=== PATIENT | female | born 1945 | race Caucasian/White ===

== ENCOUNTER → 2016-08-27 | Outpatient (CLI) | payer OTHER, MEDICARE ==
[~2016-08-27] MED LIST: AMOX875T PO; ASPI-391 PO; CALCTAB65 PO; FURO40TA3 PO; GABA-112 PO; HYDR-3126 PO; HYDR-5688 PO; INSDGI SC; INSUINJ14 SC; KRIL1CAP7 PO; LISI-792 PO; METH500T PO; MULT-506 PO; OMEG10007 PO; PARO40TA3 PO; ROSU20TA22 PO; RXC5 PO; SIMV10TA2 PO; WLLXL150 PO
--- NOTE | 2016-08-27 11:01 | DIAGNOSTIC IMAGING REPORT ---
RIGHT RIBS UNILATERAL WITH PA CHEST CLINICAL HISTORY: R07.81 Rib pain on right [id number] Right pain. Trauma. COMPARISON STUDY: None FINDINGS: Nondisplaced fractures right fourth and sixth ribs.] Midaxillary line. No evidence pneumothorax. Lungs are clear. IMPRESSION: Nondisplaced cortical fractures right fourth and sixth ribs. No evidence pneumothorax. Electronically signed by: Adriano Fregoso M.D. 08/27/2016 10:59 AM Dictated Date/Time: 08/27/2016 10:56 AM
[2016-08-27 11:10] LABS: BASO % 0.5 %; BASO ABS # 0.04 K/uL (0-0.2); COMPLETE YES; EOS % 1.7 %; IG% 0.3 %; LYMPH % 26.7 %; LYMPH ABS # 2.09 K/uL (1.2-3.4); MEAN CORPUSCULAR HEMOGLOBIN 28.6 pg (25-34); MEAN CORPUSCULAR HGB CONC 33.7 g/dl (32-36); MEAN PLATELET VOLUME 10.4 fL (7.4-10.4); MONO % 9.3 %; NEUT % 61.5 %; PLATELET COUNT 318 K/uL (130-400); RED BLOOD COUNT 4.12 M/uL (4.2-5.4); WHITE BLOOD COUNT 7.84 K/uL (4.8-10.8)
[2016-08-27 11:19] LABS: BLOOD UREA NITROGEN 20 mg/dl (7-18); BUN/CREATININE RATIO 22.8 (10-20); CALCIUM 9.1 mg/dl (8.5-10.1); CARBON DIOXIDE 27 mmol/L (21-32); CHLORIDE 103 mmol/L (98-107); CREATININE 0.89 mg/dl (0.60-1.20); GLUCOSE 192 mg/dl (70-99); POTASSIUM 4.3 mmol/L (3.5-5.1); SODIUM 138 mmol/L (136-145)
[2016-08-27 11:23] LABS: ESTIMATED AVERAGE GLUCOSE 229 mg/dl; HA1C FLAG Normal (Normal)
[2016-08-27 11:29] LABS: FERRITIN 19.1 ng/ml (8.0-388.0); TOTAL IRON BINDING CAPACITY 395 mcg/dl (250-450)
[2016-08-27 12:58] LABS: RATIO 7.8 mcg/mg (0-30.0)
== END | disposition home or self-care (01) ==
LOC: C.RAD1850 10:10
PROVIDERS: ATTEND Family Medicine
DX: R07.81 Pleurodynia (principal); R53.83 Other fatigue; M85.80 Other specified disorders of bone density and structure, unspecified site; Z87.898 Personal history of other specified conditions; I10 Essential (primary) hypertension; E78.5 Hyperlipidemia, unspecified; R80.9 Proteinuria, unspecified; R20.0 Anesthesia of skin; E55.9 Vitamin D deficiency, unspecified; E10.9 Type 1 diabetes mellitus without complications; E10.43 Type 1 diabetes mellitus with diabetic autonomic (poly)neuropathy; E10.42 Type 1 diabetes mellitus with diabetic polyneuropathy; Z11.59 Encounter for screening for other viral diseases; S22.41XA Multiple fractures of ribs, right side, initial encounter for closed fracture

== ENCOUNTER → 2017-01-07 | Outpatient (CLI) | payer OTHER, MEDICARE ==
--- NOTE | 2017-01-07 15:44 | MAMMOGRAPHY REPORT ---
BILATERAL DIGITAL SCREENING MAMMOGRAM WITH CAD: 01/07/2017 CLINICAL HISTORY: Routine screening. Patient has no complaints. TECHNIQUE: Bilateral CC and MLO views were obtained. Current study was also evaluated with a Comput er Aided Detection (CAD) system. COMPARISON: Comparison is made to exams dated: 05/09/2015 mammogram, 05/08/2014 mammogram, 3 mammogram, 03/30/2012 mammogram, 02/12/2011 mammogram, and 02/07/2011 mammogram - [facility]. BREAST COMPOSITION: There are scattered areas of fibroglandular density in both breasts. FINDINGS: An asymmetry in the upper outer middle one third of the right breast appears very similar t o the 02/07/2011 and 03/14/2008 mammograms, most likely normal overlapping tissue. There are mild va scular calcifications in the breasts. Bilateral benign-appearing coarse and rodlike calcifications. No suspicious mass, architectural distortion or cluster of suspicious microcalcifications is seen. IMPRESSION: ACR BI-RADS CATEGORY 1: NEGATIVE There is no mammographic evidence of malignancy. A 1 year screening mammogram is recommended. The pa tient will receive written notification of the results. Approximately 10% of breast cancers are not detected with mammography. A negative mammographic report should not delay biopsy if a clinically suggestive mass is present. Nadia Tate M.D. ay/:01/07/2017 15:19:27 Cabin Service Agent: Baylee AMAYA)(Cruz), [facility] letter sent: Normal 1/2 BI-RADS Code: ACR BI-RADS Category 1: Negative
== END | disposition home or self-care (01) ==
LOC: C.MAMM 14:21
PROVIDERS: ATTEND Nurse Practitioner Family
DX: Z12.31 Encounter for screening mammogram for malignant neoplasm of breast (principal)

== ENCOUNTER 2017-03-14 12:04 | Emergency (ER) | payer OTHER, MEDICARE ==
[~2017-03-14] VITALS: Ht 162.6 cm; Wt 80.7 kg
[~2017-03-14 12:04] MED LIST changes: -AMOX875T PO; -KRIL1CAP7 PO; -ROSU20TA22 PO
[2017-03-14 12:06] VITALS: TEMP 36.6; Ht 162.6 cm; Wt 80.7 kg
[2017-03-14] MEDS ORDERED: AMPICILLIN/SULBACTAM SOD INJ 3,000 MG in SODIUM CHLORIDE 0.9% 100ML 100 ML IV ONE (12:30)
--- NOTE | 2017-03-14 13:11 | DIAGNOSTIC IMAGING REPORT ---
LEFT HAND 3 VIEWS HISTORY: cat bite COMPARISON: None. FINDINGS: No acute fracture or dislocation. Old distal radius and ulnar styloid fractures. The bones are osteopenic. Mild degenerative changes seen within the DIP and PIP joints. Soft tissue swelling within the dorsum of the wrist and base of the thumb. No underlying bony destruction. No radiopaque foreign bodies. IMPRESSION: Soft tissue swelling within the dorsum of the wrist and base of the thumb. No underlying bony abnormality. Electronically signed by: Parminder Millan M.D. 03/14/2017 1:10 PM Dictated Date/Time: 03/14/2017 1:09 PM
[2017-03-14 13:32] VITALS: BP 128/87; PULSE 68; O2SAT 97
[2017-03-14] MEDS ORDERED: AMOX875T PO (13:34)
[2017-03-14] MEDS ORDERED: KRIL1CAP7 PO (13:41)
[2017-03-14] MEDS ORDERED: ROSU20TA22 PO (13:48)
--- NOTE | 2017-03-14 15:18 | EMERGENCY ROOM VISIT NOTE ---
History Report prepared by Marcy: Joaquina Goins Under the Supervision of: Joy KaurO. First contact with patient: 12:14 Chief Complaint: INFECTION Stated Complaint: INFECTED HAND - CAT BITE History of Present Illness The patient is a 71 year old female who presents to the Emergency Room with complaints of a sudden cat bite to her left arm that occurred last evening. She currently rates her discomfort as a 4/10 in severity. The patient states that she has been bitten by her cat in the past, noting that she has previously developed infections. She states that with one previous bite, she waited too long and had to be evaluated in the hospital for infection. The patient states that her cat's shots are up to date. She does note that the cat has a dirty mouth. Pt denies headache, change in vision, abnormal cough, fevers, chest pain , shortness of breath, nausea, vomiting, diarrhea, and pain with urination. Source of History: patient Onset: last evening Position: hand (left) Symptom Intensity: 4/10 Quality: other (cat bite) Timing: other (sudden) Review of Systems See HPI for pertinent positives & negatives. A total of 10 systems reviewed and were otherwise negative. Past Medical & Surgical Medical Problems: (1) Benign hypertension (2) Diabetes mellitus (3) Hypercholesterolemia (4) Lumbar epidural mass (5) Lumbar stenosis with neurogenic claudication Family History FH: diabetes mellitus Social History Smoking Status: Former Smoker Alcohol Use: heavy Drug Use: none Marital Status: Housing Status: lives with family Occupation Status: retired Current/Historical Medications Scheduled Amoxicillin & Pot Clavulanate (Augmentin 875-125 mg), 875 MG PO BID Sgwkxnz-Bsnczxtyblrch-Orqidxhn (Excedrin Extra Strength), 2 TAB PO HS Calcium Carbonate-Vitamin D (Calcium 500 + D), 1 TAB PO BID Insulin Glargine (Lantus), 18 UNITS SC QPM Krill Oil (Krill Oil [place]-3), 1 CAP PO DAILY Lisinopril (Zestril), 20 MG PO QAM Multivitamin (Multivitamin), 1 TAB PO QAM Paroxetine Hcl (Paxil), 40 MG PO QAM Rosuvastatin Calcium (Rosuvastatin Calcium), 20 MG PO QPM Scheduled PRN Furosemide (Lasix), 40 MG PO QAM PRN for SWELLING Hydroxyzine Hcl (Atarax), 25 MG PO TID PRN for Dizziness or Vertigo Insulin Aspart (Novolog Penfill), 0 SC TIDM PRN for HYPERGLYCEMIA Oxycodone HCl (Oxycodone HCl), 5-10 MG PO Q4H PRN for Moderate - severe pain Allergies Coded Allergies: No Known Allergies (Verified , 03/14/17) Physical Exam Vital Signs Date Time Temp Pulse Resp B/P (MAP) Pulse Ox O2 Delivery O2 Flow Rate FiO2 03/14/17 13:32 68 18 128/87 97 Room Air 03/14/17 12:06 36.6 79 16 116/67 96 Room Air Physical Exam GENERAL: alert, sitting up in bed, well appearing, well nourished, no distress, non-toxic EYE EXAM: normal conjunctiva. OROPHARYNX:: mucous membranes are moist LUNGS: Clear to auscultation. Normal chest wall mechanics HEART: no murmurs, S1 normal and S2 normal ABDOMEN: abdomen soft, non-tender, normo-active bowel sounds, no masses, no rebound or guarding. UPPER EXTREMITIES: 2 puncture wounds on dorsal aspect, first at the base of the 1st metacarpal, 2nd at the proximal third of the 2nd metacarpal. No swelling in digits, no erythema in digits. 9cm in length by 6 cm in width area of erythema which is warm. Radial pulse is 2/4, full range of motion of left shoulder, elbow, wrist, grasp and abduction of digits. NEURO EXAM: Normal sensorium. Medical Decision & Procedures ER Provider Diagnostic Interpretation: Radiology results as stated below per my review and the radiologist's interpretation: LEFT HAND 3 VIEWS HISTORY: cat bite COMPARISON: None. FINDINGS: No acute fracture or dislocation. Old distal radius and ulnar styloid fractures. The bones are osteopenic. Mild degenerative changes seen within the DIP and PIP joints. Soft tissue swelling within the dorsum of the wrist and base of the thumb. No underlying bony destruction. No radiopaque foreign bodies. IMPRESSION: Soft tissue swelling within the dorsum of the wrist and base of the thumb. No underlying bony abnormality. Electronically signed by: Parminder Millan M.D. 03/14/2017 1:10 PM Dictated Date/Time: 03/14/2017 1:09 PM Medications Administered Medications (Trade) Dose Ordered Sig/Anny Route Start Time Stop Time Status Last Admin Dose Admin Ampicillin Sodium/ Sulbactam Sodium 3000 mg/Sodium Chloride 108 ml @ 200 mls/hr ONE ONCE IV 03/14/17 12:30 03/14/17 13:02 DC 03/14/17 12:47 200 MLS/HR ED Course ED COURSE: Vital signs were reviewed and showed normal vitals The patients medical record was reviewed The above diagnostic studies were performed and reviewed. ED treatments and interventions as stated above. 1215: The patient was evaluated in room A12B. A complete history and physical examination was performed. 1230: Ordered Ampicillin Sodium/Sulbactam Sodium 3000 mg/Sodium Chloride 108 ml @ 200 mls/hr IV. 1321: Upon reevaluation, the patient is doing well. I updated her at this time and marked the areas of erythema. I discussed my findings with the patient and she understands and agrees with the treatment plan. Based on the patients age, coexisting illnesses, exam and lab findings the decision to treat as an outpatient was made. The patient remained stable while under my care. The patient appeared well at the time of discharge. Medical Decision Differential diagnosis includes etiologies such as cellulitis, abscess, MRSA infection, DVT, necrotizing fasciitis, dermatitis, drug eruption, as well as others were entertained. Patient is a 71-year-old female who presents to ER following a Bite last night. It is her own cat. Shots are up-to-date. Patient notes that she has been having swelling and redness. There is clear erythema to suggest cellulitis. Patient was given IV Unasyn and covered with Augmentin. It does not appear to the digits or the joint. X-ray shows no foreign bodies/tooth present. Patient was updated at bedside and discharged follow-up with PCP on Thursday. Erythema was outlined. She is well versed in Bites as this is the third time that this has occurred. Patient was discharged follow-up with PCP in 24-48 hours. Discussed with Pt concerning signs and symptoms to watch out for. Pt was instructed to follow up with their PCP and discussed with the patient their option to return to the ED at anytime for persistent or worsening symptoms. The appropriate anticipatory guidance and out-patient management, including indications for return to the emergency department, were explained at length to the patient and understood. Medication Reconcilliation Current Medication List: was personally reviewed by me Blood Pressure Screening Patient's blood pressure: Normal blood pressure Blood pressure disposition: Did not require urgent referral Impression Primary Impression: Cat bite Additional Impression: Cellulitis Scribe Attestation The scribe's documentation has been prepared under my direction and personally reviewed by me in its entirety. I confirm that the note above accurately reflects all work, treatment, procedures, and medical decision making performed by me. Departure Information Dispostion Home / Self-Care Prescriptions Amoxicillin & Pot Clavulanate (Augmentin 875-125 mg) 1 Tab Tab 875 MG PO BID for 10 Days, TAB Prov: Antoine Landry, DO 03/14/17 Referrals Greg Barrera M.D. (PCP) Forms HOME CARE DOCUMENTATION FORM, IMPORTANT VISIT INFORMATION, WORK / SCHOOL INSTRUCTIONS Patient Instructions Cellulitis - [facility], ED Bite Cat, [facility] ERN Additional Instructions Please follow up with your primary care doctor with in the next 24 hours. Any worsening of your symptoms, please return to the ED immediately. This includes any fevers greater than 100.4, worsening pain, spreading of the redness outside the marker, streaking redness up her arm, shaking chills, unable to close hand due to pain, chest pain, shortness breath, persistent nausea, vomiting, unable to eat or drink, or any other concerning signs or symptoms from your standpoint. Please take antibiotics as prescribed. Problem Qualifiers Primary Impression: Cat bite Encounter type: initial encounter Qualified Codes: W55.01XA - Bitten by cat , initial encounter Additional Impression: Cellulitis Site of cellulitis: unspecified site Qualified Codes: L03.90 - Cellulitis, unspecified
== END 2017-03-14 13:48 | disposition home or self-care (01) ==
LOC: C.EDB 12:05 → C.EDA 13:48
DX: S61.432A Puncture wound without foreign body of left hand, initial encounter (principal); L03.114 Cellulitis of left upper limb; W55.01XA Bitten by cat, initial encounter; I10 Essential (primary) hypertension; E11.9 Type 2 diabetes mellitus without complications; E78.00 Pure hypercholesterolemia, unspecified; Z87.891 Personal history of nicotine dependence; Z79.4 Long term (current) use of insulin; Z79.899 Other long term (current) drug therapy; Z83.3 Family history of diabetes mellitus

== ENCOUNTER 2017-03-16 16:00 | Inpatient (IN) | payer OTHER, MEDICARE ==
[~2017-03-16] VITALS: Ht 162.6 cm; Wt 80.7 kg
[~2017-03-16 16:00] MED LIST changes: +AMOX875T PO; -GABA-112 PO; -HYDR-5688 PO; +KRIL1CAP7 PO; -METH500T PO; -OMEG10007 PO; +ROSU20TA22 PO; -SIMV10TA2 PO; -WLLXL150 PO
[2017-03-16 17:22] LABS: BASO % 0.3 %; BASO ABS # 0.03 K/uL (0-0.2); COMPLETE YES; HEMATOCRIT 35.3 % (37-47); IG% 0.2 %; LYMPH % 24.7 %; LYMPH ABS # 2.77 K/uL (1.2-3.4); MEAN CELL VOLUME 87.8 fL (80-100); MEAN CORPUSCULAR HEMOGLOBIN 28.9 pg (25-34); MEAN CORPUSCULAR HGB CONC 32.9 g/dl (32-36); MEAN PLATELET VOLUME 10.7 fL (7.4-10.4); NEUT % 67.8 %; PLATELET COUNT 310 K/uL (130-400); RED BLOOD COUNT 4.02 M/uL (4.2-5.4); WHITE BLOOD COUNT 11.22 K/uL (4.8-10.8)
[2017-03-16] MEDS ORDERED: AZITHROMYCIN 500 MG / D5W 250 ML IV STA ×2 (17:32)
[2017-03-16] MEDS ORDERED: AZITHROMYCIN 500 MG / D5W 250 ML IV ONE ×2 (17:32)
[2017-03-16 17:37] LABS: PROTHROMBIN TIME (PATIENT) 10.2 SECONDS (9.0-12.0)
[2017-03-16 17:43] LABS: BUN/CREATININE RATIO 29.3 (10-20); CALCIUM 9.6 mg/dl (8.5-10.1); CREATININE 1.1 mg/dl (0.60-1.20); POTASSIUM 4.5 mmol/L (3.5-5.1)
[2017-03-16] MEDS ORDERED: PIPERACILLIN/TAZOBACTAM 4.5 GM/100ML D5W IV STA (17:44)
[2017-03-16] MEDS ORDERED: GLUCOSE 10 TABS/TUBE PO PRN (18:45)
[2017-03-16] MEDS ORDERED: ACETAMINOPHEN 325 MG TAB PO PRN (18:45)
[2017-03-16] MEDS ORDERED: DEXTROSE 50% 50 ML SYR IV PRN (18:45)
[2017-03-16] MEDS ORDERED: GLUCOSE 40% GEL 15 GM TUBE PO PRN (18:45)
[2017-03-16] MEDS ORDERED: ONDANSETRON INJ 2 MG/ML 2 ML VIAL IV PRN (18:45)
[2017-03-16] MEDS ORDERED: ZOLPIDEM TARTRATE 5 MG TAB PO PRN (18:45)
[2017-03-16] MEDS ORDERED: GLUCAGON FOR INJ 1 MG VIAL SQ PRN (18:45)
[2017-03-16] MEDS ORDERED: VANCOMYCIN INJ 1,000 MG in SODIUM CHLORIDE 0.9% 250ML 250 ML IV STA (18:50)
[2017-03-16] MEDS ORDERED: ONDANSETRON INJ 2 MG/ML 2 ML VIAL ONE (19:05)
[2017-03-16] MEDS ORDERED: VANCOMYCIN INJ 2,000 MG in SODIUM CHLORIDE 0.9% 500ML 500 ML IV ONE (19:30)
[2017-03-16] MEDS ORDERED: VANCOMYCIN CONSULT ACTIVE PRN (19:45)
[2017-03-16 20:30] VITALS: BP 131/56; PULSE 81; TEMP 36.8; O2SAT 98
--- NOTE | 2017-03-16 20:32 | Pharmacy Progress Note ---
Pharmacy Abx Dose Short Note Date of Service Mar 16, 2017. Assessment & Plan Pt is a 71yo F known to the pharmacy kinetic team from previous admissions. 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 qSOFA score of 0 currently. Negative for Sys BP<100mmHg, negative AMS, negative for tachypnea. Pt population p' kinetics: t1/2=15hrs, Ke=0.0451, Vd=0.7. Pt doesn't have a h/o MDRO. Vanco: * Vanco 2000mg (~25mg/kg) x1 to quickly achieve a peak of about 35mcg/mL * Then Vanco 1250mg (15mg/kg) q12 set to start at 0600 on 03/17/17. This Vanco maintenance dose is based on her baseline renal fxn. Baseline: Scr=~0.8, eCrCl=~ 65cc/min. If her renal fxn doesn't improve it may be prudent to increase the dosing interval. * Goal trough: 15-20mcg/mL until C/s's result * Trough ordered for 03/18/17 @0530 prior to the third maintenance dose. Zosyn: * Received Zosyn bolus @1810 * Set to receive EI Zosyn 3.375g q8, appropriate for clinical status and eCrCL> 20cc/MIN Pharmacy will continue to follow and will adjust dose/frequency as necessary. Thank you.
[2017-03-16 21:00] VITALS: BMI 30.5
[2017-03-16] MEDS ORDERED: PIPERACILL/TAZOBAC CONSULT ACTIVE PRN (21:00)
[2017-03-16] MEDS ORDERED: NON-FORMULARY MEDICATION (Aspirin-Acetaminophen-Caffeine (Excedrin Extra Strength) 2 TAB) PO SCH (21:00)
--- NOTE | 2017-03-16 22:02 | EMERGENCY ROOM VISIT NOTE ---
History Report prepared by Marcy: Julito Mccall Under the Supervision of: Dr. Chris Guzman M.D. First contact with patient: 16:48 Chief Complaint: WOUND INFECTION Stated Complaint: CAT BITE INFECTED Nursing Triage Summary: cat bite getting worse was seen on antibiotics getting worse. sent over from the PCP History of Present Illness The patient is a 71 year old female who presents to the Emergency Room with complaints of a worsening cat bite that started a couple of days ago. She rates her pain as a 5/10 in severity and reports that the bite is located on her left arm. She states that she was seen here on March 14 due to her cat bite. The patient states that she was diagnosed with cellulitis and was given Augmentin. She reports that the doctor had drawn a line around her swollen, erythematous area and was told to see if the area spread. She admits that she has been taking her medication, but reports that her bite has been worsening. The patient states that the area has spread beyond the line and has increased in pain. She reports that she squeezed the area and noticed pus and clear liquid was pushed out. The patient reports that she talked to her PCP who told her to report to the ED due to her symptoms. The patient admits to a history of Diabetic Mellitus and reports that her sugar level has been in the 400s at times. She states that she has poor glycemic control in general. She admits that her shots are up to date. The patient denies any fever or vomiting. Source of History: patient Onset: a couple of days ago Position: arm (left) Symptom Intensity: 5/10 Quality: other (erythematous, warm) Timing: worsening Modifying Factors (Relieving): other (Augmentin) Associated Symptoms: No fevers, No vomiting Review of Systems See HPI for pertinent positives & negatives. A total of 10 systems reviewed and were otherwise negative. Past Medical & Surgical Medical Problems: (1) Benign hypertension (2) Diabetes mellitus (3) Hypercholesterolemia (4) Lumbar epidural mass (5) Lumbar stenosis with neurogenic claudication Family History FH: diabetes mellitus Social History Smoking Status: Never Smoker Alcohol Use: heavy Drug Use: none Marital Status: Housing Status: lives with family Occupation Status: retired Current/Historical Medications Scheduled Amoxicillin & Pot Clavulanate (Augmentin 875-125 mg), 875 MG PO BID Pltazgz-Pnceflokttjbr-Jmmescdj (Excedrin Extra Strength), 2 TAB PO HS Calcium Carbonate-Vitamin D (Calcium 500 + D), 1 TAB PO BID Insulin Glargine (Lantus), 18 UNITS SC QPM Krill Oil (Krill Oil [place]-3), 1 CAP PO DAILY Lisinopril (Zestril), 20 MG PO QAM Multivitamin (Multivitamin), 1 TAB PO QAM Paroxetine Hcl (Paxil), 40 MG PO QAM Rosuvastatin Calcium (Rosuvastatin Calcium), 20 MG PO QPM Scheduled PRN Furosemide (Lasix), 40 MG PO QAM PRN for SWELLING Hydroxyzine Hcl (Atarax), 25 MG PO TID PRN for Dizziness or Vertigo Insulin Aspart (Novolog Penfill), 0 SC TIDM PRN for HYPERGLYCEMIA Allergies Coded Allergies: Oxycodone (Verified Allergy, Mild, ITCHING, 03/16/17) Physical Exam Vital Signs Date Time Temp Pulse Resp B/P (MAP) Pulse Ox O2 Delivery O2 Flow Rate FiO2 03/16/17 18:03 64 20 108/55 92 Room Air 03/16/17 16:17 36.9 78 20 108/53 95 Room Air Physical Exam Constitutional: Vital signs reviewed. Eyes: Pupils are equal round reactive to light. Conjunctiva are noninjected. ENT: Pharynx is clear without erythema or exudate. Mucous membranes are moist. Neck supple without meningeal signs. Respiratory: Clear to auscultation bilaterally. Breath sounds are equal bilaterally. Cardiovascular: Regular rate and rhythm. No rubs or gallops. GI: Soft, nondistended and nontender. Bowel sounds are present. Musculoskeletal: No peripheral edema. No lower extremity tenderness. Swelling and redness to the dorsum of the left hand extending up to 2/3s of her forearm. Tenderness over dorsum of hand at puncture sites. Full ROM of wrist without pain. No swelling or pain with ROM of fingers. Normal distal pulses. Integumentary: No cyanosis. Neurological: The patient is awake and alert. No focal deficits. Psychiatric: Normal affect. Medical Decision & Procedures Laboratory Results 03/16/17 17:12 Red Blood Count 4.02, Mean Corpuscular Volume 87.8, Mean Corpuscular Hemoglobin 28.9, Mean Corpuscular Hemoglobin Concent 32.9, Mean Platelet Volume 10.7, Neutrophils (%) (Auto) 67.8, Lymphocytes (%) (Auto) 24.7, Monocytes (%) (Auto) 6.0, Eosinophils (%) (Auto) 1.0, Basophils (%) (Auto) 0.3, Neutrophils # (Auto) 7.62, Lymphocytes # (Auto) 2.77, Monocytes # (Auto) 0.67, Eosinophils # (Auto) 0.11, Basophils # (Auto) 0.03 03/16/17 17:12 Test 03/16/17 17:12 White Blood Count 11.22 K/uL (4.8-10.8) Red Blood Count 4.02 M/uL (4.2-5.4) Hemoglobin 11.6 g/dL (12.0-16.0) Hematocrit 35.3 % (37-47) Mean Corpuscular Volume 87.8 fL (80-100) Mean Corpuscular Hemoglobin 28.9 pg (25-34) Mean Corpuscular Hemoglobin Concent 32.9 g/dl (32-36) Platelet Count 310 K/uL (130-400) Mean Platelet Volume 10.7 fL (7.4-10.4) Neutrophils (%) (Auto) 67.8 % Lymphocytes (%) (Auto) 24.7 % Monocytes (%) (Auto) 6.0 % Eosinophils (%) (Auto) 1.0 % Basophils (%) (Auto) 0.3 % Neutrophils # (Auto) 7.62 K/uL (1.4-6.5) Lymphocytes # (Auto) 2.77 K/uL (1.2-3.4) Monocytes # (Auto) 0.67 K/uL (0.11-0.59) Eosinophils # (Auto) 0.11 K/uL (0-0.5) Basophils # (Auto) 0.03 K/uL (0-0.2) RDW Standard Deviation 44.5 fL (36.4-46.3) RDW Coefficient of Variation 13.7 % (11.5-14.5) Immature Granulocyte % (Auto) 0.2 % Immature Granulocyte # (Auto) 0.02 K/uL (0.00-0.02) Prothrombin Time 10.2 SECONDS (9.0-12.0) Prothromb Time International Ratio 1.0 (0.9-1.1) Activated Partial Thromboplast Time 25.2 SECONDS (21.0-31.0) Partial Thromboplastin Ratio 1.0 Anion Gap 6.0 mmol/L (3-11) Est Creatinine Clear Calc Drug Dose 48.9 ml/min Estimated GFR () 58.9 Estimated GFR (Non- 50.8 BUN/Creatinine Ratio 29.3 (10-20) Calcium Level 9.6 mg/dl (8.5-10.1) Laboratory results as reviewed by me. Medications Administered Medications (Trade) Dose Ordered Sig/Anny Route Start Time Stop Time Status Last Admin Dose Admin Azithromycin 500 mg/Dextrose 255 ml @ 127.5 mls/ hr 1732 ONCE IV 03/16/17 17:32 03/16/17 19:31 DC 03/16/17 18:00 127.5 MLS/HR Piperacillin Sod/ Tazobactam Sod (Zosyn Iv) 4.5 gm NOW STAT IV 03/16/17 17:44 03/16/17 17:45 DC 03/16/17 18:10 4.5 GM ED Course 1651: The patient was evaluated in room A08. A complete history and physical exam was performed. 1732: Ordered Azithromycin 500 mg/Dextrose 255 ml @ 127.5 mls/hr IV. 1744: Ordered Zosyn Iv 4.5 gm IV. 1754: I discussed the patient's case with Dr. Pinzon, [facility] Hospitalist. He understands the patient's condition and agrees to accept the patient. The patient will be further evaluated. Medical Decision This is a 71-year-old female presents with an infected cat bite. Differential diagnosis includes cellulitis, abscess, Scratch disease, lymphangitis, outpatient treatment failure. I did perform a limited focused review of portions of the patient's old chart on the electronic medical record. The patient has had a recent visit on March 14 for a cat bite to her left arm. She was diagnosed with cellulitis and was put on Augmentin. She had an x- ray done that showed no foreign body. I did evaluate the patient as noted above. Patient is presenting with infection of her Eye. She has been on antibiotics for several days with worsening of her symptoms. She denies any fever or vomiting. She does admit to poor glycemic control. She did have some drainage from her wounds but on examination here she has no signs of abscess. There is no signs of tenosynovitis or septic arthritis. IV access was established. Blood cultures were obtained. I did talk to the ED pharmacist who recommended treatment with IV azithromycin and Zosyn. The patient's were given these medications. I did order and review the patient's blood work as noted in the electronic medical record. I did discuss the case with the hospitalist and correctional casework specialist. Medication Reconcilliation Current Medication List: was personally reviewed by me Blood Pressure Screening Patient's blood pressure: Low blood pressure Consults Time Called: 1753 Consulting Physician: Dr. Pinzon [facility] Hospitalist Returned Call: [phone] I discussed the patient's case with Dr. Pinzon [facility] Hospitalist. He understands the patient's condition and agrees to accept the patient. The patient will be further evaluated. Impression Primary Impression: Infected cat bite Additional Impressions: Failure of outpatient treatment Cellulitis Scribe Attestation The scribe's documentation has been prepared under my direct and personally reviewed by me in its entirety. I confirm that the note above accurately reflects all work, treatment, procedures, and medical decision making performed by me. Departure Information Dispostion Being Evaluated By Hospitalist Referrals No Doctor, Assigned (PCP) Patient Instructions My [facility] Problem Qualifiers Primary Impression: Infected cat bite Encounter type: initial encounter Qualified Codes: W55.01XA - Bitten by cat , initial encounter Additional Impressions: Cellulitis Site of cellulitis: extremity Site of cellulitis of extremity: upper extremity Laterality: left Qualified Codes: L03.114 - Cellulitis of left upper limb
[2017-03-16] MEDS ORDERED: INSULIN HUMAN REGULAR PER UNIT 8 UNITS in SYRINGE 7.92 ML IV ONE (22:30)
[2017-03-16] MEDS: CALCIUM 600MG + VIT D 400 IU TAB PO SCH (22:33)
[2017-03-16] MEDS: ROSUVASTATIN CALCIUM 20 MG TAB PO SCH (22:34)
[2017-03-16] MEDS: INSULIN ASPART 100 UNITS/ML 3 ML PEN SC SCH (22:38)
[2017-03-16] MEDS: INSULIN GLARGINE SOLOSTAR 100 UNITS/ML 3 ML PEN SC SCH (22:39)
[2017-03-16 23:10] VITALS: BP 116/65; PULSE 73; TEMP 36.9; O2SAT 97
[2017-03-16] MEDS ORDERED: NURSING VERBAL MED ORDER ONE (23:30)
[2017-03-17] MEDS: INSULIN ASPART 100 UNITS/ML 3 ML PEN SC SCH ×6 (00:05→21:44)
[2017-03-17] MEDS: PIPERACILL/TAZOBAC IV 3.375 GM in DEXTROSE 5% 100ML 100 ML IV SCH ×3 (00:06→17:37)
[2017-03-17] MEDS ORDERED: INSULIN HUMAN REGULAR PER UNIT 5 UNITS in SYRINGE 4.95 ML IV SCH (01:00)
[2017-03-17] MEDS ORDERED: VANCOMYCIN INJ 1,250 MG in SODIUM CHLORIDE 0.9% 250ML 250 ML IV SCH ×2 (06:00→22:00)
[2017-03-17 06:53] LABS: BASO % 0.4 %; BASO ABS # 0.03 K/uL (0-0.2); COMPLETE YES; EOS % 2.9 %; HEMATOCRIT 35.5 % (37-47); IG% 0.2 %; LYMPH % 23.8 %; LYMPH ABS # 1.91 K/uL (1.2-3.4); MEAN CORPUSCULAR HEMOGLOBIN 28.6 pg (25-34); MEAN CORPUSCULAR HGB CONC 32.1 g/dl (32-36); MEAN PLATELET VOLUME 10.6 fL (7.4-10.4); MONO % 6.4 %; NEUT % 66.3 %; PLATELET COUNT 299 K/uL (130-400); RED BLOOD COUNT 3.99 M/uL (4.2-5.4); WHITE BLOOD COUNT 8.02 K/uL (4.8-10.8)
[2017-03-17 07:05] VITALS: BP 100/54; PULSE 73; TEMP 37.1; O2SAT 99
[2017-03-17 07:28] LABS: BUN/CREATININE RATIO 24.1 (10-20); CALCIUM 9.2 mg/dl (8.5-10.1); CREATININE 1.2 mg/dl (0.60-1.20); POTASSIUM 4.8 mmol/L (3.5-5.1)
[2017-03-17 07:38] LABS: BETA-HYDROXYBUTYRATE 7.07 mg/dL (0.2-2.81)
[2017-03-17] MEDS ORDERED: INFLUENZA ADMINISTRATION CHARGE ONE (08:00)
[2017-03-17] MEDS ORDERED: INFLUENZA VACCINE HIGH DOSE 65+ 0.5 ML SYR IM. ONE (08:00)
[2017-03-17] MEDS: CALCIUM 600MG + VIT D 400 IU TAB PO SCH ×2 (08:51→21:37)
[2017-03-17] MEDS: LISINOPRIL 20 MG TAB PO SCH (08:51)
[2017-03-17] MEDS: MULTIVITAMIN TAB PO SCH (08:51)
[2017-03-17] MEDS ORDERED: KRILL OIL PO SCH (09:00)
--- NOTE | 2017-03-17 10:17 | History and Physical ---
History & Physical Date & Time of Service: Mar 17, 2017 at 10:09 Chief Complaint: Cat Bite,Cellulitis Of Left Hand Primary Care Physician: Kam Friend III, CRNP History of Present Illness Source: patient The patient is a 71-year-old female who presents emergency department with worsening swelling, redness, warmth and pain of her left hand and forearm after her cat bit her 3 days ago. She has some generalized fatigue, but has no myalgias or arthralgias. The cat is up-to-date on its shots. She is up-to- date on her tetanus shot. Past Medical/Surgical History Medical Problems: (1) Benign hypertension Status: Chronic (2) Diabetes mellitus Status: Chronic (3) Hypercholesterolemia Status: Chronic Family History FH: diabetes mellitus Social History Smoking Status: Never Smoker Smokeless Tobacco Use: No Alcohol Use: none Drug Use: none Marital Status: Housing status: lives with family Occupational Status: retired Immunizations History of Influenza Vaccine: Unknown History of Tetanus Vaccine?: APPROX 5 YEARS AGO History of Pneumococcal: Unknown History of Hepatitis B Vaccine: No Multi-Drug Resistant Organisms History of MDRO: No Allergies Coded Allergies: Oxycodone (Verified Allergy, Mild, ITCHING, 03/16/17) Home Medications Scheduled Amoxicillin & Pot Clavulanate (Augmentin 875-125 mg), 875 MG PO BID Fwtxxlm-Uoxivieekrpto-Udigltxu (Excedrin Extra Strength), 2 TAB PO HS Calcium Carbonate-Vitamin D (Calcium 500 + D), 1 TAB PO BID Insulin Glargine (Lantus), 18 UNITS SC QPM Krill Oil (Krill Oil [place]-3), 1 CAP PO DAILY Lisinopril (Zestril), 20 MG PO QAM Multivitamin (Multivitamin), 1 TAB PO QAM Paroxetine Hcl (Paxil), 40 MG PO QAM Rosuvastatin Calcium (Rosuvastatin Calcium), 20 MG PO QPM Scheduled PRN Furosemide (Lasix), 40 MG PO QAM PRN for SWELLING Hydroxyzine Hcl (Atarax), 25 MG PO TID PRN for Dizziness or Vertigo Insulin Aspart (Novolog Penfill), 0 SC TIDM PRN for HYPERGLYCEMIA Review of Systems The patient denies chest pain, palpitations, shortness of breath, cough, lower extremity swelling, vision change, hearing change, sore throat, fevers, chills, sweats, weight change, nausea, vomiting, diarrhea or constipation, abdominal pain, pelvic pain, blood in urine or stool, dysuria, urinary frequency or urgency, lightheadedness, dizziness, headache, memory loss, abnormal bruising or bleeding, imbalance, focal or generalized weakness, numbness or tingling in legs, generalized arthralgias or myalgias, back or neck pain, night sweats, or allergy symptoms. The review of systems is otherwise negative other than for that already noted above, and at least 10 systems have been reviewed. Physical Exam Vital Signs Date Time Temp Pulse Resp B/P (MAP) Pulse Ox O2 Delivery O2 Flow Rate FiO2 03/17/17 07:30 Room Air 03/17/17 07:05 37.1 73 18 100/54 (69) 99 Room Air 03/17/17 00:15 Room Air 03/16/17 23:10 36.9 73 16 116/65 (82) 97 Room Air 03/16/17 21:00 Room Air 03/16/17 20:30 36.8 81 18 131/56 (81) 98 Room Air 03/16/17 20:06 66 20 140/77 99 03/16/17 19:12 65 20 139/77 98 Room Air 03/16/17 18:03 64 20 108/55 92 Room Air 03/16/17 16:17 36.9 78 20 108/53 95 Room Air The patient is awake, well-developed and adequately nourished, alert and oriented 3, normocephalic and atraumatic, lying in bed and in no acute distress. HEENT--PERRL, EOMI, mucous membranes and oropharynx dry. Neck--supple, no JVD or bruits, thyroid normal, trachea midline, no adenopathy. Heart--normal S1 and S2, no extra beats, no murmurs, rubs or gallops. Lungs--clear bilaterally with good air movement, no respiratory distress, no accessory muscle use. Abdomen--normal bowel sounds and soft, nontender and nondistended, no hernias or masses, no organomegaly. Extremities/Dermatologic--left upper extremity: Hand with 2-3+ edema, redness and warmth extending shelter up the forearm with progressive erythema beyond previous markings. Neurologic--cranial nerves II through XII grossly intact, motor and sensory examination normal. Rheumatologic--normal range of motion, nontender, muscles and joints except for left upper extremity. Psychiatric--normal affect. Diagnostics Laboratory Results Results Past 24 Hours Test 03/16/17 17:12 03/16/17 19:00 03/16/17 21:55 03/16/17 23:50 Range/Units White Blood Count 11.22 4.8-10.8 K/uL Red Blood Count 4.02 4.2-5.4 M/uL Hemoglobin 11.6 12.0-16.0 g/dL Hematocrit 35.3 37-47 % Mean Corpuscular Volume 87.8 80-100 fL Mean Corpuscular Hemoglobin 28.9 25-34 pg Mean Corpuscular Hemoglobin Concent 32.9 32-36 g/dl Platelet Count 310 130-400 K/uL Mean Platelet Volume 10.7 7.4-10.4 fL Neutrophils (%) (Auto) 67.8 % Lymphocytes (%) (Auto) 24.7 % Monocytes (%) (Auto) 6.0 % Eosinophils (%) (Auto) 1.0 % Basophils (%) (Auto) 0.3 % Neutrophils # (Auto) 7.62 1.4-6.5 K/uL Lymphocytes # (Auto) 2.77 1.2-3.4 K/uL Monocytes # (Auto) 0.67 0.11-0.59 K/uL Eosinophils # (Auto) 0.11 0-0.5 K/uL Basophils # (Auto) 0.03 0-0.2 K/uL RDW Standard Deviation 44.5 36.4-46.3 fL RDW Coefficient of Variation 13.7 11.5-14.5 % Immature Granulocyte % (Auto) 0.2 % Immature Granulocyte # (Auto) 0.02 0.00-0.02 K/uL Prothrombin Time 10.2 9.0-12.0 SECONDS Prothromb Time International Ratio 1.0 0.9-1.1 Activated Partial Thromboplast Time 25.2 21.0-31.0 SECONDS Partial Thromboplastin Ratio 1.0 Sodium Level 137 136-145 mmol/L Potassium Level 4.5 3.5-5.1 mmol/L Chloride Level 105 98-107 mmol/L Carbon Dioxide Level 26 21-32 mmol/L Anion Gap 6.0 3-11 mmol/L Blood Urea Nitrogen 32 7-18 mg/dl Creatinine 1.10 0.60-1.20 mg/dl Est Creatinine Clear Calc Drug Dose 48.9 ml/min Estimated GFR () 58.9 Estimated GFR (Non- 50.8 BUN/Creatinine Ratio 29.3 10-20 Random Glucose 156 70-99 mg/dl Calcium Level 9.6 8.5-10.1 mg/dl Bedside Glucose 170 411 296 70-90 mg/dl Test 03/17/17 03:44 03/17/17 04:14 03/17/17 06:32 03/17/17 07:52 Range/Units Bedside Glucose 49 87 328 70-90 mg/dl White Blood Count 8.02 4.8-10.8 K/uL Red Blood Count 3.99 4.2-5.4 M/uL Hemoglobin 11.4 12.0-16.0 g/dL Hematocrit 35.5 37-47 % Mean Corpuscular Volume 89.0 80-100 fL Mean Corpuscular Hemoglobin 28.6 25-34 pg Mean Corpuscular Hemoglobin Concent 32.1 32-36 g/dl Platelet Count 299 130-400 K/uL Mean Platelet Volume 10.6 7.4-10.4 fL Neutrophils (%) (Auto) 66.3 % Lymphocytes (%) (Auto) 23.8 % Monocytes (%) (Auto) 6.4 % Eosinophils (%) (Auto) 2.9 % Basophils (%) (Auto) 0.4 % Neutrophils # (Auto) 5.32 1.4-6.5 K/uL Lymphocytes # (Auto) 1.91 1.2-3.4 K/uL Monocytes # (Auto) 0.51 0.11-0.59 K/uL Eosinophils # (Auto) 0.23 0-0.5 K/uL Basophils # (Auto) 0.03 0-0.2 K/uL RDW Standard Deviation 44.9 36.4-46.3 fL RDW Coefficient of Variation 13.7 11.5-14.5 % Immature Granulocyte % (Auto) 0.2 % Immature Granulocyte # (Auto) 0.02 0.00-0.02 K/uL Sodium Level 136 136-145 mmol/L Potassium Level 4.8 3.5-5.1 mmol/L Chloride Level 102 98-107 mmol/L Carbon Dioxide Level 26 21-32 mmol/L Anion Gap 8.0 3-11 mmol/L Blood Urea Nitrogen 29 7-18 mg/dl Creatinine 1.20 0.60-1.20 mg/dl Est Creatinine Clear Calc Drug Dose 44.8 ml/min Estimated GFR () 53.0 Estimated GFR (Non- 45.8 BUN/Creatinine Ratio 24.1 10-20 Random Glucose 316 70-99 mg/dl Calcium Level 9.2 8.5-10.1 mg/dl Magnesium Level 2.0 1.8-2.4 mg/dl Beta-Hydroxybutyric Acid 7.07 0.2-2.81 mg/dL Microbiology Results 03/16/17 Blood Culture, Received Pending 03/16/17 Blood Culture, Received Pending Diagnostic Radiology Patient Name: LUCERO SANDERS Unit Number: [id number] Dictated: 03/14/171308 Transcribed: 03/14/171308 PANeocleus Printed Date/Time: [~ rep prt dt]/[~ rep prt tm] [~ rep ct labl] - [~ rep ct ivnm] [facility] Radiology Department [place] [id number] Dictated: 03/14/171308 Transcribed: 03/14/171308 PAJ Printed Date/Time: [~ rep prt dt]/[~ rep prt tm] [~ rep ct labl] - [~ rep ct ivnm] LEFT HAND 3 VIEWS HISTORY: cat bite COMPARISON: None. FINDINGS: No acute fracture or dislocation. Old distal radius and ulnar styloid fractures. The bones are osteopenic. Mild degenerative changes seen within the DIP and PIP joints. Soft tissue swelling within the dorsum of the wrist and base of the thumb. No underlying bony destruction. No radiopaque foreign bodies. IMPRESSION: Soft tissue swelling within the dorsum of the wrist and base of the thumb. No underlying bony abnormality. Electronically signed by: Parminder Millan M.D. 03/14/2017 1:10 PM Dictated Date/Time: 03/14/2017 1:09 PM The status of this report is Signed. Draft = Not yet reviewed or approved by Radiologist. Signed = Reviewed and approved by Radiologist. <AttendingPhy></AttendingPhy> <FamilyPhy>Greg Barrera M.D.</FamilyPhy> < PrimaryPhy>Greg Barrera M.D.</PrimaryPhy> <UnitNumber>[id number]</UnitNumber> < VisitNumber>[id number]</VisitNumber> <PatientName>LUCERO SANDERS</PatientName > <DateOfBirth>1945</DateOfBirth> <Location>[facility]</Location> <ServiceDate> 03/14/17</ServiceDate> <MNE>ESINDI</MNE> <OrderingPhy>Antoine Landry DO</ OrderingPhy> <OrderingPhyMNE>f rep ord dr bolton</OrderingPhyMNE> <DictatingPhyMNE> f rep dict dr bolton</DictatingPhyMNE> <CCListMNE>f rep ct gwene</CCListMNE> < AdmittingPhyMNE>f pt admit dr bolton</AdmittingPhyMNE> <AttendingPhyMNE>f pt attend dr bolton</AttendingPhyMNE> <ConsultingPhyMNE>f pt consult dr bolton</ConsultingPhyMNE> <FamilyPhyMNE>f pt fam dr bolton</FamilyPhyMNE> <OtherPhyMNE>f pt other dr bolton</OtherPhyMNE> < PrimaryPhyMNE>f pt prim care dr bolton</PrimaryPhyMNE> <ReferringPhyMNE>f pt referring dr bolton</ReferringPhyMNE> Impression Assessment and Plan Left upper extremity sialitis and lymphangitis secondary to cat bite-- Patient has received azithromycin IV and Zosyn IV and emergency department. Admitted on vancomycin IV and Zosyn IV. Probiotics. Diabetes mellitus-- Continue Lantus insulin 18 units subcutaneous every afternoon. Impression Accu-Cheks before meals and at bedtime with NovoLog coverage per scale. Depression--continue Paxil 40 mg by mouth every morning. Hypertension--continue lisinopril 20 mg by mouth every morning. Hypercholesterolemia--continue his simvastatin 20 mg by mouth every afternoon. Migraine--continue extra strength Excedrin for placement when necessary Level of Care Med/Surg Advanced Directives Existing Advance Directive: No Existing Living Will: Yes (Perfecto) Existing Power of Shooting Gallery Operator: Yes (Perfecto) Resuscitation Status FULL RESUSCITATION VTE Prophylaxis VTE Risk Assessment Done? Y/N: Yes Risk Level: Moderate Given or contraindicated: SCD's Social Service Consult None Apply
--- NOTE | 2017-03-17 10:42 | Medical Consult ---
Consultation Date of Consultation: Mar 17, 2017. Attending Physician: Jesus Pinzon M.D. Reason for Consultation: Cat bite with cellulitis History of Present Illness 71-year-old female with diabetes mellitus was bitten by her cat approximately 3 days ago, with subsequent rapid onset, within 12 hours, a progressively worsening erythema, pain, and swelling. Was seen in the emergency room and started on Augmentin but symptoms worsened, pain 5/10 in intensity, no associated fever but some fatigue, and patient eventually returned and was admitted for further management. She has been started on vancomycin and Zosyn in the shows some clinical improvement over the last 12 hours. Currently afebrile, pain has decreased. Sugar has been somewhat erratic. X-ray showed no evidence of deep infection. Past Medical/Surgical History Medical Problems: (1) Cellulitis Status: Acute (2) Cellulitis Status: Acute (3) Failure of outpatient treatment Status: Acute (4) Infected cat bite Status: Acute (5) Lower extremity weakness Status: Acute (6) Postoperative back pain Status: Acute (7) Postoperative seroma Status: Acute Medical Problems: (1) Benign hypertension (2) Diabetes mellitus (3) Hypercholesterolemia (4) Lumbar epidural mass (5) Lumbar stenosis with neurogenic claudication Family History FH: diabetes mellitus Social History Smoking Status: Never Smoker Smokeless Tobacco Use: No Alcohol Use: none Drug Use: none Marital Status: Housing Status: lives with family Occupation Status: retired Allergies Coded Allergies: Oxycodone (Verified Allergy, Mild, ITCHING, 03/16/17) Current Inpatient Medications Current Inpatient Medications Medications (Trade) Dose Ordered Sig/Anny Route Start Time Stop Time Status Last Admin Dose Admin Acetaminophen (Tylenol Tab) 650 mg Q4H PRN PO 03/16/17 18:45 04/15/17 18:44 Zolpidem Tartrate (Ambien Tab) 5 mg HSZ PRN PO 03/16/17 18:45 04/15/17 18:44 Insulin Glargine (Lantus Solostar Pen) 18 units QPM SC 03/16/17 21:00 04/15/17 20:59 03/16/17 22:39 18 UNITS Lisinopril (Zestril Tab) 20 mg QAM PO 03/17/17 09:00 04/16/17 08:59 03/17/17 08:51 20 MG Multivitamins (Multivitamin Tab) 1 tab QAM PO 03/17/17 09:00 04/16/17 08:59 03/17/17 08:51 1 TAB Rosuvastatin Calcium (Crestor Tab) 20 mg QPM PO 03/16/17 21:00 04/15/17 20:59 03/16/17 22:34 20 MG Calcium/Vitamin D (Caltrate Plus Tab) 1 tab BID PO 03/16/17 21:00 04/15/17 20:59 03/17/17 08:51 1 TAB Ondansetron HCl (Zofran Inj) 4 mg Q6H PRN IV 03/16/17 18:45 04/15/17 18:44 Insulin Aspart (novoLOG ASPART) SLIDING SCALE If C... ACHS SC 03/16/17 21:00 04/15/17 20:59 03/17/17 08:56 10 UNITS Glucose (Glucose 40% Gel) UD PRN PO 03/16/17 18:45 04/15/17 18:44 Glucose (Glucose Chew Tab) 1 tabs UD PRN PO 03/16/17 18:45 04/15/17 18:44 Dextrose (Dextrose 50% 50ML Syringe) 50 ml UD PRN IV 03/16/17 18:45 04/15/17 18:44 Glucagon (Glucagon Inj) 1 mg UD PRN SQ 03/16/17 18:45 04/15/17 18:44 Piperacillin Sod/ Tazobactam Sod 3.375 gm/Dextrose 115 ml @ 28.75 mls/ hr Q8H IV 03/17/17 00:00 03/27/17 00:00 03/17/17 08:49 28.75 MLS/HR Vancomycin HCl (Consult) 1 ea UD PRN N/A 03/16/17 19:45 04/15/17 19:44 Piperacillin Sod/ Tazobactam Sod (Consult) 1 ea UD PRN N/A 03/16/17 21:00 04/15/17 20:59 Vancomycin HCl 1250 mg/Sodium Chloride 275 ml @ 125 mls/hr Q12@0600,1800 IV 03/17/17 06:00 03/27/17 05:59 03/17/17 05:38 125 MLS/HR Insulin Aspart (novoLOG ASPART) SLIDING SCALE If C... 0400 OR 03/17/17 04:00 04/16/17 03:59 Insulin Aspart (novoLOG ASPART) SLIDING SCALE If C... 0000 OR 03/17/17 00:00 04/16/17 00:00 03/17/17 00:05 5 UNITS Review of Systems All systems were reviewed and are negative except as per HPI Physical Exam Date Time Temp Pulse Resp B/P (MAP) Pulse Ox O2 Delivery O2 Flow Rate FiO2 03/17/17 07:30 Room Air 03/17/17 07:05 37.1 73 18 100/54 (69) 99 Room Air 03/17/17 00:15 Room Air 03/16/17 23:10 36.9 73 16 116/65 (82) 97 Room Air 03/16/17 21:00 Room Air 03/16/17 20:30 36.8 81 18 131/56 (81) 98 Room Air 03/16/17 20:06 66 20 140/77 99 03/16/17 19:12 65 20 139/77 98 Room Air 03/16/17 18:03 64 20 108/55 92 Room Air 03/16/17 16:17 36.9 78 20 108/53 95 Room Air General Appearance: WD/WN, no apparent distress Head: normocephalic, atraumatic Eyes: normal inspection, EOMI, sclerae normal ENT: normal ENT inspection, pharynx normal Neck: supple, no adenopathy, thyroid normal, trachea midline Respiratory/Chest: chest non-tender, lungs clear, normal breath sounds, no respiratory distress Cardiovascular: regular rate, rhythm, no gallop, no murmur Abdomen/GI: normal bowel sounds, non tender, soft, no organomegaly Back: normal inspection, no CVA tenderness Extremities/Musculoskelatal: no calf tenderness, normal capillary refill Neurologic/Psych: alert, normal mood/affect, oriented x 3 Skin: normal color, warm/dry, + pertinent finding ( cellulitis involving the dorsum of left hand and forearm) Lymphatic: no adenopathy Laboratory Results Date/Time Source Procedure Growth Status 03/16/17 17:12 Blood Blood Culture Pending Received 03/16/17 17:00 Blood Blood Culture Pending Received Last 24 Hours Test 03/16/17 17:12 03/16/17 19:00 03/16/17 21:55 03/16/17 23:50 White Blood Count 11.22 K/uL Red Blood Count 4.02 M/uL Hemoglobin 11.6 g/dL Hematocrit 35.3 % Mean Corpuscular Volume 87.8 fL Mean Corpuscular Hemoglobin 28.9 pg Mean Corpuscular Hemoglobin Concent 32.9 g/dl Platelet Count 310 K/uL Mean Platelet Volume 10.7 fL Neutrophils (%) (Auto) 67.8 % Lymphocytes (%) (Auto) 24.7 % Monocytes (%) (Auto) 6.0 % Eosinophils (%) (Auto) 1.0 % Basophils (%) (Auto) 0.3 % Neutrophils # (Auto) 7.62 K/uL Lymphocytes # (Auto) 2.77 K/uL Monocytes # (Auto) 0.67 K/uL Eosinophils # (Auto) 0.11 K/uL Basophils # (Auto) 0.03 K/uL RDW Standard Deviation 44.5 fL RDW Coefficient of Variation 13.7 % Immature Granulocyte % (Auto) 0.2 % Immature Granulocyte # (Auto) 0.02 K/uL Prothrombin Time 10.2 SECONDS Prothromb Time International Ratio 1.0 Activated Partial Thromboplast Time 25.2 SECONDS Partial Thromboplastin Ratio 1.0 Sodium Level 137 mmol/L Potassium Level 4.5 mmol/L Chloride Level 105 mmol/L Carbon Dioxide Level 26 mmol/L Anion Gap 6.0 mmol/L Blood Urea Nitrogen 32 mg/dl Creatinine 1.10 mg/dl Est Creatinine Clear Calc Drug Dose 48.9 ml/min Estimated GFR () 58.9 Estimated GFR (Non- 50.8 BUN/Creatinine Ratio 29.3 Random Glucose 156 mg/dl Calcium Level 9.6 mg/dl Bedside Glucose 170 mg/dl 411 mg/dl 296 mg/dl Test 03/17/17 03:44 03/17/17 04:14 03/17/17 06:32 03/17/17 07:52 Bedside Glucose 49 mg/dl 87 mg/dl 328 mg/dl White Blood Count 8.02 K/uL Red Blood Count 3.99 M/uL Hemoglobin 11.4 g/dL Hematocrit 35.5 % Mean Corpuscular Volume 89.0 fL Mean Corpuscular Hemoglobin 28.6 pg Mean Corpuscular Hemoglobin Concent 32.1 g/dl Platelet Count 299 K/uL Mean Platelet Volume 10.6 fL Neutrophils (%) (Auto) 66.3 % Lymphocytes (%) (Auto) 23.8 % Monocytes (%) (Auto) 6.4 % Eosinophils (%) (Auto) 2.9 % Basophils (%) (Auto) 0.4 % Neutrophils # (Auto) 5.32 K/uL Lymphocytes # (Auto) 1.91 K/uL Monocytes # (Auto) 0.51 K/uL Eosinophils # (Auto) 0.23 K/uL Basophils # (Auto) 0.03 K/uL RDW Standard Deviation 44.9 fL RDW Coefficient of Variation 13.7 % Immature Granulocyte % (Auto) 0.2 % Immature Granulocyte # (Auto) 0.02 K/uL Sodium Level 136 mmol/L Potassium Level 4.8 mmol/L Chloride Level 102 mmol/L Carbon Dioxide Level 26 mmol/L Anion Gap 8.0 mmol/L Blood Urea Nitrogen 29 mg/dl Creatinine 1.20 mg/dl Est Creatinine Clear Calc Drug Dose 44.8 ml/min Estimated GFR () 53.0 Estimated GFR (Non- 45.8 BUN/Creatinine Ratio 24.1 Random Glucose 316 mg/dl Calcium Level 9.2 mg/dl Magnesium Level 2.0 mg/dl Beta-Hydroxybutyric Acid 7.07 mg/dL Assessment & Plan 71-year-old female with cellulitis of her left hand and forearm associated with cat bite, suspect pasteurella infection given repeated the onset, but staph and strep also possible. Will consider discontinuation of vancomycin after today if blood cultures remain negative, and hopefully can transition in the near future back to oral Augmentin. Will follow.
--- NOTE | 2017-03-17 10:58 | Clinical Documentation Query ---
STEVE Pearson : CLINICAL DOCUMENTATION QUERY Patient is a 71 year old female admitted for evaluation and treatment of swelling, redness, warmth, and pain in her left hand associated with a cat bite. H&P documents "left upper extremity sialitis", which by indexing instructions, codes to sialoadenitis. This assigns to a DRG unrelated by body system to suspected cellulitis. Please clarify as clinically appropriate. Thank you. In your clinical opinion is this patient being managed for: ( ) Cellulitis of left hand secondary to cat bite ( ) Not Agree ( ) Other explanation of clinical findings (Please Explain) ( ) Unable to determine (Please Define) ( ) Need to Discuss The medical record reflects the following clinical findings, treatment, and risk factors. Clinical Indicators: As above Treatment:Patient has received azithromycin IV and Zosyn IV and emergency department. Admitted on vancomycin IV and Zosyn IV. Probiotics. Risk Factors: Cat bite Please clarify and document your clinical opinion in the progress notes and discharge summary. Terms such as "probable", "suspected", "likely", "questionable", "possible", or "still to be ruled out" are acceptable. IF IN AGREEMENT, YOU MUST DOCUMENT ABOVE DIAGNOSTIC STATEMENT IN DAILY PROGRESS NOTES AND DISCHARGE SUMMARY. This document is not part of the patient's record. Thank You, Ramses Lizama RN [phone]
[2017-03-17 14:18] VITALS: Ht 162.6 cm; Wt 80.7 kg
[2017-03-17 15:00] VITALS: BP 118/71; PULSE 72; TEMP 37.1; O2SAT 97
[2017-03-17 16:50] VITALS: O2SAT 97
[2017-03-17] MEDS: ROSUVASTATIN CALCIUM 20 MG TAB PO SCH (21:38)
[2017-03-17] MEDS: INSULIN GLARGINE SOLOSTAR 100 UNITS/ML 3 ML PEN SC SCH (21:45)
--- NOTE | 2017-03-17 23:06 | Progress Note ---
Progress Note Date of Service Mar 17, 2017. Progress Note Patient admitted today. Cellulitis has improved significantly. will continue with current antibiotics. ID on board.
[2017-03-17 23:22] VITALS: BP 114/55; PULSE 70; TEMP 36.9; O2SAT 95
[2017-03-18] MEDS: PIPERACILL/TAZOBAC IV 3.375 GM in DEXTROSE 5% 100ML 100 ML IV SCH ×2 (00:19→07:59)
[2017-03-18] MEDS: INSULIN ASPART 100 UNITS/ML 3 ML PEN SC SCH ×4 (04:00→13:00)
[2017-03-18] MEDS ORDERED: VANCOMYCIN TROUGH ONE ×2 (05:30→13:30)
[2017-03-18 05:53] LABS: BASO % 0.5 %; BASO ABS # 0.04 K/uL (0-0.2); COMPLETE YES; HEMATOCRIT 34.2 % (37-47); IG% 0.1 %; LYMPH % 37.8 %; LYMPH ABS # 3.15 K/uL (1.2-3.4); MEAN CELL VOLUME 88.1 fL (80-100); MEAN CORPUSCULAR HEMOGLOBIN 29.1 pg (25-34); MEAN PLATELET VOLUME 10.6 fL (7.4-10.4); MONO % 8.6 %; PLATELET COUNT 288 K/uL (130-400); RED BLOOD COUNT 3.88 M/uL (4.2-5.4); WHITE BLOOD COUNT 8.33 K/uL (4.8-10.8)
[2017-03-18 06:36] LABS: BUN/CREATININE RATIO 19.7 (10-20); CALCIUM 9.3 mg/dl (8.5-10.1); CREATININE 1.1 mg/dl (0.60-1.20); MAGNESIUM 2.1 mg/dl (1.8-2.4); POTASSIUM 3.9 mmol/L (3.5-5.1)
[2017-03-18 07:07] VITALS: BP 130/80; PULSE 70; TEMP 36.7; O2SAT 98
[2017-03-18] MEDS: CALCIUM 600MG + VIT D 400 IU TAB PO SCH (08:41)
[2017-03-18] MEDS: MULTIVITAMIN TAB PO SCH (08:41)
[2017-03-18] MEDS: LISINOPRIL 20 MG TAB PO SCH (08:41)
--- NOTE | 2017-03-18 14:32 | Discharge Instructions ---
Discharge Instructions Date of Service Mar 18, 2017. Admission Reason for Admission: Cat Bite,Cellulitis Of Left Hand Discharge Discharge Diagnosis / Problem: cellulitis of left hand Discharge Goals Goal(s): Decrease discomfort, Improve function Activity Recommendations Activity Limitations: resume your previous activity . Instructions / Follow-Up Instructions / Follow-Up Follow up with Primary care office in 2-3 days. Current Hospital Diet Patient's current hospital diet: Diabetes Type 1 Diet Discharge Diet Recommended Diet: Regular Diet Pending Studies Studies pending at discharge: no Medical Emergencies . Who to Call and When: Medical Emergencies: If at any time you feel your situation is an emergency, please call 911 immediately. . Non-Emergent Contact Non-Emergency issues call your: Primary Care Provider Call Non-Emergent contact if: you have a fever . . "Provider Documentation" section prepared by Dmitriy Veliz. . VTE Core Measure Inpt VTE Proph given/why not?: SCD's
--- NOTE | 2017-03-18 14:36 | Discharge Summary ---
Discharge Summary Date of Service Mar 18, 2017. Discharge Summary Admission Date: Mar 16, 2017 at 18:49 Discharge Date: Mar 18, 2017 Immunizations: Have You Had Influenza Vaccine: Unknown History of Tetanus Vaccine?: APPROX 5 YEARS AGO History of Pneumococcal: Unknown History of Hepatitis B Vaccine: No Hospital Course This includes examination of the patient, discharge planning, medication reconciliation, and communication with other providers. Discharge Instructions Please refer to the electronic Patient Visit Report (Discharge Instructions) for additional information.
[2017-03-18 15:10] VITALS: BP 130/80; PULSE 70; TEMP 36.7; O2SAT 98
[2017-03-18 15:20] VITALS: BP 103/67; PULSE 71; TEMP 36.9; O2SAT 96
== END 2017-03-18 15:36 | disposition home or self-care (01) | DRG 603 ==
LOC: C.EDB 16:01 → C.MSW 18:49 → ENRESERV 19:53
PROVIDERS: ADMIT Hospitalist; ATTEND Hospitalist
DX: L03.114 Cellulitis of left upper limb (principal); S61.452A Open bite of left hand, initial encounter; W55.01XA Bitten by cat, initial encounter; I10 Essential (primary) hypertension; E78.00 Pure hypercholesterolemia, unspecified; E11.9 Type 2 diabetes mellitus without complications; G43.909 Migraine, unspecified, not intractable, without status migrainosus; F32.9 Major depressive disorder, single episode, unspecified; Z23 Encounter for immunization; Z79.4 Long term (current) use of insulin; Z79.82 Long term (current) use of aspirin; Z79.899 Other long term (current) drug therapy

== ENCOUNTER 2017-04-19 21:12 | Observation (INO) | payer OTHER, MEDICARE ==
[~2017-04-19] VITALS: Ht 162.6 cm; Wt 80.0 kg
[~2017-04-19 21:12] MED LIST changes: -AMOX875T PO; -RXC5 PO
[2017-04-19] MEDS ORDERED: ONDANSETRON INJ 2 MG/ML 2 ML VIAL IV STA (21:24)
[2017-04-19] MEDS ORDERED: SODIUM CHLORIDE 0.9% 500ML 500 ML IV STA (21:24)
[2017-04-19] MEDS ORDERED: DIPHTHERIA/TETANUS/PERTUSSIS 0.5 ML SYR/VIAL IM. ONE (21:30)
[2017-04-19] MEDS ORDERED: DEXTROSE 50% 50 ML SYR IV ONE ×2 (21:30→23:00)
--- NOTE | 2017-04-19 21:41 | EMERGENCY ROOM VISIT NOTE ---
History Report prepared by Marcy: Mona Valles Under the Supervision of: Dr. Kvng Zimmerman M.D. First contact with patient: 21:20 Stated Complaint: HYPOGLYCEMIC, FALL, ETOH History of Present Illness The patient is a 71 year old female who presents to the Emergency Room with complaints of hypoglycemia and a fall that started a short time ago. This HPI is limited secondary to severe intoxication. Per the nursing staff, the patient was vomiting when the EMS got to her. The patient was drinking vodka earlier today. Per EMS, the patient fell face down. The patient's blood sugar was 51 and was given 25 grams of IV dextrose by the EMS. The patient denies being in any pain. Source of History: EMS, nursing staff History Limited By: intoxication Onset: short time ago Position: other (global) Associated Symptoms: + vomiting Review of Systems Limited ROS secondary to heavily intoxicated patient. Past Medical & Surgical Medical Problems: (1) Benign hypertension (2) Diabetes mellitus (3) Hypercholesterolemia (4) Hypoglycemia (5) LOC (loss of consciousness) (6) Lumbar epidural mass (7) Lumbar stenosis with neurogenic claudication Family History FH: diabetes mellitus Social History Smoking Status: Never Smoker Alcohol Use: heavy Drug Use: none Marital Status: Housing Status: lives with family Occupation Status: retired Current/Historical Medications Scheduled Calcium Carbonate-Vitamin D (Calcium 500 + D), 1 TAB PO BID Insulin Glargine (Lantus Solostar), 18 UNITS SQ QPM Krill Oil (Krill Oil [place]-3), 1 CAP PO DAILY Lisinopril (Zestril), 20 MG PO QAM Multivitamin (Multivitamin), 1 TAB PO QAM Paroxetine Hcl (Paxil), 40 MG PO QAM Rosuvastatin Calcium (Rosuvastatin Calcium), 20 MG PO QPM Scheduled PRN Ldtnuiv-Phvjgubejxoyr-Pgzvdafb (Excedrin Extra Strength), 2 TAB PO DAILY PRN for Headache or Pain Furosemide (Lasix), 40 MG PO QAM PRN for SWELLING Hydroxyzine Hcl (Atarax), 25 MG PO TID PRN for Dizziness or Vertigo Insulin Aspart (Novolog Flexpen), UNITS SQ TIDM PRN for PER SLIDING SCALE Allergies Coded Allergies: Oxycodone (Verified Allergy, Mild, ITCHING, 03/16/17) Physical Exam Vital Signs Date Time Temp Pulse Resp B/P (MAP) Pulse Ox O2 Delivery O2 Flow Rate FiO2 04/19/17 23:15 113/63 94 04/19/17 23:13 101 16 04/19/17 22:43 97 16 04/19/17 22:34 97 16 121/73 94 Room Air 04/19/17 22:31 152/71 04/19/17 22:13 81 16 04/19/17 22:13 85 18 133/66 94 Room Air 04/19/17 21:37 94 Room Air 04/19/17 21:31 79 04/19/17 21:23 36.9 78 18 142/65 96 Room Air Physical Exam GENERAL: Patient is in no acute distress. HEENT: 5 cm hematoma to right frontal/temporal scalp. Abrasion is present. No laceration requiring repair. No obvious facial trauma seen. Mucus membranes are moist. NECK: Stiff collar in place. LUNGS: Clear to auscultation bilaterally, no wheeze, no rhonchi, breath sounds equal. HEART: Without murmurs gallops or rubs, regular rate and rhythm. ABDOMEN: Soft, nontender, bowel sounds positive, no hernias, no peritonitis. EXTREMITIES: No cyanosis or edema, full range of motion of all the joints without pain or difficulty, no signs for acute trauma. NEUROLOGIC: Somnolent, opens eyes to loud voice, slurs speech slightly, no focal motor deficits. SKIN: No rash, no jaundice, no diaphoresis. Medical Decision & Procedures ER Provider Diagnostic Interpretation: Radiology results as stated below per my review and radiologist interpretation: HEAD WITHOUT CONTRAST (CT) CT DOSE: 2254.88 mGy.cm HISTORY: Trauma EVALUATE ALTERED MENTAL STATUS/WEAKNESS TECHNIQUE: Multiaxial CT images of the head were performed without the use of intravenous contrast. A dose lowering technique was utilized adhering to the principles of ALARA. Comparison: 01/21/2016 Findings: The paranasal sinuses and mastoid air cells are clear. The calvarium and skull base are intact. The ventricles and sulci are within normal limits. There is no mass, hematoma, midline shift, or acute infarct. Age-related atrophy and chronic small vessel change. No acute intracranial hemorrhage. Right prefrontal extracranial soft tissue edema. Impression: Age-related change. No acute intracranial abnormality. The above report was generated using voice recognition software. It may contain grammatical, syntax or spelling errors. Electronically signed by: Adriano Fregoso M.D. 04/19/2017 10:09 PM Dictated Date/Time: 04/19/2017 10:08 PM CHEST ONE VIEW PORTABLE CLINICAL HISTORY: EVALUATE ALTERED MENTAL STATUS/WEAKNESS dyspnea COMPARISON STUDY: 05/29/2016 FINDINGS: The bones soft tissues and hemidiaphragms are normal. The cardiomediastinal silhouette is normal. The lungs are clear. The pulmonary vasculature is normal. IMPRESSION: Negative chest. The above report was generated using voice recognition software. It may contain grammatical, syntax or spelling errors. Electronically signed by: Adriano Fregoso M.D. 04/19/2017 10:50 PM Dictated Date/Time: 04/19/2017 10:50 PM CERVICAL SPINE W/O CT DOSE: HISTORY: Trauma fall, ethos TECHNIQUE: Multiaxial CT images of the cervical spine were performed and reformatted in the sagittal and coronal plane without the use of contrast. A dose lowering technique was utilized adhering to the principles of ALARA. COMPARISON: None. FINDINGS: Vertebral body stature is unremarkable throughout. There is a grade 1 anterolisthesis of C4 and C5. There are degenerative vertebral disc changes significant from C5 through C7. There is no acute compression deformity. Posterior elements are intact at all levels. Mastoid air cells are considered clear. T1 C2 complex is intact. IMPRESSION: Degenerative change. No acute bony abnormality. The above report was generated using voice recognition software. It may contain grammatical, syntax or spelling errors. Electronically signed by: Adriano Fregoso M.D. 04/19/2017 10:11 PM Dictated Date/Time: 04/19/2017 10:10 PM Laboratory Results 04/19/17 21:38 Red Blood Count 4.16, Mean Corpuscular Volume 87.7, Mean Corpuscular Hemoglobin 29.3, Mean Corpuscular Hemoglobin Concent 33.4, Mean Platelet Volume 10.2, Neutrophils (%) (Auto) 53.2, Lymphocytes (%) (Auto) 40.2, Monocytes (%) (Auto) 5.0, Eosinophils (%) (Auto) 1.2, Basophils (%) (Auto) 0.3, Neutrophils # (Auto) 3.93, Lymphocytes # (Auto) 2.97, Monocytes # (Auto) 0.37, Eosinophils # (Auto) 0.09, Basophils # (Auto) 0.02 04/19/17 21:38 Test 04/19/17 21:35 04/19/17 21:38 Urine Color YELLOW Urine Appearance CLEAR (CLEAR) Urine pH 5.5 (4.5-7.5) Urine Specific [place] 1.010 (1.000-1.030) Urine Protein NEG (NEG) Urine Glucose (UA) 2+ (NEG) Urine Ketones NEG (NEG) Urine Occult Blood 1+ (NEG) Urine Nitrite NEG (NEG) Urine Bilirubin NEG (NEG) Urine Urobilinogen NEG (NEG) Urine Leukocyte Esterase NEG (NEG) Urine RBC 0-4 /hpf (0-4) Urine WBC 1-5 /hpf (0-5) Urine Epithelial Cells >30 /lpf (0-5) Urine Bacteria NEG (NEG) Urine Hyaline Casts 10-30 /lpf (0-5) Urine Mucus PRESENT (NONE PRSENT) Urine Opiates Screen NEG (NEG) Urine Methadone, Qualitative NEG (NEG) Urine Barbiturates NEG (NEG) Urine Phencyclidine (PCP) Level NEG (NEG) Ur Amphetamine/Methamphetamine NEG (NEG) MDMA (Ecstasy) Screen NEG (NEG) Urine Benzodiazepines Screen NEG (NEG) Urine Cocaine Metabolite NEG (NEG) Urine Marijuana (THC) NEG (NEG) White Blood Count 7.39 K/uL (4.8-10.8) Red Blood Count 4.16 M/uL (4.2-5.4) Hemoglobin 12.2 g/dL (12.0-16.0) Hematocrit 36.5 % (37-47) Mean Corpuscular Volume 87.7 fL (80-100) Mean Corpuscular Hemoglobin 29.3 pg (25-34) Mean Corpuscular Hemoglobin Concent 33.4 g/dl (32-36) Platelet Count 271 K/uL (130-400) Mean Platelet Volume 10.2 fL (7.4-10.4) Neutrophils (%) (Auto) 53.2 % Lymphocytes (%) (Auto) 40.2 % Monocytes (%) (Auto) 5.0 % Eosinophils (%) (Auto) 1.2 % Basophils (%) (Auto) 0.3 % Neutrophils # (Auto) 3.93 K/uL (1.4-6.5) Lymphocytes # (Auto) 2.97 K/uL (1.2-3.4) Monocytes # (Auto) 0.37 K/uL (0.11-0.59) Eosinophils # (Auto) 0.09 K/uL (0-0.5) Basophils # (Auto) 0.02 K/uL (0-0.2) RDW Standard Deviation 42.5 fL (36.4-46.3) RDW Coefficient of Variation 13.2 % (11.5-14.5) Immature Granulocyte % (Auto) 0.1 % Immature Granulocyte # (Auto) 0.01 K/uL (0.00-0.02) Prothrombin Time 10.2 SECONDS (9.0-12.0) Prothromb Time International Ratio 1.0 (0.9-1.1) Activated Partial Thromboplast Time 23.0 SECONDS (21.0-31.0) Partial Thromboplastin Ratio 0.9 Anion Gap 8.0 mmol/L (3-11) Est Creatinine Clear Calc Drug Dose 49.2 ml/min Estimated GFR () 56.4 Estimated GFR (Non- 48.7 BUN/Creatinine Ratio 25.8 (10-20) Calcium Level 8.9 mg/dl (8.5-10.1) Magnesium Level 2.1 mg/dl (1.8-2.4) Total Bilirubin 0.2 mg/dl (0.2-1) Aspartate Amino Transf (AST/SGOT) 24 U/L (15-37) Alanine Aminotransferase (ALT/SGPT) 29 U/L (12-78) Alkaline Phosphatase 119 U/L (45-117) Ammonia < 10.0 umol/L (11-32) Total Creatine Kinase 72 U/L (26-192) Troponin I < 0.015 ng/ml (0-0.045) Total Protein 7.2 gm/dl (6.4-8.2) Albumin 3.4 gm/dl (3.4-5.0) Globulin 3.8 gm/dl (2.5-4.0) Albumin/Globulin Ratio 0.9 (0.9-2) Thyroid Stimulating Hormone (TSH) 2.660 uIu/ml (0.300-4.500) Ethyl Alcohol mg/dL 243.9 mg/dl (0-3) Laboratory results reviewed by me. Medications Administered Medications (Trade) Dose Ordered Sig/Anny Route Start Time Stop Time Status Last Admin Dose Admin Ondansetron HCl (Zofran Inj) 4 mg NOW STAT IV 04/19/17 21:24 04/19/17 21:27 DC 04/19/17 21:41 4 MG Dextrose (Dextrose 50% 50ML Syringe) 25 ml NOW ONCE IV 04/19/17 21:30 04/19/17 21:31 DC 04/19/17 21:41 25 ML Sodium Chloride 500 ml @ 999 mls/hr Q31M STAT IV 04/19/17 21:24 04/19/17 21:54 DC 04/19/17 21:43 999 MLS/HR Diphtheria/ Pertussis/Tetanus Vacc (Adacel Inj) 0.5 ml ONCE ONCE IM. 04/19/17 21:30 04/19/17 21:31 DC 04/19/17 21:42 0.5 ML Dextrose (Dextrose 50% 50ML Syringe) 25 ml NOW ONCE IV 04/19/17 23:00 04/19/17 23:01 DC 04/19/17 22:59 25 ML Dextrose 1,000 ml @ 125 mls/hr Q8H STAT IV 04/19/17 22:54 04/20/17 00:38 DC 04/19/17 23:28 125 MLS/HR ECG Indication: other (hypoglycemia) Rate (beats per minute): 81 Rhythm: normal sinus Findings: LBBB, no acute ischemic change, other (no dysrhythmia) ED Course 2119: The patient was evaluated in room C4. A complete history and physical exam was performed. 2122: There was a repeat blood sugar test and her blood sugar is now in the 90s. 2123: Sodium Chloride 500 ml @ 999 mls/hr IV, Zofran Inj 4 mg IV. 0: Adacel Inj 0.5 ml IM, Dextrose 25 ml IV. 8: I reassessed the patient. Her blood sugar keeps dropping. I will start her on a drip of dextrose. 2254: Dextrose 1000 ml @ 125 mls/hr IV. 2300: Dextrose 25 ml IV. 2315: Discussed the patient's case PETER Perez. The patient will be evaluated for further management. Medical Decision Differential diagnosis: Intracranial bleeding, skull fracture, c-spine injury, intoxication, drug abuse , infection, dehydration, electrolyte imbalance, anemia. There is no leukocytosis or concerning anemia. No renal failure. Blood sugar kept dropping here. The patient was eventually placed on a dextrose drip. No hepatitis. Total CK is have not elevated making rhabdomyolysis less likely. EKG shows a sinus rhythm with a left bundle-branch block, no ischemia. Cardiac enzyme testing times one is not consistent with acute cardiac injury. There is no coagulopathy. Urinalysis does not show infection. Urine tox is negative. Alcohol level is elevated at over 200. Ammonia level is not elevated. The patient appears to be in a euthyroid state. Chest x-ray does not show pneumonia or CHF. Brain CT shows no acute bleed or mass effect. C- spine CT shows no acute fracture. The patient received IV saline, she was given IV D50--2 separate times. As her blood sugar continued to drop, she was placed on a D5 IV drip. She received IV Zofran for nausea. She was given an Adacel booster IM because of the scalp abrasion/hematoma. The patient has been aggressively managed. As she continues to drop her blood sugar, I do think a hospital stay is warranted. She is in no condition to be discharged home. She is acutely intoxicated with alcohol, this led to the fall. The hypoglycemia is worsening her situation. Luckily, the head injury appears to be external. No other injuries noted by exam or workup. I spoke to the patient and case management. The on-call hospitalist was consulted. Head Trauma GCS Score: 12 Medication Reconcilliation Current Medication List: was personally reviewed by me Blood Pressure Screening Patient's blood pressure: Normal blood pressure Consults Time Called: [id number] Consulting Physician: PETER Perez Returned Call: 8 Discussed the patient's case PETER Perez. The patient will be evaluated for further management. Impression Primary Impression: Head trauma Additional Impressions: Vomiting Alcohol abuse Hypoglycemia Fall Critical Care I have personally spent greater than 34 minutes of critical care time in the direct management of this patient. This includes bedside care, interpretation of diagnostic studies, and testing, discussion with consultants, patient, and family members, and other required patient management activities. This 34 minutes is in excess of all separately billable procedures. Scribe Attestation The scribe's documentation has been prepared under my direction and personally reviewed by me in its entirety. I confirm that the note above accurately reflects all work, treatment, procedures, and medical decision making performed by me. Departure Information Dispostion Being Evaluated By Hospitalist Referrals Kam Friend III, CRNP (PCP) Problem Qualifiers
[2017-04-19 21:49] LABS: BASO % 0.3 %; BASO ABS # 0.02 K/uL (0-0.2); COMPLETE YES; EOS % 1.2 %; HEMATOCRIT 36.5 % (37-47); IG% 0.1 %; LYMPH % 40.2 %; LYMPH ABS # 2.97 K/uL (1.2-3.4); MEAN CELL VOLUME 87.7 fL (80-100); MEAN CORPUSCULAR HEMOGLOBIN 29.3 pg (25-34); MEAN CORPUSCULAR HGB CONC 33.4 g/dl (32-36); MEAN PLATELET VOLUME 10.2 fL (7.4-10.4); NEUT % 53.2 %; PLATELET COUNT 271 K/uL (130-400); RED BLOOD COUNT 4.16 M/uL (4.2-5.4); WHITE BLOOD COUNT 7.39 K/uL (4.8-10.8)
[2017-04-19 21:57] LABS: PARTIAL THROMBOPLASTIN RATIO 0.9; PROTHROMBIN TIME (PATIENT) 10.2 SECONDS (9.0-12.0)
--- NOTE | 2017-04-19 22:11 | DIAGNOSTIC IMAGING REPORT ---
HEAD WITHOUT CONTRAST (CT) CT DOSE: 2254.88 mGy.cm HISTORY: Trauma EVALUATE ALTERED MENTAL STATUS/WEAKNESS TECHNIQUE: Multiaxial CT images of the head were performed without the use of intravenous contrast. A dose lowering technique was utilized adhering to the principles of ALARA. Comparison: 01/21/2016 Findings: The paranasal sinuses and mastoid air cells are clear. The calvarium and skull base are intact. The ventricles and sulci are within normal limits. There is no mass, hematoma, midline shift, or acute infarct. Age-related atrophy and chronic small vessel change. No acute intracranial hemorrhage. Right prefrontal extracranial soft tissue edema. Impression: Age-related change. No acute intracranial abnormality. The above report was generated using voice recognition software. It may contain grammatical, syntax or spelling errors. Electronically signed by: Adriano Fregoso M.D. 04/19/2017 10:09 PM Dictated Date/Time: 04/19/2017 10:08 PM
--- NOTE | 2017-04-19 22:13 | DIAGNOSTIC IMAGING REPORT ---
CERVICAL SPINE W/O CT DOSE: HISTORY: Trauma fall, ethos TECHNIQUE: Multiaxial CT images of the cervical spine were performed and reformatted in the sagittal and coronal plane without the use of contrast. A dose lowering technique was utilized adhering to the principles of ALARA. COMPARISON: None. FINDINGS: Vertebral body stature is unremarkable throughout. There is a grade 1 anterolisthesis of C4 and C5. There are degenerative vertebral disc changes significant from C5 through C7. There is no acute compression deformity. Posterior elements are intact at all levels. Mastoid air cells are considered clear. T1 C2 complex is intact. IMPRESSION: Degenerative change. No acute bony abnormality. The above report was generated using voice recognition software. It may contain grammatical, syntax or spelling errors. Electronically signed by: Adriano Fregoso M.D. 04/19/2017 10:11 PM Dictated Date/Time: 04/19/2017 10:10 PM
[2017-04-19 22:17] LABS: ALT/SGPT 29 U/L (12-78); BLOOD UREA NITROGEN 29 mg/dl (7-18); BUN/CREATININE RATIO 25.8 (10-20); CALCIUM 8.9 mg/dl (8.5-10.1); CARBON DIOXIDE 27 mmol/L (21-32); CHLORIDE 101 mmol/L (98-107); CREATININE 1.14 mg/dl (0.60-1.20); GLUCOSE 107 mg/dl (70-99); MAGNESIUM 2.1 mg/dl (1.8-2.4); POTASSIUM 3.5 mmol/L (3.5-5.1); SODIUM 136 mmol/L (136-145)
[2017-04-19] MEDS ORDERED: INSDGIPEN SQ (22:24)
[2017-04-19] MEDS ORDERED: NVLGI/PEN SQ (22:24)
[2017-04-19 22:28] LABS: ALB/GLOB RATIO 0.9 (0.9-2); ALKALINE PHOSPHATASE 119 U/L (45-117); AST/SGOT 24 U/L (15-37)
[2017-04-19 22:31] LABS: BENZODIAZEPINE, URINE NEG (NEG); COCAINE,URINE NEG (NEG); PHENCYCLIDINE, URINE NEG (NEG)
--- NOTE | 2017-04-19 22:52 | DIAGNOSTIC IMAGING REPORT ---
CHEST ONE VIEW PORTABLE CLINICAL HISTORY: EVALUATE ALTERED MENTAL STATUS/WEAKNESS dyspnea COMPARISON STUDY: 05/29/2016 FINDINGS: The bones soft tissues and hemidiaphragms are normal. The cardiomediastinal silhouette is normal. The lungs are clear. The pulmonary vasculature is normal. IMPRESSION: Negative chest. The above report was generated using voice recognition software. It may contain grammatical, syntax or spelling errors. Electronically signed by: Adriano Fregoso M.D. 04/19/2017 10:50 PM Dictated Date/Time: 04/19/2017 10:50 PM
[2017-04-19] MEDS ORDERED: DEXTROSE 5% 1000ML 1,000 ML IV STA (22:54)
[2017-04-19 23:28] LABS: MANUAL MICROSCOPIC REQUIRED? YES; URINE APPEARANCE CLEAR (CLEAR); URINE BILIRUBIN NEG (NEG); URINE COLOR YELLOW; URINE NITRITE NEG (NEG); URINE PH 5.5 (4.5-7.5); UROBILINOGEN NEG (NEG)
[2017-04-19 23:31] LABS: REVIEW REQ? NO
[2017-04-19 23:33] LABS: URINE MUCUS PRESENT (NONE PRSENT)
[2017-04-19 23:34] LABS: URINE BACTERIA NEG (NEG); URINE RBC 0-4 /hpf (0-4)
[2017-04-19 23:37] LABS: ZZURINE CULT IF INDIC CATH NO
[2017-04-19] MEDS ORDERED: ALUMINUM/MAGNESIUM/SIMETH (MAALOX MAX) 30 ML UDC PO PRN (23:45)
[2017-04-19] MEDS ORDERED: POLYETHYLENE (MIRALAX) 17 GM PACK PO PRN (23:45)
[2017-04-19] MEDS ORDERED: ONDANSETRON INJ 2 MG/ML 2 ML VIAL IV PRN (23:45)
[2017-04-19] MEDS ORDERED: hydrOXYzine HCL 25 MG TAB PO PRN (23:45)
[2017-04-19] MEDS ORDERED: ACETAMINOPHEN 325 MG TAB PO PRN (23:45)
[2017-04-19] MEDS ORDERED: MAGNESIUM HYDROXIDE SUSP 30 ML UDC PO PRN (23:45)
[2017-04-19] MEDS ORDERED: THIAMINE HCL 100 MG/ML 2 ML VIAL IM STA (23:52)
[2017-04-20] VITALS (7 sets, daily range): BP systolic 100–140; BP diastolic 55–81; PULSE 69–85; TEMP 36.3–37.1; O2SAT 93–96; Ht 162.6 cm; Wt 80.0 kg
[2017-04-20] MEDS ORDERED: FoLIC ACID INJ 1 MG in SYRINGE 9.8 ML IV STA
[2017-04-20] MEDS ORDERED: IV FLUIDS COMPLETED PRN (00:15)
--- NOTE | 2017-04-20 00:24 | History and Physical ---
History & Physical Date & Time of Service: Apr 19, 2017 at 23:53 Chief Complaint: Hypoglycemic, Fall, Etoh Primary Care Physician: Kam Friend III, CRNP History of Present Illness Source: patient 71 y/o F Hx HTN, HPL, DM, LBBB, alcohol abuse. Pt was apparently intoxicated earlier this evening when she became nauseous and vomited on herself. She got up to go to the kitchen from the living room and fell on the floor suffering trauma to the R side of her head. Her who had heard her fall attended to her and states she was unconscious for several minutes before EMS arrived. She is awake and alert at the time of admission but does not recall if she had lost consciousness after falling and hitting her head, or if she lost consciousness prior to falling and hitting her head. While being attended to in the ER she had an episode of hypoglycemia which was treated with D50 and then recurred. A CT head was negative for ICH. An initial ETOH level was 249. No additional lab abnormalities were noted. Past Medical/Surgical History 1) HTN 2) HPL 3) DM II 4) LBBB 5) Lumbar stenosis - decompression and fusion of L3-4,4-5 2106 6) ETOH abuse 7) Frequent falls Family History FH: diabetes mellitus Social History Long-term histroy of excessive alcohol use - pt admits to this. Smoking Status: Never Smoker Drug Use: none Marital Status: Housing status: lives with family Occupational Status: retired Immunizations History of Influenza Vaccine: Unknown History of Tetanus Vaccine?: APPROX 5 YEARS AGO History of Pneumococcal: Unknown History of Hepatitis B Vaccine: No Multi-Drug Resistant Organisms History of MDRO: No Allergies Coded Allergies: Oxycodone (Verified Allergy, Mild, ITCHING, 03/16/17) Home Medications Scheduled Calcium Carbonate-Vitamin D (Calcium 500 + D), 1 TAB PO BID Insulin Glargine (Lantus Solostar), 18 UNITS SQ QPM Krill Oil (Krill Oil [place]-3), 1 CAP PO DAILY Lisinopril (Zestril), 20 MG PO QAM Multivitamin (Multivitamin), 1 TAB PO QAM Paroxetine Hcl (Paxil), 40 MG PO QAM Rosuvastatin Calcium (Rosuvastatin Calcium), 20 MG PO QPM Scheduled PRN Isbabcc-Rkgbojpsejlmv-Xxkzepdm (Excedrin Extra Strength), 2 TAB PO DAILY PRN for Headache or Pain Furosemide (Lasix), 40 MG PO QAM PRN for SWELLING Hydroxyzine Hcl (Atarax), 25 MG PO TID PRN for Dizziness or Vertigo Insulin Aspart (Novolog Flexpen), UNITS SQ TIDM PRN for PER SLIDING SCALE Review of Systems Constitutional: No fever, No chills, No sweats Eyes: No worsening of vision ENT: No hearing loss, No nasal symptoms Respiratory: No cough, No wheezing Cardiovascular: No chest pain, No PND Abdomen: No pain, No vomiting Musculoskeletal: No joint pain Genitourinary - Female: No dysuria Neurologic: + memory loss (Does not recall LOC), + problem reported (Trauma to R head - LOC ) Psychiatric: + substance abuse, No depression symptoms Endocrine: No fatigue Hematologic / Lymphatic: No abnormal bleeding/bruising Integumentary: No rash Physical Exam Vital Signs Date Time Temp Pulse Resp B/P (MAP) Pulse Ox O2 Delivery O2 Flow Rate FiO2 04/19/17 23:15 113/63 94 04/19/17 23:13 101 16 04/19/17 22:43 97 16 04/19/17 22:34 97 16 121/73 94 Room Air 04/19/17 22:31 152/71 04/19/17 22:13 81 16 04/19/17 22:13 85 18 133/66 94 Room Air 04/19/17 21:37 94 Room Air 04/19/17 21:31 79 04/19/17 21:23 36.9 78 18 142/65 96 Room Air General Appearance: WD/WN, no apparent distress, + pertinent finding (SLightly beligerent elderly female - no acute distress) Head: + pertinent finding (Erythemaatous cicumscribed area on R forehead - small lac) Eyes: normal inspection ENT: normal ENT inspection, pharynx normal Neck: supple, no JVD Respiratory/Chest: chest non-tender, lungs clear, normal breath sounds Cardiovascular: regular rate, rhythm, no edema, no gallop, no JVD, no murmur, normal peripheral pulses Abdomen/GI: normal bowel sounds, non tender, soft Back: normal inspection, no CVA tenderness Extremities/Musculoskelatal: normal inspection, no calf tenderness, normal capillary refill, no pedal edema, normal range of motion 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, no motor/sensory deficits Skin: normal color Diagnostics Laboratory Results Results Past 24 Hours Test 04/19/17 21:25 04/19/17 21:35 04/19/17 21:38 04/19/17 22:06 Range/Units Bedside Glucose 98 127 70-90 mg/dl Urine Color YELLOW Urine Appearance CLEAR CLEAR Urine pH 5.5 4.5-7.5 Urine Specific [place] 1.010 1.000-1.030 Urine Protein NEG NEG Urine Glucose (UA) 2+ NEG Urine Ketones NEG NEG Urine Occult Blood 1+ NEG Urine Nitrite NEG NEG Urine Bilirubin NEG NEG Urine Urobilinogen NEG NEG Urine Leukocyte Esterase NEG NEG Urine RBC 0-4 0-4 /hpf Urine WBC 1-5 0-5 /hpf Urine Epithelial Cells >30 0-5 /lpf Urine Bacteria NEG NEG Urine Hyaline Casts 10-30 0-5 /lpf Urine Mucus PRESENT NONE PRSENT Urine Opiates Screen NEG NEG Urine Methadone, Qualitative NEG NEG Urine Barbiturates NEG NEG Urine Phencyclidine (PCP) Level NEG NEG Ur Amphetamine/Methamphetamine NEG NEG MDMA (Ecstasy) Screen NEG NEG Urine Benzodiazepines Screen NEG NEG Urine Cocaine Metabolite NEG NEG Urine Marijuana (THC) NEG NEG White Blood Count 7.39 4.8-10.8 K/uL Red Blood Count 4.16 4.2-5.4 M/uL Hemoglobin 12.2 12.0-16.0 g/dL Hematocrit 36.5 37-47 % Mean Corpuscular Volume 87.7 80-100 fL Mean Corpuscular Hemoglobin 29.3 25-34 pg Mean Corpuscular Hemoglobin Concent 33.4 32-36 g/dl Platelet Count 271 130-400 K/uL Mean Platelet Volume 10.2 7.4-10.4 fL Neutrophils (%) (Auto) 53.2 % Lymphocytes (%) (Auto) 40.2 % Monocytes (%) (Auto) 5.0 % Eosinophils (%) (Auto) 1.2 % Basophils (%) (Auto) 0.3 % Neutrophils # (Auto) 3.93 1.4-6.5 K/uL Lymphocytes # (Auto) 2.97 1.2-3.4 K/uL Monocytes # (Auto) 0.37 0.11-0.59 K/uL Eosinophils # (Auto) 0.09 0-0.5 K/uL Basophils # (Auto) 0.02 0-0.2 K/uL RDW Standard Deviation 42.5 36.4-46.3 fL RDW Coefficient of Variation 13.2 11.5-14.5 % Immature Granulocyte % (Auto) 0.1 % Immature Granulocyte # (Auto) 0.01 0.00-0.02 K/uL Prothrombin Time 10.2 9.0-12.0 SECONDS Prothromb Time International Ratio 1.0 0.9-1.1 Activated Partial Thromboplast Time 23.0 21.0-31.0 SECONDS Partial Thromboplastin Ratio 0.9 Sodium Level 136 136-145 mmol/L Potassium Level 3.5 3.5-5.1 mmol/L Chloride Level 101 98-107 mmol/L Carbon Dioxide Level 27 21-32 mmol/L Anion Gap 8.0 3-11 mmol/L Blood Urea Nitrogen 29 7-18 mg/dl Creatinine 1.14 0.60-1.20 mg/dl Est Creatinine Clear Calc Drug Dose 49.2 ml/min Estimated GFR () 56.4 Estimated GFR (Non- 48.7 BUN/Creatinine Ratio 25.8 10-20 Random Glucose 107 70-99 mg/dl Calcium Level 8.9 8.5-10.1 mg/dl Magnesium Level 2.1 1.8-2.4 mg/dl Total Bilirubin 0.2 0.2-1 mg/dl Aspartate Amino Transf (AST/SGOT) 24 15-37 U/L Alanine Aminotransferase (ALT/SGPT) 29 12-78 U/L Alkaline Phosphatase 119 45-117 U/L Ammonia < 10.0 11-32 umol/L Total Creatine Kinase 72 26-192 U/L Troponin I < 0.015 0-0.045 ng/ml Total Protein 7.2 6.4-8.2 gm/dl Albumin 3.4 3.4-5.0 gm/dl Globulin 3.8 2.5-4.0 gm/dl Albumin/Globulin Ratio 0.9 0.9-2 Thyroid Stimulating Hormone (TSH) 2.660 0.300-4.500 uIu/ml Ethyl Alcohol mg/dL 243.9 0-3 mg/dl Test 04/19/17 22:52 04/19/17 23:35 Range/Units Bedside Glucose 69 133 70-90 mg/dl Diagnostic Radiology No acute abnormalities on head or cervical spine CT EKG Sinus , LBBB - no change from previous Impression Assessment and Plan 71 y/o F Hx HTN, HPL, DM, LBBB, alcohol abuse. Pt was apparently intoxicated earlier this evening when she became nauseous and vomited on herself. She got up to go to the kitchen from the living room and fell on the floor suffering trauma to the R side of her head. Her who had heard her fall attended to her and states she was unconscious for several minutes before EMS arrived. She is awake and alert at the time of admission but does not recall if she had lost consciousness after falling and hitting her head, or if she lost consciousness prior to falling and hitting her head. While being attended to in the ER she had an episode of hypoglycemia which was treated with D50 and then recurred. A CT head was negative for ICH. An initial ETOH level was 249. No additional lab abnormalities were noted. 1) LOC - unclear if due to or preceding trauma. Pt will be monitored on telemetry - there is no evidence that a significant arrythmia occurred and she was intoxicated when this occurred. She is prone to falls per previous records which is likely related to ETOH use. she does not seem interested in lifestyle changes. We will consult PT/OT to gauge safety prior to DC. 2) DM - currently with hypoglycemia - reason unclear - POC will be checked Q1H initially - she has been placed on D5NS and we have held her insulin until her POC exceeds 220. 3) ETOH abuse - placed on Thiamine and Folic, PRN Ativan - D5 in fluids - as above, she does not seem interested in cessation. 4) HTN - Cont Lisinopril - she takes Lasix PRN only for LE edema 5) HPL - cont Crestor 6) She is not on blood thinners but would consider f/u CT with any AMS or persistent RIDDLE Full code - SCDs Total time for this admit including reviw of labs, meds, imaging - discussion with pt and ER attending - 37 min Level of Care Telemetry Resuscitation Status FULL RESUSCITATION VTE Prophylaxis VTE Risk Assessment Done? Y/N: Yes Risk Level: Moderate Given or contraindicated: SCD's
[2017-04-20] MEDS ORDERED: D5NSS + 20MEQ KCL 1,000 ML IV SCH (00:45)
[2017-04-20] MEDS ORDERED: NURSING VERBAL MED ORDER ONE (05:45)
[2017-04-20] MEDS ORDERED: KETOROLAC TROMETHAMINE 15 MG/ML VIAL ONE (05:53)
[2017-04-20] MEDS ORDERED: KETOROLAC TROMETHAMINE 15 MG/ML VIAL IV. ONE (06:00)
[2017-04-20] MEDS: INSULIN ASPART 100 UNITS/ML 3 ML PEN SC SCH ×2 (07:00→12:02)
--- NOTE | 2017-04-20 08:50 | Family Medicine Progress Note ---
Progress Note Date of Service Apr 20, 2017. Subjective Pt evaluation today including: conversation w/ patient, physical exam, chart review, lab review
[2017-04-20 08:53] LABS: BUN/CREATININE RATIO 24.5 (10-20); CALCIUM 8.8 mg/dl (8.5-10.1); CREATININE 1.03 mg/dl (0.60-1.20); POTASSIUM 4.8 mmol/L (3.5-5.1)
[2017-04-20] MEDS ORDERED: LISINOPRIL 20 MG TAB PO SCH (09:00)
[2017-04-20] MEDS ORDERED: MULTI-VITAMIN INFUSION INJ 10 ML, THIAMINE HCL INJ 100 MG, FoLIC ACID INJ 1 MG in SODIU... IV SCH (09:00)
[2017-04-20] MEDS ORDERED: PAROXETINE 20 MG TAB PO SCH (09:00)
--- NOTE | 2017-04-20 11:30 | Discharge Instructions ---
Discharge Instructions Date of Service Apr 20, 2017. Admission Reason for Admission: Hypoglycemia, Loc Discharge Discharge Diagnosis / Problem: fall with loss of consciousness Discharge Goals Goal(s): Decrease discomfort, Improve function Activity Recommendations Activity Limitations: resume your previous activity . Instructions / Follow-Up Instructions / Follow-Up You were admitted after you fell and hit your head after a bout of nausea and vomiting while being intoxicated and was unconscious for a brief period of time yesterday In the ER, head CT and the cervical spine CT were obtained which were negative for any bleeding or fractures. You were also found to have a low blood sugar and you were treated with dextrose solution. You were admitted overnight for observation. Loss of consciousness: You were evaluated with head CT and CT of your cervical spine which were both negative Diabetes mellitus type 2: - your blood sugar was also found to be low and your insulin was held and he was treated with dextrose in IV fluids and your blood sugar was monitored hourly. -You may resume your home dosing of insulin upon discharge - Please follow-up with the PCP for adjusting her insulin dosage to avoid future hypoglycemic episodes which can result in loss of consciousness Alcohol use: - You were treated with folic acid and thiamine. You were monitored for withdrawal We would strongly recommend decreasing alcohol intake/cessation of alcohol use. Hypertension: - Continue lisinopril Hyperlipidemia: - Continue Crestor Please follow-up with the PCP within the next few days If you develop any changes in your mental status, worsening headache, worsening nausea or vomiting, please return to the ER. Current Hospital Diet Patient's current hospital diet: AHA Diet (Heart Healthy), Diabetes Type 2 Diet Discharge Diet Recommended Diet: Diabetes Type 2 Diet Pending Studies Studies pending at discharge: no Medical Emergencies . Who to Call and When: Medical Emergencies: If at any time you feel your situation is an emergency, please call 911 immediately. . Non-Emergent Contact Non-Emergency issues call your: Primary Care Provider . . "Provider Documentation" section prepared by Santa Estrada. . VTE Core Measure Inpt VTE Proph given/why not?: SCD's Resident Tracking Resident Involvement: Resident Care Provided Care Provided: Adult Hospital Medicine
--- NOTE | 2017-04-20 15:38 | Discharge Summary ---
Discharge Summary Date of Service Apr 20, 2017. (Santa Estrada MD) Discharge Summary Admission Date: Apr 19, 2017 at 23:49 Discharge Date: Apr 20, 2017 Principal Diagnosis: fall with loss of consciousness Problems/Secondary Diagnoses: Hypoglycemia, alcohol abuse Immunizations: Have You Had Influenza Vaccine: Unknown History of Tetanus Vaccine?: APPROX 5 YEARS AGO History of Pneumococcal: Unknown History of Hepatitis B Vaccine: No (Santa Estrada MD) Medication Reconciliation Continued Medications: Zbhjfsi-Ihjnzviesmblh-Tyidbogp (Excedrin Extra Strength) 1 Tab Tab 2 TAB PO DAILY PRN for Headache or Pain Calcium Carbonate-Vitamin D (Calcium 500 + D) 1 Tab Tab 1 TAB PO BID Furosemide (Lasix) 40 Mg Tab 40 MG PO QAM PRN for SWELLING, TAB Hydroxyzine Hcl (Atarax) 50 Mg Tab 25 MG PO TID PRN for Dizziness or Vertigo, TAB Insulin Aspart (Novolog Flexpen) 100 Units/Ml Inj UNITS SQ TIDM PRN for PER SLIDING SCALE Insulin Glargine (Lantus Solostar) 100 Unit/Ml Inj 18 UNITS SQ QPM Krill Oil (Krill Oil [place]-3) 1 Cap Cap 1 CAP PO DAILY Lisinopril (Zestril) 20 Mg Tab 20 MG PO QAM, TAB Multivitamin (Multivitamin) Tab 1 TAB PO QAM, TAB Paroxetine Hcl (Paxil) 40 Mg Tab 40 MG PO QAM, TAB Rosuvastatin Calcium (Rosuvastatin Calcium) 20 Mg Tab 20 MG PO QPM Discharge Exam Denies any headache, blurry vision, weakness, numbness or tingling. Denies any chest pain, palpitations, lightheadedness or dizziness Review of Systems: Constitutional: No fever, No chills Eyes: No worsening of vision ENT: No hearing loss Respiratory: No cough, No sputum Cardiovascular: No chest pain, No orthopnea Abdomen: No pain, No nausea, No vomiting Musculoskeletal: No joint pain Genitourinary - Female: No dysuria Neurologic: No memory loss, No paralysis Psychiatric: No depression symptoms Endocrine: No fatigue Physical Exam: General Appearance: WD/WN, no apparent distress Eyes: normal inspection ENT: + pertinent finding (right forehead abrasion) Neck: supple Respiratory/Chest: lungs clear, normal breath sounds, no respiratory distress Cardiovascular: regular rate, rhythm Abdomen / GI: normal bowel sounds, non tender, soft Extremities: no pedal edema Neurologic/Psychiatric: alert, normal mood/affect, oriented x 3 Skin: normal color (Santa Estrada MD) Hospital Course 71-year-old female with a past medical history of hypertension, hyperlipidemia, diabetes, left bundle branch block, alcohol abuse presented to the ED after a fall. The patient was apparently intoxicated earlier in the evening, was nauseous and vomited on herself and fell on the floor suffering a trauma on the right side of her head. Per her , she was unconscious for several minutes. In the ER, head CT was negative for intracranial bleeding, C-spine CT was negative for fractures. Rest of her labs were unremarkable except for low blood sugar level of 69 and an elevated alcohol level of 249. She was treated with D50. She was admitted to telemetry and monitored overnight with hourly glucose checks. Her insulin was held and she was infused D5NS. She was on thiamine, folic acid for alcohol abuse and monitored for withdrawal. She was not interested in reducing alcohol and also stated that she had trouble maintaining her blood sugars. Her hemoglobin A1c from August 2016 was 9.6. She was recommended to quit drinking alcohol and follow-up with PCP to better manage her blood sugars. She was advised that hypoglycemia would increase her risk of falls in the future. Total Time Spent: Less than 30 minutes This includes examination of the patient, discharge planning, medication reconciliation, and communication with other providers. (Santa Estrada MD) Resident Physician Supervision Note: I was present with Dr. Estrada during the history and exam. I discussed the case with the resident and agree with the findings and plan as documented in the note. I also emphasized the need to quit alcohol, but the patient is unwilling at this time to consider such a change. Also discussed with the the same, as he is aware of the risks of alcohol as related to falls and her diabetes. Documented By: Nico Dent Total Time Spent: Less than 30 minutes (Nico Dent,D.O.) Discharge Instructions Please refer to the electronic Patient Visit Report (Discharge Instructions) for additional information. (Santa Estrada MD) Follow-Up Follow-up with PCP in 2-3 days (Santa Estrada MD)
[2017-04-20] MEDS ORDERED: INSULIN ASPART 100 UNITS/ML 3 ML PEN SC SCH (16:15)
[2017-04-20] MEDS ORDERED: ROSUVASTATIN CALCIUM 20 MG TAB PO SCH (21:00)
== END 2017-04-20 16:43 | disposition home or self-care (01) ==
LOC: EDBD 21:12 → C.EDC 21:16 → C.2T 23:49 → ENRESERV 23:58
PROVIDERS: ADMIT Internal Medicine; ATTEND Family Medicine
DX: S06.9X1A Unspecified intracranial injury with loss of consciousness of 30 minutes or less, initial encounter (principal); S00.03XA Contusion of scalp, initial encounter; W19.XXXA Unspecified fall, initial encounter; E11.649 Type 2 diabetes mellitus with hypoglycemia without coma; R11.10 Vomiting, unspecified; F10.129 Alcohol abuse with intoxication, unspecified

== ENCOUNTER → 2017-06-01 | Outpatient (CLI) | payer OTHER, MEDICARE ==
[~2017-06-01] MED LIST changes: -INSDGI SC; +INSDGIPEN SQ; -INSUINJ14 SC; +NVLGI/PEN SQ
[2017-06-01 16:09] LABS: BASO % 0.4 %; BASO ABS # 0.03 K/uL (0-0.2); COMPLETE YES; HEMATOCRIT 38.6 % (37-47); IG% 0.3 %; LYMPH % 31.8 %; LYMPH ABS # 2.32 K/uL (1.2-3.4); MEAN CELL VOLUME 88.1 fL (80-100); MEAN CORPUSCULAR HEMOGLOBIN 29.2 pg (25-34); MEAN CORPUSCULAR HGB CONC 33.2 g/dl (32-36); MEAN PLATELET VOLUME 10.9 fL (7.4-10.4); MONO % 6.3 %; NEUT % 60.2 %; PLATELET COUNT 290 K/uL (130-400); RED BLOOD COUNT 4.38 M/uL (4.2-5.4)
[2017-06-01 16:31] LABS: ALT/SGPT 32 U/L (12-78); BLOOD UREA NITROGEN 30 mg/dl (7-18); BUN/CREATININE RATIO 28.7 (10-20); CALCIUM 9.6 mg/dl (8.5-10.1); CARBON DIOXIDE 27 mmol/L (21-32); CHLORIDE 98 mmol/L (98-107); CREATININE 1.06 mg/dl (0.60-1.20); GLUCOSE 307 mg/dl (70-99); MAGNESIUM 2.2 mg/dl (1.8-2.4); POTASSIUM 4.3 mmol/L (3.5-5.1); SODIUM 132 mmol/L (136-145)
[2017-06-01 16:33] LABS: ALB/GLOB RATIO 0.9 (0.9-2); AST/SGOT 19 U/L (15-37); CHOLESTEROL 175 mg/dl (0-200)
[2017-06-01 16:41] LABS: ALKALINE PHOSPHATASE 130 U/L (45-117); BETA-HYDROXYBUTYRATE 1.77 mg/dL (0.2-2.81); CHOLESTEROL/HDL RATIO 1.9; HDL CHOLESTEROL 94 mg/dl; LDL CHOLESTEROL CALCULATED 65 mg/dl; TRIGLYCERIDES 82 mg/dl (0-150); VERY LOW DENSITY LIPOPROT CALC 16 mg/dl
[2017-06-02 07:25] LABS: ESTIMATED AVERAGE GLUCOSE 235 mg/dl; HA1C FLAG Normal (Normal)
== END | disposition home or self-care (01) ==
LOC: C.LAB1850 15:16
PROVIDERS: ATTEND Nurse Practitioner Family
DX: I10 Essential (primary) hypertension (principal); E78.5 Hyperlipidemia, unspecified; F41.8 Other specified anxiety disorders; E55.9 Vitamin D deficiency, unspecified; K21.9 Gastro-esophageal reflux disease without esophagitis; E10.40 Type 1 diabetes mellitus with diabetic neuropathy, unspecified; E10.65 Type 1 diabetes mellitus with hyperglycemia; F10.20 Alcohol dependence, uncomplicated

== ENCOUNTER → 2017-10-02 | Outpatient (CLI) | payer OTHER, MEDICARE ==
[~2017-10-02] MED LIST changes: -ROSU20TA22 PO; +ROSU20TA33 PO
[2017-10-02 14:48] LABS: BASO % 0.5 %; BASO ABS # 0.04 K/uL (0-0.2); EOS % 1.2 %; EOS ABS # 0.09 K/uL (0-0.5); HEMATOCRIT 38.3 % (37-47); IG# 0.01 K/uL (0.00-0.02); LYMPH % 31.7 %; LYMPH ABS # 2.46 K/uL (1.2-3.4); MEAN CORPUSCULAR HEMOGLOBIN 29.5 pg (25-34); MEAN CORPUSCULAR HGB CONC 33.9 g/dl (32-36); MEAN PLATELET VOLUME 10.5 fL (7.4-10.4); MONO % 6.6 %; MONO ABS # 0.51 K/uL (0.11-0.59); NEUT % 59.9 %; NEUT ABS # 4.65 K/uL (1.4-6.5); PLATELET COUNT 301 K/uL (130-400); RED CELL DISTRIBUTION WIDTH CV 14.1 % (11.5-14.5); RED CELL DISTRIBUTION WIDTH SD 45.2 fL (36.4-46.3); WHITE BLOOD COUNT 7.76 K/uL (4.8-10.8)
[2017-10-02 15:26] LABS: ALBUMIN 3.7 gm/dl (3.4-5.0); ALT/SGPT 29 U/L (12-78); BLOOD UREA NITROGEN 26 mg/dl (7-18); CALCIUM 9.4 mg/dl (8.5-10.1); CARBON DIOXIDE 24 mmol/L (21-32); CHOLESTEROL 164 mg/dl (0-200); CREATININE 1.09 mg/dl (0.60-1.20); GLUCOSE 224 mg/dl (70-99); POTASSIUM 4.7 mmol/L (3.5-5.1); SODIUM 135 mmol/L (136-145)
[2017-10-02 15:29] LABS: ALKALINE PHOSPHATASE 120 U/L (45-117); AST/SGOT 24 U/L (15-37); LDL CHOLESTEROL CALCULATED 66 mg/dl; TOTAL PROTEIN 7.4 gm/dl (6.4-8.2)
[2017-10-03 07:46] LABS: HEMOGLOBIN A1C 9.3 % (4.5-5.6)
== END | disposition home or self-care (01) ==
LOC: C.LAB1850 13:53
PROVIDERS: ATTEND Nurse Practitioner Family
DX: I10 Essential (primary) hypertension (principal); E78.5 Hyperlipidemia, unspecified; F10.20 Alcohol dependence, uncomplicated; K21.9 Gastro-esophageal reflux disease without esophagitis; E10.319 Type 1 diabetes mellitus with unspecified diabetic retinopathy without macular edema

== ENCOUNTER → 2018-01-08 | Outpatient (CLI) | payer OTHER, MEDICARE ==
[~2018-01-08] MED LIST changes: +ROSU20TA24 PO; -ROSU20TA33 PO
--- NOTE | 2018-01-11 07:45 | MAMMOGRAPHY REPORT ---
BILATERAL DIGITAL SCREENING MAMMOGRAM TOMOSYNTHESIS WITH CAD: 01/08/2018 CLINICAL HISTORY: Routine screening. Patient has no complaints. TECHNIQUE: The study was acquired using full field digital technology and interpreted from soft copy. Breast tomosynthesis in addition to standard 2D mammography was performed. Current study was also ev aluated with a Computer Aided Detection (CAD) system. COMPARISON: Comparison is made to exams dated: 01/07/2017 mammogram, 05/09/2015 mammogram, 05/08/2014 mammogram, 03/31/2013 mammogram, 03/30/2012 mammogram, and 02/12/2011 ultrasound - [facility]. BREAST COMPOSITION: There are scattered areas of fibroglandular density in both breasts. FINDINGS: There is possible architectural distortion seen within the right lateral breast middle depth on the t omosynthesis images, only well seen on the cc view but may project superiorly on the MLO view, for wh ich spot compression tomosynthesis views and possible breast ultrasound are recommended for further e valuation. The remainder of both breasts are stable compared to prior exams, without suspicious masses, calcific ations, or areas of architectural distortion noted. Bilateral benign-appearing calcifications are no t significantly changed. A linear scar marker denotes a scar on the left anterior breast. IMPRESSION: ACR BI-RADS CATEGORY 0: INCOMPLETE EVALUATION: NEED ADDITIONAL IMAGING EVALUATION Possible right breast architectural distortion, for which additional imaging evaluation is recommende d. The patient will be called to schedule an appointment. Some breast cancers are not detected with mammography. A negative mammographic report should not renata y biopsy if a clinically suggestive mass is present. Sarika Stevens M.D. /:01/08/2018 16:19:38 Culture Manager: Elida Arellano [facility] letter sent: Addl Imaging 0 BI-RADS Code: ACR BI-RADS Category 0: Incomplete Evaluation: Need Additional Imaging Evaluation
== END | disposition home or self-care (01) ==
LOC: C.MAMM 14:14
PROVIDERS: ATTEND Nurse Practitioner Family
DX: Z12.31 Encounter for screening mammogram for malignant neoplasm of breast (principal)

== ENCOUNTER → 2018-01-15 | Outpatient (CLI) | payer OTHER, MEDICARE ==
[2018-01-15 15:31] LABS: ALBUMIN 3.5 gm/dl (3.4-5.0); TOTAL PROTEIN 7.3 gm/dl (6.4-8.2)
== END | disposition home or self-care (01) ==
LOC: C.LAB1850 13:35
PROVIDERS: ATTEND Podiatrist
DX: B35.1 Tinea unguium (principal)

== ENCOUNTER → 2018-01-20 | Outpatient (CLI) | payer OTHER, MEDICARE ==
--- NOTE | 2018-01-21 14:57 | MAMMOGRAPHY REPORT ---
UNILATERAL RIGHT DIGITAL DIAGNOSTIC MAMMOGRAM TOMOSYNTHESIS AND TARGETED RIGHT ULTRASOUND: 01/20/2018 CLINICAL HISTORY: 72-year-old woman called back from screening mammography for possible architectural distortion in the upper outer right breast. Patient denies any prior right breast surgery. TECHNIQUE: Spot compression tomosynthesis and 2D right CC and MLO views were obtained. COMPARISON: Comparison is made to exams dated: 01/08/2018 mammogram, 01/07/2017 mammogram, 05/09/2015 mammogram, 05/08/2014 mammogram, 03/31/2013 mammogram, and 03/30/2012 mammogram - [facility]. BREAST COMPOSITION: There are scattered areas of fibroglandular density in right breast. FINDINGS: The spot compression tomosynthesis views of the right breast demonstrate one versus 2 persi stent areas of architectural distortion in the lateral, middle to posterior right breast, best seen o n CC tomosynthesis slice 36/78, and CC tomosynthesis slice 46/78. No definitive associated mass. Th jim distortions are thought to project superiorly on the MLO view but are best visualized in the CC p rojection. Further evaluation with ultrasound was performed. Targeted ultrasound was performed in the lateral right breast. In the 9:00 axis, 7 cm from the nippl e, there is an ill-defined hypoechoic area of shadowing measuring approximately 12.6 x 8.7 x 15.6 mm. The patient also reported pain while ultrasounding this area. This could correspond with the mammo graphic distortion and is indeterminate. Definitive characterization with ultrasound-guided core bio psy is recommended. There is a possible subtle second area of distortion in the 10:00 right breast a pproximately 5 cm from the nipple, measuring 7.4 x 9.9 x 8.1 mm. Ultrasound-guided core biopsy is al so recommended for this possible second area of distortion. Correlation with post procedure tomosynt hesis mammograms is recommended. IMPRESSION: ACR BI-RADS CATEGORY 4: SUSPICIOUS, ULTRASOUND ACR BI-RADS CATEGORY 4: SUSPICIOUS 1. Right breast ultrasound-guided core biopsy 2 is recommended in the 9:00 and 10:00 axes of the br east, for ill-defined hypoechoic areas of shadowing seen on ultrasound, that likely correspond with 1 versus 2 persistent mammographic distortions best seen in the lateral right breast in the CC project ion. These results and recommendations were discussed with the patient at the time of the exam. She tenta tively scheduled the right breast biopsies prior to leaving our department. Some breast cancers are not detected with mammography. A negative mammographic report should not renata y biopsy if a clinically suggestive mass is present. Nadia Tate M.D. ay/:01/20/2018 14:43:17 Motor Analyst: Mel Davis, RT(R)(M), [facility]; Baylee Whitaker RT(R)(M), [facility] letter sent: Abnormal 4/5 OVERALL STUDY BIRADS: 4 Suspicious abnormality
== END | disposition home or self-care (01) ==
LOC: C.MAMM 12:51
PROVIDERS: ATTEND Nurse Practitioner Family
DX: R92.8 Other abnormal and inconclusive findings on diagnostic imaging of breast (principal); N64.89 Other specified disorders of breast

== ENCOUNTER → 2018-01-29 | Outpatient (CLI) | payer OTHER, MEDICARE ==
--- NOTE | 2018-01-29 13:18 | Discharge Instructions ---
Discharge Instructions Procedure Procedure Date: Jan 29, 2018. Reason for visit: Distortion Right Breast. Discharge Discharge Date: Jan 29, 2018. Discharge Diagnosis: status post breast biopsy Instructions Activity Recommendations: Additional Limitations (see below) Return to School/Work: no limitations Recommended Home Diet: No Limitations Provider Instructions: ACTIVITY RECOMMENDATIONS: * No lifting, pushing, pulling or exercising the affected side for three days. RETURN TO SCHOOL/WORK: * You may return to work/school after the procedure, but do not perform any strenuous activities for 24 to 48 hours. MEDICATIONS: * Tylenol (two 325 mg) every four to six hours if needed for mild pain (if not allergic to Tylenol). DIET: * Resume previous diet. SPECIAL CARE INSTRUCTIONS: * Keep biopsy site dry for 24 hours. May shower after 24 hours, but do not soak (bathe) incision. * May remove Tegaderm (plastic patch) 24 hours after procedure * Leave the steri-strips on for one week. Allow the steri-strips to fall off by themselves. If not off after one week, you may remove them. You may place a Bandaid crosswise over the strips, if desired. * Apply ice 10 minutes on and 10 minutes off as needed. * Wear a bra at bedtime to sleep more comfortably for 2-3 days. * Your referring physician should have the results after approximately 5 to 7 business days. * Call for unusual bleeding, fever, drainage, etc or if you have any questions call during normal business hours or after hours call Dr Stevens, . FOLLOW UP VISIT: Follow-up with Referring Physician as scheduled. Allergies Coded Allergies: Oxycodone (Verified Allergy, Mild, ITCHING, 03/16/17) Mary Rose Recommendations: Call your doctor if: * Temperature above 101 degrees * Pain not relieved by pain medicine ordered * There is increased drainage or redness from any incision * You have any unanswered questions or concerns. Your Doctors Instructions noted above were prepared by provider Sarika Stevens. Patient Signature Section: Patient Instructions Signature Page Mikala Mei Patient (or Guardian) Signature/Date: I have read and understand the instructions given to me by my caregivers. Caregiver/RN/Doctor Signature/Date: The above-named patient and/or guardian has received patient instructions on this date. + Original Patient Signature Page (only) stays with chart. Please make copy for patient.
--- NOTE | 2018-01-29 15:28 | MAMMOGRAPHY REPORT ---
ULTRASOUND GUIDED BIOPSY RIGHT BREAST: 01/29/2018 CLINICAL HISTORY: Ill-defined hypoechoic tissue in the right 9 and 10:00 breast. PATIENT CONSENT: The procedure, risks and benefits were discussed with the patient and informed writt en consent was obtained. A timeout was performed immediately prior to the procedure. PROCEDURE DESCRIPTION: With ultrasound guidance, aseptic technique, and lidocaine as the local anesth etic (1% lidocaine to anesthetize the skin and 1% lidocaine with epinephrine to anesthetize the deepe r tissues), the ill-defined hypoechoic region in the right 9:00 breast, approximately 7 cm from the n ipple, was sampled 5 times with a 14-gauge Achieve biopsy needle. Immediately thereafter, with ultra sound guidance, a metallic localizer clip (ribbon-shaped) was placed at the biopsy site. Direct pre ssure was applied to the site immediately post procedure until hemostasis was achieved. Postprocedur e unilateral mammograms were performed to confirm clip placement; See separate dictation for details . Steri-Strips were placed over the site and covered with an Opsite patch. The patient tolerated the procedure without complication. She was given wound care instructions. The specimens were sent to p athology for analysis. COMPARISON: Comparison is made to exams dated: 01/20/2018 ultrasound, 01/20/2018 mammogram, and mammogram - [facility]. IMPRESSION: ULTRASOUND GUIDED BIOPSY Ultrasound-guided core needle biopsy of the ill-defined hypoechoic region in the right 9:00 breast, w ith clip placement. The patient will receive pathology results from her referring provider. Sarika Stevens M.D. /:01/29/2018 13:20:01 Fluorescent Lamp Replacer: RT Abdon(Dion)(M), [facility]
--- NOTE | 2018-01-29 15:28 | MAMMOGRAPHY REPORT ---
UNILATERAL RIGHT DIGITAL DIAGNOSTIC MAMMOGRAM TOMOSYNTHESIS: 01/29/2018 CLINICAL HISTORY: Status post right breast biopsies. TECHNIQUE: The study was acquired using full field digital technology and interpreted from soft copy. Breast tomosynthesis in addition to standard 2D mammography was performed. Postprocedural right CC and ML tomosynthesis images were obtained. COMPARISON: Comparison is made to exams dated: 01/20/2018 mammogram, 01/08/2018 mammogram, 01/07/2017 ma mmogram, and 05/09/2015 mammogram - [facility]. BREAST COMPOSITION: There are scattered areas of fibroglandular density in right breast. FINDINGS: A new ribbon-shaped biopsy marker clip is seen within the right upper outer quadrant manufacturing electrician iorly at the site of the biopsied hypoechoic region in the right 9:00 breast. A wing-shaped biopsy m arker clip is seen in the right upper outer quadrant middle depth in the expected location of the bio psied hypoechoic region in the right 10:00 breast. No significant postbiopsy hematoma is seen. IMPRESSION: POST PROCEDURE IMAGING FOR MARKER PLACEMENT New biopsy marker clips status post right breast biopsies. Pathology results are pending. Some breast cancers are not detected with mammography. A negative mammographic report should not renata y biopsy if a clinically suggestive mass is present. Sarika Stevens M.D. /:01/29/2018 13:31:24 Gps Navigation Installer: RT Abdon(R)(M), [facility] BI-RADS Code: Post Procedure Imaging For Marker Placement
--- NOTE | 2018-01-29 15:28 | MAMMOGRAPHY REPORT ---
ULTRASOUND GUIDED BIOPSY RIGHT BREAST: 01/29/2018 CLINICAL HISTORY: Ill-defined hypoechoic tissue in the right 9 and 10:00 breast. PATIENT CONSENT: The procedure, risks and benefits were discussed with the patient and informed writt en consent was obtained. A timeout was performed immediately prior to the procedure. PROCEDURE DESCRIPTION: With ultrasound guidance, aseptic technique, and lidocaine as the local anesth etic (1% lidocaine to anesthetize the skin and 1% lidocaine with epinephrine to anesthetize the deepe r tissues), the ill-defined hypoechoic tissue in the right 10:00 breast, approximately 5 cm from the nipple, was sampled 4 times with a 14-gauge Achieve biopsy needle. Immediately thereafter, with ultr asound guidance, a metallic localizer clip (wing-shaped) was placed at the biopsy site. Direct pres sure was applied to the site immediately post procedure until hemostasis was achieved. Postprocedure unilateral mammograms were performed to confirm clip placement; see separate dictation for details. Steri-Strips were placed over the site and covered with an Opsite patch. The patient tolerated the p rocedure without complication. She was given wound care instructions. The specimens were sent to [facility] for analysis. COMPARISON: 01/08/2018 and 01/20/2018 exam. IMPRESSION: ULTRASOUND GUIDED BIOPSY Ultrasound-guided core needle biopsy of the ill-defined hypoechoic region in the right 10:00 breast, with clip placement. The patient will receive pathology results from her referring provider. Sarika Stevens M.D. ah/:01/29/2018 13:22:07 Broom Worker: JOSE LUIS Coppola)(Cruz), [facility]
== END | disposition home or self-care (01) ==
LOC: C.MAMM 12:28
PROVIDERS: ATTEND Nurse Practitioner Family
DX: R92.8 Other abnormal and inconclusive findings on diagnostic imaging of breast (principal)

== ENCOUNTER → 2018-02-12 | Outpatient (CLI) | payer OTHER, MEDICARE | END | disposition home or self-care (01) | LOC: C.RDSM 11:49 | PROVIDERS: ATTEND Physical Medicine & Rehabilitation Sports Medicine | DX: M79.675 Pain in left toe(s) (principal) ==

== ENCOUNTER 2022-04-05 18:28 | Observation (INO) ==
[2022-04-05] MEDS ORDERED: METOPROLOL TARTRATE 1 MG/ML VIAL IV STA (19:04)
[2022-04-05] MEDS ORDERED: ONDANSETRON INJ 2 MG/ML 2 ML VIAL IV STA (19:04)
[2022-04-05] MEDS: MAGNESIUM SULFATE / D5W 1 GM/100 ML BAG IV SCH ×2 (19:13→20:21)
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
[2022-04-05 19:42] LABS: Basophils # (auto) 0.06 K/uL (0-0.2); Basophils % (auto) 0.5 %; Eosinophils # (auto) 0.06 K/uL (0-0.50); Eosinophils % (auto) 0.5 %; Hematocrit (blood only) 41.4 % (34.1-44.9); Hemoglobin 14.1 g/dl (12.0-16.0); Immature Granulocytes # (auto) 0.04 K/uL (0.00-0.02); Immature Granulocytes % (auto) 0.3 %; Lymphocytes % (auto) 19.4 %; Mean Corpuscular Hemoglobin 29.9 pg (25.0-34.0); Mean Corpuscular Hgb Conc 34.1 g/dL (32.0-36.0); Mean Corpuscular Volume 87.7 fL (80.0-100.0); Mean Platelet Volume 10.7 fL (9.4-12.3); Monocytes # (auto) 0.68 K/uL (0.24-0.82); Monocytes % (auto) 5.7 %; Neutrophils # (auto) 8.74 K/uL (1.4-6.5); Neutrophils % (auto) 73.6 %; Platelet Count 352 K/uL (130-400); RDW Coefficient of Variation 12.4 % (11.5-14.5); RDW Standard Deviation 40.4 fL (36.4-46.3); Red Blood Count 4.72 M/uL (3.93-5.22); White Blood Count 11.88 K/ul (4.8-10.8)
[2022-04-05 19:49] LABS: iSTAT Creatinine 1.1 mg/dl (0.6-1.3); iSTAT Ionized Calcium 1.26 mmol/l (1.12-1.32); iSTAT Potassium 3.9 mmol/L (3.3-5.0)
[2022-04-05 19:53] LABS: Prothrombin Time 10.6 Seconds (9.0-12.0)
--- NOTE | 2022-04-05 20:01 | XRay Report ---
XR chest 1V portable HISTORY: fall, weak COMPARISON: Chest and abdominal series 02/11/2022. FINDINGS: No pneumothorax. No pleural effusions. The cardiac silhouette remains mildly enlarged. Ther e is mild chronic interstitial thickening. No new focal lung consolidations to suggest a pneumonia. N o evidence for pulmonary edema. Old, healed left-sided rib fractures. IMPRESSION: No significant change compared to the prior study. No acute process. ACT 112: Negative or not required by law. Electronically signed by: Parminder Millan M.D. 04/05/2022 7:59 PM
[2022-04-05] MEDS ORDERED: OPTIRAY 350 100ml IV ONE (20:06)
[2022-04-05 20:08] LABS: Albumin Globulin Ratio 1.2 (0.9-2); Albumin Level 3.9 gm/dl (3.4-5.0); BUN Creatinine Ratio 22.3 (10-20); Bilirubin,Total 0.5 mg/dl (0.2-1.0); Est GFR (African American) 55.6 ml/min; Globulin 3.3 gm/dl (2.5-4.0); Magnesium 2.5 mg/dl (1.7-2.4); Total Protein 7.2 gm/dl (6.0-8.3)
[2022-04-05 20:10] LABS: Troponin I High Sensitivity 19.1 pg/ml (0-14)
--- NOTE | 2022-04-05 20:43 | History & Physical Report ---
Date of Service April 05, 2022 Assessment & Plan (1) Paroxysmal A-fib: Plan: 76 y/o female w/ PMHx of DM1, HTN, HLD, depression who presents w/ generalized weakness and fall, w/ presumed new-onset afib w/ RVR. - converted to sinus after dose of IV Lopressor - unknown trigger; may be in setting of upper respiratory illness or poorly controlled diabetes. old LBBB may be indicated of cardiovascular disease. TSH wnl. considered cardiomyopathy (etoh use). - start metoprolol tartrate 25mg PO BID - TTE - consult cardiology - follow electrolytes - will likely be candidate for oral anticoagulation w/ DOAC. CHADSVASc 5 points. Denies bleeding or ulcer hx. (2) Weakness: Plan: - s/p mild fall. CT head, c spine, and abd/pelv reassuring - consult PT/OT - does have diabetic neuropathy and workup of sensory ataxia by neurology in past - no specific infectious source; no urinary symptoms. cxr unremarkable. lactate 2.2->1.2 - nonspecific URI symptoms. covid neg. considered copd exacerbation though lung exam less consistent w/ this. transient desat to 87x1. check procal. - blood cultures pending (3) Uncontrolled type 1 diabetes mellitus with complication, with long-term current use of insulin: Plan: - last A1c 10.2 11/2021 - current presentation not consistent w/ DKA - reported poor glucose control; etiology unknown; did consider infectious etiology as per above - check A1c - consult tobacco prevention health educator; will revisit home regimen. patient has f/u w/ endocrine next month - lantus 7u BID and SSI while inpatient (4) Hypertension: Plan: - continue home regimen. add metoprolol tartrate for afib rate control (5) Hyperlipidemia: Plan: - continue home statin (6) Depression: Plan: - continue home venlafaxine Plan FEN/GI: DM1, low Na. No maintenance fluids. ppx: scds. sq heparin code: full dispo: med tele History of Present Illness Chief Complaint: new onset atrial fibrillation with RVR Primary Care Provider: Lois Nolan MD 76 y/o female w/ PMHx of DM1, HTN, HLD, depression who presents w/ generalized weakness and fall. She has had malaise since waking up this morning. She had transient intractable nausea and vomiting times multiple episodes as well as a few episodes of diarrhea. She later went to the [employer] and required assistance of electric scooter because she felt unwell. She didn't had a fall/minor crash while using this scooter. Currently, she feels chilly. She has had upper respiratory symptoms including exacerbation of her chronic nighttime cough (former smoker) with some green sputum. She has had nasal congestion. Her has had similar URI symptoms. She denies chest pain or shortness of breath and does not have any urinary symptoms. She states her general health has not been good lately mainly because of uncontrolled blood sugars ranging from 40-400. She has a continuous glucose monitor, but states that it had malfunctioned a week ago, parts since replaced. Patient has had her covid vaccines and booster. She denies palpitations or hx of afib, though does have old LBBB. ED course: Lopressor 5mg IV. 2 grams IV Mg. Initial ecg w/ afib rvr 133 and LBBB (not new). Repeat ecg sinus 66 and LBBB. Allergies Allergy/AdvReac Type Severity Reaction Status Date / Time oxycodone Allergy Mild ITCHING Verified 04/05/22 22:03 Home Medications Medication Instructions Recorded Confirmed Type calcium carbonate 500 mg-vitamin 1 tab PO BID 05/24/18 04/05/22 History D3 5 mcg (200 unit) tablet (Calcium 500 + D) krill 1,000 mg-omega-3 170 mg-dha 1 cap PO QAM 05/24/18 04/05/22 History 50 mg-epa 80 [id number] capsule (krill oil) multivitamin 1 tab PO QAM 02/09/19 04/05/22 History lancets 33 gauge (OneTouch Delica #100 ea 02/22/19 03/27/22 History Plus Lancet) pen needle, diabetic 32 gauge x #10 ea 02/22/19 03/27/22 History 5/32" (BD Missy 2nd Gen Pen Needle) Dexcom G6 Photoresist Contact Printer (blood-glucose #1 ea 04/04/19 03/27/22 Rx meter,continuous) Dexcom G6 Sensor (blood-glucose #9 ea 04/04/19 03/27/22 Rx sensor) Dexcom G6 Transmitter #1 ea 10/14/19 10/06/22 Rx (blood-glucose transmitter) furosemide 40 mg tablet 40 mg PO DAILY PRN Edema #10 tabs 07/05/20 04/05/22 Rx blood sugar diagnostic (OneTouch #10 ea 09/12/20 03/27/22 History Ultra Blue Test Strip) insulin aspart U-100 100 unit/mL 0 sliding scale dose subcut WM 02/14/21 04/05/22 History (3 mL) subcutaneous pen (Novolog Flexpen U-100 Insulin aspart) venlafaxine 150 mg 150 mg PO QAM #90 caps 10/16/21 04/05/22 Rx capsule,extended release 24 hr insulin glargine 100 unit/mL (3 18 unit subcut PM 12/27/21 04/05/22 History mL) subcutaneous pen (Basaglar KwikPen U-100 Insulin) atorvastatin 20 mg tablet 20 mg PO PM #90 tabs 03/27/22 04/05/22 Rx hydrocortisone 2.5 % topical cream 1 applic topical DAILY #30 grams 03/27/22 04/05/22 Rx omeprazole 20 mg tablet,delayed 20 mg PO DAILY #90 tabs 04/03/22 04/05/22 Rx release acetaminophen 325 mg tablet 650 mg PO Q4H PRN pain #0 tabs 04/06/22 Rx apixaban 5 mg tablet (Eliquis) 5 mg PO BID #60 tabs 04/06/22 Rx losartan 25 mg tablet 25 mg PO HS #30 tabs 04/06/22 Rx metoprolol succinate 25 mg 25 mg PO DAILY #30 tabs 04/06/22 Rx tablet,extended release 24 hr Past Med/Surg History Medical History (Updated 04/06/22 @ 09:38 by Saulo Mosher MD) Alcoholism pt reports is improving on this, few drinks of vodka weekly, no longer every day Anxiety Depression Diabetes mellitus, type 2 Gastroesophageal reflux disease Gastroparesis History of colon polyps Hyperlipidemia Hypertension Left bundle branch block doesn't follow cardio Migraine Osteopenia Proliferative diabetic retinopathy associated with type 1 diabetes mellitus Spinal stenosis Urinary incontinence Venous insufficiency Vitamin D deficiency Surgical History History of bilateral carpal tunnel release History of bilateral cataract extraction History of cataract surgery History of colonoscopy History of lumbar fusion History of open reduction and internal fixation (ORIF) procedure left wrist fx--hardware removed History of open reduction and internal fixation (ORIF) procedure right wrist fx--hardware in place History of right breast biopsy x2--benign mass History of tooth extraction Family History Grandmother (Maternal) Family history of diabetes mellitus Diabetes Uncle Family history of diabetes mellitus paternal Grandmother (Paternal) Breast cancer Mother , age 77 of an [place] Myocardial infarction Scleroderma Father , age 70 of an [place] Myocardial infarction Denies family history of Ovarian cancer Prostate cancer Colorectal cancer Social History Smoking Status: Former smoker Tobacco Type: Cigarettes Age Started Using Tobacco: 21; Age Quit Using Tobacco: 28; packs per day: 1; Years Smoked: 7; Number of Years Since Quit: 46; Second Hand Exposure: No; Hx Alcohol Use: Yes Alcohol type: hard liquor Alcohol Intake Frequency: 4 or More x per/Week Alcohol Intake Frequency Comment: 1-2 drinks of vodka per night Hx Substance Use: No Preferred Language: Indonesian Communication Ability: Effective Visual Impairment: No Limitations Hearing Ability: Normal Clinical Resource Manager Required: No Beliefs That Will Affect Care: None marital status: Current Living Situation: Spouse current occupational status: retired 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 NAD. Cooperative. Mild shivering. HEENT: Atraumatic, normocephalic. EOMI. Slightly nasally congested sounding. Pulm: CTAB. -wheezes, -rales, -rhonchi. No respiratory distress. Cardiac: RRR, -mrg. Radial pulses intact and symmetrical. Abdominal: Nontender, nondistended, soft. Integ: Warm, dry, intact Results & Data Results & Data ([facility]) Vital Signs (Past 12 Hours) Vital Signs Temp Pulse Pulse Resp BP Pulse Ox O2 Del Method 04/05/22 19:35 92 Nasal Cannula 04/05/22 19:35 87 L Room Air 04/05/22 19:24 96 04/05/22 19:24 96 H 20 96 Room Air 04/05/22 19:24 96 Room Air 04/05/22 19:09 141 H 117/91 04/05/22 18:37 36.3 C L 128 H 16 132/84 92 Room Air O2 Flow Rate 04/05/22 19:35 2 04/05/22 19:35 04/05/22 19:24 04/05/22 19:24 04/05/22 19:24 04/05/22 19:09 04/05/22 18:37 Laboratory Results Cardiac Enzymes 04/05/22 Range/Units 19:25 AST 20 (13-39) U/L Troponin I High Sens 19.1 H (0-14) pg/ml Coagulation 04/05/22 Range/Units 19:25 PT 10.6 (9.0-12.0) Seconds CBC 04/05/22 Range/Units 19:25 WBC 11.88 H (4.8-10.8) K/ul RBC 4.72 (3.93-5.22) M/uL Hgb 14.1 (12.0-16.0) g/dl Hct 41.4 (34.1-44.9) % Plt Count 352 (130-400) K/uL Neut # (Auto) 8.74 H (1.4-6.5) K/uL Lymph # (Auto) 2.30 (1.2-3.4) K/uL [place] # (Auto) 0.68 (0.24-0.82) K/uL Eos # (Auto) 0.06 (0-0.50) K/uL Baso # (Auto) 0.06 (0-0.2) K/uL Comprehensive Metabolic Panel 04/05/22 Range/Units 19:25 Sodium 138 (136-145) mmol/L Potassium 4.0 (3.5-5.1) mmol/L Chloride 104 (98-107) mmol/L Carbon Dioxide 24 (21-32) mmol/L BUN 25 H (6-23) mg/dl Creatinine 1.12 (0.6-1.2) mg/dl Glucose 167 H (70-99(Fasting)) mg/dl Calcium 10.0 (8.5-10.1) mg/dl AST 20 (13-39) U/L ALT 17 (7-52) U/L Alkaline Phosphatase 97 (34-104) U/L Total Protein 7.2 (6.0-8.3) gm/dl Albumin 3.9 (3.4-5.0) gm/dl Intake and Output 04/05/22 04/05/22 04/06/22 14:59 22:59 06:59 Intake Total 200 / 200 Balance 200 / 200 Intake: IV 200 / 200 Magnesium Sulfate / D5w 1 gm In 200 / 200 100 ml @ 200 mls/hr IV Q30M [facility] Rx#:[id number] Other: Weight 82.1 kg Weight Measurement Method Chair Scale Patient Weight 04/06/22 06:59 Weight 82.1 kg Diagnostic Findings Chest X-Ray 04/05/22 18:59 XR chest 1V portable HISTORY: fall, weak COMPARISON: Chest and abdominal series 02/11/2022. FINDINGS: No pneumothorax. No pleural effusions. The cardiac silhouette remains mildly enlarged. There is mild chronic interstitial thickening. No new focal lung consolidations to suggest a pneumonia. No evidence for pulmonary edema. Old, healed left-sided rib fractures. IMPRESSION: No significant change compared to the prior study. No acute process. ACT 112: Negative or not required by law. Electronically signed by: Parminder Millan M.D. 04/05/2022 7:59 PM Preliminary Findings Only See Final Report For Complete Findings CT ABDOMEN & PELVIS With Contrast: The appendix is not visible. Bowel loops are nondilated. No pneumoperitoneum, free fluid, or acute inflammatory changes are seen involving the bowel. There is a 4 cm hiatal hernia. Mild fatty infiltration of the liver. No focal liver lesion is seen. The gallbladder, pancreas, spleen, adrenal glands, and kidneys are within normal limits. The aorta is mildly calcified but nondilated. The uterus, adnexa, and urinary bladder appear within normal limits. Moderate to severe multilevel degenerative changes are seen throughout the spine. There is a previous instrumentation and fusion from L3-L5. No acute fracture or subluxation is seen. Radiologist: Kaveh Agustin MD Study ready at 20:35 and initial results transmitted at 20:56 Preliminary Findings Only See Final Report For Complete Findings CT C SPINE: Mild to moderate narrowing and osteophytosis at the atlantodental joint. The odontoid process is intact. Moderate to severe degenerative disc disease and moderate facet arthrosis greatest in the lower cervical spine at C5-6 and C6-7. No acute fracture or traumatic subluxation is identified. Axial soft tissue images show no evidence of significant spinal stenosis. There is moderate to severe right neural foraminal narrowing at C5-6. Incidental note is made about 11 mm cyst or nodule the right thyroid lobe. Mild calcification of the carotid bifurcation bilaterally. Radiologist: Kaveh Agustin MD Study ready at 20:22 and initial results transmitted at 20:51 Preliminary Findings Only See Final Report For Complete Findings CT HEAD: Comparison to March 01, 2021. Mild central atrophy and periventricular white matter low density consistent with chronic small vessel disease and/or senescent changes, unchanged. There is no evidence of acute large vessel infarct or intracranial hemorrhage. The paranasal sinuses and mastoid air cells are normal. No skull fracture or scalp hematoma is seen. Radiologist:JM Hansonhone:[phone] Study ready at 20:19 and initial results transmitted at 20:49 Code Status & VTE Plan Code Status full VTE Prophylaxis Plan VTE Prophylaxis will be ordered: Yes Supervising Physician Co-Signing Physician Notes Attending addendum: I have physically seen this patient, have supervised the medical residents activities, and agree with the H&P unless as otherwise noted. Assessment and Plan: Paroxysmal atrial fibrillation with RVR/left bundle branch block/hypertension- The patient will be admitted to telemetry for serial cardiac enzymes, serial EKG's, cardiac rhythm monitoring and a 2-D echocardiogram with Dopplers. Converted to normal sinus rhythm after Lopressor 5 mg IV and magnesium sulfate 1 g IV Metoprolol tartrate 25 mg p.o. twice daily [id number] score 5. Start DOAC in a.m. Consult cardiology Diabetes mellitus- Uncontrolled Most recent A1c 10.2 on 12/11 Lantus insulin and sliding scale as noted Hyperlipidemia- Continue atorvastatin 20 mg daily Check a fasting lipid panel Remaining orders and notations as noted Resident Activity Tracking Resident Involvement: Resident Care Provided Care Provided: [facility]
[2022-04-05] MEDS ORDERED: METOPROLOL TARTRATE 25 MG TAB PO STA (22:55)
[2022-04-05] MEDS ORDERED: DEXTROSE 50% 50 ML SYRINGE IV PRN (23:06)
[2022-04-05] MEDS ORDERED: GLUCOSE 40% GEL 15 GM TUBE PO PRN (23:06)
[2022-04-05] MEDS ORDERED: GLUCOSE 10 TAB/TUBE PO PRN (23:06)
[2022-04-05] MEDS ORDERED: GLUCAGON FOR INJ 1 MG VIAL SQ PRN (23:06)
[2022-04-05] MEDS ORDERED: CARBOHYDRATES FOR HYPOGLYCEMIA PO PRN (23:06)
[2022-04-05] MEDS ORDERED: LANTUS PER UNIT CHARGE SQ STA (23:11)
[2022-04-06] MEDS ORDERED: ACETAMINOPHEN 325 MG TAB PO PRN (00:50)
[2022-04-06] MEDS ORDERED: INSULIN ASPART PER UNIT SC STA (02:15)
[2022-04-06 06:00] LABS: Basophils # (auto) 0.04 K/uL (0-0.2); Basophils % (auto) 0.2 %; Hematocrit (blood only) 37.2 % (34.1-44.9); Hemoglobin 12.7 g/dl (12.0-16.0); Immature Granulocytes # (auto) 0.07 K/uL (0.00-0.02); Immature Granulocytes % (auto) 0.4 %; Lymphocytes # (auto) 1.92 K/uL (1.2-3.4); Lymphocytes % (auto) 11.1 %; Mean Corpuscular Hemoglobin 29.4 pg (25.0-34.0); Mean Corpuscular Hgb Conc 34.1 g/dL (32.0-36.0); Mean Corpuscular Volume 86.1 fL (80.0-100.0); Mean Platelet Volume 10.9 fL (9.4-12.3); Monocytes # (auto) 0.76 K/uL (0.24-0.82); Monocytes % (auto) 4.4 %; Neutrophils # (auto) 14.56 K/uL (1.4-6.5); Neutrophils % (auto) 83.9 %; Platelet Count 333 K/uL (130-400); RDW Coefficient of Variation 12.6 % (11.5-14.5); RDW Standard Deviation 39.6 fL (36.4-46.3); Red Blood Count 4.32 M/uL (3.93-5.22); White Blood Count 17.35 K/ul (4.8-10.8)
[2022-04-06 06:19] LABS: Appearance Urine Clear (Clear); Bacteria Urine Automated Negative (Negative); Bilirubin Urine Negative (Negative); Blood Urine Negative (Negative); Color Urine Yellow; Epithelial Cell Urine Auto >30 /lpf (0-5); Glucose Urine UA 2+ (Negative); Ketones Urine 1+ (Negative); Leukocyte Esterase Urine Trace (Negative); Nitrite Urine Negative (Negative); Protein Urine Negative (Negative); RBC Urine Automated 0-4 /hpf (0-4); Specific Gravity Urine > 1.045 (1.000-1.030); Urobilinogen Urine Negative (Negative)
[2022-04-06 06:27] LABS: Troponin I High Sensitivity 19.3 pg/ml (0-14)
[2022-04-06 06:28] LABS: Albumin Globulin Ratio 1.2 (0.9-2); Albumin Level 3.7 gm/dl (3.4-5.0); BUN Creatinine Ratio 24.8 (10-20); Bilirubin,Total 0.6 mg/dl (0.2-1.0); Calcium 9.6 mg/dl (8.5-10.1); Creatinine Clr Calc Pharmacy 47.6 ml/min; Est GFR (African American) 60.2 ml/min; Est GFR (Non-African American) 51.9 ml/min; Magnesium 2.2 mg/dl (1.7-2.4); Potassium 4.4 mmol/L (3.5-5.1); Total Protein 6.7 gm/dl (6.0-8.3)
--- NOTE | 2022-04-06 07:09 | CT Scan Report ---
CT head/brain wo con CLINICAL HISTORY: 76 years-old Female with weak, fall. Acute weakness. Acute head trauma status post fall TECHNIQUE: Multiple axial CT images of the head were obtained without contrast. A dose lowering tech nique was utilized adhering to the principles of ALARA. COMPARISON: CT cervical spine of same day, head CT 03/01/2021 FINDINGS: No acute intracranial hemorrhage, midline shift, intracranial mass, hydrocephalus, territorial ischem ia or abnormal extra-axial collection. Mild involutional changes. White matter hypodensities suggest chronic microvascular ischemic disease. Cerebral vascular calcifications. The calvarium is intact. Prior bilateral lens repair. The paranasal sinuses, mastoid air cells, and middle ear cavities are clear. IMPRESSION: No acute intracranial abnormality. ACT 112: Negative or not required by law. The above report was generated using voice recognition software. It may contain grammatical, syntax o r spelling errors. Electronically signed by: Chad Harden M.D. 04/06/2022 7:08 AM
--- NOTE | 2022-04-06 07:26 | CT Scan Report ---
CERVICAL SPINE CT CT DOSE: 1799.96 mGy.cm HISTORY: Neck pain. fall TECHNIQUE: Multiaxial CT images of the cervical spine were performed and reformatted in the sagittal and coronal plane without the use of contrast. A dose lowering technique was utilized adhering to th e principles of ALARA. COMPARISON: Cervical spine CT 03/01/2021. FINDINGS: No fractures. No subluxation. Prevertebral soft tissues and the C1-C2 interval are intact. No pneumothorax. Severe disc space narrowing at C5-C6. The C6-C7 vertebral bodies are fused. An 11 mm right thyroid nodule again noted. IMPRESSION: No fractures within the cervical spine. ACT 112: Negative or not required by law. Electronically signed by: Parminder Millan M.D. 04/06/2022 7:25 AM
[2022-04-06] MEDS: INSULIN ASPART PER UNIT SC SCH ×3 (07:41→12:07)
--- NOTE | 2022-04-06 08:42 | CT Scan Report ---
ABDOMEN AND PELVIS CT WITH IV CONTRAST CT DOSE: HISTORY: nausea, weak, vomiting, fall TECHNIQUE: Multiaxial CT images of the abdomen and pelvis were performed following the use of intrave nous contrast. A dose lowering technique was utilized adhering to the principles of ALARA. COMPARISON STUDY: Abdomen and pelvis CT 03/01/2021. FINDINGS: Faint scattered patchy groundglass densities within the lung bases. This raises the possibi lity of a low-grade pneumonitis. No pneumoperitoneum. No pneumatosis. L3-L5 posterior decompression f usion with pedicle screws and rods. No fractures identified within the visualized osseous structures. Mild circumferential thickening of the distal esophagus with a small hiatus hernia. This is similar to the prior study. Dense mitral annulus calcifications are noted. Small fat-containing left inguinal hernia. The bladder, uterus, and bilateral adnexa are unremarkable. No pelvic free fluid. Moderate w ell-formed stool seen throughout the colon and rectum. No bowel wall thickening or obstruction. Laura l appendix. The liver, gallbladder, pancreas, spleen, and adrenal glands are unremarkable. The kidney s enhance normally. No hydronephrosis. The main portal vein is patent. Normal caliber abdominal aorta . No retroperitoneal lymphadenopathy. IMPRESSION: 1. No bowel wall thickening or obstruction. 2. Moderate well-formed stool seen within the colon and rectum. 3. Mild circumferential thickening of the distal esophagus with a small hiatus hernia. This is simila r to the prior study. 4. Normal appendix. 5. No hydronephrosis. 6. No acute fractures. ACT 112: Negative or not required by law. Electronically signed by: Parminder Millan M.D. 04/06/2022 8:39 AM
--- NOTE | 2022-04-06 08:52 | Electrocardiogram Report ---
Test Reason : Blood Pressure : / mmHG Vent. Rate : 133 BPM Atrial Rate : 150 BPM P-R Int : 000 ms QRS Dur : 126 ms QT Int : 336 ms P-R-T Axes : 000 -43 113 degrees QTc Int : 500 ms Poor data quality, interpretation may be adversely affected Atrial fibrillation with rapid ventricular response with premature ventricular or aberrantly conducte d complexes Left axis deviation Left bundle branch block Abnormal ECG When compared with ECG of 11-FEB-2022 18:09, Atrial fibrillation has replaced Sinus rhythm Vent. rate has increased BY 53 BPM Confirmed by Saulo Mosher ([id number]) on 04/06/2022 8:52:36 AM Referred By: REFERRED SELF Confirmed By:Saulo Mosher
--- NOTE | 2022-04-06 08:53 | Electrocardiogram Report ---
Test Reason : Blood Pressure : / mmHG Vent. Rate : 066 BPM Atrial Rate : 066 BPM P-R Int : 188 ms QRS Dur : 148 ms QT Int : 448 ms P-R-T Axes : 076 -50 084 degrees QTc Int : 469 ms Normal sinus rhythm Left axis deviation Left bundle branch block Abnormal ECG When compared with ECG of 05-APR-2022 18:40, Sinus rhythm has replaced Atrial fibrillation Vent. rate has decreased BY 67 BPM QRS duration has increased Confirmed by Saulo Mosher ([id number]) on 04/06/2022 8:52:57 AM Referred By: REFERRED SELF Confirmed By:Saulo Mosher
[2022-04-06] MEDS ORDERED: lisinopril 20 MG TAB PO SCH (09:00)
[2022-04-06] MEDS ORDERED: METOPROLOL TARTRATE 25 MG TAB PO SCH (09:00)
[2022-04-06] MEDS ORDERED: PANTOprazole 40 MG TAB PO SCH (09:00)
[2022-04-06] MEDS ORDERED: HEPARIN SOD 5,000 UNIT/0.5 ML VIAL SQ SCH (09:00)
[2022-04-06] MEDS ORDERED: LANTUS PER UNIT CHARGE SQ SCH (09:00)
--- NOTE | 2022-04-06 09:01 | Electrocardiogram Report ---
Test Reason : Blood Pressure : / mmHG Vent. Rate : 079 BPM Atrial Rate : 079 BPM P-R Int : 188 ms QRS Dur : 130 ms QT Int : 410 ms P-R-T Axes : 047 -51 104 degrees QTc Int : 470 ms Normal sinus rhythm Left axis deviation Left bundle branch block Abnormal ECG When compared with ECG of 05-APR-2022 21:03, No significant change was found Confirmed by Saulo Mosher ([id number]) on 04/06/2022 9:01:20 AM Referred By: REFERRED SELF Confirmed By:Saulo Mosher
--- NOTE | 2022-04-06 09:38 | Cardiology Consultation ---
Date of Consultation April 06, 2022 Assessment & Plan (1) New onset atrial fibrillation: (2) Left bundle branch block: (3) Diabetes mellitus treated with insulin: Plan 76-year-old woman with vascular risk factors but no known coronary disease, chronic left bundle branch block, admitted with new onset atrial fibrillation. Given her nonspecific prodromal symptoms and the lack of angina, dyspnea, or diaphoresis, as well as her unremarkable high-sensitivity troponin, suspect that her prominent gastrointestinal symptoms were a cause rather than a results of her atrial fibrillation with rapid ventricular rate. She may have had a viral syndrome which created a hyperadrenergic state. Fortunately, despite her vascular risk factors, the fact that she could tolerate a tachycardia without an enzyme increase or anginal type symptoms is highly suggestive that she does not have occlusive coronary artery disease at this time. Agree with low-dose metoprolol to help prevent recurrent atrial fibrillation as well as to control rate if she does have breakthrough dysrhythmia (currently metoprolol tartrate 25 mg twice daily, could be changed to metoprolol succinate 25 mg or 50 mg upon discharge, depending upon her BP). Would recommend discontinuing lisinopril, since she chronically notes a low blood pressure and would be unlikely to tolerate 2 vasoactive medications simultaneously. If BP allows, lisinopril could be added back at low-dose as an outpatient. Would recommend apixaban for chronic anticoagulation given her elevated MCB5ND5- VASc score of 5, she has no apparent contraindications but does use ibuprofen on a fairly routine basis. Recommended that she switch to acetaminophen 1000 mg twice daily and try to limit her ibuprofen to occasional use only. Given her weight, normal renal function, and age less than 80, full dose apixaban is appropriate. From a cardiac standpoint she is doing well, if she is ambulating and has normal hemodynamics she could potentially be discharged soon, however given her history of borderline BP and the need to adjust vasoactive medications she may need to remain overnight. History of Present Illness Reason for Consultation: New onset A. fib with RVR Requesting Physician: Iban Lozoya MD Attending Physician: Iban Lozoya MD History of Present Illness 76-year-old woman with diabetes mellitus (on insulin), hypertension, chronic left bundle branch block, no other cardiac history, who presents with new onset atrial fibrillation with rapid ventricular response. She had felt fatigued for a day or so with some nasal congestion and an occasi onally productive cough, but still went shopping yesterday and was overcome by severe nausea, diarrhea, and several episodes of vomiting. She denies any chest pain, dyspnea, or diaphoresis. She was transported by ambulance to the ER where ECG showed atrial fibrillation with ventricular to 133 bpm, chronic left bundle branch block. She was given IV metoprolol and subsequently her rhythm returned to sinus and has remained in sinus overnight. She feels much better today, she had a good appetite this morning and notes no further nausea, vomiting, or diarrhea. She denies any chest pain, subjective palpitations, or dyspnea. Allergies Allergy/AdvReac Type Severity Reaction Status Date / Time oxycodone Allergy Mild ITCHING Verified 04/05/22 22:03 Home Medications Medication Instructions Recorded Confirmed Type calcium carbonate 500 mg-vitamin 1 tab PO BID 05/24/18 04/05/22 History D3 5 mcg (200 unit) tablet (Calcium 500 + D) krill 1,000 mg-omega-3 170 mg-dha 1 cap PO QAM 05/24/18 04/05/22 History 50 mg-epa 80 bx-gcakvc-rmcve capsule (krill oil) tjylynn-nbdpkehhemrct-jwubspgq 250 2 tab PO DAILY PRN Migraine 02/09/19 04/05/22 History mg-250 mg-65 mg tablet (Excedrin Headache Extra Strength) multivitamin 1 tab PO QAM 02/09/19 04/05/22 History lancets 33 gauge (OneTouch Delica #100 ea 02/22/19 03/27/22 History Plus Lancet) pen needle, diabetic 32 gauge x #10 ea 02/22/19 03/27/22 History 5/32" (BD Missy 2nd Gen Pen Needle) Dexcom G6 Photocomposing Machine Operator (blood-glucose #1 ea 04/04/19 03/27/22 Rx meter,continuous) Dexcom G6 Sensor (blood-glucose #9 ea 04/04/19 03/27/22 Rx sensor) Dexcom G6 Transmitter #1 ea 04/04/19 03/27/22 Rx (blood-glucose transmitter) furosemide 40 mg tablet 40 mg PO DAILY PRN Edema #10 tabs 07/05/20 04/05/22 Rx blood sugar diagnostic (OneTouch #10 ea 09/12/20 03/27/22 History Ultra Blue Test Strip) insulin aspart U-100 100 unit/mL 0 sliding scale dose subcut WM 02/14/21 04/05/22 History (3 mL) subcutaneous pen (Novolog Flexpen U-100 Insulin aspart) lisinopril 20 mg tablet 20 mg PO QAM #90 tabs 08/07/21 04/05/22 Rx venlafaxine 150 mg 150 mg PO QAM #90 caps 10/16/21 04/05/22 Rx capsule,extended release 24 hr insulin glargine 100 unit/mL (3 18 unit subcut PM 12/27/21 04/05/22 History mL) subcutaneous pen (Basaglar KwikPen U-100 Insulin) atorvastatin 20 mg tablet 20 mg PO PM #90 tabs 03/27/22 04/05/22 Rx hydrocortisone 2.5 % topical cream 1 applic topical DAILY #30 grams 03/27/22 04/05/22 Rx omeprazole 20 mg tablet,delayed 20 mg PO DAILY #90 tabs 04/03/22 04/05/22 Rx release Patient History Medical History (Updated 04/06/22 @ 09:38 by Saulo Mosher MD) Alcoholism pt reports is improving on this, few drinks of vodka weekly, no longer every day Anxiety Depression Diabetes mellitus, type 2 Gastroesophageal reflux disease Gastroparesis History of colon polyps Hyperlipidemia Hypertension Left bundle branch block doesn't follow cardio Migraine Osteopenia Proliferative diabetic retinopathy associated with type 1 diabetes mellitus Spinal stenosis Urinary incontinence Venous insufficiency Vitamin D deficiency Surgical History History of bilateral carpal tunnel release History of bilateral cataract extraction History of cataract surgery History of colonoscopy History of lumbar fusion History of open reduction and internal fixation (ORIF) procedure left wrist fx--hardware removed History of open reduction and internal fixation (ORIF) procedure right wrist fx--hardware in place History of right breast biopsy x2--benign mass History of tooth extraction Family History Grandmother (Maternal) Family history of diabetes mellitus Diabetes Uncle Family history of diabetes mellitus paternal Grandmother (Paternal) Breast cancer Mother , age 77 of an [place] Myocardial infarction Scleroderma Father , age 70 of an [place] Myocardial infarction Denies family history of Ovarian cancer Prostate cancer Colorectal cancer Social History Smoking Status: Former smoker Tobacco Type: Cigarettes Age Started Using Tobacco: 21; Age Quit Using Tobacco: 28; packs per day: 1; Years Smoked: 7; Number of Years Since Quit: 46; Second Hand Exposure: No; Do You Dip or Chew Tobacco: No; Hx Alcohol Use: Yes Alcohol type: hard liquor Alcohol Intake Frequency: 4 or More x per/Week Alcohol Intake Frequency Comment: 1-2 drinks of vodka per night Hx Substance Use: No Preferred Language: Khmer Communication Ability: Effective Visual Impairment: No Limitations Hearing Ability: Normal Assembler Fluorescent Lights Required: No Beliefs That Will Affect Care: None marital status: Current Living Situation: Spouse current occupational status: retired 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 Current BP mildly hypotensive (96/58 mmHg), she notes that her BP runs chronically low. Pulse 68 bpm and regular. Skin: no ecchymoses or generalized lesions. HEENT: unremarkable. Neck: Jugular venous pulse just above the clavicle, no carotid bruits. Lungs: clear. Cardiac: regular rhythm, no murmur or gallop. Abdomen: benign. Extremities: no edema, pulses intact. Neurologic: normal affect, nonfocal. Results & Data ([facility]) Vital Signs (Past 12 Hours) Vital Signs Temp Pulse Pulse Pulse Resp BP BP 04/06/22 08:07 98.4 F 74 21 100/61 04/06/22 07:11 74 04/06/22 03:59 78 04/06/22 02:31 98.2 F 69 18 104/62 04/06/22 01:46 98.4 F 78 18 151/84 H 04/06/22 01:43 98.4 F 78 18 151/84 H 04/05/22 23:00 80 17 142/88 H Pulse Ox O2 Del Method 04/06/22 08:07 93 Room Air 04/06/22 07:11 04/06/22 03:59 04/06/22 02:31 94 Room Air 10/16/22 01:46 96 Room Air 04/06/22 01:43 96 Room Air 04/05/22 23:00 97 Room Air Laboratory Results High-sensitivity troponin was 19.1 and 19.3. WBC elevated at 17.35, normal hemoglobin and hematocrit. Normal electrolytes, BUN 26, creatinine 1.05. Diagnostic Findings ECG on admission showed atrial fibrillation with ventricular rate 133 bpm, chronic left bundle branch block. Repeat ECGs showed sinus rhythm. Chest x-ray showed no acute process. Echocardiogram today showed EF 60 to 65% with mild LVH, moderate mitral annular calcification with mild mitral regurgitation, moderate pulmonary hypertension, dilated inferior vena cava. No prior study for comparison. Lexiscan nuclear perfusion study 2019 showed no ischemia. EF was 64%. PG Care Time/CCT Total # of Minutes Spent Total Time Spent with Patient: Total time spent is greater than 50% in coordination of care (as documented) at patient's floor/unit and/or counseling patient: Coding Level of Care Code 75630 Inpt Consult Level 4 Diagnoses New onset atrial fibrillation I48.91 Left bundle branch block I44.7 Diabetes mellitus treated with insulin E11.9; Z79.4
--- NOTE | 2022-04-06 11:32 | XCELERA ---
[id number]
--- NOTE | 2022-04-06 15:42 | Discharge Summary ---
Date of Service April 06, 2022 Admission HPI Per Admitting Provider 76 y/o female w/ PMHx of DM1, HTN, HLD, depression who presents w/ generalized weakness and fall. She has had malaise since waking up this morning. She had transient intractable nausea and vomiting times multiple episodes as well as a few episodes of diarrhea. She later went to the [employer] and required assistance of electric scooter because she felt unwell. She didn't had a fall/minor crash while using this scooter. Currently, she feels chilly. She has had upper respiratory symptoms including exacerbation of her chronic nighttime cough (former smoker) with some green sputum. She has had nasal congestion. Her has had similar URI symptoms. She denies chest pain or shortness of breath and does not have any urinary symptoms. She states her general health has not been good lately mainly because of uncontrolled blood sugars ranging from 40-400. She has a continuous glucose monitor, but states that it had malfunctioned a week ago, parts since replaced. Patient has had her covid vaccines and booster. She denies palpitations or hx of afib, though does have old LBBB. ED course: Lopressor 5mg IV. 2 grams IV Mg. Initial ecg w/ afib rvr 133 and LBBB (not new). Repeat ecg sinus 66 and LBBB. Principal Diagnosis New atrial fibrillation Possible GI vs. URI infection causing weakness Discharge Exam Gen: No acute distress CV: RRR, no m/r/g Discharge Data Allergies Allergy/AdvReac Type Severity Reaction Status Date / Time oxycodone Allergy Mild ITCHING Verified 04/05/22 22:03 Consultations 04/05/22 21:53 ED Decision to Admit Stat 04/06/22 07:00 Consult Cardiology Routine Ordered Studies 04/05/22 18:59 CT abd pelvis IV con only Stat CT cervical spine wo con Stat CT head/brain wo con Stat Hospital Course (1) New onset atrial fibrillation: Paroxysmal. Was in afib for < 24 hours. Seen by cardiology. - Echo with EF 60-65%, mild LVH, elevated RVSP. - Discharged on Toprol and Eliquis. - 30-day MCOT ordered on discharge to better quantify afib burden -> Follow up with cardiology in 1-2 weeks. (2) Diabetes mellitus treated with insulin: Last A1c was 10.2%. Current one pending. - No changes to regimen on discharge. Follow up with PCP. (3) Weakness: Due to GI vs. respiratory illness. Resolved by discharge. Patient had walked the room, felt she was at baseline, and safe to go home. - Not seen by PT/OT as ordered, but no need (4) Hypertension: BP was running low with lisinopril and metoprolol. - Stop lisinopril per cardiology (was giving her a cough anyhow) - Start Toprol XL 25 mg PO daily - Start losartan 25 mg PO HS Total Time Total Time Spent Total Time Spent (In Minutes): 45 Discharge Plan Discharge Items Patient Disposition: Home - Self-Care Reason For Visit: NEW ONSET AFIB Discharge Diagnosis: New onset atrial fibrillation Possible GI bug (food poisoning) Activity: Resume your previous activity Non-emergency contact: Primary Care Provider Call non-emergency contact if: your symptoms worsen Follow-up/Referrals: Saulo Mosher MD [Physician] - (Please see Dr. Mosher or another provider in the clinic in 1-2 weeks to be sure you are doing well.) Lois Nolan MD [Primary Care Provider] - Diet: Carb Count or DM1 and Heart Healthy Addtl Attending Provider Instructions: Ms. Mei, You were admitted to the hospital with atrial fibrillation. We think this was possibly due to a GI illness as you had nausea, vomiting, and diarrhea (and your felt unwell also). Fortunately, your GI issues have improved, and you ate two meals without any nausea or diarrhea today. You also mentioned to the admitting team that you and your had some cough/congestion, so it is possible this was playing a role too. Additionally, your heart went back into a normal rhythm as well (called sinus rhythm) which is great also! To keep you from having a stroke, we are sending you home on a blood thinner (anticoagulation) called Eliquis. We are also adjust your medications to help calm your heart down. First, we are starting metoprolol which helps keep your heart slower if it goes into atrial fibrillation again. Second, we are stopping the lisinopril because it can cause a cough. Instead, we will start a very low dose of losartan which can also protect your kidneys. We are sending a heart monitor to you in the mail to see how much atrial fibrillation you have throughout a month, so please wear that and send it in. The results will be send to your PCP. Please see Dr. Mosher or another cardiology provider in the office in 2-3 weeks to be sure you are doing well. Pending Studies at Discharge: No Stand-Alone Forms: [facility], Smoking Cessation Medications and DC Order Prescriptions: New acetaminophen 325 mg Tablet 650 mg PO Q4H PRN (Reason: pain) Qty: 0 0RF Eliquis 5 mg tablet 5 mg PO BID Qty: 60 0RF losartan 25 mg tablet 25 mg PO HS Qty: 30 0RF metoprolol succinate 25 mg tablet extended release 24 hr 25 mg PO DAILY Qty: 30 0RF Continued venlafaxine 150 mg capsule,extended release 24hr 150 mg PO QAM Qty: 90 1RF atorvastatin 20 mg tablet 20 mg PO PM Qty: 90 1RF omeprazole 20 mg tablet,delayed release (DR/EC) 20 mg PO DAILY Qty: 90 2RF Basaglar KwikPen U-100 Insulin 100 unit/mL (3 mL) insulin pen 18 unit SQ PM hydrocortisone 2.5 % cream 1 applic topical DAILY Qty: 30 1RF Rx Instructions: Apply as needed to the face. furosemide 40 mg tablet 40 mg PO DAILY PRN (Reason: Edema) Qty: 10 0RF (DME) lancets [OneTouch Delica Plus Lancet] 33 gauge misc See Dose Instructions .ROUTE .MEDSUPPLY Qty: 100 Rx Instructions: Test 5 times daily (DME) pen needle, diabetic [BD Missy 2nd Gen Pen Needle] 32 gauge x 5/32" needle See Dose Instructions .ROUTE .MEDSUPPLY Qty: 10 Rx Instructions: Use 1 needle 4 times daily (DME) OneTouch Ultra Blue Test Strip Strip See Rx Instructions .ROUTE .MEDSUPPLY Qty: 10 Rx Instructions: Test blood sugars 2 times a day as needed for calibration (DME) Dexcom G6 Hematology Specialist misc See Dose Instructions .ROUTE .MEDSUPPLY Qty: 1 0RF Dose Instruction: Use as directed for continuous glucose monitoring Rx Instructions: Use as directed for continuous glucose monitoring (DME) Dexcom G6 Sensor device See Dose Instructions .ROUTE .MEDSUPPLY Qty: 9 3RF Dose Instruction: Use as directed for continuous glocuse monitoring - Change sensor every 10 days Rx Instructions: Use as directed for continuous glocuse monitoring - Change sensor every 10 days (DME) Dexcom G6 Transmitter device See Dose Instructions .ROUTE .MEDSUPPLY Qty: 1 3RF Dose Instruction: Use as directed for continuous glucose monitoring - change every 90 days Rx Instructions: Use as directed for continuous glucose monitoring - change every 90 days calcium carbonate-vitamin D3 [Calcium 500 + D] 500 mg(1,250mg) -200 unit Tablet 1 tab PO BID bizxj-es-1-mtp-bqx-ldofntz-ast [krill oil] 1,686-521-92-80 mg Capsule 1 cap PO QAM multivitamin tablet 1 tab PO QAM insulin aspart U-100 [Novolog Flexpen U-100 Insulin] 100 unit/mL (3 mL) i nsulin pen 0 sliding scale dose subcut WM Rx Instructions: SLIDING SCALE WITH MEALS TDD 40 Discontinued lisinopril 20 mg tablet 20 mg PO QAM Qty: 90 1RF Excedrin Extra Strength 250-250-65 mg tablet 2 tab PO DAILY PRN (Reason: Migraine Headache) Discharge Orders: Discharge Order (Routine); Ordered 04/06/22 Ordered By: Iban Lozoya Admission Data Admit Date/Time: 04/05/22 23:03 Attending Provider: Iban Lozoya Admit Provider: Trey Zafar Primary Care Provider: Lois Nolan Other Providers: Jesus Pinzon ; Saulo Mosher Other Interventions: Discharge Summary Assessment (RN) Last Done: 04/06/22 15:19 Coding Level of Care Code 73280 OBS Care - Discharge Diagnoses New onset atrial fibrillation I48.91 Diabetes mellitus treated with insulin E11.9; Z79.4 Weakness R53.1 Hypertension I10
--- NOTE | 2022-04-06 20:15 | Billing Data ---
Date of Service April 06, 2022 Coding Level of Care Code INT OBSERVATION CARE 71M LVL 3
[2022-04-07 07:44] LABS: Estimated Average Glucose 223 mg/dl; Hemoglobin A1C 9.4 % (4.5-5.6)
== END 2022-04-06 16:07 | disposition home or self-care (01) ==
LOC: 2N 18:28 → ED 18:28 → SUATTDRO 23:03 → 2N 23:37

== ENCOUNTER 2022-09-27 13:56 | Inpatient (IN) ==
[2022-09-27] MEDS ORDERED: ALBUTEROL 0.5% NEB SOLN 2.5 MG/0.5 ML VIAL ONE (14:07)
[2022-09-27] MEDS ORDERED: ALBUTEROL 0.083% NEBU SOLN 3 ML VIAL ONE (14:08)
[2022-09-27 14:27] LABS: Base Excess VBG -0.9 mEq/L; HCO3 VBG 26 mmol/L; Oxygen Saturation VBG < 60.0 %; PCO2 VBG 50 mmHg (38-50); PO2 VBG 21 mmHg; pH VBG 7.32 (7.36-7.41)
[2022-09-27 14:32] LABS: Basophils # (auto) 0.05 K/uL (0-0.2); Basophils % (auto) 0.5 %; Eosinophils # (auto) 0.14 K/uL (0-0.50); Eosinophils % (auto) 1.4 %; Hematocrit (blood only) 34.7 % (37.0-47.0); Hemoglobin 11.6 g/dl (12.0-16.0); Immature Granulocytes # (auto) 0.02 K/uL (0.01-0.20); Immature Granulocytes % (auto) 0.2 %; Lymphocytes # (auto) 2.87 K/uL (1.2-3.4); Lymphocytes % (auto) 29.2 %; Mean Corpuscular Hgb Conc 33.4 g/dL (32.0-36.0); Mean Corpuscular Volume 86.8 fL (80.0-100.0); Mean Platelet Volume 10.9 fL (9.4-12.4); Monocytes # (auto) 0.88 K/uL (0.11-0.59); Neutrophils # (auto) 5.86 K/uL (1.40-6.50); Neutrophils % (auto) 59.7 %; Platelet Count 321 K/uL (130-400); RDW Coefficient of Variation 14.6 % (11.5-14.5); RDW Standard Deviation 46.3 fL (36.4-46.3); White Blood Count 9.82 K/ul (4.8-10.8)
--- NOTE | 2022-09-27 14:32 | Emergency Department Note ---
History of Present Illness General Chief Complaint: Shortness of Breath/Dyspnea Stated Complaint: SHORTNESS OF BREATH Time Seen by Provider: 09/27/22 14:06 History of Present Illness Provider Complaint: shortness of breath Onset (ago): day(s) (3) Severity: moderate Consistency/Duration: + progressively worsening Relieved By: + nothing Exacerbated By: + exertion and + coughing Context: no recent illness or no recent travel Associated symptoms: + cough, + wheezing, + sputum production and + chest congestion; no chest pain or no nausea/vomiting Home Medications Medication Instructions Recorded Confirmed Type calcium carbonate 500 mg-vitamin 1 tab PO BID 05/24/18 09/27/22 History D3 5 mcg (200 unit) tablet (Calcium 500 + D) krill 1,000 mg-omega-3 170 mg-dha 1 cap PO QAM 05/24/18 09/27/22 History 50 mg-epa 80 of-ycifhx-mlknk capsule (krill oil) multivitamin 1 tab PO QAM 02/09/19 09/27/22 History lancets 33 gauge (OneTouch Delica #100 ea 02/22/19 09/17/22 History Plus Lancet) Dexcom G6 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 (blood-glucose #1 ea 04/04/19 09/17/22 Rx meter,continuous) Dexcom G6 Sensor (blood-glucose #9 ea 04/04/19 09/17/22 Rx sensor) Dexcom G6 Transmitter #1 ea 04/04/19 09/17/22 Rx (blood-glucose transmitter) blood sugar diagnostic (OneTouch #10 ea 09/12/20 09/17/22 History Ultra Blue Test Strip) atorvastatin 20 mg tablet 20 mg PO PM #90 tabs 03/27/22 09/27/22 Rx hydrocortisone 2.5 % topical cream 1 applic topical DAILY #30 grams 03/27/22 09/27/22 Rx acetaminophen 325 mg tablet 650 mg PO Q4H PRN pain #0 tabs 04/06/22 09/27/22 Rx metoprolol succinate 50 mg 50 mg PO DAILY #90 tabs 05/01/22 09/27/22 Rx tablet,extended release 24 hr pen needle, diabetic 32 gauge x #150 ea 05/23/22 09/17/22 Rx 5/32" (BD Missy 2nd Gen Pen Needle) venlafaxine 150 mg 150 mg PO QAM #90 caps 07/09/22 09/27/22 Rx capsule,extended release 24 hr insulin aspart U-100 100 unit/mL 1 sliding scale dose subcut WM #15 07/11/22 09/27/22 Rx (3 mL) subcutaneous pen (Novolog mL FlexPen U-100 Insulin aspart) insulin glargine 100 unit/mL (3 See Rx Instructions subcut PM #15 07/11/22 09/27/22 Rx mL) subcutaneous pen (Basaglar mL KwikPen U-100 Insulin) rivaroxaban 20 mg tablet (Xarelto) 20 mg PO DAILY #30 tabs 08/27/22 09/27/22 Rx omeprazole 20 mg tablet,delayed 20 mg PO BID 09/27/22 09/27/22 History release Allergies Allergy/AdvReac Type Severity Reaction Status Date / Time oxycodone Allergy Mild ITCHING Verified 09/17/22 14:47 Past Med/Surg History Medical History Alcoholism pt reports is improving on this, few drinks of vodka weekly, no longer every day Anxiety Depression Diabetes mellitus, type 2 Gastroesophageal reflux disease Gastroparesis History of colon polyps Hyperlipidemia Hypertension Left bundle branch block Migraine Osteopenia Proliferative diabetic retinopathy associated with type 1 diabetes mellitus Spinal stenosis Urinary incontinence Venous insufficiency Vitamin D deficiency Surgical History History of bilateral carpal tunnel release History of bilateral cataract extraction History of cataract surgery History of colonoscopy History of lumbar fusion History of open reduction and internal fixation (ORIF) procedure left wrist fx--hardware removed History of open reduction and internal fixation (ORIF) procedure right wrist fx--hardware in place History of right breast biopsy x2--benign mass History of tooth extraction Family History Grandmother (Maternal) Family history of diabetes mellitus Diabetes Uncle Family history of diabetes mellitus paternal Grandmother (Paternal) Breast cancer Mother , age 77 of an [place] Myocardial infarction Scleroderma Father , age 70 of an [place] Myocardial infarction Denies family history of Ovarian cancer Prostate cancer Colorectal cancer Social History Smoking Status: Never smoker Tobacco Type: Cigarettes Age Started Using Tobacco: 21; Age Quit Using Tobacco: 28; packs per day: 1; Second Hand Exposure: No; Hx Alcohol Use: Yes Alcohol type: hard liquor Alcohol Intake Frequency: 4 or More x per/Week Alcohol Intake Frequency Comment: 1-2 drinks of vodka per night Hx Substance Use: No Preferred Language: Azeri Communication Ability: Effective Visual Impairment: No Limitations Hearing Ability: Normal 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 Asbestos Shingle Required: No Beliefs That Will Affect Care: None marital status: Current Living Situation: Spouse current occupational status: retired 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 Feels Safe at Home: Yes Safety Concerns: Feels Safe At This Time Childhood Exposure to Second-Hand Smoke: Yes Diet Comment: regular Dental Care, Regularly: Yes Physical Activity Frequency: Does not Exercise Seatbelt Use: always Sunscreen Use: No Assistive Devices: Cane Physical Exam Vital Signs: Vital Signs - 24 hr 09/27/22 13:57 09/27/22 13:57 09/27/22 14:28 Temperature 36.8 C Temperature Source Temporal Artery Sc an Pulse Rate 114 H 103 H Pulse Rate from Sp O2 Sensor Respiratory Rate 16 Blood Pressure 143/91 H Blood Pressure Lian n 108 Pulse Oximetry 97 Oxygen Delivery Me thod Room Air Sepsis Recent Feve r Within 48 Hours No Sepsis New/Unexpla ined Change in Men terry Status N/A Sepsis Action Take n by Nursing No Action Required 09/27/22 14:41 09/27/22 15:00 Temperature Temperature Source Pulse Rate 104 H Pulse Rate from Sp O2 Sensor 107 H Respiratory Rate 19 Blood Pressure 139/94 Blood Pressure Lian n 109 Pulse Oximetry 92 93 Oxygen Delivery Me thod Room Air Room Air Sepsis Recent Feve r Within 48 Hours Sepsis New/Unexpla ined Change in Men terry Status Sepsis Action Take n by Nursing Physical Exam: Physical Exam GENERAL: oriented to person, place, and time. appears well-developed and well- nourished. HENT: Exam performed. - Head: Normocephalic and atraumatic. EYES: Conjunctivae and EOM are normal. Right eye exhibits no discharge. Left eye exhibits no discharge. No scleral icterus. NECK: Normal range of motion. Neck supple. No JVD present. CV: Normal rate, irregular rhythm, normal heart sounds and intact distal pulses.Palpable radial pulses bue. PULM/CHEST: Diffuse expiratory wheezes bilaterally. ABD: The abdomen is soft. There is no tenderness. NEURO: Motor and sensation grossly intact. SKIN: Skin is warm and dry. He is not diaphoretic. PSYCH: normal mood and affect. Behavior is normal. Judgment and thought content normal. Course Course 1406: The patient was evaluated in room C122. A complete history and physical exam was performed Cardiac monitoring: An order was placed for continuous cardiac monitoring. The monitor shows a rate of 110 with atrial fibrilation rhythm interpreted by me 1515: Vital signs stable. Labs within normal limits with exception of elevated proBNP and troponin. Chest x-ray shows cardiomegaly with cephalization. Patient has no reported history of CHF. [facility] be [facility] with Lasix [facility]. Administered Medications Albuterol (Albut/Ipratrop 3mg/0.5mg Neb 3 Ml Vial) 3 ml NEB QIDR [facility]; Protocol Stop: 10/27/22 18:59 Last Admin: 09/27/22 19:43 Dose: 3 ml Documented By: KORIN Atorvastatin Calcium (Atorvastatin 20 Mg Tab) 20 mg PO PM RANDY Stop: 10/27/22 20:59 Last Admin: 09/27/22 20:27 Dose: 20 mg Documented By: RICHARD Insulin Aspart (Insulin Aspart Per Unit Charge) 0 units SC ACHS [facility] Stop: 10/27/22 16:29 Last Admin: 09/27/22 20:38 Dose: 4 units Documented By: RICHARD Co-signed By: ROSY Admin: 09/27/22 17:16 Dose: 5 units Documented By: [id number] Co-signed By: REBECCA Insulin Glargine (Lantus Per Unit Charge) 20 units SQ HS [facility] Stop: 10/27/22 20:59 Last Admin: 09/27/22 20:38 Dose: 20 units Documented By: RICHARD Co-signed By: ROSY Pantoprazole Sodium (Pantoprazole 40 Mg Tab) 40 mg PO BID [facility] Stop: 10/27/22 20:59 Last Admin: 09/27/22 20:27 Dose: 40 mg Documented By: RICHARD Discontinued Medications Albuterol (Albuterol 0.5% Neb Soln 2.5 Mg/0.5 Ml Vial) Confirm Administered Dose 2.5 mg .ROUTE .STK-MED ONE Stop: 09/27/22 14:08 Last Admin: 09/27/22 14:25 Dose: Not Given Documented By: SARAH Albuterol (Albuterol 0.083% Nebu Soln 3 Ml Vial) Confirm Administered Dose 2.5 mg .ROUTE .STK-MED ONE Stop: 09/27/22 14:09 Last Admin: 09/27/22 14:25 Dose: 2.5 mg Documented By: SARAH Furosemide (Furosemide 40 Mg/4 Ml Vial) 40 mg IV ONE ONE Stop: 09/27/22 15:08 Last Admin: 09/27/22 15:19 Dose: 40 mg Documented By: SARAH Magnesium Sulfate/Dextrose (Magnesium Sulfate / D5w) 1 gm in 100 mls @ 50 mls/hr IV ONE ONE Stop: 09/27/22 18:00 Last Infusion: 09/27/22 19:07 Dose: 0 mls/hr Documented By: Admin: 09/27/22 17:07 Dose: 50 mls/hr Documented By: [id number] Medical Decision Making Laboratory Data Attestation: I reviewed the patient's lab results. 09/27/22 14:18 09/27/22 14:18 Lab Results 09/27/22 09/27/22 09/27/22 Range/Units 14:18 14:18 14:18 WBC 9.82 (4.8-10.8) K/ul RBC 4.00 L (4.20-5.40) M/uL Hgb 11.6 L (12.0-16.0) g/dl Hct 34.7 L (37.0-47.0) % MCV 86.8 (80.0-100.0) fL MCH 29.0 (25.0-34.0) pg MCHC 33.4 (32.0-36.0) g/dL RDW Std Deviation 46.3 (36.4-46.3) fL RDW Coeff of Linda 14.6 H (11.5-14.5) % Plt Count 321 (130-400) K/uL MPV 10.9 (9.4-12.4) fL Immature Gran % (Auto) 0.2 % Neut % (Auto) 59.7 % Lymph % (Auto) 29.2 % [place] % (Auto) 9.0 % Eos % (Auto) 1.4 % Baso % (Auto) 0.5 % Neut # (Auto) 5.86 (1.40-6.50) K/uL Lymph # (Auto) 2.87 (1.2-3.4) K/uL [place] # (Auto) 0.88 H (0.11-0.59) K/uL Eos # (Auto) 0.14 (0-0.50) K/uL Baso # (Auto) 0.05 (0-0.2) K/uL Immature Gran # (Auto) 0.02 (0.01-0.20) K/uL PT 14.6 H (9.0-12.0) Seconds INR 1.4 H (0.9-1.1) APTT 31.1 H (21.0-31.0) Seconds PTT Ratio 1.1 VBG pH (7.36-7.41) VBG pCO2 (38-50) mmHg VBG pO2 mmHg VBG HCO3 mmol/L VBG O2 Saturation % VBG Base Excess mEq/L Sodium 136 (136-145) mmol/L Potassium 4.2 (3.5-5.1) mmol/L Chloride 104 (98-107) mmol/L Carbon Dioxide 25 (21-32) mmol/L Anion Gap 7 (3-11) BUN 26 H (6-23) mg/dl Creatinine 0.97 (0.6-1.2) mg/dl Est Cr Clr Drug Dosing 52.9 ml/min Est GFR ( Amer) 65.8 ml/min Est GFR (Non-Af Amer) 56.7 ml/min BUN/Creatinine Ratio 26.8 H (10-20) Glucose 123 H (70-99(Fasting)) mg/dl Calcium 9.1 (8.6-10.3) mg/dl Magnesium 1.7 (1.7-2.4) mg/dl Troponin I High Sens 14.2 H (0-14) pg/ml B-Natriuretic Peptide (0-100) pg/ml Lipase 4 L (11-82) U/L Procalcitonin (0-0.5) ng/ml SARS-CoV-2 (PCR) (Negative) Influenza Type A (PCR) (Neg) Influenza Type B (PCR) (Neg) RSV (RT-PCR) (Neg) 09/27/22 09/27/22 09/27/22 Range/Units 14:18 14:18 14:20 WBC (4.8-10.8) K/ul RBC (4.20-5.40) M/uL Hgb (12.0-16.0) g/dl Hct (37.0-47.0) % MCV (80.0-100.0) fL MCH (25.0-34.0) pg MCHC (32.0-36.0) g/dL RDW Std Deviation (36.4-46.3) fL RDW Coeff of Linda (11.5-14.5) % Plt Count (130-400) K/uL MPV (9.4-12.4) fL Immature Gran % (Auto) % Neut % (Auto) % Lymph % (Auto) % [place] % (Auto) % Eos % (Auto) % Baso % (Auto) % Neut # (Auto) (1.40-6.50) K/uL Lymph # (Auto) (1.2-3.4) K/uL [place] # (Auto) (0.11-0.59) K/uL Eos # (Auto) (0-0.50) K/uL Baso # (Auto) (0-0.2) K/uL Immature Gran # (Auto) (0.01-0.20) K/uL PT (9.0-12.0) Seconds INR (0.9-1.1) APTT (21.0-31.0) Seconds PTT Ratio VBG pH 7.32 L (7.36-7.41) VBG pCO2 50 (38-50) mmHg VBG pO2 21 mmHg VBG HCO3 26 mmol/L VBG O2 Saturation < 60.0 % VBG Base Excess -0.9 mEq/L Sodium (136-145) mmol/L Potassium (3.5-5.1) mmol/L Chloride (98-107) mmol/L Carbon Dioxide (21-32) mmol/L Anion Gap (3-11) BUN (6-23) mg/dl Creatinine (0.6-1.2) mg/dl Est Cr Clr Drug Dosing ml/min Est GFR ( Amer) ml/min Est GFR (Non-Af Amer) ml/min BUN/Creatinine Ratio (10-20) Glucose (70-99(Fasting)) mg/dl Calcium (8.6-10.3) mg/dl Magnesium (1.7-2.4) mg/dl Troponin I High Sens (0-14) pg/ml B-Natriuretic Peptide 412 H (0-100) pg/ml Lipase (11-82) U/L Procalcitonin 0.13 (0-0.5) ng/ml SARS-CoV-2 (PCR) (Negative) Influenza Type A (PCR) (Neg) Influenza Type B (PCR) (Neg) RSV (RT-PCR) (Neg) 09/27/22 Range/Units 14:30 WBC (4.8-10.8) K/ul RBC (4.20-5.40) M/uL Hgb (12.0-16.0) g/dl Hct (37.0-47.0) % MCV (80.0-100.0) fL MCH (25.0-34.0) pg MCHC (32.0-36.0) g/dL RDW Std Deviation (36.4-46.3) fL RDW Coeff of Linda (11.5-14.5) % Plt Count (130-400) K/uL MPV (9.4-12.4) fL Immature Gran % (Auto) % Neut % (Auto) % Lymph % (Auto) % [place] % (Auto) % Eos % (Auto) % Baso % (Auto) % Neut # (Auto) (1.40-6.50) K/uL Lymph # (Auto) (1.2-3.4) K/uL [place] # (Auto) (0.11-0.59) K/uL Eos # (Auto) (0-0.50) K/uL Baso # (Auto) (0-0.2) K/uL Immature Gran # (Auto) (0.01-0.20) K/uL PT (9.0-12.0) Seconds INR (0.9-1.1) APTT (21.0-31.0) Seconds PTT Ratio VBG pH (7.36-7.41) VBG pCO2 (38-50) mmHg VBG pO2 mmHg VBG HCO3 mmol/L VBG O2 Saturation % VBG Base Excess mEq/L Sodium (136-145) mmol/L Potassium (3.5-5.1) mmol/L Chloride (98-107) mmol/L Carbon Dioxide (21-32) mmol/L Anion Gap (3-11) BUN (6-23) mg/dl Creatinine (0.6-1.2) mg/dl Est Cr Clr Drug Dosing ml/min Est GFR ( Amer) ml/min Est GFR (Non-Af Amer) ml/min BUN/Creatinine Ratio (10-20) Glucose (70-99(Fasting)) mg/dl Calcium (8.6-10.3) mg/dl Magnesium (1.7-2.4) mg/dl Troponin I High Sens (0-14) pg/ml B-Natriuretic Peptide (0-100) pg/ml Lipase (11-82) U/L Procalcitonin (0-0.5) ng/ml SARS-CoV-2 (PCR) NEGATIVE (Negative) Influenza Type A (PCR) Negative (Neg) Influenza Type B (PCR) Negative (Neg) RSV (RT-PCR) Negative (Neg) Imaging Data Attestation: I personally reviewed and interpreted this imaging study as follows: My Impression: Chest x-ray: Cardiomegaly with cephalization Radiologist's Impression: Chest X-Ray 09/27/22 14:11 XR chest 1V portable CLINICAL HISTORY: Shortness of breath. COMPARISON STUDY: Chest CT March 01, 2021 chest radiograph May 14, 2022. FINDINGS: There is no pneumothorax. Old left fifth rib fracture is incidentally noted. Suspected small left pleural effusion. Right lower lung airspace opacity shown on prior exams has improved. Interstitial thickening has developed. There is mild cardiomegaly. IMPRESSION: 1. Interstitial thickening suggestive of mild pulmonary edema. Mild cardiomegaly. 2. Suspected small left pleural effusion. ACT 112: Negative or not required by law. Electronically signed by: J Carlos Mitchell M.D. 09/27/2022 2:34 PM ECG Data Attestation: I personally reviewed and interpreted this ECG as follows: Interpretation: A-fib with a rate of 117. QRS 146 QTc 513. Left bundle branch block present. sgarbosa negative. No significant change from the EKG done from April 05, 2022 [facility] Narrative 1406: The patient was evaluated in room C122. A complete history and physical exam was performed Cardiac monitoring: An order was placed for continuous cardiac monitoring. The monitor shows a rate of 110 with atrial fibrilation rhythm interpreted by me 1515: Vital signs stable. Labs within normal limits with exception of elevated proBNP and troponin. Chest x-ray shows cardiomegaly with cephalization. Patient has no reported history of CHF. Patient be treated with Lasix [facility]. Impression & Plan Congestive heart failure Discharge Plan Visit Data Chief Complaint: Shortness of Breath/Dyspnea Stated Complaint: SHORTNESS OF BREATH ED Provider: Chito Bee Discharge Problem: Congestive heart failure Patient Disposition: Admitted As Inpatient Discharge Instructions Interventions: ED Discharge Assessment Last Done: 09/27/22 16:15
--- NOTE | 2022-09-27 14:36 | XRay Report ---
XR chest 1V portable CLINICAL HISTORY: Shortness of breath. COMPARISON STUDY: Chest CT March 01, 2021 chest radiograph May 14, 2022. FINDINGS: There is no pneumothorax. Old left fifth rib fracture is incidentally noted. Suspected smal l left pleural effusion. Right lower lung airspace opacity shown on prior exams has improved. Interst itial thickening has developed. There is mild cardiomegaly. IMPRESSION: 1. Interstitial thickening suggestive of mild pulmonary edema. Mild cardiomegaly. 2. Suspected small left pleural effusion. ACT 112: Negative or not required by law. Electronically signed by: J Carlos Mitchell M.D. 09/27/2022 2:34 PM
[2022-09-27 14:51] LABS: BUN Creatinine Ratio 26.8 (10-20); Calcium 9.1 mg/dl (8.6-10.3); Creatinine Clr Calc Pharmacy 52.9 ml/min; Est GFR (African American) 65.8 ml/min; Est GFR (Non-African American) 56.7 ml/min; Magnesium 1.7 mg/dl (1.7-2.4); Potassium 4.2 mmol/L (3.5-5.1)
[2022-09-27 14:56] LABS: Troponin I High Sensitivity 14.2 pg/ml (0-14)
[2022-09-27 15:02] LABS: INR 1.4 (0.9-1.1); Partial Thromboplastin Ratio 1.1; Partial Thromboplastin Time 31.1 Seconds (21.0-31.0); Prothrombin Time 14.6 Seconds (9.0-12.0)
[2022-09-27] MEDS ORDERED: FUROSEMIDE 40 MG/4 ML VIAL IV ONE (15:07)
[2022-09-27 15:11] LABS: Influenza A virus by PCR Negative (Neg); Influenza B virus by PCR Negative (Neg); RSV by PCR Negative (Neg); SARS CoV2 RNA(COVID-19) Ceph NEGATIVE (Negative)
--- NOTE | 2022-09-27 15:21 | History & Physical Report ---
Date of Service September 27, 2022 Assessment & Plan (1) Atrial fibrillation with RVR: Plan: -Admit to the PCU on tele -The patient is currently afebrile, hemodynamically stable, and stable on RA -Patient has a history of Paroxysmal a-fib, found to be in afib RVR in the ED today with HR in the 110's -The patient felt her palpitations earlier but is currently asymptomatic -Initial high sen trop is minimally elevated at 14.2, will repeat a second high sen trop on admission and continue to monitor on tele, do not suspect ACS at this time -Will hold additional beta blockers as her elevated HR is stable and likely reactive to her current respiratory status -BNP elevated at 412, increased from 329 last year, will get a TTE for further evaluation -Mag today is 1.7, will give 1gm IV mag sulfate on admission -Switched from Eliquis to Xarelto with first dose this am -BL SCD's and home xarelto for DVT PPX -AM CBC, BMP, and mag (2) SOB (shortness of breath): Plan: -At this time the etiology of the patient's SOB is unclear, the differential includes new onset CHF, bacterial pneumonia, viral URI, and her afib RVR -No leukocytosis but possible consolidation in the LLL on CXR, will get procal for further evaluation -BNP elevated at 412, will get TTE -Will get full respiratory biofire -Incentive spirometry, flutter therapy, prn DuoNebs, prn robitussin, prn O2 to keep SpO2 at or above 95% -S/P 40 mg IV lasix in the ED, will hold additional diuretics at this time as she is not substantially volume overloaded and lasix naive (3) Elevated troponin: Plan: -See afib RVR (4) Uncontrolled type 1 diabetes mellitus with complication, with long-term current use of insulin: Plan: -Last A1c on 04/06/22 was 9.4, will order am A1C -Monitor BSG ACHS, goal is 110-140 -Will continue home lantus dose of 20 units HS -CF of 50 with CR of 15 -DM I diet -Pharmacy glycemic control consult placed (5) Hypertension: Plan: -Stable -Continue metoprolol (6) Depression: Plan: -Continue Venlafaxine (7) Hyperlipidemia: Plan: -Continue statin (8) (HFpEF) heart failure with preserved ejection fraction: (9) Alcoholism: Plan The patient was discussed with Dr. Ford at the time of the admission History of Present Illness Chief Complaint: SOB Primary Care Provider: Lois Nolan MD Mikala is a 77 year old female with a PMH significant for afib on Xarelto, HTN, Hyperlipidemia, DM I who presented to the [facility] ED on 09/27/22 with a chief complaint of SOB. In the ED she was found to be stable but in afib-RVR with HR in the 110's. BNP was noted to be 412 (up from 329 as of 04/06/22), initial high sen trop of 14.2, Covid/Influenza/RSV negative. Chest xray was read as "1. Interstitial thickening suggestive of mild pulmonary edema. Mild cardiomegaly. 2. Suspected small left pleural effusion". Prior to admission the patient was given 40 mg IV lasix. At the time of the exam the patient was sitting in bed in no acute distress, stable on RA. She states that she started to develop progressive SOB at rest and with exertion approximately 4 days ago. She denies fever or chills but states that she had been wheezing. She has had a non-productive cough and denies chest pain. She denies nausea, vomiting, dysuria, hematuria, melena, and recent tra munira. She feels as though her legs may be a little more swollen than baseline. She has been feeling fatigued over the past week, and has mainly been sleeping because of this. She feels as though the DuoNeb she received in the ED improved her respiratory symptoms. She switched from Eliquis to Xarelto due to the hopper of the Eliquis. Her first does of Xarelto was this am. She denies any missed doses and took her Eliquis yesterday. She wishes to be a Full Code and for her to make medical decisions for her if she cannot make them herself. Please refer to Dr. Ford's attestation for any changes to the treatment plan Allergies Allergy/AdvReac Type Severity Reaction Status Date / Time oxycodone Allergy Mild ITCHING Verified 09/17/22 14:47 Home Medications Medication Instructions Recorded Confirmed Type calcium carbonate 500 mg-vitamin 1 tab PO BID 05/24/18 09/27/22 History D3 5 mcg (200 unit) tablet (Calcium 500 + D) krill 1,000 mg-omega-3 170 mg-dha 1 cap PO QAM 05/24/18 09/27/22 History 50 mg-epa 80 bi-vhwkca-cywon capsule (krill oil) multivitamin 1 tab PO QAM 02/09/19 09/27/22 History lancets 33 gauge (OneTouch Delica #100 ea 02/22/19 09/17/22 History Plus Lancet) Dexcom G6 Sat Act Instructor (blood-glucose #1 ea 04/04/19 09/17/22 Rx meter,continuous) Dexcom G6 Sensor (blood-glucose #9 ea 04/04/19 09/17/22 Rx sensor) Dexcom G6 Transmitter #1 ea 04/04/19 09/17/22 Rx (blood-glucose transmitter) blood sugar diagnostic (OneTouch #10 ea 09/12/20 09/17/22 History Ultra Blue Test Strip) atorvastatin 20 mg tablet 20 mg PO PM #90 tabs 03/27/22 09/27/22 Rx hydrocortisone 2.5 % topical cream 1 applic topical DAILY #30 grams 03/27/22 09/27/22 Rx acetaminophen 325 mg tablet 650 mg PO Q4H PRN pain #0 tabs 04/06/22 09/27/22 Rx metoprolol succinate 50 mg 50 mg PO DAILY #90 tabs 05/01/22 09/27/22 Rx tablet,extended release 24 hr pen needle, diabetic 32 gauge x #150 ea 05/23/22 09/17/22 Rx 5/32" (BD Missy 2nd Gen Pen Needle) venlafaxine 150 mg 150 mg PO QAM #90 caps 07/09/22 09/27/22 Rx capsule,extended release 24 hr insulin aspart U-100 100 unit/mL 1 sliding scale dose subcut WM #15 07/11/22 09/27/22 Rx (3 mL) subcutaneous pen (Novolog mL FlexPen U-100 Insulin aspart) insulin glargine 100 unit/mL (3 See Rx Instructions subcut PM #15 07/11/22 09/27/22 Rx mL) subcutaneous pen (Basaglar mL KwikPen U-100 Insulin) rivaroxaban 20 mg tablet (Xarelto) 20 mg PO DAILY #30 tabs 08/27/22 09/27/22 Rx omeprazole 20 mg tablet,delayed 20 mg PO BID 09/27/22 09/27/22 History release Past Med/Surg History Medical History (Updated 09/29/22 @ 09:27 by Levy Ford MD) Alcoholism pt reports is improving on this, few drinks of vodka weekly, no longer every day Anxiety Depression Diabetes mellitus, type 2 Gastroesophageal reflux disease Gastroparesis History of colon polyps Hyperlipidemia Hypertension Hypoglycemia Left bundle branch block Lumbar epidural mass Migraine Osteopenia Proliferative diabetic retinopathy associated with type 1 diabetes mellitus Right lower lobe pneumonia (03/2022) Spinal stenosis Urinary incontinence Venous insufficiency Vitamin D deficiency Wound of foot Surgical History History of bilateral carpal tunnel release History of bilateral cataract extraction History of cataract surgery History of colonoscopy History of lumbar fusion History of open reduction and internal fixation (ORIF) procedure left wrist fx--hardware removed History of open reduction and internal fixation (ORIF) procedure right wrist fx--hardware in place History of right breast biopsy x2--benign mass History of tooth extraction Family History Grandmother (Maternal) Family history of diabetes mellitus Diabetes Uncle Family history of diabetes mellitus paternal Grandmother (Paternal) Breast cancer Mother , age 77 of an [place] Myocardial infarction Scleroderma Father , age 70 of an [place] Myocardial infarction Denies family history of Ovarian cancer Prostate cancer Colorectal cancer Social History Smoking Status: Never smoker Tobacco Type: Cigarettes Age Started Using Tobacco: 21; Age Quit Using Tobacco: 28; packs per day: 1; Second Hand Exposure: No; Hx Alcohol Use: Yes Alcohol type: hard liquor Alcohol Intake Frequency: 4 or More x per/Week Alcohol Intake Frequency Comment: 1-2 drinks of vodka per night Hx Substance Use: No Preferred Language: Tongan Communication Ability: Effective Visual Impairment: No Limitations Hearing Ability: Normal Pull Through Hooker Required: No Beliefs That Will Affect Care: None marital status: Current Living Situation: Spouse current occupational status: retired 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 Feels Safe at Home: Yes Safety Concerns: Feels Safe At This Time Childhood Exposure to Second-Hand Smoke: Yes Diet Comment: regular Dental Care, Regularly: Yes Physical Activity Frequency: Does not Exercise Seatbelt Use: always Sunscreen Use: No Assistive Devices: Cane Physical Exam Physical Exam: Physical Exam: General: In no acute distress, stated age, well-nourished, good hygiene HEENT: Normocephalic, atraumatic, no scleral icterus, pupils around round, symmetrical, and reactive to light, moist mucus membranes, trachea midline, no thyromegaly Chest/Pulm: No respiratory distress, symmetrical chest expansion, decreased breath sounds in the LLE, otherwise currently CTA Cardiac: irregular rate and rhythm, no murmurs noted Abdomen: Negative for ascites and bruising, normoactive bowel sounds, soft, non-tender to palpation throughout Musculoskeletal: Symmetrical and without signs of acute trauma, upper and lower extremities with full ROM, no atrophy, spasticity, or flaccidity Extremities: Radial, dorsalis pedis, and posterior tibial pulses are intact and symmetrical, no edema noted in the BL LE's Skin: Warm, dry, no rashes , lesions, or scars noted Neuro: Alert and oriented to person, place, month, year, and president, no focal defects, no tremors noted Psych: No acute distress, calm and cooperative during the exam Results & Data Results & Data Vital Signs (Past 12 Hours) Vital Signs Temp Pulse Resp BP Pulse Ox O2 Del Method 09/27/22 14:41 92 Room Air 09/27/22 14:28 103 H 09/27/22 13:57 Room Air 09/27/22 13:57 36.8 C 114 H 16 143/91 H 97 Laboratory Results Abnormal lab results 09/27/22 09/27/22 09/27/22 Range/Units 14:18 14:18 14:18 RBC 4.00 L (4.20-5.40) M/uL Hgb 11.6 L (12.0-16.0) g/dl Hct 34.7 L (37.0-47.0) % RDW Coeff of Linda 14.6 H (11.5-14.5) % [place] # (Auto) 0.88 H (0.11-0.59) K/uL PT 14.6 H (9.0-12.0) Seconds INR 1.4 H (0.9-1.1) APTT 31.1 H (21.0-31.0) Seconds VBG pH (7.36-7.41) BUN 26 H (6-23) mg/dl BUN/Creatinine Ratio 26.8 H (10-20) Glucose 123 H (70-99(Fasting)) mg/dl Troponin I High Sens 14.2 H (0-14) pg/ml B-Natriuretic Peptide (0-100) pg/ml Lipase 4 L (11-82) U/L 09/27/22 09/27/22 Range/Units 14:18 14:18 RBC (4.20-5.40) M/uL Hgb (12.0-16.0) g/dl Hct (37.0-47.0) % RDW Coeff of Linda (11.5-14.5) % [place] # (Auto) (0.11-0.59) K/uL PT (9.0-12.0) Seconds INR (0.9-1.1) APTT (21.0-31.0) Seconds VBG pH 7.32 L (7.36-7.41) BUN (6-23) mg/dl BUN/Creatinine Ratio (10-20) Glucose (70-99(Fasting)) mg/dl Troponin I High Sens (0-14) pg/ml B-Natriuretic Peptide 412 H (0-100) pg/ml Lipase (11-82) U/L Diagnostic Findings Chest X-Ray 09/27/22 14:11 XR chest 1V portable CLINICAL HISTORY: Shortness of breath. COMPARISON STUDY: Chest CT March 01, 2021 chest radiograph May 14, 2022. FINDINGS: There is no pneumothorax. Old left fifth rib fracture is incidentally noted. Suspected small left pleural effusion. Right lower lung airspace opacity shown on prior exams has improved. Interstitial thickening has developed. There is mild cardiomegaly. IMPRESSION: 1. Interstitial thickening suggestive of mild pulmonary edema. Mild cardiomegaly. 2. Suspected small left pleural effusion. ACT 112: Negative or not required by law. Electronically signed by: J Carlos Mitchell M.D. 09/27/2022 2:34 PM ECG Additional Comments: Atrial fibrillation with rapid ventricular response Left bundle branch block Abnormal ECG When compared with ECG of 05-APR-2022 23:13, Atrial fibrillation has replaced Sinus rhythm Code Status & VTE Plan Code Status Full code VTE Prophylaxis Plan VTE Prophylaxis will be ordered: Yes Supervising Physician Co-Signing Physician Notes I personally saw and examined the patient. I verified all farnsworth points and agree with Moisés Sheffield PA-C with the following exceptions and/or additions: 77 year old female admission for 4 days shortness of breath on exertion and lower extremity edema. O/E HS irregular rhythm, increased rate, Chest bibasal crackles, Abdo SNT, LE trace equal b/l A/P Atrial fibrillation with RVR - increase metoprolol succinate from 50mg daily to BID although I suspect she will just do better in NSR and likely to convert with antiarrhythmic and she reports consistent anticoagulation use for the last 4 weeks therefore will consult cardiology for consideration of this Acute HFpEF - suspect rate related to a. fib, Lasix 40mg IV given in ER, I&Os, daily weights Alcohol use disorder - no prior withdrawal, AWSS, suspect contributing towards risk of a. fib RVR PG Care Time/CCT Total # of Minutes Spent Total Time Spent with Patient: Total time spent is greater than 50% in coordination of care (as documented) at patient's floor/unit and/or counseling patient: Coding [place] [address] INT INP/OBS CARE 3/75MIN Patient Type Established Medical Decision Making Moderate Complexity Diagnoses Atrial fibrillation with RVR I48.91 SOB (shortness of breath) R06.02 Elevated troponin R77.8 Uncontrolled type 1 diabetes mellitus with complication, with long-term current use of insulin E10.8; E10.65 Hypertension I10 Depression F32.9 Hyperlipidemia E78.5 (HFpEF) heart failure with preserved ejection fraction I50.30 Alcoholism F10.20
[2022-09-27] MEDS ORDERED: PHARMACY GLYCEMIC MGMT CONSULT PRN (15:49)
[2022-09-27] MEDS ORDERED: GLUCAGON FOR INJ 1 MG VIAL SQ PRN (15:49)
[2022-09-27] MEDS ORDERED: CARBOHYDRATES FOR HYPOGLYCEMIA PO PRN (15:49)
[2022-09-27] MEDS ORDERED: GLUCOSE 40% GEL 15 GM TUBE PO PRN (15:49)
[2022-09-27] MEDS ORDERED: DEXTROSE 50% 50 ML SYRINGE IV PRN (15:49)
[2022-09-27] MEDS ORDERED: GLUCOSE 10 TAB/TUBE PO PRN (15:49)
[2022-09-27] MEDS ORDERED: MAGNESIUM SULFATE / D5W 1 GM/100 ML BAG IV ONE (16:01)
[2022-09-27 17:07] LABS: Adenovirus PCR Not Detected (NotDetected); Bordetella parapertussis PCR Not Detected (NotDetected); Bordetella pertussis PCR Not Detected (NotDetected); Chlamydia pneumoniae PCR Not Detected (NotDetected); Coronavirus 229E PCR Not Detected (NotDetected); Coronavirus CoV-2 (COVID19)PCR Not Detected (NotDetected); Coronavirus HKU1 PCR Not Detected (NotDetected); Coronavirus NL63 PCR Not Detected (NotDetected); Coronavirus OC43PCR Not Detected (NotDetected); Human Metapneumovirus PCR Not Detected (NotDetected); Influenza A PCR Not Detected (NotDetected); Influenza B PCR Not Detected (NotDetected); Mycoplasma pneumoniae PCR Not Detected (NotDetected); Parainfluenza Virus 1 PCR Not Detected (NotDetected); Parainfluenza Virus 2 PCR Not Detected (NotDetected); Parainfluenza Virus 3 PCR Not Detected (NotDetected); Parainfluenza Virus 4 PCR Not Detected (NotDetected); Respiratory Syncytial VirusPCR Not Detected (NotDetected); Rhinovirus/Enterovirus PCR Not Detected (NotDetected)
[2022-09-27] MEDS: INSULIN ASPART PER UNIT CHARGE SC SCH ×2 (17:16→20:38)
[2022-09-27] MEDS: ALBUT/IPRATROP 3MG/0.5MG NEB 3 ML VIAL NEB SCH (19:43)
[2022-09-27] MEDS: PANTOprazole 40 MG TAB PO SCH (20:27)
[2022-09-27] MEDS: ATORVASTATIN 20 MG TAB PO SCH (20:27)
[2022-09-27] MEDS ORDERED: LANTUS PER UNIT CHARGE SQ SCH (21:00)
[2022-09-27] MEDS: METOPROLOL SUCC 50MG EXT REL TAB PO SCH (21:43)
--- NOTE | 2022-09-27 22:13 | Electrocardiogram Report ---
Test Reason : Blood Pressure : / mmHG Vent. Rate : 117 BPM Atrial Rate : 110 BPM P-R Int : 000 ms QRS Dur : 146 ms QT Int : 368 ms P-R-T Axes : 000 -25 116 degrees QTc Int : 513 ms Atrial fibrillation with rapid ventricular response Left bundle branch block Abnormal ECG When compared with ECG of 05-APR-2022 23:13, Atrial fibrillation has replaced Sinus rhythm Confirmed by Stephen Brantley ([id number]) on 09/27/2022 10:12:31 PM Referred By: Confirmed By:Stephen Brantley
[2022-09-28] MEDS: INSULIN ASPART PER UNIT CHARGE SC SCH ×6 (00:22→21:16)
[2022-09-28 06:01] LABS: Basophils # (auto) 0.05 K/uL (0-0.2); Basophils % (auto) 0.6 %; Eosinophils # (auto) 0.18 K/uL (0-0.50); Eosinophils % (auto) 2.1 %; Hematocrit (blood only) 31.3 % (37.0-47.0); Hemoglobin 10.8 g/dl (12.0-16.0); Immature Granulocytes # (auto) 0.02 K/uL (0.01-0.20); Immature Granulocytes % (auto) 0.2 %; Lymphocytes # (auto) 2.96 K/uL (1.2-3.4); Lymphocytes % (auto) 34.8 %; Mean Corpuscular Hgb Conc 34.5 g/dL (32.0-36.0); Mean Corpuscular Volume 83.9 fL (80.0-100.0); Mean Platelet Volume 10.7 fL (9.4-12.4); Monocytes # (auto) 0.74 K/uL (0.11-0.59); Monocytes % (auto) 8.7 %; Neutrophils # (auto) 4.55 K/uL (1.40-6.50); Neutrophils % (auto) 53.6 %; Platelet Count 309 K/uL (130-400); RDW Coefficient of Variation 14.6 % (11.5-14.5); RDW Standard Deviation 44.5 fL (36.4-46.3); Red Blood Count 3.73 M/uL (4.20-5.40)
[2022-09-28 06:19] LABS: BUN Creatinine Ratio 28.4 (10-20); Calcium 8.8 mg/dl (8.6-10.3); Creatinine Clr Calc Pharmacy 68.7 ml/min; Est GFR (African American) 91.2 ml/min; Est GFR (Non-African American) 78.7 ml/min; Magnesium 1.7 mg/dl (1.7-2.4); Potassium 3.9 mmol/L (3.5-5.1)
[2022-09-28] MEDS: ALBUT/IPRATROP 3MG/0.5MG NEB 3 ML VIAL NEB SCH ×4 (07:05→19:28)
[2022-09-28] MEDS: RIVAROXABAN 20 MG TAB PO SCH (08:32)
[2022-09-28] MEDS: PANTOprazole 40 MG TAB PO SCH ×2 (08:32→21:31)
[2022-09-28] MEDS: VENLAFAXINE HCL XR 150 MG CAPXR PO SCH (08:32)
[2022-09-28] MEDS: METOPROLOL SUCC 50MG EXT REL TAB PO SCH ×2 (08:33→21:31)
[2022-09-28 08:57] LABS: Estimated Average Glucose 232 mg/dl; Hemoglobin A1C 9.7 % (4.5-5.6)
[2022-09-28] MEDS ORDERED: HYDROCORTISONE 2.5% CR 30 GM TUBE EXT PRN (09:00)
[2022-09-28] MEDS ORDERED: METOPROLOL SUCC 50MG EXT REL TAB PO SCH (09:00)
--- NOTE | 2022-09-28 11:52 | Cardiology Consultation ---
Date of Consultation September 28, 2022 Assessment & Plan (1) Atrial fibrillation with RVR: 77-year-old woman with history of paroxysmal atrial fibrillation presents with 4 days of symptoms found to have atrial fibrillation with rapid ventricular response. Although her initial episode of atrial fibrillation was in the context of acute medical illness (pneumonia), she has had subsequent episodes documented on [facility]OT monitor and now again presents with atrial fibrillation with rapid ventricular response and no clear precipitant. Given multiple episodes of recurrent atrial fibrillation as well as marked tachycardia despite being on beta-veda (up to 170 bpm overnight), would favor rhythm control over rate control at this point. Recommend initiation of amiodarone 200 mg 3 times daily with meals. Discontinue metoprolol after she receives her first dose of amiodarone, could use as needed IV metoprolol or small doses of oral metoprolol if she remains tachycardic after the amiodarone is initiated. Continue anticoagulation with rivaroxaban. (2) (HFpEF) heart failure with preserved ejection fraction: Mild volume overload on admission, responded to single dose of IV furosemide. Doubt she will need chronic management, suspect her volume overload was due to the rapid ventricular response of her atrial fibrillation. Management of rate/rhythm likely will prevent recurrent congestive symptoms. (3) Elevated troponin: Trivial elevation in the context of atrial fibrillation with rapid ventricular rate is consistent with demand ischemia. Second troponin was dropping, she had no chest symptoms, no indication of ongoing myocardial ischemia. (4) Left bundle branch block: Chronic finding. History of Present Illness Reason for Consultation: A-fib RVR Requesting Physician: Dmitriy Veliz Attending Physician: Dmitriy Veliz History of Present Illness 76-year-old woman with chronic left bundle branch block and paroxysmal atrial fibrillation who was admitted 09/27/2022 after several days of fatigue and dyspnea with occasional subjective palpitations, found to have atrial fibrillation with rapid ventricular spots. Her first documented atrial fibrillation was during hospitalization for right lower lobe pneumonia March 2022, a subsequent [facility]OT monitor showed recurrent atrial fibrillation several weeks later. She had been managed with the beta- veda and anticoagulation (switching from apixaban to rivaroxaban due to cost) without known atrial fibrillation recurrence until present admission. She denies chest pain at any time and notes only occasional subjective palpitations, she has no overt heart failure but did have marked dyspnea on exertion and fatigue. No presyncope or syncope. monitoring engineer showed atrial fibrillation with rates of up to 170 bpm, ventr icular rate predominantly 120-130 bpm. Allergies Allergy/AdvReac Type Severity Reaction Status Date / Time oxycodone Allergy Mild ITCHING Verified 09/17/22 14:47 Home Medications Medication Instructions Recorded Confirmed Type calcium carbonate 500 mg-vitamin 1 tab PO BID 05/24/18 09/27/22 History D3 5 mcg (200 unit) tablet (Calcium 500 + D) krill 1,000 mg-omega-3 170 mg-dha 1 cap PO QAM 05/24/18 09/27/22 History 50 mg-epa 80 [id number]-wpuknu-lukil capsule (krill oil) multivitamin 1 tab PO QAM 02/09/19 09/27/22 History lancets 33 gauge (OneTouch Delica #100 ea 02/22/19 09/17/22 History Plus Lancet) Dexcom G6 [place] Converter Operator (blood-glucose #1 ea 04/04/19 09/17/22 Rx meter,continuous) Dexcom G6 Sensor (blood-glucose #9 ea 04/04/19 09/17/22 Rx sensor) Dexcom G6 Transmitter #1 ea 04/04/19 09/17/22 Rx (blood-glucose transmitter) blood sugar diagnostic (OneTouch #10 ea 09/12/20 09/17/22 History Ultra Blue Test Strip) atorvastatin 20 mg tablet 20 mg PO PM #90 tabs 03/27/22 09/27/22 Rx hydrocortisone 2.5 % topical cream 1 applic topical DAILY #30 grams 03/27/22 09/27/22 Rx acetaminophen 325 mg tablet 650 mg PO Q4H PRN pain #0 tabs 04/06/22 09/27/22 Rx metoprolol succinate 50 mg 50 mg PO DAILY #90 tabs 05/01/22 09/27/22 Rx tablet,extended release 24 hr pen needle, diabetic 32 gauge x #150 ea 05/23/22 09/17/22 Rx 5/32" (BD Missy 2nd Gen Pen Needle) venlafaxine 150 mg 150 mg PO QAM #90 caps 07/09/22 09/27/22 Rx capsule,extended release 24 hr insulin aspart U-100 100 unit/mL 1 sliding scale dose subcut WM #15 07/11/22 09/27/22 Rx (3 mL) subcutaneous pen (Novolog mL FlexPen U-100 Insulin aspart) insulin glargine 100 unit/mL (3 See Rx Instructions subcut PM #15 07/11/22 09/27/22 Rx mL) subcutaneous pen (Basaglar mL KwikPen U-100 Insulin) rivaroxaban 20 mg tablet (Xarelto) 20 mg PO DAILY #30 tabs 08/27/22 09/27/22 Rx omeprazole 20 mg tablet,delayed 20 mg PO BID 09/27/22 09/27/22 History release Patient History Medical History (Updated 09/28/22 @ 12:10 by Saulo Mosher MD) Alcoholism pt reports is improving on this, few drinks of vodka weekly, no longer every day Anxiety Depression Diabetes mellitus, type 2 Gastroesophageal reflux disease Gastroparesis History of colon polyps Hyperlipidemia Hypertension Hypoglycemia Left bundle branch block Lumbar epidural mass Migraine Osteopenia Proliferative diabetic retinopathy associated with type 1 diabetes mellitus Right lower lobe pneumonia (03/2022) Spinal stenosis Urinary incontinence Venous insufficiency Vitamin D deficiency Wound of foot Surgical History History of bilateral carpal tunnel release History of bilateral cataract extraction History of cataract surgery History of colonoscopy History of lumbar fusion History of open reduction and internal fixation (ORIF) procedure left wrist fx--hardware removed History of open reduction and internal fixation (ORIF) procedure right wrist fx--hardware in place History of right breast biopsy x2--benign mass History of tooth extraction Family History Grandmother (Maternal) Family history of diabetes mellitus Diabetes Uncle Family history of diabetes mellitus paternal Grandmother (Paternal) Breast cancer Mother , age 77 of an [place] Myocardial infarction Scleroderma Father , age 70 of an [place] Myocardial infarction Denies family history of Ovarian cancer Prostate cancer Colorectal cancer Social History Smoking Status: Never smoker Tobacco Type: Cigarettes Age Started Using Tobacco: 21; Age Quit Using Tobacco: 28; packs per day: 1; Second Hand Exposure: No; Hx Alcohol Use: Yes Alcohol type: hard liquor Alcohol Intake Frequency: 4 or More x per/Week Alcohol Intake Frequency Comment: 1-2 drinks of vodka per night Hx Substance Use: No Preferred Language: Greek Communication Ability: Effective Visual Impairment: No Limitations Hearing Ability: Normal Talent Partner Required: No Beliefs That Will Affect Care: None marital status: Current Living Situation: Spouse current occupational status: 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 She appeared comfortable and was able to lie flat. Normotensive BP Pulse 130 bpm and irregular. Skin: no ecchymoses or generalized lesions. HEENT: unremarkable. Neck: no JVD or carotid bruits. Lungs: clear. Cardiac: Irregular/tachycardic, no murmur or gallop. Abdomen: benign. Extremities: no edema, pulses intact. Neurologic: normal affect, nonfocal. Results & Data Laboratory Results Normal electrolytes, BUN 21, creatinine 0.74. Magnesium 1.7. BNP 412. Hemoglobin 10.8 with normal white count and platelet count. Diagnostic Findings ECG on admission showed atrial fibrillation with ventricular response 117 bpm, left bundle branch block which is chronic. Chest x-ray showed interstitial thickening suggestive of mild pulmonary edema an d a small left pleural effusion. Echocardiogram from March 2022 showed EF of 60 to 65% with mild LVH, moderate mitral annular calcification with mild mitral regurgitation, moderate pulmonary hypertension. Left atrium was only mildly dilated. PG Care Time/CCT Total # of Minutes Spent Total Time Spent with Patient: Total time spent is greater than 50% in coordination of care (as documented) at patient's floor/unit and/or counseling patient: Coding Level of Care Code 86201 ER DEPT VISIT MOD LVL 4 Diagnoses Atrial fibrillation with RVR I48.91 (HFpEF) heart failure with preserved ejection fraction I50.30 Elevated troponin R77.8 Left bundle branch block I44.7
[2022-09-28] MEDS ORDERED: CEROVITE ADV FORMULA TAB PO STA (11:56)
[2022-09-28] MEDS ORDERED: Ativan IV Alcohol Withdrawal--Active Protocol IV PRN (11:56)
[2022-09-28] MEDS ORDERED: chlordiazePOXIDE ALCOHOL WITHDRAWL 25MG PO STA (11:56)
[2022-09-28] MEDS ORDERED: LORazepam 2 MG/1 ML VIAL IV PRN ×3 (11:56)
[2022-09-28] MEDS ORDERED: THIAMINE HCL 100 MG, FOLIC ACID 1 MG in SODIUM CHLORIDE 0.9% 1000ML 1,000 ML IV SCH (12:00)
[2022-09-28] MEDS: chlordiazePOXIDE HCl 25 MG CAP PO SCH ×3 (12:31→23:23)
--- NOTE | 2022-09-28 14:34 | Pharmacy Report ---
Pharmacy Glycemic Short Note 2 - Date of Service September 28, 2022 - Glycemic Short BSG Results (Last 24 hours): 09/27/22 09/27/22 09/27/22 14:18 16:49 20:26 Glucose 123 H POC Glucose 156 H 332 H* 09/27/22 09/27/22 09/27/22 20:27 20:29 23:20 Glucose POC Glucose 364 H* 352 H* 208 H 09/28/22 09/28/22 09/28/22 04:14 05:47 07:40 Glucose 136 H POC Glucose 113 H 288 H 09/28/22 09/28/22 09/28/22 11:47 11:48 14:20 Glucose POC Glucose 365 H* 412 H* 277 H OUTPATIENT ANTIDIABETIC REGIMEN: * Lantus 18-22 units SC qPM * Bolus ~10-15 units/day * Patient follows with [facility], per notes patient does not count carbs HbA1c: 9.7% (09/28/22) ASSESSMENT: * DS is a 77 year old female with uncontrolled T1DM admitted on 09/27/22 due to Afib w/ RVR * Patient has history of labile BSGs, as well as noncompliance with home regimen and checking BSGs (per outpatient endocrine notes) * BSGs labile since time of admission, ranging 113-412 mg/dL * Will slightly tighten Novolog parameters and goal range * Will allow for increased dose of Lantus this evening * Pertinent PMH includes heart failure w/ preserved EF, HTN, hyperlipidemia, and alcoholism PLAN FOR INPATIENT GLYCEMIC CONTROL: * Basal insulin * Lantus 20-22 units SQ qPM * Bolus insulin * NovoLog per scale ACHS or Q6hrs while NPO * Goal Range: Low 120 mg/dL - High 160 mg/dL * Correction Factor: 45 mg/dL/unit * Nutritional / Prandial insulin per carb ratio of 1 unit per 12 grams CHO consumed
[2022-09-28] MEDS ORDERED: AMIODARONE 200 MG TAB PO ONE (18:22)
[2022-09-28] MEDS ORDERED: LANTUS PER UNIT CHARGE SQ SCH (21:00)
[2022-09-28] MEDS: ATORVASTATIN 20 MG TAB PO SCH (21:31)
--- NOTE | 2022-09-28 22:47 | Hospitalist Progress Note ---
Date of Service September 28, 2022 Assessment & Plan (1) Atrial fibrillation with RVR: Plan: -Admit to the PCU on tele -The patient is currently afebrile, hemodynamically stable, and stable on RA -Patient has a history of Paroxysmal a-fib, found to be in afib RVR in the ED today with HR in the 110's -The patient felt her palpitations earlier but is currently asymptomatic -Initial high sen trop is minimally elevated at 14.2, will repeat a second high sen trop on admission and continue to monitor on tele, do not suspect ACS at this time -concern patient may be having alcohol withdrawal, and this may be feeding into her a fib RVR. -will place on amiodarone and monitor. -placed on lorazepam and chlordiazepoxide for alcohol withdrawal. -Switched from Eliquis to Xarelto with first dose this am -BL SCD's and home xarelto for DVT PPX - (2) SOB (shortness of breath): Plan: -At this time the etiology of the patient's SOB is unclear, the differential includes new onset CHF, bacterial pneumonia, viral URI, and her afib RVR -No leukocytosis but possible consolidation in the LLL on CXR, will get procal for further evaluation -BNP elevated at 412, will get TTE -Will get full respiratory biofire -Incentive spirometry, flutter therapy, prn DuoNebs, prn robitussin, prn O2 to keep SpO2 at or above 95% -S/P 40 mg IV lasix in the ED, will hold additional diuretics at this time as she is not substantially volume overloaded and lasix naive (3) Elevated troponin: Plan: -See afib RVR (4) Uncontrolled type 1 diabetes mellitus with complication, with long-term current use of insulin: Plan: -Last A1c on 04/06/22 was 9.4, will order am A1C -Monitor BSG ACHS, goal is 110-140 -Will continue home lantus dose of 20 units HS -CF of 50 with CR of 15 -DM I diet -Pharmacy glycemic control consult placed (5) Hypertension: Plan: -Stable -Continue metoprolol (6) Depression: Plan: -Continue Venlafaxine (7) Hyperlipidemia: Plan: -Continue statin (8) Alcoholism: Plan: Patient drinks a fifth of vodka daily as per . Patient tells conflicting stories regarding her alcoholism Placed on librium taper. Patient is [facility] risk for going into DTs. Admission and Anticipated Discharge Date Admission Date: September 27, 2022 Subjective Patient reports that she has been hallucinating, seeing cats and dogs. Review of Systems Review of Systems: All systems reviewed & are unremarkable except as noted in HPI & below Physical Exam Physical Exam: General: In no acute distress, stated age, well-nourished, good hygiene HEENT: Normocephalic, atraumatic, no scleral icterus, pupils around round, symmetrical, and reactive to light, moist mucus membranes, trachea midline, no thyromegaly Chest/Pulm: No respiratory distress, symmetrical chest expansion, decreased breath sounds in the LLE, otherwise currently CTA Cardiac: irregular rate and rhythm, no murmurs noted Abdomen: Negative for ascites and bruising, normoactive bowel sounds, soft, non- tender to palpation throughout Musculoskeletal: Symmetrical and without signs of acute trauma, upper and lower extremities with full ROM, no atrophy, spasticity, or flaccidity Extremities: Radial, dorsalis pedis, and posterior tibial pulses are intact and symmetrical, no edema noted in the BL LE's Skin: Warm, dry, no rashes , lesions, or scars noted Neuro: Alert and oriented to person, place, month, year, and president, no focal defects, no tremors noted Psych: No acute distress, calm and cooperative during the exam Results & Data Results & Data Vital Signs (Past 12 Hours) Vital Signs Temp Pulse Pulse Resp BP Pulse Ox O2 Del Method 09/28/22 19:30 110 H 16 91 Room Air 09/28/22 19:23 36.5 C 94 H 19 96/77 L 92 Room Air 09/28/22 15:45 36.6 C 113 H 22 125/95 95 Room Air 09/28/22 15:15 113 H 09/28/22 12:07 36.6 C 113 H 22 118/76 95 Room Air PG Care Time/CCT Total # of Minutes Spent Total Time Spent with Patient: Total time spent is greater than 50% in coordination of care (as documented) at patient's floor/unit and/or counseling patient: Coding Level of Care Code 51090 SUB INP/OBS CARE 3/50MIN Diagnoses Atrial fibrillation with RVR I48.91 SOB (shortness of breath) R06.02 Elevated troponin R77.8 Uncontrolled type 1 diabetes mellitus with complication, with long-term current use of insulin E10.8; E10.65 Hypertension I10 Depression F32.9 Hyperlipidemia E78.5 Alcoholism F10.20
[2022-09-29] MEDS ORDERED: METOPROLOL TARTRATE 1 MG/ML VIAL IV STA (04:37)
[2022-09-29] MEDS: chlordiazePOXIDE HCl 25 MG CAP PO SCH (05:40)
[2022-09-29] MEDS: ALBUT/IPRATROP 3MG/0.5MG NEB 3 ML VIAL NEB SCH ×4 (08:17→19:15)
[2022-09-29] MEDS: AMIODARONE 200 MG TAB PO SCH ×3 (08:18→16:47)
[2022-09-29] MEDS: RIVAROXABAN 20 MG TAB PO SCH (08:18)
[2022-09-29] MEDS: VENLAFAXINE HCL XR 150 MG CAPXR PO SCH (08:18)
[2022-09-29] MEDS: PANTOprazole 40 MG TAB PO SCH ×2 (08:18→21:00)
[2022-09-29] MEDS: METOPROLOL SUCC 50MG EXT REL TAB PO SCH ×2 (08:18→21:01)
[2022-09-29] MEDS: INSULIN ASPART PER UNIT CHARGE SC SCH ×4 (08:40→20:18)
[2022-09-29 09:18] LABS: Basophils # (auto) 0.04 K/uL (0-0.2); Basophils % (auto) 0.5 %; Eosinophils # (auto) 0.13 K/uL (0-0.50); Eosinophils % (auto) 1.6 %; Hematocrit (blood only) 32.9 % (37.0-47.0); Hemoglobin 10.8 g/dl (12.0-16.0); Immature Granulocytes # (auto) 0.04 K/uL (0.01-0.20); Immature Granulocytes % (auto) 0.5 %; Lymphocytes # (auto) 2.25 K/uL (1.2-3.4); Mean Corpuscular Hemoglobin 28.8 pg (25.0-34.0); Mean Corpuscular Hgb Conc 32.8 g/dL (32.0-36.0); Mean Corpuscular Volume 87.7 fL (80.0-100.0); Monocytes # (auto) 0.68 K/uL (0.11-0.59); Monocytes % (auto) 8.2 %; Neutrophils # (auto) 5.18 K/uL (1.40-6.50); Neutrophils % (auto) 62.2 %; Platelet Count 314 K/uL (130-400); RDW Coefficient of Variation 14.7 % (11.5-14.5); RDW Standard Deviation 46.6 fL (36.4-46.3); Red Blood Count 3.75 M/uL (4.20-5.40); White Blood Count 8.32 K/ul (4.8-10.8)
[2022-09-29 10:05] LABS: BUN Creatinine Ratio 23.7 (10-20); Creatinine Clr Calc Pharmacy 54.7 ml/min; Est GFR (African American) 69.2 ml/min; Est GFR (Non-African American) 59.7 ml/min; Magnesium 1.8 mg/dl (1.7-2.4); Potassium 4.6 mmol/L (3.5-5.1)
--- NOTE | 2022-09-29 13:22 | Pharmacy Report ---
Pharmacy Glycemic Short Note 2 - Date of Service September 29, 2022 - Glycemic Short BSG Results (Last 24 hours): 09/28/22 09/28/22 09/28/22 14:20 16:25 19:52 Glucose POC Glucose 277 H 191 H 138 H 09/29/22 09/29/22 09/29/22 05:23 07:29 07:30 Glucose POC Glucose 293 H 323 H* 344 H* 09/29/22 09/29/22 09/29/22 08:34 11:19 11:20 Glucose 405 H* POC Glucose 349 H* 340 H* OUTPATIENT ANTIDIABETIC REGIMEN: * Lantus 18-22 units SC qPM * Bolus ~10-15 units/day * Patient follows with [facility], per notes patient does not count carbs HbA1c: 9.7% (09/28/22) ASSESSMENT: 09/29: * BSGs largely uncontrolled the last 24h: [phone]/dL. Fasting elevated this AM, 323mg/dL. Received 20 units of basal and 18 units of bolus insulin yesterday. * Tolerating diet, other stressors stable. * BSG goal reduced to 110-140 to help improve control. Novolog parameters tightened to 35/11 given sustained high prandial BSGs. Lantus 5 units X 1 this afternoon for total daily dose 25 units today. 09/28: * DS is a 77 year old female with uncontrolled T1DM admitted on 09/27/22 due to Afib w/ RVR * Patient has history of labile BSGs, as well as noncompliance with home regimen and checking BSGs (per outpatient endocrine notes) * BSGs labile since time of admission, ranging 113-412 mg/dL * Will slightly tighten Novolog parameters and goal range * Will allow for increased dose of Lantus this evening * Pertinent PMH includes heart failure w/ preserved EF, HTN, hyperlipidemia, and alcoholism PLAN FOR INPATIENT GLYCEMIC CONTROL: * Basal insulin * Lantus 5 units X 1 + 20 units SQ qPM * Bolus insulin * NovoLog per scale ACHS or Q6hrs while NPO * Goal Range: Low 110 mg/dL - High 140 mg/dL * Correction Factor: 35 mg/dL/unit * Nutritional / Prandial insulin per carb ratio of 1 unit per 11 grams CHO consumed
[2022-09-29] MEDS ORDERED: LANTUS PER UNIT CHARGE SQ ONE ×2 (13:30→21:00)
[2022-09-29] MEDS ORDERED: chlordiazePOXIDE HCl 25 MG CAP PO SCH (14:00)
[2022-09-29] MEDS ORDERED: chlordiazePOXIDE HCl 25 MG CAP PO ONE (18:41)
--- NOTE | 2022-09-29 19:13 | Cardiology Progress Note ---
Date of Service September 29, 2022 Assessment & Plan (1) Atrial fibrillation with RVR: (2) (HFpEF) heart failure with preserved ejection fraction: (3) Alcoholism: (4) Hypertension: (5) Left bundle branch block: (6) Paroxysmal A-fib: Plan ASSESSMENT/PLAN: 1. Paroxysmal atrial fibrillation with RVR: Has been known to have paroxysmal atrial fibrillation in the past per records. Has been placed on amiodarone by Dr. Mosher, her primary revenue cycle administrator, due to significant tachycardia despite beta-veda. Heart rate mildly elevated. Can continue amiodarone. Monitor TSH and transaminase levels, especially with alcohol history. Continue anticoagulation for stroke risk reduction. Hemoglobin lower than in the past. Monitor for bleeding. Significant daily alcohol consumption reported by nursing staff after discussion with . Alcohol may be contributing to A-fib bu rden. If she does not convert on amiodarone, could consider DC cardioversion during this hospital stay or as an outpatient after amiodarone load. 2. Left bundle branch block: Chronic. 3. Acute heart failure with preserved EF: Apparently significant improvement following IV Lasix per chart review. She does not appear to be significantly hypervolemic at this time. May be related to A-fib with RVR. Low-sodium diet. Strict I's and O's. Daily weights. Repeat echo, especially with reported alcohol consumption and A-fib with RVR. 4. Hypertension: Blood pressure mostly normotensive. No changes made in this regard. 5. Alcoholism: Refrain from alcohol consumption, especially given A-fib. Monitor transaminase levels as well now that she is on amiodarone. 6. Disposition: Cardiology will continue to follow. Patient care communicated with primary hospitalist, Dr. Veliz. Follow-up with Dr. Mosher on discharge. Patient care discussed with nursing staff. Admission and Anticipated Discharge Date Admission Date: September 27, 2022 Subjective Patient has had nonproductive cough. She denies shortness of breath while using supplemental oxygen. She denies palpitations, chest pain, significant edema, or bleeding. Nursing staff reports that her has reported that she consumes 1/5 of vodka daily with her last drink being approximately 2 days ago. She was alone in her hospital room. Physical Exam Physical Exam: Gen.: No acute distress. Alert. HEENT: Anicteric sclera. Neck: No JVD. Cardiac: No ventricular heave. Irregularly irregular. Normal S1-S2. No murmurs, rubs, or gallops. Pulmonary: Decreased breath sounds bilaterally, but otherwise clear to auscultation bilaterally without wheezes, rales, or rhonchi. Abdomen: Soft, nontender, nondistended, with normoactive bowel sounds. No bruits noted. Extremities: 2+ radial pulses bilaterally. 2+ posterior tibialis pulses bilaterally. No edema or cyanosis. Results & Data Vital Signs (Past 12 Hours) Vital Signs Temp Pulse Resp BP Pulse Ox Pulse Ox O2 Del Method 09/29/22 15:37 36.7 C 96 H 17 124/80 95 Room Air 09/29/22 14:51 103 H 18 98 Nasal Cannula 09/29/22 14:00 95 09/29/22 11:15 36.6 C 104 H 18 120/82 96 Nasal Cannula 09/29/22 11:00 104 H 15 94 Nasal Cannula 09/29/22 07:30 100 H 14 95 Nasal Cannula 09/29/22 07:31 36.9 C 100 H 24 140/104 H 95 Nasal Cannula O2 Del Method O2 Flow Rate O2 Flow Rate 09/29/22 15:37 09/29/22 14:51 2 09/29/22 14:00 Nasal Cannula 2 09/29/22 11:15 2 09/29/22 11:00 2 09/29/22 07:30 2 09/29/22 07:31 7 Intake & Output 09/27/22 09/28/22 09/29/22 09/30/22 06:59 06:59 06:59 06:59 Intake Total 500 / 500 2141.2 / 2141.2 665 / 665 Output Total 900 / 900 702 / 702 950 / 950 Balance -400 / -400 1439.2 / 1439.2 -285 / -285 Weight 190 lb 0.615 oz Laboratory Results Laboratory Results - last 24 hr 09/28/22 09/29/22 09/29/22 19:52 05:23 07:29 WBC RBC Hgb Hct MCV MCH MCHC RDW Std Deviation RDW Coeff of Linda Plt Count MPV Immature Gran % (Auto) Neut % (Auto) Lymph % (Auto) Hardeman % (Auto) Eos % (Auto) Baso % (Auto) Neut # (Auto) Lymph # (Auto) Hardeman # (Auto) Eos # (Auto) Baso # (Auto) Immature Gran # (Auto) Sodium Potassium Chloride Carbon Dioxide Anion Gap BUN Creatinine Est Cr Clr Drug Dosing Est GFR ( Amer) Est GFR (Non-Af Amer) BUN/Creatinine Ratio Glucose POC Glucose 138 H 293 H 323 H* Calcium Magnesium 09/29/22 09/29/22 09/29/22 07:30 08:34 08:34 WBC 8.32 RBC 3.75 L Hgb 10.8 L Hct 32.9 L MCV 87.7 MCH 28.8 MCHC 32.8 RDW Std Deviation 46.6 H RDW Coeff of Linda 14.7 H Plt Count 314 MPV 11.0 Immature Gran % (Auto) 0.5 Neut % (Auto) 62.2 Lymph % (Auto) 27.0 Hardeman % (Auto) 8.2 Eos % (Auto) 1.6 Baso % (Auto) 0.5 Neut # (Auto) 5.18 Lymph # (Auto) 2.25 Hardeman # (Auto) 0.68 H Eos # (Auto) 0.13 Baso # (Auto) 0.04 Immature Gran # (Auto) 0.04 Sodium 132 L Potassium 4.6 Chloride 99 Carbon Dioxide 25 Anion Gap 8 BUN 22 Creatinine 0.93 Est Cr Clr Drug Dosing 54.7 Est GFR ( Amer) 69.2 Est GFR (Non-Af Amer) 59.7 BUN/Creatinine Ratio 23.7 H Glucose 405 H* POC Glucose 344 H* Calcium 9.0 Magnesium 1.8 09/29/22 09/29/22 09/29/22 11:19 11:20 16:22 WBC RBC Hgb Hct MCV MCH MCHC RDW Std Deviation RDW Coeff of Linda Plt Count MPV Immature Gran % (Auto) Neut % (Auto) Lymph % (Auto) Hardeman % (Auto) Eos % (Auto) Baso % (Auto) Neut # (Auto) Lymph # (Auto) Hardeman # (Auto) Eos # (Auto) Baso # (Auto) Immature Gran # (Auto) Sodium Potassium Chloride Carbon Dioxide Anion Gap BUN Creatinine Est Cr Clr Drug Dosing Est GFR ( Amer) Est GFR (Non-Af Amer) BUN/Creatinine Ratio Glucose POC Glucose 349 H* 340 H* 59 L* Calcium Magnesium 09/29/22 09/29/22 16:23 16:49 WBC RBC Hgb Hct MCV MCH MCHC RDW Std Deviation RDW Coeff of Linda Plt Count MPV Immature Gran % (Auto) Neut % (Auto) Lymph % (Auto) Hardeman % (Auto) Eos % (Auto) Baso % (Auto) Neut # (Auto) Lymph # (Auto) Hardeman # (Auto) Eos # (Auto) Baso # (Auto) Immature Gran # (Auto) Sodium Potassium Chloride Carbon Dioxide Anion Gap BUN Creatinine Est Cr Clr Drug Dosing Est GFR ( Amer) Est GFR (Non-Af Amer) BUN/Creatinine Ratio Glucose POC Glucose 69 L* 64 L* Calcium Magnesium Diagnostic Findings Telemetry personally reviewed: Atrial fibrillation. ECG personally reviewed from 09/29/2022 at 6:47 AM: A-fib RVR 129 bpm. LBBB. Echo report reviewed from 04/06/2022: Normal LV systolic function. EF 60 to 65%. Normal wall motion. Mild MR. Pulmonary hypertension. Cardiology consultation report reviewed. Chest x-ray from 09/27/2022 reports interstitial thickening and cardiomegaly. Suspected small left pleural effusion. Labs reviewed and notable for normal renal function and mild anemia. Elevated A1c and severe hyperglycemia this morning. Medications Administered Current Inpatient Medications Albuterol (Albut/Ipratrop 3mg/0.5mg Neb 3 Ml Vial) 3 ml NEB QIDR RANDY; Protocol Stop: 10/27/22 18:59 Last Admin: 09/29/22 14:49 Dose: 3 ml Amiodarone HCl (Amiodarone 200 Mg Tab) 200 mg PO TIDM RANDY Stop: 10/29/22 07:59 Last Admin: 09/29/22 16:47 Dose: 200 mg Atorvastatin Calcium (Atorvastatin 20 Mg Tab) 20 mg PO PM RANDY Stop: 10/27/22 20:59 Last Admin: 09/28/22 21:31 Dose: 20 mg Chlordiazepoxide HCl (Chlordiazepoxide Hcl 25 Mg Cap) 25 mg PO Q6H RANDY Stop: 10/30/22 00:59 Dextrose (Dextrose 50% 50 Ml Syringe) 25 - 50 ml IV UD PRN; Protocol PRN Reason: Hypoglycemia Protocol Stop: 10/27/22 15:48 Glucagon (Glucagon For Inj 1 Mg Vial) 1 mg SQ UD PRN; Protocol PRN Reason: Hypoglycemia Protocol Stop: 10/27/22 15:48 Glucose (Glucose 10 Tab/Tube) 4 - 8 tab PO UD PRN; Protocol PRN Reason: Hypoglycemia Treatment Stop: 10/27/22 15:48 Glucose (Glucose 40% Gel 15 Gm Tube) 15 - 30 gm PO UD PRN; Protocol PRN Reason: Hypoglycemia Protocol Stop: 10/27/22 15:48 Hydrocortisone (Hydrocortisone 2.5% Cr 30 Gm Tube) 1 appln EXT DAILY PRN PRN Reason: UD Stop: 10/28/22 08:59 Insulin Aspart (Insulin Aspart Per Unit Charge) 0 units SC ACHS [facility] Stop: 10/27/22 16:29 Last Admin: 09/29/22 16:48 Dose: Not Given Insulin Glargine (Lantus Per Unit Charge) 20 units SQ HS [facility] Stop: 10/28/22 20:59 Lorazepam (Lorazepam 2 Mg/1 Ml Vial) 3 mg IV ONCE PRN; Protocol PRN Reason: EtOH Withdrawal AWSS Score 10+ Lorazepam (Lorazepam 2 Mg/1 Ml Vial) 2 mg IV UD PRN; Protocol PRN Reason: EtOH Withdrawal AWSS Score 8,9 Stop: 10/28/22 11:55 Lorazepam (Lorazepam 2 Mg/1 Ml Vial) 1 mg IV UD PRN; Protocol PRN Reason: EtOH Withdrawal AWSS Score 6,7 Stop: 10/28/22 11:55 Metoprolol Succinate (Metoprolol Succ 50mg Ext Rel Tab) 50 mg PO BID [facility] Stop: 10/27/22 20:59 Last Admin: 09/29/22 08:18 Dose: 50 mg Miscellaneous (Carbohydrates For Hypoglycemia ) 15 - 30 gm PO UD PRN PRN Reason: Hypoglycemia Protocol Stop: 10/27/22 15:48 Miscellaneous Information (Pharmacy Glycemic Mgmt Consult) 1 each N/A UD PRN PRN Reason: Consult Stop: 10/27/22 15:48 Pantoprazole Sodium (Pantoprazole 40 Mg Tab) 40 mg PO BID [facility] Stop: 10/27/22 20:59 Last Admin: 09/29/22 08:18 Dose: 40 mg Rivaroxaban (Rivaroxaban 20 Mg Tab) 20 mg PO DAILY [facility] Stop: 10/28/22 08:59 Last Admin: 09/29/22 08:18 Dose: 20 mg Venlafaxine HCl (Venlafaxine Hcl Xr 150 Mg Capxr) 150 mg PO QAM [facility] Stop: 10/28/22 08:59 Last Admin: 09/29/22 08:18 Dose: 150 mg PG Care Time/CCT Total # of Minutes Spent Total Time Spent with Patient: Total time spent is greater than 50% in coordination of care (as documented) at patient's floor/unit and/or counseling patient: Coding Level of Care Code 38107 SUB INP/OBS CARE 2/35MIN Diagnoses Atrial fibrillation with RVR I48.91 (HFpEF) heart failure with preserved ejection fraction I50.30 Alcoholism F10.20 Hypertension I10 Left bundle branch block I44.7 Paroxysmal A-fib I48.0
[2022-09-29] MEDS ORDERED: LANTUS PER UNIT CHARGE SQ SCH ×2 (21:00)
[2022-09-29] MEDS: ATORVASTATIN 20 MG TAB PO SCH (21:01)
--- NOTE | 2022-09-29 22:07 | Hospitalist Progress Note ---
Date of Service September 29, 2022 Assessment & Plan (1) Atrial fibrillation with RVR: Plan: -Admit to the PCU on tele -The patient is currently afebrile, hemodynamically stable, and stable on RA -Patient has a history of Paroxysmal a-fib, found to be in afib RVR in the ED today with HR in the 110's -The patient felt her palpitations earlier but is currently asymptomatic -Initial high sen trop is minimally elevated at 14.2, will repeat a second high sen trop on admission and continue to monitor on tele, do not suspect ACS at this time -concern patient may be having alcohol withdrawal, and this may be feeding into her a fib RVR. -will place on amiodarone and monitor. -placed on lorazepam and chlordiazepoxide for alcohol withdrawal. continue metoprolol succinate 50 mg PO BID -Switched from Eliquis to Xarelto -BL SCD's and home xarelto for DVT PPX - (2) Alcoholism: Plan: Patient drinks a fifth of vodka daily as per . High risk for delirium tremens Patient tells conflicting stories regarding her alcoholism Placed on librium taper initially, however will order librium 25 mg PO q 6h scheduled. will consider tapering on 09/30 if clinically stable. Patient is [facility] risk for going into DTs. (3) SOB (shortness of breath): Plan: -At this time the etiology of the patient's SOB is unclear, the differential includes new onset CHF, bacterial pneumonia, viral URI, and her afib RVR -No leukocytosis but possible consolidation in the LLL on CXR, will get procal for further evaluation -BNP elevated at 412, will get TTE -Will get full respiratory biofire -Incentive spirometry, flutter therapy, prn DuoNebs, prn robitussin, prn O2 to keep SpO2 at or above 95% -S/P 40 mg IV lasix in the ED, will hold additional diuretics at this time as she is not substantially volume overloaded and lasix naive (4) Elevated troponin: Plan: -See afib RVR (5) Uncontrolled type 1 diabetes mellitus with complication, with long-term current use of insulin: Plan: -Last A1c on 04/06/22 was 9.4, will order am A1C -Monitor BSG ACHS, goal is 110-140 -Will continue home lantus dose of 20 units HS -CF of 50 with CR of 15 -DM I diet -Pharmacy glycemic control consult placed (6) Hypertension: Plan: -Stable -Continue metoprolol (7) Depression: Plan: -Continue Venlafaxine (8) Hyperlipidemia: Plan: -Continue statin Admission and Anticipated Discharge Date Admission Date: September 27, 2022 Subjective Patient remains confused. Review of Systems Review of Systems: All systems reviewed & are unremarkable except as noted in HPI & below Physical Exam Physical Exam: General: In no acute distress, stated age, well-nourished, good hygiene HEENT: Normocephalic, atraumatic, no scleral icterus, pupils around round, symmetrical, and reactive to light, moist mucus membranes, trachea midline, no thyromegaly Chest/Pulm: No respiratory distress, symmetrical chest expansion, decreased breath sounds in the LLE, otherwise currently CTA Cardiac: irregular rate and rhythm, no murmurs noted Abdomen: Negative for ascites and bruising, normoactive bowel sounds, soft, non- tender to palpation throughout Musculoskeletal: Symmetrical and without signs of acute trauma, upper and lower extremities with full ROM, no atrophy, spasticity, or flaccidity Extremities: Radial, dorsalis pedis, and posterior tibial pulses are intact and symmetrical, no edema noted in the BL LE's Skin: Warm, dry, no rashes , lesions, or scars noted Neuro: Alert and oriented to person, place, month, year, and president, no focal defects Psych: No acute distress, calm and cooperative during the exam Results & Data Results & Data Vital Signs (Past 12 Hours) Vital Signs Temp Pulse Pulse Resp BP Pulse Ox Pulse Ox 09/29/22 19:35 36.7 C 113 H 20 133/86 97 09/29/22 19:16 84 18 96 09/29/22 15:37 36.7 C 96 H 17 124/80 95 09/29/22 14:51 103 H 18 98 09/29/22 14:00 95 09/29/22 11:15 36.6 C 104 H 18 120/82 96 09/29/22 11:00 104 H 15 94 O2 Del Method O2 Del Method O2 Flow Rate O2 Flow Rate 09/29/22 19:35 Nasal Cannula 09/29/22 19:16 Nasal Cannula 2 09/29/22 15:37 Room Air 09/29/22 14:51 Nasal Cannula 2 09/29/22 14:00 Nasal Cannula 2 09/29/22 11:15 Nasal Cannula 2 09/29/22 11:00 Nasal Cannula 2 PG Care Time/CCT Total # of Minutes Spent Total Time Spent with Patient: Total time spent is greater than 50% in coordination of care (as documented) at patient's floor/unit and/or counseling patient: Coding Level of Care Code 59772 SUB INP/OBS CARE 2/35MIN Diagnoses Atrial fibrillation with RVR I48.91 Alcoholism F10.20 SOB (shortness of breath) R06.02 Elevated troponin R77.8 Uncontrolled type 1 diabetes mellitus with complication, with long-term current use of insulin E10.8; E10.65 Hypertension I10 Depression F32.9 Hyperlipidemia E78.5
[2022-09-30] MEDS: chlordiazePOXIDE HCl 25 MG CAP PO SCH ×4 (00:52→19:59)
[2022-09-30] MEDS: INSULIN ASPART PER UNIT CHARGE SC SCH ×6 (00:54→20:03)
[2022-09-30] MEDS ORDERED: METOPROLOL TARTRATE 1 MG/ML VIAL IV STA (01:27)
--- NOTE | 2022-09-30 05:59 | Electrocardiogram Report ---
Test Reason : Blood Pressure : / mmHG Vent. Rate : 129 BPM Atrial Rate : 131 BPM P-R Int : 000 ms QRS Dur : 136 ms QT Int : 304 ms P-R-T Axes : 000 -64 103 degrees QTc Int : 445 ms Atrial fibrillation with rapid ventricular response Left axis deviation Left bundle branch block Abnormal ECG When compared with ECG of 27-SEP-2022 14:13, No significant change was found Confirmed by Stephen Brantley ([id number]) on 09/30/2022 5:58:41 AM Referred By: REFERRED SELF Confirmed By:Stephen Brantley
[2022-09-30] MEDS: ALBUT/IPRATROP 3MG/0.5MG NEB 3 ML VIAL NEB SCH ×4 (06:58→18:59)
[2022-09-30 07:38] LABS: Basophils # (auto) 0.06 K/uL (0-0.2); Basophils % (auto) 0.7 %; Eosinophils # (auto) 0.22 K/uL (0-0.50); Eosinophils % (auto) 2.6 %; Hematocrit (blood only) 32.1 % (37.0-47.0); Hemoglobin 10.5 g/dl (12.0-16.0); Immature Granulocytes # (auto) 0.01 K/uL (0.01-0.20); Immature Granulocytes % (auto) 0.1 %; Lymphocytes # (auto) 3.01 K/uL (1.2-3.4); Lymphocytes % (auto) 35.1 %; Mean Corpuscular Hemoglobin 28.5 pg (25.0-34.0); Mean Corpuscular Hgb Conc 32.7 g/dL (32.0-36.0); Mean Corpuscular Volume 87.2 fL (80.0-100.0); Mean Platelet Volume 10.6 fL (9.4-12.4); Monocytes # (auto) 0.79 K/uL (0.11-0.59); Monocytes % (auto) 9.2 %; Neutrophils # (auto) 4.48 K/uL (1.40-6.50); Neutrophils % (auto) 52.3 %; Platelet Count 294 K/uL (130-400); RDW Coefficient of Variation 14.4 % (11.5-14.5); RDW Standard Deviation 46.1 fL (36.4-46.3); Red Blood Count 3.68 M/uL (4.20-5.40); White Blood Count 8.57 K/ul (4.8-10.8)
[2022-09-30 07:42] LABS: BUN Creatinine Ratio 18.6 (10-20); Creatinine Clr Calc Pharmacy 59.4 ml/min; Est GFR (African American) 76.1 ml/min; Est GFR (Non-African American) 65.6 ml/min; Magnesium 1.7 mg/dl (1.7-2.4); Potassium 4.3 mmol/L (3.5-5.1)
[2022-09-30] MEDS: AMIODARONE 200 MG TAB PO SCH ×3 (08:31→16:43)
[2022-09-30] MEDS: PANTOprazole 40 MG TAB PO SCH ×2 (08:32→20:01)
[2022-09-30] MEDS: METOPROLOL SUCC 50MG EXT REL TAB PO SCH ×2 (08:32→20:02)
[2022-09-30] MEDS: VENLAFAXINE HCL XR 150 MG CAPXR PO SCH (08:33)
[2022-09-30] MEDS: RIVAROXABAN 20 MG TAB PO SCH (08:33)
[2022-09-30] MEDS ORDERED: LANTUS PER UNIT CHARGE SQ ONE (11:30)
--- NOTE | 2022-09-30 11:38 | Pharmacy Report ---
Pharmacy Glycemic Short Note 2 - Date of Service September 30, 2022 - Glycemic Short BSG Results (Last 24 hours): 09/29/22 09/29/22 09/29/22 16:22 16:23 16:49 Glucose POC Glucose 59 L* 69 L* 64 L* 09/29/22 09/30/22 09/30/22 20:12 00:08 04:03 Glucose POC Glucose 78 118 H 131 H 09/30/22 09/30/22 09/30/22 07:08 07:20 11:10 Glucose 159 H POC Glucose 159 H 164 H OUTPATIENT ANTIDIABETIC REGIMEN: * Lantus 18-22 units SC qPM * Bolus ~10-15 units/day * Patient follows [facility], per notes patient does not count carbs HbA1c: 9.7% (09/28/22) ASSESSMENT: 09/30: * BSGs erratic the last 24h: [phone]/dL. Received 10 units of basal and 18 units of bolus insulin. Patient did become hypoglycemic yesterday afternoon. Fasting this AM is acceptable however, 159mg/dL. * Tolerating diet, stressors stable. * Novolog loosened last evening given low BSGs - continue reduced dose SS. Lantus reduced last night to 5units (TDD 10 units). Will give 10 units this afternoon for coverage and add an HS scale tonight pending BSG. 09/29: * BSGs largely uncontrolled the last 24h: [phone]/dL. Fasting elevated this AM, 323mg/dL. Received 20 units of basal and 18 units of bolus insulin yesterday. * Tolerating diet, other stressors stable. * BSG goal reduced to 110-140 to help improve control. Novolog parameters tightened to 35/11 given sustained high prandial BSGs. Lantus 5 units X 1 this afternoon for total daily dose 25 units today. 09/28: * DS is a 77 year old female with uncontrolled T1DM admitted on 09/27/22 due to Afib w/ RVR * Patient has history of labile BSGs, as well as noncompliance with home regimen and checking BSGs (per outpatient endocrine notes) * BSGs labile since time of admission, ranging 113-412 mg/dL * Will slightly tighten Novolog parameters and goal range * Will allow for increased dose of Lantus this evening * Pertinent PMH includes heart failure w/ preserved EF, HTN, hyperlipidemia, and alcoholism PLAN FOR INPATIENT GLYCEMIC CONTROL: * Basal insulin * Lantus 10 units X 1 + HS scale * Bolus insulin * NovoLog per scale ACHS or Q6hrs while NPO * Goal Range: Low 110 mg/dL - High 140 mg/dL * Correction Factor: 40 mg/dL/unit * Nutritional / Prandial insulin per carb ratio of 1 unit per 11 grams CHO consumed
[2022-09-30] MEDS ORDERED: FUROSEMIDE INJ 20 MG/2 ML VIAL IV ONE (15:54)
--- NOTE | 2022-09-30 16:32 | XCELERA ---
[id number]
--- NOTE | 2022-09-30 16:33 | Cardiology Progress Note ---
Date of Service September 30, 2022 Assessment & Plan (1) Atrial fibrillation with RVR: (2) (HFpEF) heart failure with preserved ejection fraction: (3) Alcoholism: (4) Hypertension: (5) Left bundle branch block: (6) Paroxysmal A-fib: Plan ASSESSMENT/PLAN: 1. Paroxysmal atrial fibrillation with RVR: Has been known to have paroxysmal atrial fibrillation in the past per records. Persistent atrial fibrillation despite amiodarone as initiated by Dr. Mosher during this hospital stay. Remains tachycardic despite amiodarone and metoprolol. Given dyspnea, reduction in LV systolic function (probable low normal currently), and ongoing tachycardia, recommend DC cardioversion. Risk and benefits discussed with her in detail. N.p.o. after midnight. She is agreeable to proceed. She was questioned several times about any lapse in anticoagulation therapy. She states that she has not missed any doses of Eliquis and then initiation of Xarelto here for at least 4 weeks. Monitor TSH and transaminase levels, especially with alcohol history. Continue anticoagulation for stroke risk reduction. Monitor for bleeding. Significant daily alcohol consumption reported by nursing staff after discussion with . Alcohol may be contributing to A-fib burden. 2. Left bundle branch block: Chronic. 3. Acute heart failure with preserved EF: Apparently significant improvement following IV Lasix per chart review. Crackles on exam. Lasix 20 mg IV x1, especially with ongoing dyspnea. May be related to A-fib with RVR. Low-sodium diet. Strict I's and O's. Daily weights. 4. Hypertension: Blood pressure mostly normotensive. No changes made in this regard. 5. Alcoholism: Refrain from alcohol consumption, especially given A-fib. Monitor transaminase levels as well now that she is on amiodarone. 6. Mitral regurgitation: Monitor as an outpatient. 7. Disposition: Cardiology will continue to follow. Patient care communicated with primary hospitalist, Dr. Veliz. Follow-up with Dr. Mosher on discharge. Discussed plan with Dr. Mosher as she has followed her in the outpatient setting. Highly complex medical issues. Admission and Anticipated Discharge Date Admission Date: September 27, 2022 Subjective Patient was seen today with her at the bedside. She has dyspnea with exertion, even minimal exertion in the room. She denies orthopnea. She feels better today than yesterday however. She denies chest pain, palpitations, syncope, but does have lightheadedness at times. Physical Exam Physical Exam: Gen.: No acute distress. Alert. HEENT: Anicteric sclera. Neck: No JVD. Cardiac: No ventricular heave. Irregularly irregular. Tachycardic. Normal S1- S2. No murmurs, rubs, or gallops. Pulmonary: Mild crackles at the bases. Abdomen: Soft, nontender, nondistended, with normoactive bowel sounds. No bruits noted. Extremities: 2+ radial pulses bilaterally. 2+ posterior tibialis pulses bilaterally. No edema or cyanosis. Results & Data Vital Signs (Past 12 Hours) Vital Signs Temp Pulse Resp BP Pulse Ox O2 Del Method O2 Flow Rate 09/30/22 15:45 36.8 C 104 H 18 107/84 99 Nasal Cannula 2.0 09/30/22 11:12 36.9 C 102 H 19 127/84 98 Nasal Cannula 2.0 09/30/22 10:47 96 H 17 95 Nasal Cannula 2 09/30/22 10:35 Nasal Cannula 2 09/30/22 07:24 36.8 C 115 H 19 129/86 98 Nasal Cannula 2.0 09/30/22 06:59 100 H 22 97 Room Air 09/30/22 06:08 138 H 20 96 Nasal Cannula 2 Intake & Output 09/28/22 09/29/22 09/30/22 10/01/22 06:59 06:59 06:59 06:59 Intake Total 500 / 500 2141.2 / 2141.2 665 / 665 480 / 480 Output Total 900 / 900 702 / 702 1600 / 1600 500 / 500 Balance -400 / -400 1439.2 / 1439.2 -935 / -935 -20 / -20 Weight 190 lb 0.615 oz 191 lb 12.835 oz Laboratory Results Laboratory Results - last 24 hr 09/29/22 09/29/22 09/30/22 16:49 20:12 00:08 WBC RBC Hgb Hct MCV MCH MCHC RDW Std Deviation RDW Coeff of Linda Plt Count MPV Immature Gran % (Auto) Neut % (Auto) Lymph % (Auto) [place] % (Auto) Eos % (Auto) Baso % (Auto) Neut # (Auto) Lymph # (Auto) [place] # (Auto) Eos # (Auto) Baso # (Auto) Immature Gran # (Auto) Sodium Potassium Chloride Carbon Dioxide Anion Gap BUN Creatinine Est Cr Clr Drug Dosing Est GFR ( Amer) Est GFR (Non-Af Amer) BUN/Creatinine Ratio Glucose POC Glucose 64 L* 78 118 H Calcium Magnesium 09/30/22 09/30/22 09/30/22 04:03 07:08 07:08 WBC 8.57 RBC 3.68 L Hgb 10.5 L Hct 32.1 L MCV 87.2 MCH 28.5 MCHC 32.7 RDW Std Deviation 46.1 RDW Coeff of Linda 14.4 Plt Count 294 MPV 10.6 Immature Gran % (Auto) 0.1 Neut % (Auto) 52.3 Lymph % (Auto) 35.1 [place] % (Auto) 9.2 Eos % (Auto) 2.6 Baso % (Auto) 0.7 Neut # (Auto) 4.48 Lymph # (Auto) 3.01 [place] # (Auto) 0.79 H Eos # (Auto) 0.22 Baso # (Auto) 0.06 Immature Gran # (Auto) 0.01 Sodium 136 Potassium 4.3 Chloride 102 Carbon Dioxide 29 Anion Gap 5 BUN 16 Creatinine 0.86 Est Cr Clr Drug Dosing 59.4 Est GFR ( Amer) 76.1 Est GFR (Non-Af Amer) 65.6 BUN/Creatinine Ratio 18.6 Glucose 159 H POC Glucose 131 H Calcium 9.0 Magnesium 1.7 09/30/22 09/30/22 09/30/22 07:20 11:10 16:13 WBC RBC Hgb Hct MCV MCH MCHC RDW Std Deviation RDW Coeff of Linda Plt Count MPV Immature Gran % (Auto) Neut % (Auto) Lymph % (Auto) [place] % (Auto) Eos % (Auto) Baso % (Auto) Neut # (Auto) Lymph # (Auto) [place] # (Auto) Eos # (Auto) Baso # (Auto) Immature Gran # (Auto) Sodium Potassium Chloride Carbon Dioxide Anion Gap BUN Creatinine Est Cr Clr Drug Dosing Est GFR ( Amer) Est GFR (Non-Af Amer) BUN/Creatinine Ratio Glucose POC Glucose 159 H 164 H 193 H Calcium Magnesium Diagnostic Findings Telemetry personally reviewed: A-fib with RVR. No significant pause. Labs reviewed from 09/30/2022: Mild anemia, stable renal function. Chart reviewed. Echo 09/30/2022: Low normal LV systolic function. Mildly reduced RV systolic function. Moderate MR. Moderate TR. A-fib with RVR. Medications Administered Current Inpatient Medications Albuterol (Albut/Ipratrop 3mg/0.5mg Neb 3 Ml Vial) 3 ml NEB QIDR RANDY; Protocol Stop: 10/27/22 18:59 Last Admin: 09/30/22 15:17 Dose: Not Given Amiodarone HCl (Amiodarone 200 Mg Tab) 200 mg PO TIDM RANDY Stop: 10/29/22 07:59 Last Admin: 09/30/22 12:28 Dose: 200 mg Atorvastatin Calcium (Atorvastatin 20 Mg Tab) 20 mg PO PM [facility] Stop: 10/27/22 20:59 Last Admin: 09/29/22 21:01 Dose: 20 mg Chlordiazepoxide HCl (Chlordiazepoxide Hcl 25 Mg Cap) 25 mg PO Q6H RANDY Stop: 10/30/22 00:59 Last Admin: 09/30/22 12:46 Dose: Not Given Dextrose (Dextrose 50% 50 Ml Syringe) 25 - 50 ml IV UD PRN; Protocol PRN Reason: Hypoglycemia Protocol Stop: 10/27/22 15:48 Glucagon (Glucagon For Inj 1 Mg Vial) 1 mg SQ UD PRN; Protocol PRN Reason: Hypoglycemia Protocol Stop: 10/27/22 15:48 Glucose (Glucose 10 Tab/Tube) 4 - 8 tab PO UD PRN; Protocol PRN Reason: Hypoglycemia Treatment Stop: 10/27/22 15:48 Glucose (Glucose 40% Gel 15 Gm Tube) 15 - 30 gm PO UD PRN; Protocol PRN Reason: Hypoglycemia Protocol Stop: 10/27/22 15:48 Hydrocortisone (Hydrocortisone 2.5% Cr 30 Gm Tube) 1 appln EXT DAILY PRN PRN Reason: UD Stop: 10/28/22 08:59 Insulin Aspart (Insulin Aspart Per Unit Charge) 0 units SC ACHS [facility] Stop: 10/27/22 16:29 Last Admin: 09/30/22 12:44 Dose: 4 units Insulin Glargine (Lantus Per Unit Charge) 0 units SQ HS RANDY; Protocol Stop: 10/30/22 20:59 Lorazepam (Lorazepam 2 Mg/1 Ml Vial) 3 mg IV ONCE PRN; Protocol PRN Reason: EtOH Withdrawal AWSS Score 10+ Lorazepam (Lorazepam 2 Mg/1 Ml Vial) 2 mg IV UD PRN; Protocol PRN Reason: EtOH Withdrawal AWSS Score 8,9 Stop: 10/28/22 11:55 Lorazepam (Lorazepam 2 Mg/1 Ml Vial) 1 mg IV UD PRN; Protocol PRN Reason: EtOH Withdrawal AWSS Score 6,7 Stop: 10/28/22 11:55 Metoprolol Succinate (Metoprolol Succ 50mg Ext Rel Tab) 50 mg PO BID [facility] Stop: 10/27/22 20:59 Last Admin: 09/30/22 08:32 Dose: 50 mg Miscellaneous (Carbohydrates For Hypoglycemia ) 15 - 30 gm PO UD PRN PRN Reason: Hypoglycemia Protocol Stop: 10/27/22 15:48 Miscellaneous Information (Pharmacy Glycemic Mgmt Consult) 1 each N/A UD PRN PRN Reason: Consult Stop: 10/27/22 15:48 Pantoprazole Sodium (Pantoprazole 40 Mg Tab) 40 mg PO BID [facility] Stop: 10/27/22 20:59 Last Admin: 09/30/22 08:32 Dose: 40 mg Rivaroxaban (Rivaroxaban 20 Mg Tab) 20 mg PO DAILY [facility] Stop: 10/28/22 08:59 Last Admin: 09/30/22 08:33 Dose: 20 mg Venlafaxine HCl (Venlafaxine Hcl Xr 150 Mg Capxr) 150 mg PO QAM [facility] Stop: 10/28/22 08:59 Last Admin: 09/30/22 08:33 Dose: 150 mg PG Care Time/CCT Total # of Minutes Spent Total Time Spent with Patient: Total time spent is greater than 50% in coordination of care (as documented) at patient's floor/unit and/or counseling patient: Coding Level of Care Code 13927 SUB INP/OBS CARE 3/50MIN Diagnoses Atrial fibrillation with RVR I48.91 (HFpEF) heart failure with preserved ejection fraction I50.30 Alcoholism F10.20 Hypertension I10 Left bundle branch block I44.7 Paroxysmal A-fib I48.0
--- NOTE | 2022-09-30 17:38 | Anesthesiology Consultation ---
Date of Service September 30, 2022 Assessment & Plan (1) Encounter for pre-operative examination: Chart Review Chart Review: Acceptable Risk for Surgery History Surgery Operation Date: 10/01/22 12:00 Proposed Procedures p Cardioversion Grocery Worker w/Anesthesia - Stephen Brantley MD Height/Weight Height: 5 ft 4 in Weight: 87 kg Allergies Allergy/AdvReac Type Severity Reaction Status Date / Time oxycodone Allergy Mild ITCHING Verified 09/17/22 14:47 Medications Home Medications Medication Instructions Recorded Confirmed Last Taken calcium carbonate 500 mg-vitamin 1 tab PO BID 05/24/18 09/27/22 04/05/22 D3 5 mcg (200 unit) tablet am (Calcium 500 + D) krill 1,000 mg-omega-3 170 mg-dha 1 cap PO QAM 05/24/18 09/27/22 04/05/22 50 mg-epa 80 [id number] capsule (krill oil) multivitamin 1 tab PO QAM 02/09/19 09/27/22 04/05/22 lancets 33 gauge (OneTouch Delica #100 ea 02/22/19 09/17/22 Unknown Plus Lancet) Dexcom G6 Publisher Assistant (blood-glucose #1 ea 04/04/19 09/17/22 Unknown meter,continuous) Dexcom G6 Sensor (blood-glucose #9 ea 04/04/19 09/17/22 Unknown sensor) Dexcom G6 Transmitter #1 ea 04/04/19 09/17/22 Unknown (blood-glucose transmitter) blood sugar diagnostic (OneTouch #10 ea 09/12/20 09/17/22 Unknown Ultra Blue Test Strip) atorvastatin 20 mg tablet 20 mg PO PM #90 tabs 03/27/22 09/27/22 04/04/22 hydrocortisone 2.5 % topical cream 1 applic topical DAILY #30 grams 03/27/22 09/27/22 04/04/22 acetaminophen 325 mg tablet 650 mg PO Q4H PRN pain #0 tabs 04/06/22 09/27/22 Unknown metoprolol succinate 50 mg 50 mg PO DAILY #90 tabs 05/01/22 09/27/22 Unknown tablet,extended release 24 hr pen needle, diabetic 32 gauge x #150 ea 05/23/22 09/17/22 Unknown 32" (BD Missy 2nd Gen Pen Needle) venlafaxine 150 mg 150 mg PO QAM #90 caps 07/09/22 09/27/22 Unknown capsule,extended release 24 hr insulin aspart U-100 100 unit/mL 1 sliding scale dose subcut WM #15 07/11/22 09/27/22 Unknown (3 mL) subcutaneous pen (Novolog mL FlexPen U-100 Insulin aspart) insulin glargine 100 unit/mL (3 See Rx Instructions subcut PM #15 07/11/22 09/27/22 Unknown mL) subcutaneous pen (Basaglar mL KwikPen U-100 Insulin) rivaroxaban 20 mg tablet (Xarelto) 20 mg PO DAILY #30 tabs 08/27/22 09/27/22 Unknown omeprazole 20 mg tablet,delayed 20 mg PO BID 09/27/22 09/27/22 Unknown release Active Medications Generic Name Dose Route Start Last Admin Trade Name Freq PRN Reason Stop Dose Admin Albuterol 3 ml 09/27/22 19:00 09/30/22 15:17 Albut/Ipratrop 3mg/0.5mg Neb 3 Ml Vial NEB 10/27/22 18:59 Not Given QIDR RANDY Protocol Amiodarone HCl 200 mg 09/29/22 08:00 09/30/22 16:43 Amiodarone 200 Mg Tab PO 10/29/22 07:59 200 mg TIDM RANDY Administration Atorvastatin Calcium 20 mg 09/27/22 21:00 09/29/22 21:01 Atorvastatin 20 Mg Tab PO 10/27/22 20:59 20 mg PM RANDY Administration Chlordiazepoxide HCl 25 mg 09/30/22 01:00 09/30/22 12:46 Chlordiazepoxide Hcl 25 Mg Cap PO 10/30/22 00:59 Not Given Q6H RANDY Insulin Aspart 0 units 09/27/22 16:30 09/30/22 16:49 Insulin Aspart Per Unit Charge SC 10/27/22 16:29 9 units ACHS RANDY Administration Metoprolol Succinate 50 mg 09/27/22 21:00 09/30/22 08:32 Metoprolol Succ 50mg Ext Rel Tab PO 10/27/22 20:59 50 mg BID RANDY Administration Pantoprazole Sodium 40 mg 09/27/22 21:00 09/30/22 08:32 Pantoprazole 40 Mg Tab PO 10/27/22 20:59 40 mg BID RANDY Administration Rivaroxaban 20 mg 09/28/22 09:00 09/30/22 08:33 Rivaroxaban 20 Mg Tab PO 10/28/22 08:59 20 mg DAILY RANDY Administration Venlafaxine HCl 150 mg 09/28/22 09:00 09/30/22 08:33 Venlafaxine Hcl Xr 150 Mg Capxr PO 10/28/22 08:59 150 mg QAM RANDY Administration Past Medical History Medical History Alcoholism pt reports is improving on this, few drinks of vodka weekly, no longer every day Anxiety Depression Diabetes mellitus, type 2 Gastroesophageal reflux disease Gastroparesis History of colon polyps Hyperlipidemia Hypertension Hypoglycemia Left bundle branch block Lumbar epidural mass Migraine Osteopenia Proliferative diabetic retinopathy associated with type 1 diabetes mellitus Right lower lobe pneumonia (03/2022) Spinal stenosis Urinary incontinence Venous insufficiency Vitamin D deficiency Wound of foot Past Family History Family History Grandmother (Maternal) Family history of diabetes mellitus Diabetes Uncle Family history of diabetes mellitus paternal Grandmother (Paternal) Breast cancer Mother , age 77 of an [place] Myocardial infarction Scleroderma Father , age 70 of an [place] Myocardial infarction Denies family history of Ovarian cancer Prostate cancer Colorectal cancer Past Surgical History Surgical History History of bilateral carpal tunnel release History of bilateral cataract extraction History of cataract surgery History of colonoscopy History of lumbar fusion History of open reduction and internal fixation (ORIF) procedure left wrist fx--hardware removed History of open reduction and internal fixation (ORIF) procedure right wrist fx--hardware in place History of right breast biopsy x2--benign mass History of tooth extraction Social History Smoking Status: Never smoker tobacco type: cigarettes Hx Alcohol Use: Yes Alcohol type: hard liquor alcohol intake frequency: 0-2 drinks per day Hx Substance Use: No substance use type: does not use Physical Exam Vital Signs Last Vital Signs Temp 36.8 C 09/30/22 15:45 Pulse 104 H 09/30/22 15:45 Resp 18 09/30/22 15:45 BP 107/84 09/30/22 15:45 Pulse Ox 99 09/30/22 15:45 O2 Del Method Nasal Cannula 09/30/22 15:45 O2 Flow Rate 2.0 09/30/22 15:45 Testing Laboratory Results 09/30/22 07:08 09/30/22 07:08 PT 14.6 Seconds (9.0-12.0) H 09/27/22 14:18 INR 1.4 (0.9-1.1) H 09/27/22 14:18 APTT 31.1 Seconds (21.0-31.0) H 09/27/22 14:18 Hemoglobin A1c 9.7 % (4.5-5.6) H 09/28/22 05:47 09/30/22 09/30/22 09/30/22 16:13 11:10 07:20 POC Glucose 193 H 164 H 159 H Electrocardiogram Date: 09/29/22 Findings: + AFIB @ (129) and + LBBB Echocardiogram Date: 09/30/22 EF: 50-55% LV Function: normal Other Findings: + LVH Valvular Disease: + MR (moderate) moderate TR
[2022-09-30] MEDS: ATORVASTATIN 20 MG TAB PO SCH (20:02)
[2022-09-30] MEDS ORDERED: LANTUS PER UNIT CHARGE SQ SCH (21:00)
--- NOTE | 2022-09-30 21:38 | XRay Report ---
TWO VIEW CHEST CLINICAL HISTORY: Dyspnea. FINDINGS: PA and lateral chest radiographs are compared to study dated 09/27/2022. The heart is enlarge d noting atherosclerotic calcification of the thoracic aorta. There is pulmonary vascular congestion with mild interstitial edema. There are layering pleural effusions with bibasilar consolidation. Ther e is no pneumothorax. The skeletal structures are osteopenic. There are chronic/healed left-sided rib fractures. Degenerative change is noted in the shoulders and spine. IMPRESSION: 1. Cardiomegaly with evidence of congestive failure and pulmonary edema. 2. Layering pleural effusions with dependent consolidation. ACT 112: Negative or not required by law. Electronically signed by: Kvng Tsai M.D. 09/30/2022 9:36 PM
--- NOTE | 2022-10-01 00:02 | Hospitalist Progress Note ---
Date of Service September 30, 2022 Assessment & Plan (1) Atrial fibrillation with RVR: Plan: -Admit to the PCU on tele -The patient is currently afebrile, hemodynamically stable, and stable on RA -Patient has a history of Paroxysmal a-fib, found to be in afib RVR in the ED today with HR in the 110's -The patient felt her palpitations earlier but is currently asymptomatic -Initial high sen trop is minimally elevated at 14.2, will repeat a second high sen trop on admission and continue to monitor on tele, do not suspect ACS at this time -concern patient may be having alcohol withdrawal, and this may be feeding into her a fib RVR. -will place on amiodarone and monitor. -placed on lorazepam and chlordiazepoxide for alcohol withdrawal. continue metoprolol succinate 50 mg PO BID -Switched from Eliquis to Xarelto -BL SCD's and home xarelto for DVT PPX - (2) Alcoholism: Plan: Patient drinks a fifth of vodka daily as per . High risk for delirium tremens Patient tells conflicting stories regarding her alcoholism Placed on librium taper initially, however will order librium 25 mg PO q 6h scheduled. Will continue current dose for now, will reassess in AM of 10/01 Patient is hgh risk for going into DTs. (3) SOB (shortness of breath): Plan: -At this time the etiology of the patient's SOB is unclear, the differential includes new onset CHF, bacterial pneumonia, viral URI, and her afib RVR -No leukocytosis but possible consolidation in the LLL on CXR, will get procal for further evaluation -BNP elevated at 412, will get TTE -Will get full respiratory biofire -Incentive spirometry, flutter therapy, prn DuoNebs, prn robitussin, prn O2 to keep SpO2 at or above 95% -S/P 40 mg IV lasix in the ED, will hold additional diuretics at this time as she is not substantially volume overloaded and lasix naive (4) Elevated troponin: Plan: -See afib RVR (5) Uncontrolled type 1 diabetes mellitus with complication, with long-term current use of insulin: Plan: -Last A1c on 04/06/22 was 9.4, will order am A1C -Monitor BSG ACHS, goal is 110-140 -Will continue home lantus dose of 20 units HS -CF of 50 with CR of 15 -DM I diet -Pharmacy glycemic control consult placed (6) Hypertension: Plan: -Stable -Continue metoprolol (7) Depression: Plan: -Continue Venlafaxine (8) Hyperlipidemia: Plan: -Continue statin Admission and Anticipated Discharge Date Admission Date: September 27, 2022 Subjective 77 yo female reports feeling better. NUrse reports she is more awake this afternoon. Review of Systems Review of Systems: All systems reviewed & are unremarkable except as noted in HPI & below Physical Exam Physical Exam: General: In no acute distress, stated age, well-nourished, good hygiene HEENT: Normocephalic, atraumatic, no scleral icterus, pupils around round, symmetrical, and reactive to light, moist mucus membranes, trachea midline, no thyromegaly Chest/Pulm: No respiratory distress, symmetrical chest expansion, decreased breath sounds in the LLE, otherwise currently CTA Cardiac: irregular rate and rhythm, no murmurs noted Abdomen: Negative for ascites and bruising, normoactive bowel sounds, soft, non- tender to palpation throughout Musculoskeletal: Symmetrical and without signs of acute trauma, upper and lower extremities with full ROM, no atrophy, spasticity, or flaccidity Extremities: Radial, dorsalis pedis, and posterior tibial pulses are intact and symmetrical, no edema noted in the BL LE's Skin: Warm, dry, no rashes , lesions, or scars noted Neuro: Alert and oriented to person, place, month, year, and president, no focal defects Psych: No acute distress, calm and cooperative during the exam Results & Data Results & Data Vital Signs (Past 12 Hours) Vital Signs Temp Pulse Resp BP BP Pulse Ox O2 Del Method 09/30/22 22:48 36.9 C 96 H 20 122/96 97 Nasal Cannula 09/30/22 20:00 Nasal Cannula 09/30/22 19:40 36.9 C 106 H 18 135/82 97 Nasal Cannula 09/30/22 15:45 36.8 C 104 H 18 107/84 99 Nasal Cannula O2 Flow Rate 09/30/22 22:48 2 09/30/22 20:00 2 09/30/22 19:40 2 09/30/22 15:45 2.0 PG Care Time/CCT Total # of Minutes Spent Total Time Spent with Patient: Total time spent is greater than 50% in coordination of care (as documented) at patient's floor/unit and/or counseling patient: Coding Level of Care Code 24093 SUB INP/OBS CARE 350MIN Diagnoses Atrial fibrillation with RVR I48.91 Alcoholism F10.20 SOB (shortness of breath) R06.02 Elevated troponin R77.8 Uncontrolled type 1 diabetes mellitus with complication, with long-term current use of insulin E10.8; E10.65 Hypertension I10 Depression F32.9 Hyperlipidemia E78.5
[2022-10-01] MEDS: chlordiazePOXIDE HCl 25 MG CAP PO SCH ×2 (03:43→08:50)
[2022-10-01] MEDS: ALBUT/IPRATROP 3MG/0.5MG NEB 3 ML VIAL NEB SCH ×4 (07:17→19:27)
[2022-10-01] MEDS: AMIODARONE 200 MG TAB PO SCH ×3 (08:42→17:31)
[2022-10-01] MEDS: METOPROLOL SUCC 50MG EXT REL TAB PO SCH ×2 (08:43→20:05)
[2022-10-01] MEDS: INSULIN ASPART PER UNIT CHARGE SC SCH ×4 (08:48→20:39)
[2022-10-01] MEDS: VENLAFAXINE HCL XR 150 MG CAPXR PO SCH (08:48)
[2022-10-01] MEDS: RIVAROXABAN 20 MG TAB PO SCH (08:49)
[2022-10-01] MEDS: PANTOprazole 40 MG TAB PO SCH ×2 (08:49→20:05)
--- NOTE | 2022-10-01 10:23 | Cardiology Progress Note ---
Date of Service October 01, 2022 Assessment & Plan (1) Atrial fibrillation with RVR: (2) (HFpEF) heart failure with preserved ejection fraction: (3) Alcoholism: (4) Hypertension: (5) Left bundle branch block: (6) Paroxysmal A-fib: Plan ASSESSMENT/PLAN: 1. Paroxysmal atrial fibrillation with RVR: Has been known to have paroxysmal atrial fibrillation in the past per records. Persistent atrial fibrillation despite amiodarone as initiated by Dr. Mosher during this hospital stay. Heart rate slowly improving. Has been n.p.o. for cardioversion today. Awaiting anesthesiology availability to provide sedation. She is been adamant that she has not missed any doses of anticoagulation therapy in the last 4 weeks. Monitor TSH and transaminase levels, especially with alcohol history. Continue anticoagulation for stroke risk reduction. Monitor for bleeding. Significant daily alcohol consumption reported by nursing staff after discussion with . Alcohol may be contributing to A-fib burden. 2. Left bundle branch block: Chronic. 3. Acute heart failure with preserved EF: Apparently significant improvement following IV Lasix per chart review. Dyspnea reported as improved today compared to yesterday after nearly 1 L negative net fluid balance with additiona l dose of Lasix 20 mg IV on 09/30/2022. Will give another dose today. May be related to A-fib with RVR. Low-sodium diet. Strict I's and O's. Daily weights. Basic metabolic panel today and each morning. 4. Hypertension: Blood pressure mostly normotensive. No changes made in this regard. 5. Alcoholism: Refrain from alcohol consumption, especially given A-fib. Monitor transaminase levels as well now that she is on amiodarone. 6. Mitral regurgitation: Monitor as an outpatient. 7. Disposition: Cardiology will continue to follow. Patient care communicated with primary hospitalist, Dr. Veliz. Follow-up with Dr. Mosher on discharge. Addendum: Notified by Lab that anesthesia is not available today. Cardioversion scheduled for tomorrow. Nursing staff and primary hospitalist made aware to coordinate with patient and to allow her to eat today but n.p.o. after midnight. Admission and Anticipated Discharge Date Admission Date: September 27, 2022 Subjective Patient seen this morning. She was out of bed and denied any significant shortness of breath. Nursing staff states that she appeared only mildly dyspneic. She denies chest pain, palpitations. She admits that she is unsteady on her feet. She would like to go home soon. She is n.p.o. waiting for cardioversion. She still has occasional issues finding the right words at times but able to eventually. Physical Exam Physical Exam: Gen.: No acute distress. Alert. HEENT: Anicteric sclera. Neck: No JVD. Cardiac: No ventricular heave. Irregularly irregular. Normal S1-S2. No murmurs, rubs, or gallops. Pulmonary: Mild crackles at the bases. Abdomen: Soft, nontender, nondistended, with normoactive bowel sounds. No bruits noted. Extremities: 2+ radial pulses bilaterally. 2+ posterior tibialis pulses bilaterally. No edema or cyanosis. Results & Data Vital Signs (Past 12 Hours) Vital Signs Temp Pulse Resp BP BP Pulse Ox O2 Del Method 10/01/22 08:38 36.6 C 93 H 20 123/89 96 Nasal Cannula 10/01/22 07:17 93 H 18 95 Nasal Cannula 10/01/22 02:43 36.8 C 115 H 20 116/79 96 Nasal Cannula 09/30/22 22:48 36.9 C 96 H 20 122/96 97 Nasal Cannula O2 Flow Rate 10/01/22 08:38 2 10/01/22 07:17 2 10/01/22 02:43 2 09/30/22 22:48 2 Intake & Output 09/29/22 09/30/22 10/01/22 10/02/22 06:59 06:59 06:59 06:59 Intake Total 2141.2 / 2141.2 665 / 665 580 / 580 Output Total 702 / 702 1600 / 1600 1570 / 1570 Balance 1439.2 / 1439.2 -935 / -935 -990 / -990 Weight 191 lb 12.835 oz 198 lb 13.711 oz Laboratory Results Laboratory Results - last 24 hr 09/30/22 09/30/22 09/30/22 11:10 16:13 20:02 POC Glucose 164 H 193 H 85 10/01/22 07:20 POC Glucose 147 H Diagnostic Findings Telemetry personally reviewed: Atrial fibrillation. Heart rate is slowly improving. Labs reviewed: Glucose more reasonably controlled. Medications Administered Current Inpatient Medications Albuterol (Albut/Ipratrop 3mg/0.5mg Neb 3 Ml Vial) 3 ml NEB QIDR [facility]; Protocol Stop: 10/27/22 18:59 Last Admin: 10/01/22 07:17 Dose: 3 ml Amiodarone HCl (Amiodarone 200 Mg Tab) 200 mg PO TIDM [facility] Stop: 10/29/22 07:59 Last Admin: 10/01/22 08:42 Dose: 200 mg Atorvastatin Calcium (Atorvastatin 20 Mg Tab) 20 mg PO PM [facility] Stop: 10/27/22 20:59 Last Admin: 09/30/22 20:02 Dose: 20 mg Chlordiazepoxide HCl (Chlordiazepoxide Hcl 10 Mg Cap) 10 mg PO TID [facility] Stop: 10/31/22 13:59 Dextrose (Dextrose 50% 50 Ml Syringe) 25 - 50 ml IV UD PRN; Protocol PRN Reason: Hypoglycemia Protocol Stop: 10/27/22 15:48 Glucagon (Glucagon For Inj 1 Mg Vial) 1 mg SQ UD PRN; Protocol PRN Reason: Hypoglycemia Protocol Stop: 10/27/22 15:48 Glucose (Glucose 10 Tab/Tube) 4 - 8 tab PO UD PRN; Protocol PRN Reason: Hypoglycemia Treatment Stop: 10/27/22 15:48 Glucose (Glucose 40% Gel 15 Gm Tube) 15 - 30 gm PO UD PRN; Protocol PRN Reason: Hypoglycemia Protocol Stop: 10/27/22 15:48 Hydrocortisone (Hydrocortisone 2.5% Cr 30 Gm Tube) 1 appln EXT DAILY PRN PRN Reason: UD Stop: 10/28/22 08:59 Insulin Aspart (Insulin Aspart Per Unit Charge) 0 units SC TID@1130,1630,2100 [facility] Stop: 10/31/22 11:29 Insulin Aspart (Insulin Aspart Per Unit Charge) 0 units SC DAILY@0730 [facility] Stop: 10/27/22 16:29 Last Admin: 10/01/22 08:48 Dose: 1 units Insulin Glargine (Lantus Per Unit Charge) 0 units SQ HS [facility]; Protocol Stop: 10/30/22 20:59 Last Admin: 09/30/22 20:04 Dose: Not Given Lorazepam (Lorazepam 2 Mg/1 Ml Vial) 3 mg IV ONCE PRN; Protocol PRN Reason: EtOH Withdrawal AWSS Score 10+ Lorazepam (Lorazepam 2 Mg/1 Ml Vial) 2 mg IV UD PRN; Protocol PRN Reason: EtOH Withdrawal AWSS Score 8,9 Stop: 10/28/22 11:55 Lorazepam (Lorazepam 2 Mg/1 Ml Vial) 1 mg IV UD PRN; Protocol PRN Reason: EtOH Withdrawal AWSS Score 6,7 Stop: 10/28/22 11:55 Metoprolol Succinate (Metoprolol Succ 50mg Ext Rel Tab) 50 mg PO BID RANDY Stop: 10/27/22 20:59 Last Admin: 10/01/22 08:43 Dose: 50 mg Miscellaneous (Carbohydrates For Hypoglycemia ) 15 - 30 gm PO UD PRN PRN Reason: Hypoglycemia Protocol Stop: 10/27/22 15:48 Miscellaneous Information (Pharmacy Glycemic Mgmt Consult) 1 each N/A UD PRN PRN Reason: Consult Stop: 10/27/22 15:48 Pantoprazole Sodium (Pantoprazole 40 Mg Tab) 40 mg PO BID RANDY Stop: 10/27/22 20:59 Last Admin: 10/01/22 08:49 Dose: 40 mg Rivaroxaban (Rivaroxaban 20 Mg Tab) 20 mg PO DAILY RANDY Stop: 10/28/22 08:59 Last Admin: 10/01/22 08:49 Dose: 20 mg Venlafaxine HCl (Venlafaxine Hcl Xr 150 Mg Capxr) 150 mg PO QAM [facility] Stop: 10/28/22 08:59 Last Admin: 10/01/22 08:48 Dose: 150 mg PG Care Time/CCT Total # of Minutes Spent Total Time Spent with Patient: Total time spent is greater than 50% in coordination of care (as documented) at patient's floor/unit and/or counseling patient: Coding Level of Care Code 09939 SUB INP/OBS CARE 2/35MIN Diagnoses Atrial fibrillation with RVR I48.91 (HFpEF) heart failure with preserved ejection fraction I50.30 Alcoholism F10.20 Hypertension I10 Left bundle branch block I44.7 Paroxysmal A-fib I48.0
[2022-10-01] MEDS ORDERED: FUROSEMIDE INJ 20 MG/2 ML VIAL IV ONE ×2 (10:36→13:02)
--- NOTE | 2022-10-01 11:38 | Pharmacy Report ---
Pharmacy Glycemic Short Note 2 - Date of Service October 01, 2022 - Glycemic Short BSG Results (Last 24 hours): 09/30/22 09/30/22 10/01/22 16:13 20:02 07:20 POC Glucose 193 H 85 147 H 10/01/22 11:17 POC Glucose 136 H OUTPATIENT ANTIDIABETIC REGIMEN: * Lantus 18-22 units SC qPM * Bolus ~10-15 units/day * Patient follows with [place]ology, per notes patient does not count carbs HbA1c: 9.7% (09/28/22) ASSESSMENT: 10/01: * BSGs within goal range the last 24h- 873-82-050-136mg/dL. Patient received 10 units of basal and 20 units of bolus insulin yesterday. * Currently NPO for potential cardioversion. * Novolog carb ratio adjusted for tighter coverage at breakfast and loose parameters with all other meals given tends to decrease after large Novolog boluses (post-prandial). Will decrease Lantus to 5 units given NPO status and adjust timing back to HS. Re-evaluate basal in AM if resumes diet. 09/30: * BSGs erratic the last 24h: [id number]/dL. Received 10 units of basal and 18 units of bolus insulin. Patient did become hypoglycemic yesterday afternoon. Fasting this AM is acceptable however, 159mg/dL. * Tolerating diet, stressors stable. * Novolog loosened last evening given low BSGs - continue reduced dose SS. Lantus reduced last night to 5units (TDD 10 units). Will give 10 units this afternoon for coverage and add an HS scale tonight pending BSG. 09/29: * BSGs largely uncontrolled the last 24h: 525-950-915-323-349mg/dL. Fasting elevated this AM, 323mg/dL. Received 20 units of basal and 18 units of bolus insulin yesterday. * Tolerating diet, other stressors stable. * BSG goal reduced to 110-140 to help improve control. Novolog parameters tightened to 35/11 given sustained high prandial BSGs. Lantus 5 units X 1 this afternoon for total daily dose 25 units today. 09/28: * DS is a 77 year old female with uncontrolled T1DM admitted on 09/27/22 due to Afib w/ RVR * Patient has history of labile BSGs, as well as noncompliance with home regimen and checking BSGs (per outpatient endocrine notes) * BSGs labile since time of admission, ranging 113-412 mg/dL * Will slightly tighten Novolog parameters and goal range * Will allow for increased dose of Lantus this evening * Pertinent PMH includes heart failure w/ preserved EF, HTN, hyperlipidemia, and alcoholism PLAN FOR INPATIENT GLYCEMIC CONTROL: * Basal insulin * Lantus 5 units HS * Bolus insulin * NovoLog per scale ACHS or Q6hrs while NPO * Goal Range: Low 110 mg/dL - High 140 mg/dL * Correction Factor: 40 mg/dL/unit * Nutritional / Prandial insulin per carb ratio of 1 unit per 11 grams (breakfast), 15 grams (all other meals and HS) CHO consumed
[2022-10-01 14:08] LABS: BUN Creatinine Ratio 19.5 (10-20); Calcium 9.1 mg/dl (8.6-10.3); Creatinine Clr Calc Pharmacy 59.8 ml/min; Est GFR (Non-African American) 64.7 ml/min
[2022-10-01] MEDS ORDERED: chlordiazePOXIDE HCl 5 MG CAP PO SCH (18:00)
[2022-10-01] MEDS: ATORVASTATIN 20 MG TAB PO SCH (20:05)
[2022-10-01] MEDS ORDERED: ALBUT/IPRATROP 3MG/0.5MG NEB 3 ML VIAL NEB PRN (20:50)
[2022-10-01] MEDS ORDERED: LANTUS PER UNIT CHARGE SQ SCH ×2 (21:00)
--- NOTE | 2022-10-01 22:07 | Hospitalist Progress Note ---
Date of Service October 01, 2022 Assessment & Plan (1) Atrial fibrillation with RVR: Plan: -Admit to the PCU on tele -The patient is currently afebrile, hemodynamically stable, and stable on RA -Patient has a history of Paroxysmal a-fib, found to be in afib RVR in the ED today with HR in the 110's -The patient felt her palpitations earlier but is currently asymptomatic -Initial high sen trop is minimally elevated at 14.2, will repeat a second high sen trop on admission and continue to monitor on tele, do not suspect ACS at this time -concern patient may be having alcohol withdrawal, and this may be feeding into her a fib RVR. -will place on amiodarone and monitor. -placed on lorazepam and chlordiazepoxide for alcohol withdrawal. continue metoprolol succinate 50 mg PO BID -Switched from Eliquis to Xarelto -BL SCD's and home xarelto for DVT PPX - (2) Alcoholism: Plan: Patient drinks a fifth of vodka daily as per . High risk for delirium tremens Patient tells conflicting stories regarding her alcoholism Placed on librium taper initially, however will order librium 25 mg PO q 6h scheduled. decreased dose of librium to 10 mg PO TID on 10/01 Patient is high risk for going into DTs, however her withdrawal appears to be controlled.. (3) SOB (shortness of breath): Plan: Possible acute HFpEF, POA -Patient has received 20 mg of lasix daily, not with a staing order Dyspnea has improved. anticipate this will continue to imprve once patient is cardioverted on 10/02 with return of atrial kick. May require further diuretics on 10/02 (4) Elevated troponin: Plan: -See afib RVR (5) Uncontrolled type 1 diabetes mellitus with complication, with long-term current use of insulin: Plan: -Last A1c on 04/06/22 was 9.4, will order am A1C -Monitor BSG ACHS, goal is 110-140 -Will continue home lantus dose of 20 units HS -CF of 50 with CR of 15 -DM I diet -Pharmacy glycemic control consult placed (6) Hypertension: Plan: -Stable -Continue metoprolol (7) Depression: Plan: -Continue Venlafaxine (8) Hyperlipidemia: Plan: -Continue statin Admission and Anticipated Discharge Date Admission Date: September 27, 2022 Subjective 77 yo female reports no new symptoms. She denies any hallucinations. Review of Systems Review of Systems: All systems reviewed & are unremarkable except as noted in HPI & below Physical Exam Physical Exam: General: In no acute distress, stated age, well-nourished, good hygiene HEENT: Normocephalic, atraumatic Chest/Pulm: No respiratory distress, symmetrical chest expansion, decreased breath sounds in the LLE, otherwise currently CTA Cardiac: irregular rate and rhythm, no murmurs noted Abdomen: Negative for ascites and bruising, normoactive bowel sounds, soft, non- tender to palpation throughout Neuro: Alert and oriented to person, place, month, year, and president, no focal defects Psych: No acute distress, calm and cooperative during the exam Results & Data Results & Data Vital Signs (Past 12 Hours) Vital Signs Temp Pulse Pulse Resp BP BP Pulse Ox 10/01/22 19:55 10/01/22 19:45 36.9 C 93 H 16 119/91 100 10/01/22 19:27 16 96 10/01/22 15:33 36.8 C 86 19 116/66 98 10/01/22 15:29 96 H 18 96 10/01/22 12:49 97 H 10/01/22 12:49 10/01/22 11:19 36.9 C 85 19 128/87 97 10/01/22 10:50 86 18 98 O2 Del Method O2 Flow Rate 10/01/22 19:55 Nasal Cannula 2 10/01/22 19:45 Nasal Cannula 10/01/22 19:27 Nasal Cannula 2 10/01/22 15:33 Nasal Cannula 2.0 10/01/22 15:29 Nasal Cannula 2 10/01/22 12:49 10/01/22 12:49 Nasal Cannula 2 10/01/22 11:19 Nasal Cannula 2.0 10/01/22 10:50 Nasal Cannula 2 PG Care Time/CCT Total # of Minutes Spent Total Time Spent with Patient: Total time spent is greater than 50% in coordination of care (as documented) at patient's floor/unit and/or counseling patient: Coding Level of Care Code 95516 SUB INP/OBS CARE 3/50MIN Diagnoses Atrial fibrillation with RVR I48.91 Alcoholism F10.20 SOB (shortness of breath) R06.02 Elevated troponin R77.8 Uncontrolled type 1 diabetes mellitus with complication, with long-term current use of insulin E10.8; E10.65 Hypertension I10 Depression F32.9 Hyperlipidemia E78.5
[2022-10-02] MEDS ORDERED: PROPOFOL IV EMULSION 10 MG/ML 20 ML VIAL IV ONE (07:01)
[2022-10-02] MEDS ORDERED: LIDOCAINE 2% MPF LOCAL 5 ML VIAL ONE (07:01)
[2022-10-02] MEDS ORDERED: ePHEDrine sulfate 50 MG/ML AMP ONE (07:02)
[2022-10-02] MEDS ORDERED: PHENYLEPHRINE HCL 10 MG/ML VIAL ONE (07:02)
--- NOTE | 2022-10-02 07:31 | Cardioversion ---
Date of Service October 02, 2022 PG Electrical Cardioversion Rp Electrical Cardioversion Report Procedure: Direct-current cardioversion Indication: Atrial fibrillation Consent: Informed written consent obtained Sedation: Provided by anesthesiology Anticoagulation therapy: Patient confirms no interruption in therapeutic anticoagulation therapy for at least 4 weeks. Antiarrhythmic therapy: Oral amiodarone Timeout: Performed Details: Once patient was sufficiently sedated, 150 J were delivered in a synchronized fashion which successfully converted atrial fibrillation to sinus rhythm. She remained hemodynamically stable. There were no known complications at the time of this note. Plan: 1. Continue amiodarone. 2. Continue anticoagulation therapy without interruption for at least 4 weeks following cardioversion, however indefinite anticoagulation therapy appears to be indicated. 3. Follow-up closely with primary finisher polisher, Dr. Mosher, in the outpatient setting once discharged from the hospital. Coding Level of Care Code 74275 CARDIOVERSION, ELECTIVE Additional Codes Electrical Cardioversion Report ([id number])
[2022-10-02 07:44] LABS: BUN Creatinine Ratio 14.3 (10-20); Calcium 9.2 mg/dl (8.6-10.3); Creatinine Clr Calc Pharmacy 52.3 ml/min; Est GFR (African American) 64.9 ml/min; Potassium 4.2 mmol/L (3.5-5.1)
--- NOTE | 2022-10-02 07:56 | Anesthesiology Progress Note ---
Date of Service October 02, 2022 Anesthesia Post Procedure Vital Signs Vital Signs: Temp Pulse Pulse Pulse Resp BP BP 10/02/22 07:55 70 16 113/71 10/02/22 07:00 96 H 10/02/22 07:40 70 16 117/73 10/02/22 07:22 36.7 C 90 21 108/77 10/02/22 03:23 10/02/22 03:21 36.6 C 114 H 16 133/93 10/01/22 22:00 111 H 10/01/22 23:12 36.6 C 105 H 16 121/88 10/01/22 19:55 10/01/22 19:45 36.9 C 93 H 16 119/91 10/01/22 19:27 16 10/01/22 15:33 36.8 C 86 19 116/66 10/01/22 15:29 96 H 18 10/01/22 12:49 97 H 10/01/22 12:49 10/01/22 11:19 36.9 C 85 19 128/87 10/01/22 10:50 86 18 10/01/22 08:38 36.6 C 93 H 20 123/89 Pulse Ox O2 Del Method O2 Flow Rate 10/02/22 07:55 96 Nasal Cannula 3 10/02/22 07:00 10/02/22 07:40 94 Nasal Cannula 3 10/02/22 07:22 97 Room Air 10/02/22 03:23 94 Nasal Cannula 2 10/02/22 03:21 85 L Room Air 10/01/22 22:00 10/01/22 23:12 93 Room Air 10/01/22 19:55 Nasal Cannula 2 10/01/22 19:45 100 Nasal Cannula 10/01/22 19:27 96 Nasal Cannula 2 10/01/22 15:33 98 Nasal Cannula 2.0 10/01/22 15:29 96 Nasal Cannula 2 10/01/22 12:49 10/01/22 12:49 Nasal Cannula 2 10/01/22 11:19 97 Nasal Cannula 2.0 10/01/22 10:50 98 Nasal Cannula 2 10/01/22 08:38 96 Nasal Cannula 2 Transfer of Care Handoff Completed per policy Notes Mental Status: alert / awake / arousable and participated in evaluation Nausea / Vomiting: adequately controlled Pain: adequately controlled Airway Patency, RR, SpO2: stable & adequate BP & HR: stable & adequate Hydration State: stable & adequate Anesthetic Complications: no major complications apparent and Pt Satisfied with anesthetic care
--- NOTE | 2022-10-02 08:06 | Hospitalist Progress Note ---
Date of Service October 02, 2022 Assessment & Plan (1) Atrial fibrillation with RVR: Plan: Acute moderate risk uncontrolled history of Paroxysmal a-fib, found to be in afib RVR in the ED today with HR in the 110's Amiodarone initiated, Cardioverted 10/02/22, continue metoprolol succinate 50 twice daily, switched from Eliquis to Xarelto troponin is minimally elevated at 14.2, troponin is reduced, likely demand ischemia from physiological stressors Possible alcohol withdrawal, and this may be influencing her a fib RVR. -placed on lorazepam and chlordiazepoxide for alcohol withdrawal. (2) Alcoholism: Plan: Acute withdrawal with chronic alcohol abuse, patient drinks a fifth of vodka daily as per . librium scheduled., decreased dose of librium to 10 mg PO TID on 10/01 (3) SOB (shortness of breath): Plan: Acute HFpEF, POA -Patient has received 20 mg of lasix x1->Dyspnea has improved. anticipate this will continue to improve once patient is cardioverted on 10/02 (4) Uncontrolled type 1 diabetes mellitus with complication, with long-term current use of insulin: Plan: Chronic uncontrolled, moderate risk -Last A1c on 04/06/22 was 9.4, repeat 9.7 - -Will continue home lantus dose of 20 units HS -CF of 50 with CR of 15 -DM I diet -Pharmacy glycemic control consult placed (5) Congestive heart failure: Admission and Anticipated Discharge Date Admission Date: September 27, 2022 Subjective She underwent cardioversion 10/02/22 morning and tolerated the procedure well. She was successfully converted to sinus rhythm. She is sedated post procedure. Physical Exam Physical Exam: pt is sleepy but awake respiratory status is stable, no distress cardiac is regular falls asleep easily Results & Data Results & Data Vital Signs (Past 12 Hours) Vital Signs Temp Pulse Pulse Pulse Resp BP BP 10/02/22 07:55 70 16 113/71 10/02/22 07:00 96 H 10/02/22 07:40 70 16 117/73 10/02/22 07:22 98.1 F 90 21 108/77 10/02/22 03:23 10/02/22 03:21 97.9 F 114 H 16 133/93 10/01/22 22:00 111 H 04/12/23 23:12 97.9 F 105 H 16 121/88 Pulse Ox O2 Del Method O2 Flow Rate 10/02/22 07:55 96 Nasal Cannula 3 10/02/22 07:00 10/02/22 07:40 94 Nasal Cannula 3 10/02/22 07:22 97 Room Air 10/02/22 03:23 94 Nasal Cannula 2 10/02/22 03:21 85 L Room Air 10/01/22 22:00 10/01/22 23:12 93 Room Air Laboratory Results Reviewed chemistry Reviewed basic naturetric peptide PG Care Time/CCT Total # of Minutes Spent Total Time Spent with Patient: Total time spent is greater than 50% in coordination of care (as documented) at patient's floor/unit and/or counseling patient: Coding Level of Care Code 21509 SUB INP/OBS CARE 3/50MIN Diagnoses Atrial fibrillation with RVR I48.91 Alcoholism F10.20 SOB (shortness of breath) R06.02 Uncontrolled type 1 diabetes mellitus with complication, with long-term current use of insulin E10.8; E10.65 Congestive heart failure I50.9
[2022-10-02] MEDS: INSULIN ASPART PER UNIT CHARGE SC SCH ×4 (08:44→20:25)
--- NOTE | 2022-10-02 09:26 | Cardiology Progress Note ---
Date of Service October 02, 2022 Assessment & Plan (1) Atrial fibrillation with RVR: (2) (HFpEF) heart failure with preserved ejection fraction: (3) Alcoholism: (4) Hypertension: (5) Left bundle branch block: (6) Paroxysmal A-fib: Plan ASSESSMENT/PLAN: 1. Paroxysmal atrial fibrillation with RVR s/p DC Cardioversion: Successfully converted to sinus rhythm. Recommend continuing amiodarone but on discharge, 200 mg twice daily with follow-up with Dr. Mosher in 1 to 2 weeks. Anticipate reduction in amiodarone at follow-up appointment. Monitor TSH and transaminase levels, especially with alcohol history. Continue anticoagulation for stroke risk reduction. Monitor for bleeding. Significant daily alcohol consumption reported by nursing staff after discussion with . Alcohol may be contributing to A-fib burden. Continue beta-veda. 2. Left bundle branch block: Chronic. 3. Acute heart failure with preserved EF: Atrial fibrillation may have been playing a role. Still mildly hypervolemic. Has been diuresing well with Lasix 20 mg IV. Give another dose this morning. On discharge, recommend 40 mg of p.o. Lasix once daily. Heart failure program follow-up. Low-sodium diet. Strict I's and O's. Daily weights. 4. Hypertension: Blood pressure mostly normotensive. No changes made in this regard. 5. Alcoholism: Refrain from alcohol consumption, especially given A-fib. Monitor transaminase levels as well now that she is on amiodarone. 6. Mitral regurgitation: Monitor as an outpatient. 7. Disposition: Cardiology will continue to follow while here. Patient care communicated with primary hospitalist, Dr. Schmid. Follow-up with Dr. Mosher on discharge. Admission and Anticipated Discharge Date Admission Date: September 27, 2022 Subjective She underwent cardioversion this morning and tolerated the procedure well. She was successfully converted to sinus rhythm. She denies shortness of breath, even when out of bed today. She denies chest pain, palpitations, syncope, lightheadedness, edema, or bleeding. Her was updated via telephone regarding cardioversion. Physical Exam Physical Exam: Gen.: No acute distress. Alert. HEENT: Anicteric sclera. Neck: Mild JVD. Cardiac: No ventricular heave. Regular. Normal rate. Normal S1-S2. No murmurs, rubs, or gallops. Pulmonary: Clear to auscultation bilaterally. Abdomen: Soft, nontender, nondistended, with normoactive bowel sounds. No bruits noted. Extremities: 2+ radial pulses bilaterally. 2+ posterior tibialis pulses bilaterally. No significant pitting edema or cyanosis. Results & Data Vital Signs (Past 12 Hours) Vital Signs Temp Pulse Pulse Pulse Resp BP BP 10/02/22 08:10 72 16 130/72 10/02/22 07:55 70 16 113/71 10/02/22 07:00 96 H 10/02/22 07:40 70 16 117/73 10/02/22 07:22 36.7 C 90 21 108/77 10/02/22 03:23 10/02/22 03:21 36.6 C 114 H 16 133/93 10/01/22 22:00 111 H 10/01/22 23:12 36.6 C 105 H 16 121/88 Pulse Ox O2 Del Method O2 Flow Rate 10/02/22 08:10 96 Nasal Cannula 3 10/02/22 07:55 96 Nasal Cannula 3 10/02/22 07:00 10/02/22 07:40 94 Nasal Cannula 3 10/02/22 07:22 97 Room Air 10/02/22 03:23 94 Nasal Cannula 2 10/02/22 03:21 85 L Room Air 10/01/22 22:00 10/01/22 23:12 93 Room Air Intake & Output 09/30/22 10/01/22 10/02/22 10/03/22 06:59 06:59 06:59 06:59 Intake Total 665 / 665 580 / 580 760 / 760 Output Total 1600 / 1600 1570 / 1570 2600 / 2600 Balance -935 / -935 -990 / -990 -1840 / -1840 Weight 191 lb 12.835 oz 198 lb 13.711 oz 193 lb 5.526 oz 193 lb 5.526 oz Laboratory Results Laboratory Results - last 24 hr 10/01/22 10/01/22 10/01/22 10:32 11:17 16:15 Sodium 136 Potassium 4.0 Chloride 103 Carbon Dioxide 29 Anion Gap 4 BUN 17 Creatinine 0.87 Est Cr Clr Drug Dosing 59.8 Est GFR ( Amer) 75.0 Est GFR (Non-Af Amer) 64.7 BUN/Creatinine Ratio 19.5 Glucose 150 H POC Glucose 136 H 282 H Calcium 9.1 B-Natriuretic Peptide 10/01/22 10/02/22 10/02/22 20:28 06:55 06:55 Sodium 138 Potassium 4.2 Chloride 100 Carbon Dioxide 30 Anion Gap 8 BUN 14 Creatinine 0.98 Est Cr Clr Drug Dosing 52.3 Est GFR ( Amer) 64.9 Est GFR (Non-Af Amer) 56.0 BUN/Creatinine Ratio 14.3 Glucose 184 H POC Glucose 213 H Calcium 9.2 B-Natriuretic Peptide 353 H Diagnostic Findings Telemetry personally reviewed: In sinus rhythm since cardioversion. Labs reviewed and notable for improved BNP, stable renal function, normal potassium. Medications Administered Current Inpatient Medications Albuterol (Albut/Ipratrop 3mg/0.5mg Neb 3 Ml Vial) 3 ml NEB QIDR PRN; Protocol PRN Reason: Wheezing Stop: 10/27/22 18:59 Amiodarone HCl (Amiodarone 200 Mg Tab) 200 mg PO TIDM RANDY Stop: 10/29/22 07:59 Last Admin: 10/01/22 17:31 Dose: 200 mg Atorvastatin Calcium (Atorvastatin 20 Mg Tab) 20 mg PO PM RANDY Stop: 10/27/22 20:59 Last Admin: 10/01/22 20:05 Dose: 20 mg Chlordiazepoxide HCl (Chlordiazepoxide Hcl 10 Mg Cap) 10 mg PO TID RANDY Stop: 10/31/22 13:59 Last Admin: 10/02/22 08:49 Dose: Not Given Dextrose (Dextrose 50% 50 Ml Syringe) 25 - 50 ml IV UD PRN; Protocol PRN Reason: Hypoglycemia Protocol Stop: 10/27/22 15:48 Glucagon (Glucagon For Inj 1 Mg Vial) 1 mg SQ UD PRN; Protocol PRN Reason: Hypoglycemia Protocol Stop: 10/27/22 15:48 Glucose (Glucose 10 Tab/Tube) 4 - 8 tab PO UD PRN; Protocol PRN Reason: Hypoglycemia Treatment Stop: 10/27/22 15:48 Glucose (Glucose 40% Gel 15 Gm Tube) 15 - 30 gm PO UD PRN; Protocol PRN Reason: Hypoglycemia Protocol Stop: 10/27/22 15:48 Hydrocortisone (Hydrocortisone 2.5% Cr 30 Gm Tube) 1 appln EXT DAILY PRN PRN Reason: UD Stop: 10/28/22 08:59 Insulin Aspart (Insulin Aspart Per Unit Charge) 0 units SC TID@1130,1630,2100 [facility] Stop: 10/31/22 11:29 Last Admin: 10/01/22 20:39 Dose: 3 units Insulin Aspart (Insulin Aspart Per Unit Charge) 0 units SC DAILY@0730 [facility] Stop: 10/27/22 16:29 Last Admin: 10/02/22 08:44 Dose: Not Given Insulin Glargine (Lantus Per Unit Charge) 5 units SQ HS [facility] Stop: 10/30/22 20:59 Last Admin: 10/01/22 20:39 Dose: 5 units Lorazepam (Lorazepam 2 Mg/1 Ml Vial) 3 mg IV ONCE PRN; Protocol PRN Reason: EtOH Withdrawal AWSS Score 10+ Lorazepam (Lorazepam 2 Mg/1 Ml Vial) 2 mg IV UD PRN; Protocol PRN Reason: EtOH Withdrawal AWSS Score 8,9 Stop: 10/28/22 11:55 Lorazepam (Lorazepam 2 Mg/1 Ml Vial) 1 mg IV UD PRN; Protocol PRN Reason: EtOH Withdrawal AWSS Score 6,7 Stop: 10/28/22 11:55 Metoprolol Succinate (Metoprolol Succ 50mg Ext Rel Tab) 50 mg PO BID [facility] Stop: 10/27/22 20:59 Last Admin: 10/01/22 20:05 Dose: 50 mg Miscellaneous (Carbohydrates For Hypoglycemia ) 15 - 30 gm PO UD PRN PRN Reason: Hypoglycemia Protocol Stop: 10/27/22 15:48 Miscellaneous Information (Pharmacy Glycemic Mgmt Consult) 1 each N/A UD PRN PRN Reason: Consult Stop: 10/27/22 15:48 Pantoprazole Sodium (Pantoprazole 40 Mg Tab) 40 mg PO BID [facility] Stop: 10/27/22 20:59 Last Admin: 10/01/22 20:05 Dose: 40 mg Rivaroxaban (Rivaroxaban 20 Mg Tab) 20 mg PO DAILY [facility] Stop: 10/28/22 08:59 Last Admin: 10/01/22 08:49 Dose: 20 mg Venlafaxine HCl (Venlafaxine Hcl Xr 150 Mg Capxr) 150 mg PO QAM [facility] Stop: 10/28/22 08:59 Last Admin: 10/01/22 08:48 Dose: 150 mg PG Care Time/CCT Total # of Minutes Spent Total Time Spent with Patient: Total time spent is greater than 50% in coordination of care (as documented) at patient's floor/unit and/or counseling patient: Coding Level of Care Code 22565 SUB INP/OBS CARE 2/35MIN Diagnoses Atrial fibrillation with RVR I48.91 (HFpEF) heart failure with preserved ejection fraction I50.30 Alcoholism F10.20 Hypertension I10 Left bundle branch block I44.7 Paroxysmal A-fib I48.0
[2022-10-02] MEDS ORDERED: FUROSEMIDE INJ 20 MG/2 ML VIAL IV ONE (09:32)
[2022-10-02] MEDS: RIVAROXABAN 20 MG TAB PO SCH (09:59)
[2022-10-02] MEDS: PANTOprazole 40 MG TAB PO SCH ×2 (09:59→21:12)
[2022-10-02] MEDS: AMIODARONE 200 MG TAB PO SCH ×3 (09:59→17:53)
[2022-10-02] MEDS: METOPROLOL SUCC 50MG EXT REL TAB PO SCH ×2 (09:59→21:12)
[2022-10-02] MEDS: VENLAFAXINE HCL XR 150 MG CAPXR PO SCH (09:59)
--- NOTE | 2022-10-02 11:39 | Pharmacy Report ---
Pharmacy Glycemic Short Note 2 - Date of Service October 02, 2022 - Glycemic Short BSG Results (Last 24 hours): 10/01/22 10/01/22 10/01/22 10:32 16:15 20:28 Glucose 150 H POC Glucose 282 H 213 H 10/02/22 10/02/22 06:55 11:17 Glucose 184 H POC Glucose 233 H OUTPATIENT ANTIDIABETIC REGIMEN: * Lantus 18-22 units SC qPM * Bolus ~10-15 units/day * Patient follows with [place] [facility], per notes patient does not count carbs HbA1c: 9.7% (09/28/22) ASSESSMENT: 10/02: * BSGs above goal the last 24h - [phone]/dL. Patient received 5 units of basal and 9 units of bolus insulin yesterday d/t on/off NPO status. * Diet re-ordered today for lunch. Other stressors stable. * No changes to Novolog today, will resume 10 units of Lantus HS tonight. 10/01: * BSGs within goal range the last 24h- [phone]/dL. Patient received 10 units of basal and 20 units of bolus insulin yesterday. * Currently NPO for potential cardioversion. * Novolog carb ratio adjusted for tighter coverage at breakfast and loose parameters with all other meals given tends to decrease after large Novolog boluses (post-prandial). Will decrease Lantus to 5 units given NPO status and adjust timing back to HS. Re-evaluate basal in AM if resumes diet. 09/30: * BSGs erratic the last 24h: [phone]/dL. Received 10 units of basal and 18 units of bolus insulin. Patient did become hypoglycemic yesterday afternoon. Fasting this AM is acceptable however, 159mg/dL. * Tolerating diet, stressors stable. * Novolog loosened last evening given low BSGs - continue reduced dose SS. Lantus reduced last night to 5units (TDD 10 units). Will give 10 units this afternoon for coverage and add an HS scale tonight pending BSG. 09/29: * BSGs largely uncontrolled the last 24h: [phone]/dL. Fasting elevated this AM, 323mg/dL. Received 20 units of basal and 18 units of bolus insulin yesterday. * Tolerating diet, other stressors stable. * BSG goal reduced to 110-140 to help improve control. Novolog parameters tightened to 35/11 given sustained high prandial BSGs. Lantus 5 units X 1 this afternoon for total daily dose 25 units today. 09/28: * DS is a 77 year old female with uncontrolled T1DM admitted on 09/27/22 due to Afib w/ RVR * Patient has history of labile BSGs, as well as noncompliance with home regimen and checking BSGs (per outpatient endocrine notes) * BSGs labile since time of admission, ranging 113-412 mg/dL * Will slightly tighten Novolog parameters and goal range * Will allow for increased dose of Lantus this evening * Pertinent PMH includes heart failure w/ preserved EF, HTN, hyperlipidemia, and alcoholism PLAN FOR INPATIENT GLYCEMIC CONTROL: * Basal insulin * Lantus 10 units HS * Bolus insulin * NovoLog per scale ACHS or Q6hrs while NPO * Goal Range: Low 110 mg/dL - High 140 mg/dL * Correction Factor: 40 mg/dL/unit * Nutritional / Prandial insulin per carb ratio of 1 unit per 11 grams (breakfast), 15 grams (all other meals and HS) CHO consumed
[2022-10-02] MEDS ORDERED: LANTUS PER UNIT CHARGE SQ SCH (21:00)
[2022-10-02] MEDS: ATORVASTATIN 20 MG TAB PO SCH (21:11)
[2022-10-03 07:01] LABS: BUN Creatinine Ratio 15.6 (10-20); Calcium 9.1 mg/dl (8.6-10.3); Creatinine Clr Calc Pharmacy 53.4 ml/min; Est GFR (African American) 66.6 ml/min; Est GFR (Non-African American) 57.4 ml/min; Potassium 3.9 mmol/L (3.5-5.1)
[2022-10-03] MEDS: PANTOprazole 40 MG TAB PO SCH (08:29)
[2022-10-03] MEDS: METOPROLOL SUCC 50MG EXT REL TAB PO SCH (08:29)
[2022-10-03] MEDS: AMIODARONE 200 MG TAB PO SCH (08:30)
[2022-10-03] MEDS: VENLAFAXINE HCL XR 150 MG CAPXR PO SCH (08:30)
[2022-10-03] MEDS: RIVAROXABAN 20 MG TAB PO SCH (08:30)
[2022-10-03] MEDS: INSULIN ASPART PER UNIT CHARGE SC SCH (08:32)
--- NOTE | 2022-10-03 17:14 | Discharge Summary ---
Date of Service October 03, 2022 Admission HPI Per Admitting Provider Mikala is a 77 year old female with a PMH significant for afib on Xarelto, HTN, Hyperlipidemia, DM I who presented to the [facility] ED on 09/27/22 with a chief complaint of SOB. In the ED she was found to be stable but in afib-RVR with HR in the 110's. BNP was noted to be 412 (up from 329 as of 04/06/22), initial high sen trop of 14.2, Covid/Influenza/RSV negative. Chest xray was read as "1. Interstitial thickening suggestive of mild pulmonary edema. Mild cardiomegaly. 2. Suspected small left pleural effusion". Prior to admission the patient was given 40 mg IV lasix. At the time of the exam the patient was sitting in bed in no acute distress, stable on RA. She states that she started to develop progressive SOB at rest and with exertion approximately 4 days ago. She denies fever or chills but states that she had been wheezing. She has had a non-productive cough and denies chest pain. She denies nausea, vomiting, dysuria, hematuria, melena, and recent trauma. She feels as though her legs may be a little more swollen than baseline. She has been feeling fatigued over the past week, and has mainly been sleeping because of this. She feels as though the DuoNeb she received in the ED improved her respiratory symptoms. She switched from Eliquis to Xarelto due to the hopper of the Eliquis. Her first does of Xarelto was this am. She denies any missed doses and took her Eliquis yesterday. She wishes to be a Full Code and for her to make medical decisions for her if she cannot make them herself. Please refer to Dr. Ford's attestation for any changes to the treatment plan Principal Diagnosis Atrial fibrillation status post cardioversion Alcohol use Discharge Exam Awake alert appropriate Cardiac exam is regular chest is without evidence of irritation from cardioversion Discharge Data Allergies Allergy/AdvReac Type Severity Reaction Status Date / Time oxycodone Allergy Mild ITCHING Verified 09/17/22 14:47 Consultations 09/27/22 15:09 ED Decision to Admit Stat 09/27/22 21:43 Consult Cardiology Routine 09/30/22 16:45 Consult Anesthesiology Routine Procedures Performed Operation Date: 10/02/22 07:15 Actual Procedures p Cardioversion - Stephen Brantley MD Diabetes Follow up Diabetes Follow-up Needed for HgbA1c >9% Hospital Course (1) Atrial fibrillation with RVR: Acute moderate risk history of Paroxysmal a-fib, found to be in afib RVR in the ED upon presentation Amiodarone initiated, Cardioverted 10/02/22, continue metoprolol succinate 50 twice daily, continues Xarelto troponin is minimally elevated at 14.2, troponin is reduced, likely demand ischemia from physiological stressors Possible alcohol withdrawal, and this may be influencing her a fib RVR. -placed on lorazepam and chlordiazepoxide for alcohol withdrawal. No symptoms seem well in the hospital so patient is eventually discharged without these medications was given jorgensen warning about drinking alcohol she says she thinks this may be tough I offered to refer her to outpatient Alcoholics Anonymous she said she knows what to do (2) Alcoholism: Acute withdrawal with chronic alcohol abuse, patient drinks a fifth of vodka daily as per . (3) SOB (shortness of breath): Acute HFpEF, POA -Patient has received 20 mg of lasix x1->Dyspnea has improved. anticipate this will continue to improve status post cardioverted on 10/02 (4) Uncontrolled type 1 diabetes mellitus with complication, with long-term current use of insulin: Chronic uncontrolled, moderate risk -Last A1c on 04/06/22 was 9.4, repeat 9.7 - Continue home diabetic care referral to primary care for further diabetic education Total Time Total Time Spent Total Time Spent (In Minutes): It required greater than 30 minutes to prepare this patient for discharge Discharge Plan Discharge Items Patient Disposition: Home - Self-Care Reason For Visit: SOB Discharge Diagnosis: atrial fibrillation s/p cardioversion Activity: Per Instructions section Activity Comment: no intentional exercise until you are followed up by cardiology Non-emergency contact: Primary Care Provider Call non-emergency contact if: your symptoms worsen Follow-up/Referrals: Lois Nolan MD [Primary Care Provider] - 10/08/22 9:20 am (Will see Kam GRIDER in Dr Nolan's office) Sheridan Casas PA-C [Physician Technical Sales Advisor] - 10/07/22 2:00 pm Diet: Regular Ambulatory Orders: Basic Metabolic Panel (Routine) Timeframe: 4 Days Location: Determined by Patient Ordered By: Chris Blanton Attending Provider Instructions: please take your heart medicnes as prescribed please have blood work done on friday 10/[address] Nolan to asses your water pills o please abstain from alcohol as it may affect your heart and your heart medicines Pending Studies at Discharge: No Stand-Alone Forms: My [facility] [employer], Smoking Cessation Medications and DC Order Prescriptions: New amiodarone 200 mg Tablet 200 mg PO BID Qty: 60 3RF furosemide [Lasix] 40 mg tablet 40 mg PO DAILY Qty: 30 3RF Continued atorvastatin 20 mg tablet 20 mg PO PM Qty: 90 1RF (DME) pen needle, diabetic [BD Missy 2nd Gen Pen Needle] 32 gauge x 5/32" needle See Dose Instructions .ROUTE .MEDSUPPLY Qty: 150 5RF Rx Instructions: Use 1 needle 4 times daily venlafaxine 150 mg capsule,extended release 24hr 150 mg PO QAM Qty: 90 3RF insulin aspart U-100 [Novolog FlexPen U-100 Insulin] 100 unit/mL (3 mL) insulin pen 1 sliding scale dose subcut WM Qty: 15 5RF Rx Instructions: SLIDING SCALE WITH MEALS TDD 40 Basaglar KwikPen U-100 Insulin 100 unit/mL (3 mL) insulin pen See Rx Instructions SQ PM Qty: 15 5RF Rx Instructions: 18-22 units dailysubcutaneously evening; Xarelto 20 mg tablet 20 mg PO DAILY Qty: 30 12RF Rx Instructions: must administer with evening meal hydrocortisone 2.5 % cream 1 applic topical DAILY Qty: 30 1RF Rx Instructions: Apply as needed to the face. metoprolol succinate 50 mg tablet extended release 24 hr 50 mg PO DAILY Qty: 90 3RF (DME) lancets [OneTouch Delica Plus Lancet] 33 gauge misc See Dose Instructions .ROUTE .MEDSUPPLY Qty: 100 Rx Instructions: Test 5 times daily (DME) OneTouch Ultra Blue Test Strip Strip See Rx Instructions .ROUTE .MEDSUPPLY Qty: 10 Rx Instructions: Test blood sugars 2 times a day as needed for calibration (DME) Dexcom G6 [employer]ship misc See Dose Instructions .ROUTE .MEDSUPPLY Qty: 1 0RF Dose Instruction: Use as directed for continuous glucose monitoring Rx Instructions: Use as directed for continuous glucose monitoring (DME) Dexcom G6 Sensor device See Dose Instructions .ROUTE .MEDSUPPLY Qty: 9 3RF Dose Instruction: Use as directed for continuous glocuse monitoring - Change sensor every 10 days Rx Instructions: Use as directed for continuous glocuse monitoring - Change sensor every 10 days (DME) Dexcom G6 Transmitter device See Dose Instructions .ROUTE .MEDSUPPLY Qty: 1 3RF Dose Instruction: Use as directed for continuous glucose monitoring - change every 90 days Rx Instructions: Use as directed for continuous glucose monitoring - change every 90 days calcium carbonate-vitamin D3 [Calcium 500 + D] 500 mg(1,250mg) -200 unit Tab let 1 tab PO BID krill oil 1,300-354-13-80 mg Capsule 1 cap PO QAM multivitamin tablet 1 tab PO QAM acetaminophen 325 mg Tablet 650 mg PO Q4H PRN (Reason: pain) Qty: 0 0RF omeprazole 20 mg tablet,delayed release (DR/EC) 20 mg PO BID Discharge Orders: Discharge Order (Routine); Ordered 10/03/22 Ordered By: Chris Tran/Other Patient Handouts: Managing Type 2 Diabetes Admission Data Admit Date/Time: 09/27/22 15:22 Attending Provider: Chris Schmid Admit Provider: Levy Ford Primary Care Provider: Lois Nolan Other Providers: Levy Ford ; Stephen Brantley ; Gabi Escobedo ; Alicia Fung ; Rayne Laura ; Madelin Heck ; Karen Russell ; French Whittaker ; Alli Alcala ; Colin Barclay ; Parminder Carter ; Alyssa Carter ; Ramses Gatica ; Sherdian Rahman ; Jairo Mitchell ; Doug Watson ; Henrique Muniz ; Kaveh Drew ; Lizzette Rhodes ; Adriano De La Cruz ; Vanita Byrd ; Laurie Ernandez ; Dru Meier ; Liliana Butler ; Paulo Dejesus ; Christie Fall ; Heidi Ramon ; Jaren Osborn ; Joaquina Allan ; Isamar Balderas ; Alayna Bill ; Nadya Landeros ; Kennedy Landeros V ; Franky Mcdermott ; Alicia Rodarte ; Jaziel López ; Liz Walsh ; Kennedy Irene ; Hong Rhodes ; Gilberto Navarro ; Anita Meléndez ; Tracey Riddle ; Kennedy Nagy ; Samir Lozoya ; Hansa Johnston ; Jhon Mauro ; Peter Drew ; Jennifer Lewis ; Ev Batres ; Demian Lou ; Levi Mtz ; French Hood Jr ; Sudha Rodriguez ; Dorita Munoz AIzzy ; Judith Lanza ; Jaren Dominguez ; Madelin Alberts ; Parminder Perlaes ; Adarsh Blanco I. ; Marivel Benoit S. ; Dorita Cullen A. ; Arely Roger S. ; Glen Barros ; Wisam Rueda ; Mode Anthony ; Shakir Baldwin V. ; Lowell Lopez ; David Barclay ; Camille Pulliam Other Interventions: Discharge Summary Assessment (RN) Last Done: 10/03/22 12:26 Coding Level of Care Code 26913 INP/OBS DISCH >30 MIN Diagnoses Atrial fibrillation with RVR I48.91 Alcoholism F10.20 SOB (shortness of breath) R06.02 Uncontrolled type 1 diabetes mellitus with complication, with long-term current use of insulin E10.8; E10.65
--- NOTE | 2022-10-03 21:45 | Electrocardiogram Report ---
Test Reason : Blood Pressure : / mmHG Vent. Rate : 070 BPM Atrial Rate : 070 BPM P-R Int : 200 ms QRS Dur : 144 ms QT Int : 452 ms P-R-T Axes : 079 -31 107 degrees QTc Int : 488 ms Normal sinus rhythm Left axis deviation Left bundle branch block Abnormal ECG When compared with ECG of 02-OCT-2022 07:28, No significant change was found Confirmed by Stephen Brantley ([id number]) on 10/03/2022 9:44:58 PM Referred By: REFERRED SELF Confirmed By:Stephen Brantley
== END 2022-10-03 13:16 | disposition home or self-care (01) | DRG 308 ==
LOC: ED 13:56 → SUATTDRO 15:22 → 2E 15:22

== ENCOUNTER 2022-10-07 20:07 | Inpatient (IN) ==
[2022-10-07 21:58] LABS: Albumin Globulin Ratio 1.1 (0.9-2); Albumin Level 3.7 gm/dl (3.4-5.0); BUN Creatinine Ratio 20.7 (10-20); Bilirubin,Total 0.5 mg/dl (0.2-1.0); Calcium 9.3 mg/dl (8.6-10.3); Est GFR (African American) 70.1 ml/min; Est GFR (Non-African American) 60.5 ml/min; Globulin 3.3 gm/dl (2.5-4.0); Magnesium 1.8 mg/dl (1.7-2.4); Phosphorus 3.2 mg/dl (2.5-4.9)
[2022-10-07 22:04] LABS: Troponin I High Sensitivity 9.1 pg/ml (0-14)
--- NOTE | 2022-10-07 22:05 | CT Scan Report ---
Exam(s): CT HEAD Without Contrast EXAM: CT Head Without Intravenous Contrast CLINICAL HISTORY: Reason for exam: fall, pain. TECHNIQUE: Axial computed tomography images of the head/brain without intravenous contrast. CTDI is 36.3 mGy and DLP is 1080.61 mGy-cm. Automated exposure control was utilized for the study. A dose lowering technique was utilized adhering to the principles of ALARA. COMPARISON: No relevant prior studies available. FINDINGS: No acute intracranial hemorrhage. No midline shift or mass effect. The territorial mullen-white matter differentiation is maintained throughout. Age-related cerebral volume loss. Periventricular and subcortical white matter hypoattenuation, consistent with chronic microangiopathy. The visualized orbits appear grossly unremarkable. The calvarium is intact. Posterior scalp soft tissue swelling. The visualized paranasal sinuses and mastoid air cells are grossly clear. IMPRESSION: No acute intracranial hemorrhage, midline shift, or mass effect. Posterior scalp soft tissue swelling. Electronically signed by: Hao Swanson MD 10/07/22 22:03 PM
[2022-10-07 22:08] LABS: Basophils # (auto) 0.05 K/uL (0-0.2); Basophils % (auto) 0.8 %; Eosinophils # (auto) 0.12 K/uL (0-0.50); Hematocrit (blood only) 36.9 % (37.0-47.0); Immature Granulocytes # (auto) 0.02 K/uL (0.01-0.20); Immature Granulocytes % (auto) 0.3 %; Lymphocytes # (auto) 1.49 K/uL (1.2-3.4); Lymphocytes % (auto) 24.5 %; Mean Corpuscular Hgb Conc 32.5 g/dL (32.0-36.0); Mean Corpuscular Volume 86.2 fL (80.0-100.0); Mean Platelet Volume 10.5 fL (9.4-12.4); Monocytes # (auto) 0.59 K/uL (0.11-0.59); Monocytes % (auto) 9.7 %; Neutrophils % (auto) 62.7 %; Platelet Count 316 K/uL (130-400); RDW Coefficient of Variation 13.8 % (11.5-14.5); RDW Standard Deviation 43.2 fL (36.4-46.3); Red Blood Count 4.28 M/uL (4.20-5.40); White Blood Count 6.07 K/ul (4.8-10.8)
--- NOTE | 2022-10-07 22:12 | CT Scan Report ---
Exam(s): CT C SPINE EXAM: CT Cervical Spine Without Intravenous Contrast CLINICAL HISTORY: Reason for exam: fall pain. TECHNIQUE: Axial computed tomography images of the cervical spine without intravenous contrast. Automated exposure control was utilized for the study. A dose lowering technique was utilized adhering to the principles of ALARA. COMPARISON: No relevant prior studies available. FINDINGS: The vertebral body heights are maintained. There is no spondylolisthesis. The craniocervical junction is intact. The atlanto-dens interval is maintained. The dens is intact. Multilevel cervical spondylosis and degenerative disc disease. Straightening of the cervical lordosis. Diffuse osseous demineralization. IMPRESSION: No acute fracture or subluxation of the cervical spine. Electronically signed by: Hao Swanson MD 10/07/22 22:11 PM
[2022-10-07] MEDS ORDERED: LIDO/EPINEPHRINE/SOD BICARB 50 ML VIAL INFIL ONE (22:13)
[2022-10-07 22:15] LABS: INR 1.6 (0.9-1.1); Prothrombin Time 16.7 Seconds (9.0-12.0)
--- NOTE | 2022-10-07 22:19 | Emergency Department Note ---
Impression & Plan Syncope, Hematoma of occipital region of scalp, Complex laceration of scalp, Hypoxia ED Provider Note NAME: LUCERO SANDERS AGE: 77 SEX: F ARRIVES VIA: Ambulance INFORMANT: Patient ED PROVIDER(S): Byron Dominguez MD CHIEF COMPLAINT: Fall PLAN: Disposition: Admit MEDICAL DECISION MAKING: The patient is a pleasant 77-year-old woman with a past medical history of alcohol dependence/abuse, CHF, atrial fibrillation on Xarelto, hypertension, hyperlipidemia, left bundle branch block, diabetes who presents to the emergency department from home via EMS for evaluation after having a fall where she hit the back of her head suffering a laceration. The patient is a poor historian and does not recall exactly how she may have fallen. Per records of her recent hospitalization her had reported that she drinks 1/5 of vodka daily. The patient downplays her alcohol use at this time and reports she may have "a drink or two of vodka" most but not everyday. On arrival the patient is no acute distress, afebrile stable vital signs. She appears mildly somnolent but is awake and alert. She has a 5 cm occipital hematoma with ~4cm overlying laceration. She has no midline tenderness to palpation of the cervical spine. She is moving all extremities equally. Pelvis is stable EKG without overt acute ischemia. Chest x-ray demonstrates venous congestion th ough with improved pulmonary edema from recent admission per my preliminary review. WBC, hemoglobin and platelets within normal limits. Chemistry without metabolic acidosis. Electrolytes without significant abnormality. LFTs unremarkable. High-sensitivity troponin 9.1, within normal limits. TSH within limits. Patient's medical alcohol was negative. COVID-19, RNA, KENTRELL test was negative. CT of the head was negative for skull fracture or ICH. CT of the C- spine was negative for acute traumatic injuries. Patient's scalp laceration measuring approximately 4 cm with deep penetration violating the galea was repaired per AMBER Mcadams's note with my assistance including 2 layer closure with undermining to facilitate closure of the galea and superficial closure of the scalp with ciro. Given violation of the galea patient started on prophylactic Keflex for 7 days. Of note, the patient was brought to the emergency department via EMS on 2 L nasal cannula but there has been no report of hypoxia. Following CT when the patient was on room air it was noted that the patient did desaturate to the mid 80s and so was placed on nasal cannula subsequently. Hypoxia suspected to be related CHF. She was ordered 40mg IV Lasix. Case was discussed with PETER Vicente hospitalist, who will evaluate the patient for admission. Triage Nursing notes reviewed and agree them. Prior/outside medical records reviewed Vital Signs: reviewed Differential diagnosis: Fracture, dislocation, contusion, intra-abdominal, pneumothorax, intrathoracic, intracranial, neurologic, compartment syndrome, rhabdomyolysis, as well as other pathologies. ER treatment provided: See below. Diagnostics interpreted by me: ECG: Normal sinus rhythm, 69 bpm, left bundle branch block, no sgarbossa criteria, QTc 499, QRS 150 Cardiac Monitoring: An order for continuous cardiac monitoring was placed and demonstrated Normal sinus rhythm, 69 bpm, no ectopy. Laboratory studies: See below Imaging studies: See below Consultation(s): PETER Vicente hospitalist. HPI: The patient is a pleasant 77-year-old woman with a past medical history of alcohol dependence/abuse, CHF, atrial fibrillation on Xarelto, hypertension, hyperlipidemia, left bundle branch block, diabetes who presents to the emergency department from home via EMS for evaluation after having a fall where she hit the back of her head suffering a laceration. The patient is a poor historian and does not recall exactly how she may have fallen. Per records of her recent h ospitalization her had reported that she drinks 1/5 of vodka daily. The patient downplays her alcohol use at this time and reports she may have "a drink or two of vodka" most but not everyday. ROS: See above HPI for pertinent positives & negatives. A total of 10 systems reviewed and were otherwise negative. VITALS:See Below PHYSICAL EXAMINATION: GENERAL: Mildly somnolent but awake, alert, in no distress HENT: Normocephalic, 5 cm occipital hematoma with overlying laceration. Oropharynx unremarkable. EYES: Normal conjunctiva. Sclera non-icteric. EOMI. No nystamgus. PEARRL. NECK: Supple. No nuchal rigidity. FROM. No JVD. RESPIRATORY: Diminished at bases but otherwise clear to auscultation bilaterally. CARDIAC: Regular rate, normal rhythm. Extremities warm and well perfused. Pulses equal. ABDOMEN: Soft, non-distended. No tenderness to palpation. No rebound or guarding. No masses. RECTAL: Deferred. MUSCULOSKELETAL: Chest examination reveals no tenderness. The back is symmetrical on inspection without obvious abnormality. There is no CVA tenderness to palpation. No joint edema. LOWER EXTREMITIES: Calves are equal size bilaterally and non-tender. No edema. No discoloration. NEURO: No focal sensory or motor deficits noted. 5/5 strength and SILT x 4 extremities. Intact finger to nose. SKIN: No rash or jaundice noted. ED COURSE: Procedures: Laceration repair per AMBER Pema. Byron Dominguez MD Past Med/Surg History Medical History Alcoholism pt reports is improving on this, few drinks of vodka weekly, no longer every day Anxiety Depression Diabetes mellitus, type 2 Gastroesophageal reflux disease Gastroparesis History of colon polyps Hyperlipidemia Hypertension Hypoglycemia Left bundle branch block Lumbar epidural mass Migraine Osteopenia Proliferative diabetic retinopathy associated with type 1 diabetes mellitus Right lower lobe pneumonia (03/2022) Spinal stenosis Urinary incontinence Venous insufficiency Vitamin D deficiency Wound of foot Surgical History History of bilateral carpal tunnel release History of bilateral cataract extraction History of cataract surgery History of colonoscopy History of lumbar fusion History of open reduction and internal fixation (ORIF) procedure left wrist fx--hardware removed History of open reduction and internal fixation (ORIF) procedure right wrist fx--hardware in place History of right breast biopsy x2--benign mass History of tooth extraction Family History Grandmother (Maternal) Family history of diabetes mellitus Diabetes Uncle Family history of diabetes mellitus paternal Grandmother (Paternal) Breast cancer Mother , age 77 of an [place] Myocardial infarction Scleroderma Father , age 70 of an [place] Myocardial infarction Denies family history of Ovarian cancer Prostate cancer Colorectal cancer Social History Smoking Status: Former smoker Tobacco Type: Cigarettes Age Started Using Tobacco: 21; Age Quit Using Tobacco: 28; packs per day: 1; Second Hand Exposure: No; Hx Alcohol Use: Yes Alcohol type: hard liquor Alcohol Intake Frequency: 4 or Mo re x per/Week Alcohol Intake Frequency Comment: 1-2 drinks of vodka per night Hx Substance Use: No Preferred Language: Turkmen Communication Ability: Effective Visual Impairment: No Limitations Hearing Ability: Normal Mixer Machine Feeder Required: No Beliefs That Will Affect Care: None marital status: Current Living Situation: Spouse current occupational status: retired 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 Feels Safe at Home: Yes Childhood Exposure to Second-Hand Smoke: Yes Diet Comment: regular Dental Care, Regularly: Yes Physical Activity Frequency: Does not Exercise Seatbelt Use: always Sunscreen Use: No Assistive Devices: None Allergies Allergies Allergy/AdvReac Type Severity Reaction Status Date / Time oxycodone Allergy Mild ITCHING Verified 10/07/22 14:08 Home Meds Home Medications Medication Instructions Recorded Confirmed calcium carbonate 500 mg-vitamin 1 tab PO BID 05/24/18 10/07/22 D3 5 mcg (200 unit) tablet (Calcium 500 + D) krill 1,000 mg-omega-3 170 mg-dha 1 cap PO QAM 05/24/18 10/07/22 50 mg-epa 80 ol-jnjeap-bhvln capsule (krill oil) multivitamin 1 tab PO QAM 02/09/19 10/07/22 lancets 33 gauge (OneTouch Delica #100 ea 02/22/19 10/07/22 Plus Lancet) blood sugar diagnostic (OneTouch #10 ea 09/12/20 10/07/22 Ultra Blue Test Strip) omeprazole 20 mg tablet,delayed 20 mg PO BID 09/27/22 10/07/22 release Previous Rx's Medication Instructions Recorded Dexcom G6 Hot Dog Vender (blood-glucose #1 ea 04/04/19 meter,continuous) Dexcom G6 Sensor (blood-glucose #9 ea 04/04/19 sensor) Dexcom G6 Transmitter #1 ea 04/04/19 (blood-glucose transmitter) atorvastatin 20 mg tablet 20 mg PO PM #90 tabs 03/27/22 hydrocortisone 2.5 % topical cream 1 applic topical DAILY #30 grams 03/27/22 acetaminophen 325 mg tablet 650 mg PO Q4H PRN pain #0 tabs 04/06/22 metoprolol succinate 50 mg 50 mg PO DAILY #90 tabs 05/01/22 tablet,extended release 24 hr pen needle, diabetic 32 gauge x #150 ea 05/23/2232" (BD Missy 2nd Gen Pen Needle) venlafaxine 150 mg 150 mg PO QAM #90 caps 07/09/22 capsule,extended release 24 hr insulin aspart U-100 100 unit/mL 1 sliding scale dose subcut WM #15 07/11/22 (3 mL) subcutaneous pen (Novolog mL FlexPen U-100 Insulin aspart) insulin glargine 100 unit/mL (3 See Rx Instructions subcut PM #15 07/11/22 mL) subcutaneous pen (Basaglar mL KwikPen U-100 Insulin) rivaroxaban 20 mg tablet (Xarelto) 20 mg PO DAILY #30 tabs 08/27/22 amiodarone 200 mg tablet 200 mg PO BID #60 tabs 10/02/22 furosemide 40 mg tablet (Lasix) 40 mg PO DAILY #30 tabs 10/02/22 potassium chloride 10 mEq 10 meq PO DAILY #30 tabs 10/07/22 tablet,extended release Results & Data (ED) Vital Signs Vital Signs - 24 hr 10/07/22 20:18 10/07/22 21:17 10/07/22 21:17 Temperature 36.5 C Temperature Source Oral Pulse Rate 70 Pulse Rate [Apical] 70 Pulse Rate from SpO2 Sensor Pulse Rhythm [Apical] Regular Pulse Strength [Apical] Normal Respiratory Rate 18 18 Respiratory Effort / Characteristics Non-Labored Respiratory Depth Normal Respiratory Pattern Regular Blood Pressure 150/89 H Blood Pressure [Left Arm] 150/89 H Blood Pressure Mean 109 Blood Pressure Mean [Left Arm] 109 Blood Pressure Position [Left Arm] Pulse Oximetry 93 96 97 Oxygen Delivery Method Room Air Room Air Room Air Oxygen Flow Rate Sepsis Recent Fever Within 48 Hours No Sepsis New/Unexplained Change in Mental Status Yes Sepsis Action Taken by Nursing No Action Required 10/07/22 20:28 10/07/22 20:30 10/07/22 21:00 Temperature Temperature Source Pulse Rate 71 71 71 Pulse Rate [Apical] Pulse Rate from SpO2 Sensor 71 70 71 Pulse Rhythm [Apical] Pulse Strength [Apical] Respiratory Rate 15 19 18 Respiratory Effort / Characteristics Respiratory Depth Respiratory Pattern Blood Pressure Blood Pressure [Left Arm] Blood Pressure Mean Blood Pressure Mean [Left Arm] Blood Pressure Position [Left Arm] Pulse Oximetry 93 94 96 Oxygen Delivery Method Oxygen Flow Rate Sepsis Recent Fever Within 48 Hours Sepsis New/Unexplained Change in Mental Status Sepsis Action Taken by Nursing 10/07/22 21:42 10/07/22 22:00 10/07/22 22:07 Temperature Temperature Source Pulse Rate 73 71 Pulse Rate [Apical] Pulse Rate from SpO2 Sensor 70 Pulse Rhythm [Apical] Pulse Strength [Apical] Respiratory Rate 12 16 Respiratory Effort / Characteristics Respiratory Depth Respiratory Pattern Blood Pressure 150/91 H Blood Pressure [Left Arm] Blood Pressure Mean 110 Blood Pressure Mean [Left Arm] Blood Pressure Position [Left Arm] Pulse Oximetry 86 L 94 Oxygen Delivery Method Nasal Cannula Nasal Cannula Oxygen Flow Rate 2 2 Sepsis Recent Fever Within 48 Hours Sepsis New/Unexplained Change in Mental Status Sepsis Action Taken by Nursing 10/07/22 22:07 10/07/22 22:30 10/07/22 20:46 Temperature Temperature Source Pulse Rate 70 72 70 Pulse Rate [Apical] Pulse Rate from SpO2 Sensor 71 Pulse Rhythm [Apical] Pulse Strength [Apical] Respiratory Rate 18 18 Respiratory Effort / Characteristics Respiratory Depth Respiratory Pattern Blood Pressure Blood Pressure [Left Arm] Blood Pressure Mean Blood Pressure Mean [Left Arm] Blood Pressure Position [Left Arm] Pulse Oximetry 90 Oxygen Delivery Method Oxygen Flow Rate Sepsis Recent Fever Within 48 Hours Sepsis New/Unexplained Change in Mental Status Sepsis Action Taken by Nursing 10/07/22 23:00 10/08/22 00:26 10/08/22 00:51 Temperature Temperature Source Pulse Rate 76 Pulse Rate [Apical] 70 72 Pulse Rate from SpO2 Sensor Pulse Rhythm [Apical] Pulse Strength [Apical] Respiratory Rate 18 18 Respiratory Effort / Characteristics Non-Labored Spontaneous Non-Labored Spontaneous Respiratory Depth Normal Normal Respiratory Pattern Blood Pressure Blood Pressure [Left Arm] 159/90 H 152/77 H Blood Pressure Mean Blood Pressure Mean [Left Arm] 113 102 Blood Pressure Position [Left Arm] Lying Pulse Oximetry 100 92 Oxygen Delivery Method Nasal Cannula Nasal Cannula Oxygen Flow Rate 2 2 Sepsis Recent Fever Within 48 Hours Sepsis New/Unexplained Change in Mental Status Sepsis Action Taken by Nursing 10/08/22 02:44 10/08/22 04:38 10/08/22 04:44 Temperature Temperature Source Pulse Rate 77 Pulse Rate [Apical] 74 73 Pulse Rate from SpO2 Sensor Pulse Rhythm [Apical] Pulse Strength [Apical] Respiratory Rate 18 18 Respiratory Effort / Characteristics Non-Labored Spontaneous Non-Labored Spontaneous Respiratory Depth Normal Normal Respiratory Pattern Blood Pressure Blood Pressure [Left Arm] 165/97 H 180/94 H Blood Pressure Mean Blood Pressure Mean [Left Arm] 119 122 Blood Pressure Position [Left Arm] Sitting Sitting Pulse Oximetry 98 96 Oxygen Delivery Method Nasal Cannula Nasal Cannula Oxygen Flow Rate 2 2 Sepsis Recent Fever Within 48 Hours Sepsis New/Unexplained Change in Mental Status Sepsis Action Taken by Nursing Laboratory Data Attestation: I reviewed the patient's lab results. 10/07/22 21:12 10/07/22 21:12 Lab Results 10/07/22 10/07/22 10/07/22 Range/Units 21:12 21:12 21:12 WBC (4.8-10.8) K/ul RBC (4.20-5.40) M/uL Hgb (12.0-16.0) g/dl Hct (37.0-47.0) % MCV (80.0-100.0) fL MCH (25.0-34.0) pg MCHC (32.0-36.0) g/dL RDW Std Deviation (36.4-46.3) fL RDW Coeff of Linda (11.5-14.5) % Plt Count (130-400) K/uL MPV (9.4-12.4) fL Immature Gran % (Auto) % Neut % (Auto) % Lymph % (Auto) % Lanier % (Auto) % Eos % (Auto) % Baso % (Auto) % Neut # (Auto) (1.40-6.50) K/uL Lymph # (Auto) (1.2-3.4) K/uL Lanier # (Auto) (0.11-0.59) K/uL Eos # (Auto) (0-0.50) K/uL Baso # (Auto) (0-0.2) K/uL Immature Gran # (Auto) (0.01-0.20) K/uL PT 16.7 H (9.0-12.0) Seconds INR 1.6 H (0.9-1.1) Sodium 136 (136-145) mmol/L Potassium 4.0 (3.5-5.1) mmol/L Chloride 100 (98-107) mmol/L Carbon Dioxide 32 (21-32) mmol/L Anion Gap 4 (3-11) BUN 19 (6-23) mg/dl Creatinine 0.92 (0.6-1.2) mg/dl Est Cr Clr Drug Dosing 55.0 ml/min Est GFR ( Amer) 70.1 ml/min Est GFR (Non-Af Amer) 60.5 ml/min BUN/Creatinine Ratio 20.7 H (10-20) Glucose 267 H (70-99(Fasting)) mg/dl Calcium 9.3 (8.6-10.3) mg/dl Phosphorus 3.2 (2.5-4.9) mg/dl Magnesium 1.8 (1.7-2.4) mg/dl Total Bilirubin 0.5 (0.2-1.0) mg/dl AST 12 L (13-39) U/L ALT 18 (7-52) U/L Alkaline Phosphatase 161 H (34-104) U/L Total Creatine Kinase 32 (26-192) U/L Troponin I High Sens 9.1 (0-14) pg/ml Total Protein 7.0 (6.0-8.3) gm/dl Albumin 3.7 (3.4-5.0) gm/dl Globulin 3.3 (2.5-4.0) gm/dl Albumin/Globulin Ratio 1.1 (0.9-2) TSH (0.300-4.500) uIu/ml Urine Color Urine Appearance (Clear) Urine pH (4.5-7.5) Ur Specific Baskin (1.000-1.030) Urine Protein (Negative) Urine Glucose (UA) (Negative) Urine Ketones (Negative) Urine Blood (Negative) Urine Nitrite (Negative) Urine Bilirubin (Negative) Urine Urobilinogen (Negative) Ur Leukocyte Esterase (Negative) Urine WBC (Auto) (0-5) /hpf Urine RBC (Auto) (0-4) /hpf U Hyaline Cast (Auto) (0-5) /lpf U Epithel Cells (Auto) (0-5) /lpf Urine Bacteria (Auto) (Negative) Ethyl Alcohol mg/dL < 10.0 (<10.0) mg/dl SARS-CoV-2, RNA, NAAT (NEGATIVE) 10/07/22 10/07/22 10/07/22 Range/Units 21:12 21:12 21:12 WBC 6.07 (4.8-10.8) K/ul RBC 4.28 (4.20-5.40) M/uL Hgb 12.0 (12.0-16.0) g/dl Hct 36.9 L (37.0-47.0) % MCV 86.2 (80.0-100.0) fL MCH 28.0 (25.0-34.0) pg MCHC 32.5 (32.0-36.0) g/dL RDW Std Deviation 43.2 (36.4-46.3) fL RDW Coeff of Linda 13.8 (11.5-14.5) % Plt Count 316 (130-400) K/uL MPV 10.5 (9.4-12.4) fL Immature Gran % (Auto) 0.3 % Neut % (Auto) 62.7 % Lymph % (Auto) 24.5 % Lanier % (Auto) 9.7 % Eos % (Auto) 2.0 % Baso % (Auto) 0.8 % Neut # (Auto) 3.80 (1.40-6.50) K/uL Lymph # (Auto) 1.49 (1.2-3.4) K/uL Lanier # (Auto) 0.59 (0.11-0.59) K/uL Eos # (Auto) 0.12 (0-0.50) K/uL Baso # (Auto) 0.05 (0-0.2) K/uL Immature Gran # (Auto) 0.02 (0.01-0.20) K/uL PT (9.0-12.0) Seconds INR (0.9-1.1) Sodium (136-145) mmol/L Potassium (3.5-5.1) mmol/L Chloride (98-107) mmol/L Carbon Dioxide (21-32) mmol/L Anion Gap (3-11) BUN (6-23) mg/dl Creatinine (0.6-1.2) mg/dl Est Cr Clr Drug Dosing ml/min Est GFR ( Amer) ml/min Est GFR (Non-Af Amer) ml/min BUN/Creatinine Ratio (10-20) Glucose (70-99(Fasting)) mg/dl Calcium (8.6-10.3) mg/dl Phosphorus (2.5-4.9) mg/dl Magnesium (1.7-2.4) mg/dl Total Bilirubin (0.2-1.0) mg/dl AST (13-39) U/L ALT (7-52) U/L Alkaline Phosphatase (34-104) U/L Total Creatine Kinase (26-192) U/L Troponin I High Sens (0-14) pg/ml Total Protein (6.0-8.3) gm/dl Albumin (3.4-5.0) gm/dl Globulin (2.5-4.0) gm/dl Albumin/Globulin Ratio (0.9-2) TSH 3.588 (0.300-4.500) uIu/ml Urine Color Urine Appearance (Clear) Urine pH (4.5-7.5) Ur Specific Baskin (1.000-1.030) Urine Protein (Negative) Urine Glucose (UA) (Negative) Urine Ketones (Negative) Urine Blood (Negative) Urine Nitrite (Negative) Urine Bilirubin (Negative) Urine Urobilinogen (Negative) Ur Leukocyte Esterase (Negative) Urine WBC (Auto) (0-5) /hpf Urine RBC (Auto) (0-4) /hpf U Hyaline Cast (Auto) (0-5) /lpf U Epithel Cells (Auto) (0-5) /lpf Urine Bacteria (Auto) (Negative) Ethyl Alcohol mg/dL (<10.0) mg/dl SARS-CoV-2, RNA, NAAT NEGATIVE (NEGATIVE) 10/08/22 Range/Units 04:31 WBC (4.8-10.8) K/ul RBC (4.20-5.40) M/uL Hgb (12.0-16.0) g/dl Hct (37.0-47.0) % MCV (80.0-100.0) fL MCH (25.0-34.0) pg MCHC (32.0-36.0) g/dL RDW Std Deviation (36.4-46.3) fL RDW Coeff of Linda (11.5-14.5) % Plt Count (130-400) K/uL MPV (9.4-12.4) fL Immature Gran % (Auto) % Neut % (Auto) % Lymph % (Auto) % Lanier % (Auto) % Eos % (Auto) % Baso % (Auto) % Neut # (Auto) (1.40-6.50) K/uL Lymph # (Auto) (1.2-3.4) K/uL Lanier # (Auto) (0.11-0.59) K/uL Eos # (Auto) (0-0.50) K/uL Baso # (Auto) (0-0.2) K/uL Immature Gran # (Auto) (0.01-0.20) K/uL PT (9.0-12.0) Seconds INR (0.9-1.1) Sodium (136-145) mmol/L Potassium (3.5-5.1) mmol/L Chloride (98-107) mmol/L Carbon Dioxide (21-32) mmol/L Anion Gap (3-11) BUN (6-23) mg/dl Creatinine (0.6-1.2) mg/dl Est Cr Clr Drug Dosing ml/min Est GFR ( Amer) ml/min Est GFR (Non-Af Amer) ml/min BUN/Creatinine Ratio (10-20) Glucose (70-99(Fasting)) mg/dl Calcium (8.6-10.3) mg/dl Phosphorus (2.5-4.9) mg/dl Magnesium (1.7-2.4) mg/dl Total Bilirubin (0.2-1.0) mg/dl AST (13-39) U/L ALT (7-52) U/L Alkaline Phosphatase (34-104) U/L Total Creatine Kinase (26-192) U/L Troponin I High Sens (0-14) pg/ml Total Protein (6.0-8.3) gm/dl Albumin (3.4-5.0) gm/dl Globulin (2.5-4.0) gm/dl Albumin/Globulin Ratio (0.9-2) TSH (0.300-4.500) uIu/ml Urine Color Yellow Urine Appearance Clear (Clear) Urine pH 7.0 (4.5-7.5) Ur Specific Baskin 1.011 (1.000-1.030) Urine Protein Negative (Negative) Urine Glucose (UA) 3+ H (Negative) Urine Ketones 1+ H (Negative) Urine Blood Negative (Negative) Urine Nitrite Negative (Negative) Urine Bilirubin Negative (Negative) Urine Urobilinogen Negative (Negative) Ur Leukocyte Esterase 1+ H (Negative) Urine WBC (Auto) 5-10 H (0-5) /hpf Urine RBC (Auto) 0-4 (0-4) /hpf U Hyaline Cast (Auto) 0 (0-5) /lpf U Epithel Cells (Auto) 20-30 H (0-5) /lpf Urine Bacteria (Auto) Negative (Negative) Ethyl Alcohol mg/dL (<10.0) mg/dl SARS-CoV-2, RNA, NAAT (NEGATIVE) Administered Medications Discontinued Medications Cephalexin HCl (Cephalexin 250 Mg Cap) 500 mg PO NOW ONE Stop: 10/08/22 01:13 Last Admin: 10/08/22 02:34 Dose: 500 mg Documented By: CC Diphtheria/Pertussis/Tetanus Vacc (Diphtheria/Tetanus/Pertussis 0.5ml Syr/Vial (Age 7+Yrs)) 0.5 ml IM .ONCE ONE Stop: 10/08/22 01:11 Last Admin: 10/08/22 02:34 Dose: 0.5 ml Documented By: CC Furosemide (Furosemide 40 Mg/4 Ml Vial) 40 mg IV ONE ONE Stop: 10/08/22 02:17 Last Admin: 10/08/22 02:34 Dose: 40 mg Documented By: CC Lidocaine/Epinephrine (Lido/Epinephrine/Sod Bicarb 50 Ml Vial) 20 ml INFIL NOW ONE Stop: 10/07/22 22:14 Last Admin: 10/08/22 00:18 Dose: 13 ml Documented By: REC Tranexamic Acid (Txa 10% Non-Iv Routes 100 Mg/Ml Vial) 1,000 mg TOP ONE STA Stop: 10/07/22 23:37 Last Admin: 10/07/22 23:43 Dose: 1,000 mg Documented By: [id number] Imaging Data Radiologist's Impression: Cervical Spine CT 10/07/22 20:47 Exam(s): CT C SPINE EXAM: CT Cervical Spine Without Intravenous Contrast CLINICAL HISTORY: Reason for exam: fall pain. TECHNIQUE: Axial computed tomography images of the cervical spine without intravenous contrast. Automated exposure control was utilized for the study. A dose lowering technique was utilized adhering to the principles of ALARA. COMPARISON: No relevant prior studies available. FINDINGS: The vertebral body heights are maintained. There is no spondylolisthesis. The craniocervical junction is intact. The atlanto-dens interval is maintained. The dens is intact. Multilevel cervical spondylosis and degenerative disc disease. Straightening of the cervical lordosis. Diffuse osseous demineralization. IMPRESSION: No acute fracture or subluxation of the cervical spine. Electronically signed by: Hao Swanson MD 10/07/22 22:[address] 10/07/22 20:47 Exam(s): CT HEAD Without Contrast EXAM: CT Head Without Intravenous Contrast CLINICAL HISTORY: Reason for exam: fall, pain. TECHNIQUE: Axial computed tomography images of the head/brain without intravenous contrast. CTDI is 36.3 mGy and DLP is 1080.61 mGy-cm. Automated exposure control was utilized for the study. A dose lowering technique was utilized adhering to the principles of ALARA. COMPARISON: No relevant prior studies available. FINDINGS: No acute intracranial hemorrhage. No midline shift or mass effect. The territorial mullen-white matter differentiation is maintained throughout. Age-related cerebral volume loss. Periventricular and subcortical white matter hypoattenuation, consistent with chronic microangiopathy. The visualized orbits appear grossly unremarkable. The calvarium is intact. Posterior scalp soft tissue swelling. The visualized paranasal sinuses and mastoid air cells are grossly clear. IMPRESSION: No acute intracranial hemorrhage, midline shift, or mass effect. Posterior scalp soft tissue swelling. Electronically signed by: Hao Swanson MD 10/07/22 22:03 PM Discharge Plan Visit Data Chief Complaint: Fall Stated Complaint: fall/HEAD INJURY ED Provider: Byron Dominguez Discharge Problem: Syncope, Hematoma of occipital region of scalp, Complex laceration of scalp, Hypoxia Forms Stand Alone Forms: [facility] [employer] Prescriptions Prescriptions: No Action atorvastatin 20 mg tablet 20 mg PO PM Qty: 90 1RF (DME) pen needle, diabetic [BD Missy 2nd Gen Pen Needle] 32 gauge x 5/32" needle See Dose Instructions .ROUTE .MEDSUPPLY Qty: 150 5RF Rx Instructions: Use 1 needle 4 times daily venlafaxine 150 mg capsule,extended release 24hr 150 mg PO QAM Qty: 90 3RF insulin aspart U-100 [Novolog FlexPen U-100 Insulin] 100 unit/mL (3 mL) insulin pen 1 sliding scale dose subcut WM Qty: 15 5RF Rx Instructions: SLIDING SCALE WITH MEALS TDD 40 Basaglar KwikPen U-100 Insulin 100 unit/mL (3 mL) insulin pen See Rx Instructions SQ PM Qty: 15 5RF Rx Instructions: 18-22 units dailysubcutaneously evening; Xarelto 20 mg tablet 20 mg PO DAILY Qty: 30 12RF Rx Instructions: must administer with evening meal hydrocortisone 2.5 % cream 1 applic topical DAILY Qty: 30 1RF Rx Instructions: Apply as needed to the face. metoprolol succinate 50 mg tablet extended release 24 hr 50 mg PO DAILY Qty: 90 3RF potassium chloride 10 mEq tablet extended release 10 meq PO DAILY Qty: 30 2RF (DME) lancets [OneTouch Delica Plus Lancet] 33 gauge misc See Dose Instructions .ROUTE .MEDSUPPLY Qty: 100 Rx Instructions: Test 5 times daily (DME) OneTouch Ultra Blue Test Strip Strip See Rx Instructions .ROUTE .MEDSUPPLY Qty: 10 Rx Instructions: Test blood sugars 2 times a day as needed for calibration (DME) Dexcom G6 Hot Dog Vender misc See Dose Instructions .ROUTE .MEDSUPPLY Qty: 1 0RF Dose Instruction: Use as directed for continuous glucose monitoring Rx Instructions: Use as directed for continuous glucose monitoring (DME) Dexcom G6 Sensor device See Dose Instructions .ROUTE .MEDSUPPLY Qty: 9 3RF Dose Instruction: Use as directed for continuous glocuse monitoring - Change sensor every 10 days Rx Instructions: Use as directed for continuous glocuse monitoring - Change sensor every 10 days (DME) Dexcom G6 Transmitter device See Dose Instructions .ROUTE .MEDSUPPLY Qty: 1 3RF Dose Instruction: Use as directed for continuous glucose monitoring - change every 90 days Rx Instructions: Use as directed for continuous glucose monitoring - change every 90 days calcium carbonate-vitamin D3 [Calcium 500 + D] 500 mg(1,250mg) -200 unit Tablet 1 tab PO BID krill oil 1,929-567-20-80 mg Capsule 1 cap PO QAM multivitamin tablet 1 tab PO QAM acetaminophen 325 mg Tablet 650 mg PO Q4H PRN (Reason: pain) Qty: 0 0RF omeprazole 20 mg tablet,delayed release (DR/EC) 20 mg PO BID amiodarone 200 mg Tablet 200 mg PO BID Qty: 60 3RF furosemide [Lasix] 40 mg tablet 40 mg PO DAILY Qty: 30 3RF Referrals Referrals: Lois Nolan MD [Primary Care Provider] - Syncope Qualifiers: Syncope type: unspecified Qualified Code(s): R55 - Syncope and collapse
[2022-10-07] MEDS ORDERED: TXA 10% Non-IV Routes 100 MG/ML VIAL TOP STA (23:36)
[2022-10-08] MEDS ORDERED: DIPHTHERIA/TETANUS/PERTUSSIS 0.5mL SYR/VIAL (Age 7+yrs) IM ONE (01:10)
[2022-10-08] MEDS ORDERED: cephALEXin 250 MG CAP PO ONE (01:12)
--- NOTE | 2022-10-08 02:09 | Emergency Department Note ---
ED Visit Note Laceration repair performed by myself: I was asked by ED attending Dr. Dominguez to evaluate the patient's scalp laceration for potential closure. Please refer to Dr. Dominguez's note for all details related to patient's evaluation, work-up, disposition, and wound care. Laceration is located on the occipital scalp, 4 cm, linear, deep, with infiltration through the galea. There is a large hematoma and persistent oozing bleeding. There are multiple paint flake type foreign bodies that were removed. Scalp and dried blood was copiously cleaned with sterile saline and hydrogen peroxide exposing the entirety of the wound. Local anesthesia was achieved with 13 mL lidocaine 1% with epinephrine. Wound was also soaked with TXA soaked gauze for additional hemostasis. Galea and overlying tissue was /undermined by Dr. Dominguez. Wound was copiously irrigated with sterile saline. I repaired the galea with 4, 4-0 Vicryl simple interrupted sutures yielding good approximation. Skin was closed with 6 ciro yielding good approximation. Bacitracin ointment applied. Patient will be placed on antibiotics. Her Tdap is up-to-date. - ANGIE .
[2022-10-08] MEDS ORDERED: FUROSEMIDE 40 MG/4 ML VIAL IV ONE (02:16)
--- NOTE | 2022-10-08 02:55 | History & Physical Report ---
Date of Service October 08, 2022 Assessment & Plan (1) Hematoma of occipital region of scalp: Plan: 77 F with PMH of HFpEF, p A-fib with RVR on Xarelto, hypertension, hyperlipidemia, LBBB, DM2, alcohol dependence, who presented to the emergency room for fall. Now admitted to the hospital for occipital scalp laceration to the galea and hypoxia to the 80s. Hematoma of occipital scalp/complex scalp lac -Hemodynamically stable on arrival, admission. No leukocytosis. Hemoglobin normal. -S/p scalp lac repair, Tdap vaccine in the ED. -LOC. No memory of preceding event. Serum ethyl alcohol negative. -No skull fracture, ICH, C-spine fracture, subluxation, rib fracture on imaging. * Tylenol 1000 mg every 8 hours as needed for pain. * XR hip ordered * Cefdinir 300 mg twice daily x7 days * Trend electrolytes, CBC. Hypoxia -Noted to be hypoxic to the 80s in ambulance prior to arrival. -No hypoxia noted since arrival, admission. -Oxygen via NC. Patient has no oxygen requirement at home. * Continue O2 via NC. Wean as tolerated. HFpEF -Most recent echocardiogram 09/30/2022. -Report: Normal LV size. Low normal systolic function. EF 50 to 55%. Septal motion consistent with bundle branch block. No regional wall motion abnormalities. Moderate concentric LVH. Borderline dilated RV with mildly reduced systolic function. Severe LA dilatation. Moderate RA dilatation. Moderate mitral annular calcification with moderate regurgitation. Moderate TR. Sclerotic aortic valve without significant stenosis. * Continue metoprolol * A.m. IV Lasix 40 mg. DM2 -Patient has Dexcom. Takes 20 units of Basaglar nightly, SSI NovoLog at mealtime. -Did not receive usual nighttime insulin dose. * Ordered 13 units of Lantus, to be given tonight * SSI per protocol A-fib with RVR * Holding home Xarelto. * [id number] score of 7 points. Anticoagulating with SQ heparin until resumption of Xarelto. * Continue metoprolol, amiodarone. Anxiety * Continue venlafaxine 150 mg every morning. Code: Full code Dispo: Med-Surg telemetry FEN/GI: Heart healthy; carb consistent DVT Prophylaxis: SQ heparin 5000 units every 12 hours PT/OT: Yes Consults: None (2) Complex laceration of scalp: (3) Hypoxia: (4) Syncope: (5) (HFpEF) heart failure with preserved ejection fraction: (6) Diabetes mellitus treated with insulin: (7) Atrial fibrillation with RVR: History of Present Illness Primary Care Provider: Lois Nolan MD Mikala is a 77-year-old woman with a past medical history notable for HFpEF, paroxysmal A-fib with RVR on Xarelto, hypertension, hyperlipidemia, left bundle branch block, type 2 diabetes, and alcohol dependence who presented to the emergency room from home via EMS after suffering a laceration to the back of her head from a fall. Patient does not recall what had happened. ED admission note mentions history of drinking 1/5 of vodka daily, per the . However, patient denies alcohol consumption to that extent on admission. In the ED, patient was afebrile. Vital signs were stable. She was noted to be hypoxic to the mid 80s in the ambulance and so arrived on 2 L of oxygen via NC. She did have a 5 cm occipital hematoma and an overlying laceration. Scalp laceration measured approximately 4 cm with deep penetration and violation of the galea, which was repaired in the ED. She had no cervical spine midline tenderness. Head CT was negative for skull fracture, or intracranial hemorrhage. CBC and CMP were mostly within normal limits (alk phos 169). CT C- spine was negative for fracture or subluxation. She received Tdap vaccine, IV Lasix, and a dose of Keflex 500 mg. Due to her head injury, hypoxia prior to arrival, hospitalist was consulted for admission. On admission, she continues to report incisional headache. She denies vision changes, shortness of breath, chest pain, dizziness, nausea or vomiting, or abdominal pain. Allergies Allergy/AdvReac Type Severity Reaction Status Date / Time oxycodone Allergy Mild ITCHING Verified 10/07/22 14:08 Home Medications Medication Instructions Recorded Confirmed Type calcium carbonate 500 mg-vitamin 1 tab PO BID 05/24/18 10/07/22 History D3 5 mcg (200 unit) tablet (Calcium 500 + D) krill 1,000 mg-omega-3 170 mg-dha 1 cap PO QAM 05/24/18 10/07/22 History 50 mg-epa 80 sx-oyyicq-yhusn capsule (krill oil) multivitamin 1 tab PO QAM 02/09/19 10/07/22 History lancets 33 gauge (OneTouch Delica #100 ea 02/22/19 10/07/22 History Plus Lancet) Dexcom G6 [facility] (blood-glucose #1 ea 04/04/19 10/07/22 Rx meter,continuous) Dexcom G6 Sensor (blood-glucose #9 ea 04/04/19 10/07/22 Rx sensor) Dexcom G6 Transmitter #1 ea 04/04/19 10/07/22 Rx (blood-glucose transmitter) blood sugar diagnostic (OneTouch #10 ea 09/12/20 10/07/22 History Ultra Blue Test Strip) atorvastatin 20 mg tablet 20 mg PO PM #90 tabs 03/27/22 10/07/22 Rx hydrocortisone 2.5 % topical cream 1 applic topical DAILY #30 grams 03/27/22 10/07/22 Rx acetaminophen 325 mg tablet 650 mg PO Q4H PRN pain #0 tabs 04/06/22 10/07/22 Rx metoprolol succinate 50 mg 50 mg PO DAILY #90 tabs 05/01/22 10/07/22 Rx tablet,extended release 24 hr pen needle, diabetic 32 gauge x #150 ea 05/23/22 10/07/22 Rx 5/32" (BD Missy 2nd Gen Pen Needle) venlafaxine 150 mg 150 mg PO QAM #90 caps 07/09/22 10/07/22 Rx capsule,extended release 24 hr insulin aspart U-100 100 unit/mL 1 sliding scale dose subcut WM #15 07/11/22 10/07/22 Rx (3 mL) subcutaneous pen (Novolog mL FlexPen U-100 Insulin aspart) insulin glargine 100 unit/mL (3 See Rx Instructions subcut PM #15 07/11/22 10/07/22 Rx mL) subcutaneous pen (Basaglar mL KwikPen U-100 Insulin) rivaroxaban 20 mg tablet (Xarelto) 20 mg PO DAILY #30 tabs 08/27/22 10/07/22 Rx omeprazole 20 mg tablet,delayed 20 mg PO BID 09/27/22 10/07/22 History release amiodarone 200 mg tablet 200 mg PO BID #60 tabs 10/02/22 10/07/22 Rx furosemide 40 mg tablet (Lasix) 40 mg PO DAILY #30 tabs 10/02/22 10/07/22 Rx potassium chloride 10 mEq 10 meq PO DAILY #30 tabs 10/07/22 10/07/22 Rx tablet,extended release cefdinir 300 mg capsule 300 mg PO BID 5 days #10 caps 10/10/22 Rx Past Med/Surg History Medical History Alcoholism pt reports is improving on this, few drinks of vodka weekly, no longer every day Anxiety Depression Diabetes mellitus, type 2 Gastroesophageal reflux disease Gastroparesis History of colon polyps Hyperlipidemia Hypertension Hypoglycemia Left bundle branch block Lumbar epidural mass Migraine Osteopenia Proliferative diabetic retinopathy associated with type 1 diabetes mellitus Right lower lobe pneumonia (03/2022) Spinal stenosis Urinary incontinence Venous insufficiency Vitamin D deficiency Wound of foot Surgical History History of bilateral carpal tunnel release History of bilateral cataract extraction History of cataract surgery History of colonoscopy History of lumbar fusion History of open reduction and internal fixation (ORIF) procedure left wrist fx--hardware removed History of open reduction and internal fixation (ORIF) procedure right wrist fx--hardware in place History of right breast biopsy x2--benign mass History of tooth extraction Family History Grandmother (Maternal) Family history of diabetes mellitus Diabetes Uncle Family history of diabetes mellitus paternal Grandmother (Paternal) Breast cancer Mother , age 77 of an NM Myocardial infarction Scleroderma Father , age 70 of an NM Myocardial infarction Denies family history of Ovarian cancer Prostate cancer Colorectal cancer Social History Smoking Status: Never smoker Tobacco Type: Cigarettes Age Started Using Tobacco: 21; Age Quit Using Tobacco: 28; packs per day: 1; Second Hand Exposure: No; Hx Alcohol Use: Yes Alcohol type: hard liquor Alcohol Intake Frequency: 4 or More x per/Week Alcohol Intake Frequency Comment: 1-2 drinks of vodka per night Hx Substance Use: No Preferred Language: Slovak Communication Ability: Effective Visual Impairment: No Limitations Hearing Ability: Normal Structural Iron Worker Required: No Beliefs That Will Affect Care: None marital status: Current Living Situation: Spouse current occupational status: retired 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 Surrounding skin is c/d/i. No surrounding hematoma. PERRLA. Normal conjunctiva, anicteric sclera. Oropharynx normal. Respiratory: Normal respiratory effort, CTABL. Cardiovascular: RRR without murmurs, gallops, or rubs. No edema. GI: Soft abdomen with normal bowel sounds heard on auscultation. Nontender x4 quadrants Neuro: Alert and oriented x3. CN II-XII intact bilaterally. Strength exam completely nonfocal Results & Data Results & Data Vital Signs (Past 12 Hours) Vital Signs Temp Pulse Pulse Resp BP BP Pulse Ox 10/08/22 02:44 74 18 165/97 H 98 10/08/22 00:51 72 18 152/77 H 92 10/08/22 00:26 76 10/07/22 23:00 70 18 159/90 H 100 10/07/22 20:46 70 10/07/22 22:30 72 18 10/07/22 22:07 70 18 90 10/07/22 22:07 150/91 H 94 10/07/22 22:00 71 16 86 L 10/07/22 21:42 73 12 10/07/22 21:00 71 18 96 10/07/22 20:30 71 19 94 10/07/22 20:28 71 15 93 10/07/22 21:17 97 10/07/22 21:17 70 18 150/89 H 96 10/07/22 20:18 36.5 C 70 18 150/89 H 93 O2 Del Method O2 Flow Rate 10/08/22 02:44 Nasal Cannula 2 10/08/22 00:51 Nasal Cannula 2 10/08/22 00:26 10/07/22 23:00 Nasal Cannula 2 10/07/22 20:46 10/07/22 22:30 04/18/23 22:07 10/07/22 22:07 Nasal Cannula 2 10/07/22 22:00 Nasal Cannula 2 10/07/22 21:42 10/07/22 21:00 10/07/22 20:30 10/07/22 20:28 10/07/22 21:17 Room Air 10/07/22 21:17 Room Air 10/07/22 20:18 Room Air Supervising Physician Co-Signing Physician Notes Patient seen and examined, chart reviewed, case discussed with Dr. Clark and I agree with the assessment and plan as above. In brief, patient is a 77yo female with HFpEF, PAF on Xarelto, HTN, HLP presenting to the ER after a fall resulting in deep scalp laceration. Hypoxic in the ambulance requiring supplemental O2. 4cm laceration noted in the ER s/p repair On exam she is awake and alert, normal mentation Skin - laceration s/p repair HEENT - MMM, Neck supple, PERRL, EOMI, no cervical spine tenderness Heart - +S1/S2, regular, no m/r/g Lungs - CTA Abd - Soft, NT/ND Ext - warm, well perfused Labs and images reviewed Assessment/Plan -Pain control. -Cefdinir x 7 days given depth of laceration, exposed galea/aponeurosis -Remainder as above Resident Activity Tracking Resident Involvement: Resident Care Provided Care Provided: Adult Hospital Medicine
[2022-10-08 04:47] LABS: Appearance Urine Clear (Clear); Bacteria Urine Automated Negative (Negative); Bilirubin Urine Negative (Negative); Blood Urine Negative (Negative); Cast Urine Automated 0 /lpf (0-5); Color Urine Yellow; Epithelial Cell Urine Auto 20-30 /lpf (0-5); Glucose Urine UA 3+ (Negative); Ketones Urine 1+ (Negative); Leukocyte Esterase Urine 1+ (Negative); Nitrite Urine Negative (Negative); Protein Urine Negative (Negative); RBC Urine Automated 0-4 /hpf (0-4); Specific Gravity Urine 1.011 (1.000-1.030); Urobilinogen Urine Negative (Negative)
[2022-10-08] MEDS ORDERED: LANTUS PER UNIT CHARGE SQ SCH (05:46)
[2022-10-08] MEDS ORDERED: DEXTROSE 50% 50 ML SYRINGE IV PRN (05:46)
[2022-10-08] MEDS ORDERED: GLUCOSE 10 TAB/TUBE PO PRN (05:46)
[2022-10-08] MEDS ORDERED: CARBOHYDRATES FOR HYPOGLYCEMIA PO PRN (05:46)
[2022-10-08] MEDS ORDERED: GLUCAGON FOR INJ 1 MG VIAL SQ PRN (05:46)
[2022-10-08] MEDS ORDERED: GLUCOSE 40% GEL 15 GM TUBE PO PRN (05:46)
--- NOTE | 2022-10-08 07:18 | XRay Report ---
XR chest 1V portable HISTORY: 77 years-old Female sob acute shortness of breath COMPARISON: Chest radiographs 09/30/2022 TECHNIQUE: AP view of the chest FINDINGS: Cardiac silhouette is enlarged. Pulmonary vascular congestion with mild coarsening of interstitium. P robable trace pleural effusions. No pneumothorax. Chronic appearing left-sided rib fractures. Degener ative changes of the shoulders and spine. IMPRESSION: 1. Cardiomegaly with pulmonary vascular congestion and probable mild interstitial pulmonary edema. 2. Trace pleural effusions. ACT 112: Negative or not required by law. The above report was generated using voice recognition software. It may contain grammatical, syntax o r spelling errors. Electronically signed by: Chad Harden M.D. 10/08/2022 7:17 AM
[2022-10-08] MEDS: CEFDINIR 300 MG CAP PO SCH ×2 (09:24→21:57)
[2022-10-08] MEDS: VENLAFAXINE HCL XR 150 MG CAPXR PO SCH (09:24)
[2022-10-08] MEDS: AMIODARONE 200 MG TAB PO SCH ×2 (09:24→21:58)
[2022-10-08] MEDS: INSULIN ASPART PER UNIT CHARGE SC SCH ×4 (09:25→21:57)
[2022-10-08] MEDS: FUROSEMIDE 40 MG/4 ML VIAL IV SCH (09:25)
[2022-10-08] MEDS: METOPROLOL SUCC 50MG EXT REL TAB PO SCH (09:25)
[2022-10-08] MEDS: POTASSIUM CHLORIDE 10 MEQ TABCR PO SCH (09:25)
--- NOTE | 2022-10-08 10:53 | XRay Report ---
XR hip FATOUMATA 2v w pelvis HISTORY: 77 years-old Female Fall, hip pain . Bilateral hip pain status post fall COMPARISON: CT abdomen and pelvis 04/05/2022 TECHNIQUE: AP view of the pelvis with 2 views of the hips FINDINGS: Fusion hardware with discectomy of the imaged lower lumbar spine. A catheter projects over the midlin e pelvis. Arterial calcifications. Electronic device projects over the right abdomen. Moderate right with mild left hip osteoarthritis. No acute fracture, dislocation or avascular necrosis. IMPRESSION: Osteoarthritis without acute fracture or dislocation. ACT 112: Negative or not required by law. The above report was generated using voice recognition software. It may contain grammatical, syntax o r spelling errors. Electronically signed by: Chad Harden M.D. 10/08/2022 10:51 AM
[2022-10-08] MEDS ORDERED: LORazepam 2 MG/1 ML VIAL IV PRN (11:14)
[2022-10-08] MEDS ORDERED: THIAMINE HCL 100 MG/ML 2 ML VIAL IM STA (11:17)
[2022-10-08] MEDS ORDERED: PHARMACY GLYCEMIC MGMT CONSULT PRN (12:54)
--- NOTE | 2022-10-08 13:18 | Electrocardiogram Report ---
Test Reason : Blood Pressure : / mmHG Vent. Rate : 069 BPM Atrial Rate : 069 BPM P-R Int : 192 ms QRS Dur : 158 ms QT Int : 466 ms P-R-T Axes : 076 -28 087 degrees QTc Int : 499 ms Normal sinus rhythm Left bundle branch block Abnormal ECG When compared with ECG of 02-OCT-2022 10:00, No significant change was found Confirmed by Levi Raya ([id number]) on 10/08/2022 1:17:45 PM Referred By: REFERRED SELF Confirmed By:Abhijit Raya
--- NOTE | 2022-10-08 14:33 | Pharmacy Report ---
Pharmacy Glycemic Short Note 2 - Date of Service October 08, 2022 - Glycemic Short BSG Results (Last 24 hours): 10/07/22 10/08/22 10/08/22 21:12 06:29 09:16 Glucose 267 H POC Glucose 434 H* 482 H* 10/08/22 10/08/22 12:08 12:10 Glucose POC Glucose 347 H* 347 H* OUTPATIENT ANTIDIABETIC REGIMEN: * Lantus 18-22 units SC HS * Novolog SSI (TDD 40 units) HbA1c: 9.8% (10/06/22) ASSESSMENT: * DS is a 77 year old female who presented to [facility] ED with hematoma of occipital region of scalp s/p fall * Patient recently discharged from [facility] on 10/03/22 * Pharmacy consulted for glycemic management at that time - BSGs were labile throughout the admission * Patient ended up requiring less basal insulin than reported outpatient doses * Pharmacy consulted for glycemic management this afternoon after patient had received 12 units of Lantus with aggressive Novolog parameters * Based on prior admission, 12 units of Lantus may be reasonable, so will hold off on any further basal insulin this evening. Will loosen Novolog parameters to reflect ones from last admission PLAN FOR INPATIENT GLYCEMIC CONTROL: * Basal insulin * Lantus 12 units SC x 1 this morning * Reassess in AM * Bolus insulin * NovoLog per scale ACHS or Q6hrs while NPO * Goal Range: Low 110 mg/dL - High 140 mg/dL * Correction Factor: 40 mg/dL/unit at breakfast and 50 mg/dL/unit at lunch, dinner, HS * Nutritional / Prandial insulin per carb ratio of 1 unit per 11 grams CHO consumed w/ breakfast and 1 unit per 15 grams CHO consumed w/ lunch, dinner, HS.
--- NOTE | 2022-10-08 15:45 | Hospitalist Progress Note ---
Date of Service October 08, 2022 Assessment & Plan (1) Hematoma of occipital region of scalp: Plan: 77 F with PMH of HFpEF, p A-fib with RVR on Xarelto, hypertension, hyperlipidemia, LBBB, DM2, alcohol dependence, who presented to the emergency room for fall. Now admitted to the hospital for occipital scalp laceration to the galea and hypoxia to the 80s. Hematoma of occipital scalp/complex scalp lac -Hemodynamically stable on arrival, admission. No leukocytosis. Hemoglobin normal. -S/p scalp lac repair, Tdap vaccine in the ED. -LOC. No memory of preceding event. Serum ethyl alcohol negative. -No skull fracture, ICH, C-spine fracture, subluxation, rib fracture on imaging. * Tylenol 1000 mg every 8 hours as needed for pain. * XR hip ordered- negative for hip or sacral fx * Cefdinir 300 mg twice daily x7 days * Trend electrolytes, CBC. Hypoxia -Noted to be hypoxic to the 80s in ambulance prior to arrival -2/2 CHF exacerbation, lasix given in ED.--> now on room air -Continue to monitor HFpEF -Most recent echocardiogram 09/30/2022. -Report: Normal LV size. Low normal systolic function. EF 50 to 55%. Septal motion consistent with bundle branch block. No regional wall motion abnormalities. Moderate concentric LVH. Borderline dilated RV with mildly reduced systolic function. Severe LA dilatation. Moderate RA dilatation. Moderate mitral annular calcification with moderate regurgitation. Moderate TR. Sclerotic aortic valve without significant stenosis. * Continue metoprolol DM1 -Patient has Dexcom. Takes 20 units of Basaglar nightly, SSI NovoLog at mealtime. -Did not receive usual nighttime insulin dose. * Pharmacy glycemic consult placed, appreciate recs A-fib with RVR * Holding home Xarelto, restart tomorrow * [id number] score of 7 points. Anticoagulating with SQ heparin (in case of need for rapid reversal) until resumption of Xarelto. * Continue metoprolol, amiodarone. Anxiety * Continue venlafaxine 150 mg every morning. Code: Full code Dispo: Med-Surg telemetry FEN/GI: Heart healthy; carb consistent DVT Prophylaxis: SQ heparin 5000 units every 12 hours PT/OT: Yes Consults: None (2) Complex laceration of scalp: (3) Hypoxia: (4) Syncope: (5) (HFpEF) heart failure with preserved ejection fraction: (6) Diabetes mellitus treated with insulin: (7) Atrial fibrillation with RVR: Admission and Anticipated Discharge Date Admission Date: October 08, 2022 Supervising Physician Co-Signing Physician Notes PM addendum I also saw the patient and confirmed farnsworth portions of the history and exam. I agree with the impression and plan in the resident documentation, and as summarized below. Patient was admitted earlier today by the overnight team. Please see attending attestation for complete details. Patient is now in her room. She complains of pain on the posterior scalp when resting her head against the pillow -nursing is looking for a donut to help alleviate pressure on this area. EXAM 108/65, 71, 18, 36.6, 94% on nasal cannula at 2 L/min Alert and oriented. No distress appreciated. Heart regular, auscultated rate 72 Lungs are clear with nonlabored respirations IMPRESSION & PLAN Fall with laceration, status postrepair History of atrial fibrillation status post recent successful cardioversion Chronic anticoagulation Acute on chronic diastolic (congestive) heart failure Diuresis Daily BMP Hold anticoagulation for time being; should be able to resume tomorrow PT/OT Additional per resident documentation Subjective Patient seen at bedside this morning. No acute events reported overnight. Patient originally slightly confused upon awaking but mentation gradually improved throughout the day. Alert and oriented x3 and to situation. Reports that she has frequent falls and feels it is due to a shuffling gait that she has. She reports she is post to use a walker but when she was doing laundry yesterday, she did not use it and she feels this is how she fell. Reports not losing consciousness. Otherwise only other complaint is sacral pain. No nausea or vomiting. Eating and drink without difficulty. No shortness of breath or chest pain. No other complaints this time Review of Systems Review of Systems: All systems reviewed & are unremarkable except as noted in HPI & below Physical Exam Constitutional: WD/WN, vitals as above Eyes: + anicteric sclerae Neck: trachea midline, no thyromegaly Respiratory: normal respiratory effort Auscultation: + crackles Cardiovascular: Rate/Rhythm: regular rate and regular rhythm Vessels: + JVD Gastrointestinal (Abdomen): normal bowel sounds, soft, nontender, no hepatosplenomegaly Skin: There is a stapled posterior scalp laceration that is approximately 6 cm in length total without surrounding erythema or active bleeding. There is swelling surrounding and below the ciro. Neurologic: moves all extremities Psychiatric: A+Ox3, euthymic affect Results & Data Results & Data Vital Signs (Past 12 Hours) Vital Signs Temp Pulse Pulse Resp BP Pulse Ox O2 Del Method 10/08/22 14:00 36.6 C 71 18 108/65 94 Room Air 10/08/22 10:13 77 15 133/73 95 Nasal Cannula 10/08/22 07:54 Nasal Cannula 10/08/22 07:44 76 16 169/79 H 93 Nasal Cannula 10/08/22 07:43 87 16 169/84 H 92 Room Air 10/08/22 06:57 82 10/08/22 06:19 78 18 151/88 H 97 Nasal Cannula 10/08/22 05:56 Nasal Cannula 10/08/22 04:44 73 18 180/94 H 96 Nasal Cannula 10/08/22 04:38 77 O2 Flow Rate 10/08/22 14:00 2 10/08/22 10:13 3 10/08/22 07:54 3 10/08/22 07:44 3 10/08/22 07:43 10/08/22 06:57 10/08/22 06:19 3 10/08/22 05:56 3 10/08/22 04:44 2 10/08/22 04:38 (4) Syncope Syncope type: unspecified Qualified Code(s): R55 - Syncope and collapse
[2022-10-08] MEDS: ATORVASTATIN 20 MG TAB PO SCH (21:58)
[2022-10-09 07:33] LABS: Hematocrit (blood only) 37.2 % (37.0-47.0); Hemoglobin 12.4 g/dl (12.0-16.0); Mean Corpuscular Hgb Conc 33.3 g/dL (32.0-36.0); Mean Platelet Volume 10.5 fL (9.4-12.4); Platelet Count 293 K/uL (130-400); RDW Coefficient of Variation 13.3 % (11.5-14.5); RDW Standard Deviation 41.1 fL (36.4-46.3); Red Blood Count 4.43 M/uL (4.20-5.40); White Blood Count 7.73 K/ul (4.8-10.8)
--- NOTE | 2022-10-09 08:36 | Pharmacy Report ---
Pharmacy Glycemic Short Note 2 - Date of Service October 09, 2022 - Glycemic Short BSG Results (Last 24 hours): 10/08/22 10/08/22 10/08/22 09:16 12:08 12:10 POC Glucose 482 H* 347 H* 347 H* 10/08/22 10/08/22 10/09/22 16:54 20:18 07:44 POC Glucose 132 H 166 H 380 H* 10/09/22 07:48 POC Glucose 383 H* OUTPATIENT ANTIDIABETIC REGIMEN: * Lantus 18-22 units SC HS * Novolog SSI (TDD 40 units) HbA1c: 9.8% (10/06/22) ASSESSMENT: 10/09 * Patient received 48 units of insulin yesterday, 12 units basal, fasting BSG 380mg/dl - increase basal insulin adding an HS administration time, aware that patient required much less insulin last admission, will place on scale. * No change in NovoLog at this time to prevent hypoglycemia in type 1 DM. 10/08 * DS is a 77 year old female, TYPE 1 DM, who presented to [facility] ED with hematoma of occipital region of scalp s/p fall * Patient recently discharged from [facility] on 10/03/22 * Pharmacy consulted for glycemic management at that time - BSGs were labile throughout the admission * Patient ended up requiring less basal insulin than reported outpatient doses * Pharmacy consulted for glycemic management this afternoon after patient had received 12 units of Lantus with aggressive Novolog parameters * Based on prior admission, 12 units of Lantus may be reasonable, so will hold off on any further basal insulin this evening. Will loosen Novolog parameters to reflect ones from last admission PLAN FOR INPATIENT GLYCEMIC CONTROL: * Basal insulin * Lantus 12 units SC Daily * Lantus 8 units SC HS (hold for BSG < 100mg/dl) * Bolus insulin * NovoLog per scale ACHS or Q6hrs while NPO * Goal Range: Low 110 mg/dL - High 140 mg/dL * Correction Factor: 40 mg/dL/unit at breakfast and 50 mg/dL/unit at lunch, dinner, HS * Nutritional / Prandial insulin per carb ratio of 1 unit per 11 grams CHO consumed w/ breakfast and 1 unit per 15 grams CHO consumed w/ lunch, dinner, HS.
[2022-10-09 08:42] LABS: Albumin Globulin Ratio 1.1 (0.9-2); Albumin Level 3.6 gm/dl (3.4-5.0); BUN Creatinine Ratio 21.4 (10-20); Bilirubin,Total 0.7 mg/dl (0.2-1.0); Calcium 9.3 mg/dl (8.6-10.3); Creatinine Clr Calc Pharmacy 47.8 ml/min; Est GFR (African American) 61.2 ml/min; Est GFR (Non-African American) 52.8 ml/min; Globulin 3.4 gm/dl (2.5-4.0); Magnesium 1.7 mg/dl (1.7-2.4)
[2022-10-09 08:47] LABS: Potassium 3.9 mmol/L (3.5-5.1)
[2022-10-09] MEDS: LANTUS PER UNIT CHARGE SQ SCH (09:06)
[2022-10-09] MEDS: INSULIN ASPART PER UNIT CHARGE SC SCH ×4 (09:07→22:53)
[2022-10-09] MEDS: AMIODARONE 200 MG TAB PO SCH ×2 (09:08→22:52)
[2022-10-09] MEDS: CEFDINIR 300 MG CAP PO SCH ×2 (09:08→22:52)
[2022-10-09] MEDS: VENLAFAXINE HCL XR 150 MG CAPXR PO SCH (09:10)
[2022-10-09] MEDS: ACETAMINOPHEN 500 MG TAB PO PRN (10:24)
[2022-10-09] MEDS: PANTOprazole 40 MG TAB PO SCH (10:24)
[2022-10-09] MEDS: FUROSEMIDE 40 MG/4 ML VIAL IV SCH (10:24)
[2022-10-09] MEDS: METOPROLOL SUCC 50MG EXT REL TAB PO SCH (10:58)
[2022-10-09] MEDS: POTASSIUM CHLORIDE 10 MEQ TABCR PO SCH (10:58)
[2022-10-09] MEDS ORDERED: INSULIN HUMAN REGULAR PER UNIT 4 UNITS in SYRINGE 3.96 ML IV ONE (12:30)
[2022-10-09] MEDS ORDERED: LANTUS PER UNIT CHARGE SC ONE (12:30)
[2022-10-09 13:05] LABS: Base Excess VBG 10.1 mEq/L; HCO3 VBG 36 mmol/L; Oxygen Saturation VBG 64.7 %; PCO2 VBG 50 mmHg (38-50); PO2 VBG 36 mmHg; pH VBG 7.46 (7.36-7.41)
[2022-10-09] MEDS ORDERED: SODIUM CHLORIDE 0.9% 1000ML 250 ML IV ONE (13:40)
[2022-10-09] MEDS ORDERED: INSULIN ASPART PER UNIT CHARGE SC ONE (14:30)
--- NOTE | 2022-10-09 15:39 | Hospitalist Progress Note ---
Date of Service October 09, 2022 Assessment & Plan (1) Hematoma of occipital region of scalp: Plan: 77 F with PMH of HFpEF, p A-fib with RVR on Xarelto, hypertension, hyperlipidemia, LBBB, DM2, alcohol dependence, who presented to the emergency room for fall. Now admitted to the hospital for occipital scalp laceration to the [place] and hypoxia to the 80s. Hematoma of occipital scalp/complex scalp lac -Hemodynamically stable on arrival, admission. No leukocytosis. Hemoglobin normal. -S/p scalp lac repair, Tdap vaccine in the ED. -LOC. No memory of preceding event. Serum ethyl alcohol negative. -No skull fracture, ICH, C-spine fracture, subluxation, rib fracture on imaging. * Tylenol 1000 mg every 8 hours as needed for pain. * XR hip ordered- negative for hip or sacral fx * Cefdinir 300 mg twice daily x7 days * Trend electrolytes, CBC. Physical deconditioning -Secondary to polyneuropathy from uncontrolled diabetes and recent hospitalization -Likely cause of more falls as of recently -PT and OT evaluation suggesting need for acute rehab we will have case management start referrals Hypoxia -Noted to be hypoxic to the 80s in ambulance prior to arrival -2/2 CHF exacerbation, lasix given in ED.--> now on room air -Continue to monitor HFpEF -Most recent echocardiogram 09/30/2022. -Return to home lasix dose startign 10/10 -Report: Normal LV size. Low normal systolic function. EF 50 to 55%. Septal motion consistent with bundle branch block. No regional wall motion abnormalities. Moderate concentric LVH. Borderline dilated RV with mildly reduced systolic function. Severe LA dilatation. Moderate RA dilatation. Moderate mitral annular calcification with moderate regurgitation. Moderate TR. Sclerotic aortic valve without significant stenosis. * Continue metoprolol DM1 -Patient has Dexcom. Takes 20 units of Basaglar nightly, SSI NovoLog at mealtime. -Very poorly controlled and even with large amounts of insulin with pharmacy consult, still having significant hyperglycemia -Wonder if patient may have double diabetes with type 1 diabetes and type 2 diabetes together given extensive alcohol consumption and metabolic syndrome could in theory develop insulin resistance -Consider addition of small amount of metformin and evaluate glycemic control * Pharmacy glycemic consult placed, appreciate recs A-fib with RVR * Holding home Xarelto, restart 10/10/22 * [id number] score of 7 points. Anticoagulating with SQ heparin (in case of need for rapid reversal) until resumption of Xarelto. * Continue metoprolol, amiodarone. Anxiety * Continue venlafaxine 150 mg every morning. Code: Full code Dispo: Med-Surg telemetry, transfer to rehab when medicall stable FEN/GI: Heart healthy; carb consistent DVT Prophylaxis: Eliquis tomorrow morning PT/OT: Yes--> rehab Consults: None (2) Complex laceration of scalp: (3) Hypoxia: (4) Syncope: (5) (HFpEF) heart failure with preserved ejection fraction: (6) Diabetes mellitus treated with insulin: (7) Atrial fibrillation with RVR: (8) Physical deconditioning: Admission and Anticipated Discharge Date Admission Date: October 08, 2022 Supervising Physician Co-Signing Physician Notes Attestation I also saw the patient and confirmed [place] portions of the history and exam. I agree with the impression and plan in the resident documentation, and as summarized below. Patient complains of a headache and some pain at the repaired laceration site. Nursing is still trying to locate a doughnut pillow to help alleviate pressure on this area. EXAM 105/64, 74, 20, 37.1, 91% on room air Alert and oriented. No distress appreciated. Heart regular, auscultated rate 72 Lungs are clear with nonlabored respirations Data WBC 7.73, hemoglobin 12.4 Sodium 130, potassium 3.9 BUN 22, creatinine 1.03 IMPRESSION & PLAN Fall with laceration, status postrepair History of atrial fibrillation status post recent successful cardioversion Diabetes Chronic anticoagulation Acute on chronic diastolic (congestive) heart failure Hyponatremia Resume home dose of Lasix (40 mg), trend BMP Holding anticoagulation given recent fall and injury; restart Xarelto tomorrow PT/OT consults appreciated, recommend SNF PT Additional per resident documentation Subjective Patient seen at bedside this morning. No acute events reported overnight. Patient is alert and oriented x3 albeit fatigued. at bedside later in the day requesting a neurology consult and a transfer to inpatient rehab after discharge. Explained to the patient and that neurology not needed in this case and is likely due to deconditioning. Otherwise patient eating and drinking without difficulty. No other complaints at this time. Review of Systems Review of Systems: Per HPI Physical Exam Constitutional: WD/WN, vitals as above Eyes: + anicteric sclerae Neck: trachea midline, no thyromegaly Respiratory: normal respiratory effort Auscultation: + crackles Cardiovascular: Rate/Rhythm: regular rate and regular rhythm Gastrointestinal (Abdomen): normal bowel sounds, soft, nontender, no hepatosplenomegaly Neurologic: moves all extremities Psychiatric: A+Ox3, euthymic affect Results & Data Results & Data Vital Signs (Past 12 Hours) Vital Signs Temp Pulse Resp BP Pulse Ox O2 Del Method O2 Flow Rate 10/09/22 11:43 36.4 C L 83 16 142/83 H 97 Room Air 10/09/22 07:30 36.5 C 77 14 128/73 99 Nasal Cannula 2 (4) Syncope Syncope type: unspecified Qualified Code(s): R55 - Syncope and collapse
[2022-10-09] MEDS ORDERED: LANTUS PER UNIT CHARGE SQ SCH (21:00)
[2022-10-09] MEDS: ATORVASTATIN 20 MG TAB PO SCH (22:52)
[2022-10-09 23:29] LABS: Appearance Urine Clear (Clear); Bilirubin Urine Negative (Negative); Blood Urine Negative (Negative); Color Urine Yellow; Glucose Urine UA 2+ (Negative); Ketones Urine Trace (Negative); Leukocyte Esterase Urine Negative (Negative); Nitrite Urine Negative (Negative); Protein Urine Negative (Negative); Specific Gravity Urine 1.013 (1.000-1.030); Urobilinogen Urine Negative (Negative); pH Urine 6.5 (4.5-7.5)
[2022-10-10] MEDS: ACETAMINOPHEN 500 MG TAB PO PRN (01:40)
[2022-10-10] MEDS: INSULIN ASPART PER UNIT CHARGE SC SCH ×5 (01:44→12:20)
[2022-10-10 08:06] LABS: Hematocrit (blood only) 38.8 % (37.0-47.0); Hemoglobin 12.9 g/dl (12.0-16.0); Mean Corpuscular Hgb Conc 33.2 g/dL (32.0-36.0); Mean Corpuscular Volume 84.3 fL (80.0-100.0); Mean Platelet Volume 10.2 fL (9.4-12.4); Platelet Count 307 K/uL (130-400); RDW Coefficient of Variation 13.4 % (11.5-14.5); RDW Standard Deviation 41.6 fL (36.4-46.3); White Blood Count 6.46 K/ul (4.8-10.8)
[2022-10-10] MEDS: POTASSIUM CHLORIDE 10 MEQ TABCR PO SCH (08:09)
[2022-10-10] MEDS: AMIODARONE 200 MG TAB PO SCH (08:09)
[2022-10-10] MEDS: PANTOprazole 40 MG TAB PO SCH (08:09)
[2022-10-10] MEDS: CEFDINIR 300 MG CAP PO SCH (08:09)
[2022-10-10] MEDS: METOPROLOL SUCC 50MG EXT REL TAB PO SCH (08:09)
[2022-10-10] MEDS: VENLAFAXINE HCL XR 150 MG CAPXR PO SCH (08:10)
[2022-10-10] MEDS: LANTUS PER UNIT CHARGE SQ SCH (08:27)
[2022-10-10 08:30] LABS: Albumin Globulin Ratio 1.1 (0.9-2); Albumin Level 3.7 gm/dl (3.4-5.0); BUN Creatinine Ratio 20.9 (10-20); Bilirubin,Total 0.5 mg/dl (0.2-1.0); Calcium 9.8 mg/dl (8.6-10.3); Creatinine Clr Calc Pharmacy 53.9 ml/min; Est GFR (Non-African American) 61.3 ml/min; Globulin 3.4 gm/dl (2.5-4.0); Magnesium 1.8 mg/dl (1.7-2.4); Phosphorus 4.2 mg/dl (2.5-4.9); Potassium 3.9 mmol/L (3.5-5.1); Total Protein 7.1 gm/dl (6.0-8.3)
[2022-10-10] MEDS ORDERED: FUROSEMIDE 40 MG TAB PO SCH (09:00)
[2022-10-10] MEDS ORDERED: RIVAROXABAN 20 MG TAB PO SCH (09:00)
--- NOTE | 2022-10-10 12:03 | Billing Data ---
Date of Service October 08, 2022 Coding Level of Care Code 87993 INT INP/OBS CARE
--- NOTE | 2022-10-10 13:14 | Discharge Summary ---
Date of Service October 10, 2022 Admission HPI Per Admitting Provider Mikala is a 77-year-old woman with a past medical history notable for HFpEF, paroxysmal A-fib with RVR on Xarelto, hypertension, hyperlipidemia, left bundle branch block, type 2 diabetes, and alcohol dependence who presented to the emergency room from home via EMS after suffering a laceration to the back of her head from a fall. Patient does not recall what had happened. ED admission note mentions history of drinking 1/5 of vodka daily, per the . However, patient denies alcohol consumption to that extent on admission. In the ED, patient was afebrile. Vital signs were stable. She was noted to be hypoxic to the mid 80s in the ambulance and so arrived on 2 L of oxygen via NC. She did have a 5 cm occipital hematoma and an overlying laceration. Scalp laceration measured approximately 4 cm with deep penetration and violation of the galea, which was repaired in the ED. She had no cervical spine midline tenderness. Head CT was negative for skull fracture, or intracranial hemorrhage. CBC and CMP were mostly within normal limits (alk phos 169). CT C- spine was negative for fracture or subluxation. She received Tdap vaccine, IV Lasix, and a dose of Keflex 500 mg. Due to her head injury, hypoxia prior to arrival, hospitalist was consulted for admission. On admission, she continues to report incisional headache. She denies vision changes, shortness of breath, chest pain, dizziness, nausea or vomiting, or abdominal pain. Admission Exam Per Admitting Provider General: No acute distress HEENT: Closed scalp laceration ~2.0-2.5 inches long with sutures. Surrounding skin is c/d/i. No surrounding hematoma. PERRLA. Normal conjunctiva, anicteric sclera. Oropharynx normal. Respiratory: Normal respiratory effort, CTABL. Cardiovascular: RRR without murmurs, gallops, or rubs. No edema. GI: Soft abdomen with normal bowel sounds heard on auscultation. Nontender x4 quadrants Neuro: Alert and oriented x3. CN II-XII intact bilaterally. Strength exam completely nonfocal Principal Diagnosis complex scalp laceration, deconditioning Discharge Exam GENERAL: Sleeping comfortably in bed in no acute distress. Easily arousable. Well developed. Vital signs reviewed. EYES: PERRL. Anicteric sclerae. HENT: Moist mucous membranes. RESPIRATORY: No acute respiratory distress. No increased work of breathing. Chest rise symmetrical. EXTREMITIES: No gross deformities. SKIN: Warm, dry. NEUROLOGIC: Easily arousable. Answers questions appropriately. Discharge Data Allergies Allergy/AdvReac Type Severity Reaction Status Date / Time oxycodone Allergy Mild ITCHING Verified 10/07/22 14:08 Consultations 10/08/22 02:11 ED Decision to Admit Stat Ordered Studies 10/07/22 20:47 CT cervical spine wo con Stat CT head/brain wo con Stat [place], [place] [phone] XRay Report Patient:MIKALA SANDERS Admit Date:10/08/22 MR#:[id number] Address1:[address] [place] [address] Acct ID:[id number] Address2: Date:1945 [facility] Zip:[place] [address] Age:77 Location:[facility] Sex:F Room/Bed:[place] [address] Att Phy:Joaquina Agustin D.OIzzy Diagnosis:SCALP LACERATION, HYPOXIA Tejal Phy:Lois Nolan MD Service Date:10/07/22 Fam Phy: Interpreting Phy:Chad HardenAdmit Phy:Tiara Clark MD Ordering Phy:Byron Dominguez M.D. cc: ~ XR chest 1V portable HISTORY: 77 years-old Female sob acute shortness of breath COMPARISON: Chest radiographs 09/30/2022 TECHNIQUE: AP view of the chest FINDINGS: Cardiac silhouette is enlarged. Pulmonary vascular congestion with mild coarsening of interstitium. Probable trace pleural effusions. No pneumothorax. Chronic appearing left-sided rib fractures. Degenerative changes of the shoulders and spine. IMPRESSION: 1. Cardiomegaly with pulmonary vascular congestion and probable mild interstitial pulmonary edema. 2. Trace pleural effusions. ACT 112: Negative or not required by law. The above report was generated using voice recognition software. It may contain grammatical, syntax or spelling errors. Electronically signed by: Chad Harden M.D. 10/08/2022 7:17 AM Dictated:10/08/22 0716 Transcribed: 10/08/22 0716 [place], [place] [phone] CT Scan Report Patient:MIKALA SANDERS Admit Date:10/07/22 MR#:[id number] Address1:[address] Acct ID:[id number] Address2: Date:1945 [facility] Zip:[place] [address] Age:77 Location:ED Sex:F Room/Bed: Att Phy: Diagnosis:fall/HEAD INJURY Tejal Phy:Lois Nolan MD Service Date:10/07/22 [facility] Phy: Interpreting Phy:Hao Swanson MDAdmit Phy: Ordering Phy:Byron Dominguez M.D. cc: ~ Exam(s): CT C SPINE EXAM: CT Cervical Spine Without Intravenous Contrast CLINICAL HISTORY: Reason for exam: fall pain. TECHNIQUE: Axial computed tomography images of the cervical spine without intravenous contrast. Automated exposure control was utilized for the study. A dose lowering technique was utilized adhering to the principles of ALARA. COMPARISON: No relevant prior studies available. FINDINGS: The vertebral body heights are maintained. There is no spondylolisthesis. The craniocervical junction is intact. The atlanto-dens interval is maintained. The dens is intact. Multilevel cervical spondylosis and degenerative disc disease. Straightening of the cervical lordosis. Diffuse osseous demineralization. IMPRESSION: No acute fracture or subluxation of the cervical spine. Electronically signed by: Hao Swanson MD 10/07/22 22:11 PM Dictated:10/07/222210 Transcribed: 10/07/222210 ----- [place], [place] [phone] CT Scan Report Patient:MIKALA SANDERS Admit Date:10/07/22 MR#:[id number] Address1:[facility] [address] Acct ID:[id number] Address2: Date:1945 [facility] Zip:[place] [address] Age:77 Location:ED Sex:F Room/Bed: Att Phy: Diagnosis:fall/HEAD INJURY Tejal Phy:Lois Nolan MD Service Date:10/07/22 [facility] Phy: Interpreting Phy:Hao Swanson MDAdmit Phy: Ordering Phy:Byron Dominguez M.D. cc: ~ Exam(s): CT HEAD Without Contrast EXAM: CT Head Without Intravenous Contrast CLINICAL HISTORY: Reason for exam: fall, pain. TECHNIQUE: Axial computed tomography images of the head/brain without intravenous contrast. CTDI is 36.3 mGy and DLP is 1080.61 mGy-cm. Automated exposure control was utilized for the study. A dose lowering technique was utilized adhering to the principles of ALARA. COMPARISON: No relevant prior studies available. FINDINGS: No acute intracranial hemorrhage. No midline shift or mass effect. The territorial mullen-white matter differentiation is maintained throughout. Age-related cerebral volume loss. Periventricular and subcortical white matter hypoattenuation, consistent with chronic microangiopathy. The visualized orbits appear grossly unremarkable. The calvarium is intact. Posterior scalp soft tissue swelling. The visualized paranasal sinuses and mastoid air cells are grossly clear. IMPRESSION: No acute intracranial hemorrhage, midline shift, or mass effect. Posterior scalp soft tissue swelling. Electronically signed by: Hao Swanson MD 10/07/22 22:03 PM Dictated:10/07/222202 Transcribed: 10/07/222202 [facility] [phone] XRay Report Patient:MIKALA SANDERS Admit Date:10/08/22 MR#:[id number] Address1:[address] Acct ID:[id number] Address2: Date:1945 [facility] Zip:[place] [address] Age:77 Location:[facility] Sex:F Room/Bed:[facility] 1-1 Att Phy:Nico Dent D.O. Diagnosis:SCALP LACERATION, HYPOXIA Tejal Phy:Lois Nolan MD Service Date:10/08/22 Fam Phy: Interpreting Phy:Chad HardenAdmit Phy:Tiara Clark MD Ordering Phy:Tiara Clark MD cc: ~ XR hip FATOUMATA 2v w pelvis HISTORY: 77 years-old Female Fall, hip pain . Bilateral hip pain status post fall COMPARISON: CT abdomen and pelvis 04/05/2022 TECHNIQUE: AP view of the pelvis with 2 views of the hips FINDINGS: Fusion hardware with discectomy of the imaged lower lumbar spine. A catheter projects over the midline pelvis. Arterial calcifications. Electronic device projects over the right abdomen. Moderate right with mild left hip osteoarthritis. No acute fracture, dislocation or avascular necrosis. IMPRESSION: Osteoarthritis without acute fracture or dislocation. ACT 112: Negative or not required by law. The above report was generated using voice recognition software. It may contain grammatical, syntax or spelling errors. Electronically signed by: Chad Harden M.D. 10/08/2022 10:51 AM Dictated:10/08/22 1045 Transcribed: 10/08/22 1045 Labs 10/07/22 10/07/22 10/07/22 21:12 21:12 21:12 WBC RBC Hgb Hct MCV MCH MCHC RDW Std Deviation RDW Coeff of Linda Plt Count MPV Immature Gran % (Auto) Neut % (Auto) Lymph % (Auto) [place] % (Auto) Eos % (Auto) Baso % (Auto) Neut # (Auto) Lymph # (Auto) [place] # (Auto) Eos # (Auto) Baso # (Auto) Immature Gran # (Auto) PT 16.7 H INR 1.6 H VBG pH VBG pCO2 VBG pO2 VBG HCO3 VBG O2 Saturation VBG Base Excess Sodium 136 Potassium 4.0 Chloride 100 Carbon Dioxide 32 Anion Gap 4 BUN 19 Creatinine 0.92 Est Cr Clr Drug Dosing 55.0 Est GFR ( Amer) 70.1 Est GFR (Non-Af Amer) 60.5 BUN/Creatinine Ratio 20.7 H Glucose 267 H POC Glucose Calcium 9.3 Phosphorus 3.2 Magnesium 1.8 Total Bilirubin 0.5 AST 12 L ALT 18 Alkaline Phosphatase 161 H Total Creatine Kinase 32 Troponin I High Sens 9.1 Total Protein 7.0 Albumin 3.7 Globulin 3.3 Albumin/Globulin Ratio 1.1 TSH Urine Color Urine Appearance Urine pH Ur Specific Upton Urine Protein Urine Glucose (UA) Urine Ketones Urine Blood Urine Nitrite Urine Bilirubin Urine Urobilinogen Ur Leukocyte Esterase Urine WBC (Auto) Urine RBC (Auto) U Hyaline Cast (Auto) U Epithel Cells (Auto) Urine Bacteria (Auto) Ethyl Alcohol mg/dL < 10.0 SARS-CoV-2, RNA, NAAT 10/07/22 10/07/22 10/07/22 21:12 21:12 21:12 WBC 6.07 RBC 4.28 Hgb 12.0 Hct 36.9 L MCV 86.2 MCH 28.0 MCHC 32.5 RDW Std Deviation 43.2 RDW Coeff of Linda 13.8 Plt Count 316 MPV 10.5 Immature Gran % (Auto) 0.3 Neut % (Auto) 62.7 Lymph % (Auto) 24.5 Clarion % (Auto) 9.7 Eos % (Auto) 2.0 Baso % (Auto) 0.8 Neut # (Auto) 3.80 Lymph # (Auto) 1.49 Clarion # (Auto) 0.59 Eos # (Auto) 0.12 Baso # (Auto) 0.05 Immature Gran # (Auto) 0.02 PT INR VBG pH VBG pCO2 VBG pO2 VBG HCO3 VBG O2 Saturation VBG Base Excess Sodium Potassium Chloride Carbon Dioxide Anion Gap BUN Creatinine Est Cr Clr Drug Dosing Est GFR ( Amer) Est GFR (Non-Af Amer) BUN/Creatinine Ratio Glucose POC Glucose Calcium Phosphorus Magnesium Total Bilirubin AST ALT Alkaline Phosphatase Total Creatine Kinase Troponin I High Sens Total Protein Albumin Globulin Albumin/Globulin Ratio TSH 3.588 Urine Color Urine Appearance Urine pH Ur Specific Upton Urine Protein Urine Glucose (UA) Urine Ketones Urine Blood Urine Nitrite Urine Bilirubin Urine Urobilinogen Ur Leukocyte Esterase Urine WBC (Auto) Urine RBC (Auto) U Hyaline Cast (Auto) U Epithel Cells (Auto) Urine Bacteria (Auto) Ethyl Alcohol mg/dL SARS-CoV-2, RNA, NAAT NEGATIVE 10/08/22 10/08/22 10/08/22 04:31 06:29 09:16 WBC RBC Hgb Hct MCV MCH MCHC RDW Std Deviation RDW Coeff of Linda Plt Count MPV Immature Gran % (Auto) Neut % (Auto) Lymph % (Auto) Clarion % (Auto) Eos % (Auto) Baso % (Auto) Neut # (Auto) Lymph # (Auto) Clar[place] # (Auto) Eos # (Auto) Baso # (Auto) Immature Gran # (Auto) PT INR VBG pH VBG pCO2 VBG pO2 VBG HCO3 VBG O2 Saturation VBG Base Excess Sodium Potassium Chloride Carbon Dioxide Anion Gap BUN Creatinine Est Cr Clr Drug Dosing Est GFR ( Amer) Est GFR (Non-Af Amer) BUN/Creatinine Ratio Glucose POC Glucose 434 H* 482 H* Calcium Phosphorus Magnesium Total Bilirubin AST ALT Alkaline Phosphatase Total Creatine Kinase Troponin I High Sens Total Protein Albumin Globulin Albumin/Globulin Ratio TSH Urine Color Yellow Urine Appearance Clear Urine pH 7.0 Ur Specific Upton 1.011 Urine Protein Negative Urine Glucose (UA) 3+ H Urine Ketones 1+ H Urine Blood Negative Urine Nitrite Negative Urine Bilirubin Negative Urine Urobilinogen Negative Ur Leukocyte Esterase 1+ H Urine WBC (Auto) 5-10 H Urine RBC (Auto) 0-4 U Hyaline Cast (Auto) 0 U Epithel Cells (Auto) 20-30 H Urine Bacteria (Auto) Negative Ethyl Alcohol mg/dL SARS-CoV-2, RNA, NAAT 10/08/22 10/08/22 10/08/22 12:08 12:10 16:54 WBC RBC Hgb Hct MCV MCH MCHC RDW Std Deviation RDW Coeff of Linda Plt Count MPV Immature Gran % (Auto) Neut % (Auto) Lymph % (Auto) Clar[place] % (Auto) Eos % (Auto) Baso % (Auto) Neut # (Auto) Lymph # (Auto) Clar[place] # (Auto) Eos # (Auto) Baso # (Auto) Immature Gran # (Auto) PT INR VBG pH VBG pCO2 VBG pO2 VBG HCO3 VBG O2 Saturation VBG Base Excess Sodium Potassium Chloride Carbon Dioxide Anion Gap BUN Creatinine Est Cr Clr Drug Dosing Est GFR ( Amer) Est GFR (Non-Af Amer) BUN/Creatinine Ratio Glucose POC Glucose 347 H* 347 H* 132 H Calcium Phosphorus Magnesium Total Bilirubin AST ALT Alkaline Phosphatase Total Creatine Kinase Troponin I High Sens Total Protein Albumin Globulin Albumin/Globulin Ratio TSH Urine Color Urine Appearance Urine pH Ur Specific Upton Urine Protein Urine Glucose (UA) Urine Ketones Urine Blood Urine Nitrite Urine Bilirubin Urine Urobilinogen Ur Leukocyte Esterase Urine WBC (Auto) Urine RBC (Auto) U Hyaline Cast (Auto) U Epithel Cells (Auto) Urine Bacteria (Auto) Ethyl Alcohol mg/dL SARS-CoV-2, RNA, NAAT 10/08/22 10/09/22 10/09/22 20:18 06:47 06:47 WBC 7.73 RBC 4.43 Hgb 12.4 Hct 37.2 MCV 84.0 MCH 28.0 MCHC 33.3 RDW Std Deviation 41.1 RDW Coeff of Linda 13.3 Plt Count 293 MPV 10.5 Immature Gran % (Auto) Neut % (Auto) Lymph % (Auto) Clarion % (Auto) Eos % (Auto) Baso % (Auto) Neut # (Auto) Lymph # (Auto) Clar[place] # (Auto) Eos # (Auto) Baso # (Auto) Immature Gran # (Auto) PT INR VBG pH VBG pCO2 VBG pO2 VBG HCO3 VBG O2 Saturation VBG Base Excess Sodium 130 L Potassium 3.9 Chloride 88 L Carbon Dioxide 30 Anion Gap 12 H BUN 22 Creatinine 1.03 Est Cr Clr Drug Dosing 47.8 Est GFR ( Amer) 61.2 Est GFR (Non-Af Amer) 52.8 BUN/Creatinine Ratio 21.4 H Glucose 365 H* POC Glucose 166 H Calcium 9.3 Phosphorus 4.0 Magnesium 1.7 Total Bilirubin 0.7 AST 12 L ALT 15 Alkaline Phosphatase 133 H Total Creatine Kinase Troponin I High Sens Total Protein 7.0 Albumin 3.6 Globulin 3.4 Albumin/Globulin Ratio 1.1 TSH Urine Color Urine Appearance Urine pH Ur Specific Upton Urine Protein Urine Glucose (UA) Urine Ketones Urine Blood Urine Nitrite Urine Bilirubin Urine Urobilinogen Ur Leukocyte Esterase Urine WBC (Auto) Urine RBC (Auto) U Hyaline Cast (Auto) U Epithel Cells (Auto) Urine Bacteria (Auto) Ethyl Alcohol mg/dL SARS-CoV-2, RNA, NAAT 10/09/22 10/09/22 10/09/22 07:44 07:48 11:48 WBC RBC Hgb Hct MCV MCH MCHC RDW Std Deviation RDW Coeff of Linda Plt Count MPV Immature Gran % (Auto) Neut % (Auto) Lymph % (Auto) Clarion % (Auto) Eos % (Auto) Baso % (Auto) Neut # (Auto) Lymph # (Auto) [place] # (Auto) Eos # (Auto) Baso # (Auto) Immature Gran # (Auto) PT INR VBG pH VBG pCO2 VBG pO2 VBG HCO3 VBG O2 Saturation VBG Base Excess Sodium Potassium Chloride Carbon Dioxide Anion Gap BUN Creatinine Est Cr Clr Drug Dosing Est GFR ( Amer) Est GFR (Non-Af Amer) BUN/Creatinine Ratio Glucose POC Glucose 380 H* 383 H* 422 H* Calcium Phosphorus Magnesium Total Bilirubin AST ALT Alkaline Phosphatase Total Creatine Kinase Troponin I High Sens Total Protein Albumin Globulin Albumin/Globulin Ratio TSH Urine Color Urine Appearance Urine pH Ur Specific Upton Urine Protein Urine Glucose (UA) Urine Ketones Urine Blood Urine Nitrite Urine Bilirubin Urine Urobilinogen Ur Leukocyte Esterase Urine WBC (Auto) Urine RBC (Auto) U Hyaline Cast (Auto) U Epithel Cells (Auto) Urine Bacteria (Auto) Ethyl Alcohol mg/dL SARS-CoV-2, RNA, NAAT 10/09/22 10/09/22 10/09/22 11:50 12:36 14:19 WBC RBC Hgb Hct MCV MCH MCHC RDW Std Deviation RDW Coeff of Linda Plt Count MPV Immature Gran % (Auto) Neut % (Auto) Lymph % (Auto) Clar[place] % (Auto) Eos % (Auto) Baso % (Auto) Neut # (Auto) Lymph # (Auto) [place] # (Auto) Eos # (Auto) Baso # (Auto) Immature Gran # (Auto) PT INR VBG pH 7.46 H VBG pCO2 50 VBG pO2 36 VBG HCO3 36 VBG O2 Saturation 64.7 VBG Base Excess 10.1 Sodium Potassium Chloride Carbon Dioxide Anion Gap BUN Creatinine Est Cr Clr Drug Dosing Est GFR ( Amer) Est GFR (Non-Af Amer) BUN/Creatinine Ratio Glucose POC Glucose 396 H* 218 H Calcium Phosphorus Magnesium Total Bilirubin AST ALT Alkaline Phosphatase Total Creatine Kinase Troponin I High Sens Total Protein Albumin Globulin Albumin/Globulin Ratio TSH Urine Color Urine Appearance Urine pH Ur Specific Upton Urine Protein Urine Glucose (UA) Urine Ketones Urine Blood Urine Nitrite Urine Bilirubin Urine Urobilinogen Ur Leukocyte Esterase Urine WBC (Auto) Urine RBC (Auto) U Hyaline Cast (Auto) U Epithel Cells (Auto) Urine Bacteria (Auto) Ethyl Alcohol mg/dL SARS-CoV-2, RNA, NAAT 10/09/22 10/09/22 10/09/22 16:43 20:13 23:11 WBC RBC Hgb Hct MCV MCH MCHC RDW Std Deviation RDW Coeff of Linda Plt Count MPV Immature Gran % (Auto) Neut % (Auto) Lymph % (Auto) Clar[place] % (Auto) Eos % (Auto) Baso % (Auto) Neut # (Auto) Lymph # (Auto) [place] # (Auto) Eos # (Auto) Baso # (Auto) Immature Gran # (Auto) PT INR VBG pH VBG pCO2 VBG pO2 VBG HCO3 VBG O2 Saturation VBG Base Excess Sodium Potassium Chloride Carbon Dioxide Anion Gap BUN Creatinine Est Cr Clr Drug Dosing Est GFR ( Amer) Est GFR (Non-Af Amer) BUN/Creatinine Ratio Glucose POC Glucose 128 H 145 H Calcium Phosphorus Magnesium Total Bilirubin AST ALT Alkaline Phosphatase Total Creatine Kinase Troponin I High Sens Total Protein Albumin Globulin Albumin/Globulin Ratio TSH Urine Color Yellow Urine Appearance Clear Urine pH 6.5 Ur Specific Upton 1.013 Urine Protein Negative Urine Glucose (UA) 2+ H Urine Ketones Trace H Urine Blood Negative Urine Nitrite Negative Urine Bilirubin Negative Urine Urobilinogen Negative Ur Leukocyte Esterase Negative Urine WBC (Auto) Urine RBC (Auto) U Hyaline Cast (Auto) U Epithel Cells (Auto) Urine Bacteria (Auto) Ethyl Alcohol mg/dL SARS-CoV-2, RNA, NAAT 10/10/22 10/10/22 10/10/22 00:20 04:03 07:42 WBC 6.46 RBC 4.60 Hgb 12.9 Hct 38.8 MCV 84.3 MCH 28.0 MCHC 33.2 RDW Std Deviation 41.6 RDW Coeff of Linda 13.4 Plt Count 307 MPV 10.2 Immature Gran % (Auto) Neut % (Auto) Lymph % (Auto) Clar[place] % (Auto) Eos % (Auto) Baso % (Auto) Neut # (Auto) Lymph # (Auto) [place] # (Auto) Eos # (Auto) Baso # (Auto) Immature Gran # (Auto) PT INR VBG pH VBG pCO2 VBG pO2 VBG HCO3 VBG O2 Saturation VBG Base Excess Sodium Potassium Chloride Carbon Dioxide Anion Gap BUN Creatinine Est Cr Clr Drug Dosing Est GFR ( Amer) Est GFR (Non-Af Amer) BUN/Creatinine Ratio Glucose POC Glucose 161 H 159 H Calcium Phosphorus Magnesium Total Bilirubin AST ALT Alkaline Phosphatase Total Creatine Kinase Troponin I High Sens Total Protein Albumin Globulin Albumin/Globulin Ratio TSH Urine Color Urine Appearance Urine pH Ur Specific Upton Urine Protein Urine Glucose (UA) Urine Ketones Urine Blood Urine Nitrite Urine Bilirubin Urine Urobilinogen Ur Leukocyte Esterase Urine WBC (Auto) Urine RBC (Auto) U Hyaline Cast (Auto) U Epithel Cells (Auto) Urine Bacteria (Auto) Ethyl Alcohol mg/dL SARS-CoV-2, RNA, NAAT 10/10/22 10/10/22 10/10/22 07:42 07:43 11:35 WBC RBC Hgb Hct MCV MCH MCHC RDW Std Deviation RDW Coeff of Linda Plt Count MPV Immature Gran % (Auto) Neut % (Auto) Lymph % (Auto) Clar[place] % (Auto) Eos % (Auto) Baso % (Auto) Neut # (Auto) Lymph # (Auto) [place] # (Auto) Eos # (Auto) Baso # (Auto) Immature Gran # (Auto) PT INR VBG pH VBG pCO2 VBG pO2 VBG HCO3 VBG O2 Saturation VBG Base Excess Sodium 135 L Potassium 3.9 Chloride 95 L Carbon Dioxide 34 H Anion Gap 6 BUN 19 Creatinine 0.91 Est Cr Clr Drug Dosing 53.9 Est GFR ( Amer) 71.0 Est GFR (Non-Af Amer) 61.3 BUN/Creatinine Ratio 20.9 H Glucose 145 H POC Glucose 135 H 210 H Calcium 9.8 Phosphorus 4.2 Magnesium 1.8 Total Bilirubin 0.5 AST 14 ALT 13 Alkaline Phosphatase 128 H Total Creatine Kinase Troponin I High Sens Total Protein 7.1 Albumin 3.7 Globulin 3.4 Albumin/Globulin Ratio 1.1 TSH Urine Color Urine Appearance Urine pH Ur Specific Upton Urine Protein Urine Glucose (UA) Urine Ketones Urine Blood Urine Nitrite Urine Bilirubin Urine Urobilinogen Ur Leukocyte Esterase Urine WBC (Auto) Urine RBC (Auto) U Hyaline Cast (Auto) U Epithel Cells (Auto) Urine Bacteria (Auto) Ethyl Alcohol mg/dL SARS-CoV-2, RNA, NAAT Hospital Course (1) Hematoma of occipital region of scalp: Hematoma of occipital scalp/complex scalp lac -Hemodynamically stable on arrival, admission. No leukocytosis. Hemoglobin normal. -S/p scalp lac repair, Tdap vaccine in the ED. -LOC. No memory of preceding event. Serum ethyl alcohol negative. -No skull fracture, ICH, C-spine fracture, subluxation, rib fracture on imaging. -XR hip negative for hip fx or sacral fx -Received Tylenol 1000 mg every 8 hours as needed for pain. -On Cefdinir 300 mg twice daily x7 days to be completed 10/14. Physical deconditioning -Secondary to polyneuropathy from uncontrolled diabetes and recent hospitalization -Likely cause of more falls as of recently -PT and OT evaluation suggesting need for acute rehab. Patient discharged to [facility] on 10/10. Hypoxia -Noted to be hypoxic to the 80s in ambulance prior to ED arrival -2/2 CHF exacerbation, lasix given in ED --> now on room air -Remained stable with O2> 92% on RA. HFpEF -Most recent echocardiogram 09/30/2022. -Home dose of Lasix 40mg po daily restarted on day of discharge -Continue metoprolol 50mg po daily -Report:Normal LV size. Low normal systolic function. EF 50 to 55%. Septal motion consistent with bundle branch block. No regional wall motion abnormalities. Moderate concentric LVH. Borderline dilated RV with mildly reduced systolic function. Severe LA dilatation. Moderate RA dilatation. Moderate mitral annular calcification with moderate regurgitation. Moderate TR. Sclerotic aortic valve without significant stenosis. DM1 -Patient has Dexcom. Takes 20 units of Basaglar nightly, SSI NovoLog at mealtime. -Very poorly controlled and even with large amounts of insulin with pharmacy consult, still having significant hyperglycemia -Wonder if patient may have double diabetes with type 1 diabetes and type 2 diabetes together given extensive alcohol consumption and metabolic syndrome could in theory develop insulin resistance -Consider addition of small amount of metformin and evaluate glycemic control A-fib with RVR -Home Xarelto,restarted 10/10/22 on day of discharge -[id number] score of 7 points. During hospitalization, patient anticoagulated with SQ heparin (in case of need for rapid reversal) until resumption of Xarelto as noted above. -Continue metoprolol, amiodarone. Anxiety -Continue venlafaxine 150 mg every morning. (2) Complex laceration of scalp: (3) Hypoxia: (4) Syncope: (5) (HFpEF) heart failure with preserved ejection fraction: (6) Diabetes mellitus treated with insulin: (7) Atrial fibrillation with RVR: (8) Physical deconditioning: Total Time Total Time Spent Total Time Spent (In Minutes): < 30 min Total Time Includes: Examination of the Patient and Discharge Planning Discharge Plan Discharge Items Patient Disposition: Transfer Inpatient Rehab Fac Reason For Visit: SCALP LACERATION, HYPOXIA Discharge Diagnosis: hematoma, physical deconditioning Activity: Per Instructions section Non-emergency contact: Primary Care Provider Call non-emergency contact if: you have any medication questions Follow-up/Referrals: Lois Nolan MD [Primary Care Provider] - Diet: Carb Consistent or DM2 and Heart Healthy Addtl Attending Provider Instructions: It was our pleasure to care for you at [facility] from 10/08/22 to 10/10/22. You initially presented to the emergency room after fall/scalp laceration. Patient also with recent admission for afib, s/p conversion, and concern for ? alcohol use. Patient was evaluated by PT/OT and recommendation for rehab was made. In review, patient is a 77 F with PMH of HFpEF, p A-fib with RVR on Xarelto, hypertension, hyperlipidemia, LBBB, DM2, alcohol dependence, who presented to the emergency room for fall. Admitted to the hospital for occipital scalp laceration to the galea and hypoxia to the 80s. Hematoma of occipital scalp/complex scalp lac -Hemodynamically stable on arrival, admission. No leukocytosis. Hemoglobin normal. -S/p scalp lac repair, Tdap vaccine in the ED. -LOC. No memory of preceding event. Serum ethyl alcohol negative. -No skull fracture, ICH, C-spine fracture, subluxation, rib fracture on imaging. -XR hip negative for hip fx or sacral fx -Received Tylenol 1000 mg every 8 hours as needed for pain. -On Cefdinir 300 mg twice daily x7 days to be completed 10/14. Physical deconditioning -Secondary to polyneuropathy from uncontrolled diabetes and recent hospitalization -Likely cause of more falls as of recently -PT and OT evaluation suggesting need for acute rehab. Patient discharged to [facility] on 10/10. Hypoxia -Noted to be hypoxic to the 80s in ambulance prior to ED arrival -2/2 CHF exacerbation, lasix given in ED --> now on room air -Remained stable with O2> 92% on RA. HFpEF -Most recent echocardiogram 09/30/2022. -Home dose of Lasix 40mg po daily restarted on day of discharge -Continue metoprolol 50mg po daily -Report:Normal LV size. Low normal systolic function. EF 50 to 55%. Septal motion consistent with bundle branch block. No regional wall motion abnormalities. Moderate concentric LVH. Borderline dilated RV with mildly reduced systolic function. Severe LA dilatation. Moderate RA dilatation. Moderate mitral annular calcification with moderate regurgitation. Moderate TR. Sclerotic aortic valve without significant stenosis. DM1 -Patient has Dexcom. Takes 20 units of Basaglar nightly, SSI NovoLog at mealtime. -Very poorly controlled and even with large amounts of insulin with pharmacy consult, still having significant hyperglycemia -Wonder if patient may have double diabetes with type 1 diabetes and type 2 diabetes together given extensive alcohol consumption and metabolic syndrome could in theory develop insulin resistance -Consider addition of small amount of metformin and evaluate glycemic control A-fib with RVR -Home Xarelto,restarted 10/10/22 on day of discharge -[id number] score of 7 points. During hospitalization, patient anticoagulated with SQ heparin (in case of need for rapid reversal) until resumption of Xarelto as noted above. -Continue metoprolol, amiodarone. Anxiety -Continue venlafaxine 150 mg every morning. Pending Studies at Discharge: No Stand-Alone Forms: My [facility] Skilled Items Patient informed of condition?: Yes DNR: No Discharge Level of Care: Acute rehab Communicable Disease: No Discharge Prognosis: Stable Lines: None Urinary Catheter: No Medications and DC Order Prescriptions: New cefdinir 300 mg Capsule 300 mg PO BID 5 Days Qty: 10 0RF Continued atorvastatin 20 mg tablet 20 mg PO PM Qty: 90 1RF venlafaxine 150 mg capsule,extended release 24hr 150 mg PO QAM Qty: 90 3RF insulin aspart U-100 [Novolog FlexPen U-100 Insulin] 100 unit/mL (3 mL) insulin pen 1 sliding scale dose subcut WM Qty: 15 5RF Rx Instructions: SLIDING SCALE WITH MEALS TDD 40 Basaglar KwikPen U-100 Insulin 100 unit/mL (3 mL) insulin pen See Rx Instructions SQ PM Qty: 15 5RF Rx Instructions: 18-22 units dailysubcutaneously evening; Xarelto 20 mg tablet 20 mg PO DAILY Qty: 30 12RF Rx Instructions: must administer with evening meal hydrocortisone 2.5 % cream 1 applic topical DAILY Qty: 30 1RF Rx Instructions: Apply as needed to the face. metoprolol succinate 50 mg tablet extended release 24 hr 50 mg PO DAILY Qty: 90 3RF potassium chloride 10 mEq tablet extended release 10 meq PO DAILY Qty: 30 2RF calcium carbonate-vitamin D3 [Calcium 500 + D] 500 mg(1,250mg) -200 unit Tablet 1 tab PO BID krill oil 1,286-496-05-80 mg Capsule 1 cap PO QAM multivitamin tablet 1 tab PO QAM acetaminophen 325 mg Tablet 650 mg PO Q4H PRN (Reason: pain) Qty: 0 0RF omeprazole 20 mg tablet,delayed release (DR/EC) 20 mg PO BID amiodarone 200 mg Tablet 200 mg PO BID Qty: 60 3RF furosemide [Lasix] 40 mg tablet 40 mg PO DAILY Qty: 30 3RF No Action (DME) pen needle, diabetic [BD Missy 2nd Gen Pen Needle] 32 gauge x 5/32" needle See Dose Instructions .ROUTE .MEDSUPPLY Qty: 150 5RF Rx Instructions: Use 1 needle 4 times daily (DME) lancets [OneTouch Delica Plus Lancet] 33 gauge misc See Dose Instructions .ROUTE .MEDSUPPLY Qty: 100 Rx Instructions: Test 5 times daily (DME) OneTouch Ultra Blue Test Strip Strip See Rx Instructions .ROUTE .MEDSUPPLY Qty: 10 Rx Instructions: Test blood sugars 2 times a day as needed for calibration (DME) Dexcom G6 Boss Dyer misc See Dose Instructions .ROUTE .MEDSUPPLY Qty: 1 0RF Dose Instruction: Use as directed for continuous glucose monitoring Rx Instructions: Use as directed for continuous glucose monitoring (DME) Dexcom G6 Sensor device See Dose Instructions .ROUTE .MEDSUPPLY Qty: 9 3RF Dose Instruction: Use as directed for continuous glocuse monitoring - Change sensor every 10 days Rx Instructions: Use as directed for continuous glocuse monitoring - Change sensor every 10 days (DME) Dexcom G6 Transmitter device See Dose Instructions .ROUTE .MEDSUPPLY Qty: 1 3RF Dose Instruction: Use as directed for continuous glucose monitoring - change every 90 days Rx Instructions: Use as directed for continuous glucose monitoring - change every 90 days Discharge Orders: Discharge Order (Routine); Ordered 10/10/22 Ordered By: Reba Andrew Admission Data Admit Date/Time: 10/08/22 03:28 Attending Provider: Mariana Burris Admit Provider: Tiara Clark Primary Care Provider: Lois Nolan Other Providers: Joaquina Agustin ; [facility] ; [facility] Supervising Physician Co-Signing Physician Notes I personally examined the patient and verified all [place] points of history and exam, discussed case, and agree with decision making and plan documented by Dr. Andrew. Patient stable for transfer to inpatient rehab. Occipital laceration C/D/I with 6 ciro intact, placed on 10/07/2022 and should be removed in 7 to 10 days. Patient discharged on cefdinir to finish 7-day course. Xarelto restarted without complication. Resident Activity Tracking Resident Involvement: Resident Care Provided Care Provided: Adult Hospital Medicine
== END 2022-10-10 12:32 | DRG 579 ==
LOC: ED 20:07 → EDINP 10-08 03:28 → SUATTDRO 10-08 03:28 → 2N 10-08 05:47

== ENCOUNTER 2022-10-28 17:52 | Inpatient (IN) ==
[2022-10-28] MEDS ORDERED: SODIUM CHLORIDE 0.9% 1000ML 500 ML IV ONE (18:31)
--- NOTE | 2022-10-28 18:37 | Emergency Department Note ---
History of Present Illness General Chief complaint: Fall Stated complaint: FELL, HIT BACK OF HEAD Time Seen by Provider: 10/28/22 18:12 Source: patient, RN notes reviewed and old records reviewed (I have reviewed her last hospitalization) Mode of arrival: ambulatory Limitations: no limitations History of Present Illness Maximum Pain Intensity: 2 This patient 77-year-old female who comes in after falling. She says she tripped on a vacuum shoe cleaner hose and fell backwards hit the back of her head. She says she hit where she had a laceration before she had no bleeding or laceration now. There is a home health aide who was concerned that she is on Xarelto and hit her head so she recommend she comes here she denies any loss of consciousness she denies neck pain there is no dental or facial pain or injury. No chest pain shortness of breath. She says her A-fib been doing well no palpitations or syncope or near syncope. No abdominal pain or trauma. No back pain. Denies any extremity pain or injury no numbness weakness or nausea vomiting denies headache at present. She does tell me she is feeling very thirsty as she forgot to take her insulin earlier and her blood sugar was high she gave herself 14 units around 5 or 5:30. Home Medications Medication Instructions Recorded Confirmed Type calcium carbonate 500 mg-vitamin 1 tab PO BID 05/24/18 10/28/22 History D3 5 mcg (200 unit) tablet (Calcium 500 + D) krill 1,000 mg-omega-3 170 mg-dha 1 cap PO QAM 05/24/18 10/28/22 History 50 mg-epa 80 [id number] capsule (krill oil) multivitamin 1 tab PO QAM 02/09/19 10/28/22 History lancets 33 gauge (OneTouch Delica #100 ea 02/22/19 10/23/22 History Plus Lancet) Dexcom G6 Riding Double (blood-glucose #1 ea 04/04/19 10/23/22 Rx meter,continuous) Dexcom G6 Sensor (blood-glucose #9 ea 04/04/19 10/23/22 Rx sensor) Dexcom G6 Transmitter #1 ea 04/04/19 10/23/22 Rx (blood-glucose transmitter) blood sugar diagnostic (OneTouch #10 ea 03/24/21 05/04/23 History Ultra Blue Test Strip) atorvastatin 20 mg tablet 20 mg PO PM #90 tabs 03/27/22 10/28/22 Rx acetaminophen 325 mg tablet 650 mg PO Q4H PRN pain #0 tabs 04/06/22 10/28/22 Rx metoprolol succinate 50 mg 50 mg PO DAILY #90 tabs 05/01/22 10/28/22 Rx tablet,extended release 24 hr pen needle, diabetic 32 gauge x #150 ea 05/23/22 10/23/22 Rx 532" (BD Missy 2nd Gen Pen Needle) venlafaxine 150 mg 150 mg PO QAM #90 caps 07/09/22 10/28/22 Rx capsule,extended release 24 hr insulin aspart U-100 100 unit/mL 1 sliding scale dose subcut WM #15 07/11/22 10/28/22 Rx (3 mL) subcutaneous pen (Novolog mL FlexPen U-100 Insulin aspart) insulin glargine 100 unit/mL (3 See Rx Instructions subcut PM #15 07/11/22 10/28/22 Rx mL) subcutaneous pen (Basaglar mL KwikPen U-100 Insulin) rivaroxaban 20 mg tablet (Xarelto) 20 mg PO DAILY #30 tabs 08/27/22 10/28/22 Rx omeprazole 20 mg tablet,delayed 20 mg PO BID 09/27/22 10/28/22 History release amiodarone 200 mg tablet 200 mg PO BID #60 tabs 10/02/22 10/28/22 Rx furosemide 40 mg tablet (Lasix) 40 mg PO DAILY #30 tabs 10/23/22 10/28/22 Rx hydrocortisone 2.5 % topical cream 1 applic topical DAILY PRN as 10/23/22 10/28/22 History directed potassium chloride 10 mEq 10 meq PO DAILY #90 tabs 10/27/22 10/28/22 Rx tablet,extended release Allergies Allergy/AdvReac Type Severity Reaction Status Date / Time oxycodone Allergy Mild ITCHING Verified 10/23/22 10:28 Past Med/Surg History Medical History Alcoholism pt reports is improving on this, few drinks of vodka weekly, no longer every day Anxiety Depression Diabetes mellitus, type 2 Gastroesophageal reflux disease Gastroparesis History of colon polyps Hyperlipidemia Hypertension Hypoglycemia Left bundle branch block Lumbar epidural mass Migraine Osteopenia Proliferative diabetic retinopathy associated with type 1 diabetes mellitus Right lower lobe pneumonia (03/2022) Spinal stenosis Urinary incontinence Venous insufficiency Vitamin D deficiency Wound of foot Surgical History History of bilateral carpal tunnel release History of bilateral cataract extraction History of cataract surgery History of colonoscopy History of lumbar fusion History of open reduction and internal fixation (ORIF) procedure left wrist fx--hardware removed History of open reduction and internal fixation (ORIF) procedure right wrist fx--hardware in place History of right breast biopsy x2--benign mass History of tooth extraction Family History Grandmother (Maternal) Family history of diabetes mellitus Diabetes Uncle Family history of diabetes mellitus paternal Grandmother (Paternal) Breast cancer Mother , age 77 of an [place] Myocardial infarction Scleroderma Father , age 70 of an [place] Myocardial infarction Denies family history of Ovarian cancer Prostate cancer Colorectal cancer Social History Smoking Status: Never smoker Tobacco Type: Cigarettes Age Started Using Tobacco: 21; Age Quit Using Tobacco: 28; packs per day: 1; Second Hand Exposure: No; Do You Dip or Chew Tobacco: No; Hx Alcohol Use: Yes Alcohol type: hard liquor Alcohol Intake Frequency: 4 or M ore x per/Week Alcohol Intake Frequency Comment: 1-2 drinks of vodka per night Hx Substance Use: No Preferred Language: Welsh Communication Ability: Effective Visual Impairment: No Limitations Hearing Ability: Normal Book Solicitor Required: No Beliefs That Will Affect Care: None marital status: Current Living Situation: Spouse current occupational status: retired 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 Feels Safe at Home: Yes Childhood Exposure to Second-Hand Smoke: Yes Diet: regular Diet Comment: regular Dental Care, Regularly: Yes Physical Activity Frequency: Does not Exercise Seatbelt Use: always Sunscreen Use: No Assistive Devices: Cane and Walker Review of Systems A total of 10 systems reviewed and were otherwise negative Physical Exam Vital Signs Vital Signs - 24 hr 10/28/22 18:06 10/28/22 18:27 10/28/22 18:30 Temperature 36.6 C Temperature Source Temporal Artery Scan Pulse Rate 79 71 73 Pulse Rhythm Regular Pulse Strength Normal Respiratory Rate 20 16 Respiratory Effort / Characteristics Non-Labored Spontaneous Respiratory Depth Normal Respiratory Pattern Regular Blood Pressure 102/64 121/84 Blood Pressure Mean 76 96 Blood Pressure Position Sitting Pulse Oximetry 94 95 Oxygen Delivery Method Room Air Room Air Sepsis Recent Fever Within 48 Hours No Sepsis New/Unexplained Change in Mental Status No Sepsis Action Taken by Nursing No Action Required 10/28/22 19:07 10/28/22 20:00 10/28/22 20:30 Temperature Temperature Source Pulse Rate 66 67 65 Pulse Rhythm Pulse Strength Respiratory Rate 16 21 17 Respiratory Effort / Characteristics Respiratory Depth Respiratory Pattern Blood Pressure 130/80 134/80 139/76 Blood Pressure Mean 96 98 97 Blood Pressure Position Pulse Oximetry 92 93 92 Oxygen Delivery Method Room Air Room Air Room Air Sepsis Recent Fever Within 48 Hours Sepsis New/Unexplained Change in Mental Status Sepsis Action Taken by Nursing 10/28/22 21:00 Temperature Temperature Source Pulse Rate 64 Pulse Rhythm Pulse Strength Respiratory Rate 17 Respiratory Effort / Characteristics Respiratory Depth Respiratory Pattern Blood Pressure 121/74 Blood Pressure Mean 89 Blood Pressure Position Pulse Oximetry 95 Oxygen Delivery Method Room Air Sepsis Recent Fever Within 48 Hours Sepsis New/Unexplained Change in Mental Status Sepsis Action Taken by Nursing General: Well developed well nourished non-ill appearing older female who appears alert or x3 and in in no acute distress, breathing comfortably on room air. Normal speech HEENT: Normal cephalic atraumatic. There is a small bump where she has a previous laceration repair. The laceration is intact no redness or drainage or bleeding pupils are equal round and reactive to light. Extraocular movements are intact. Oropharynx is pink with moist mucous membranes. No swelling of the mouth lips or tongue. Neck: Supple with a midline trachea. No meningeal signs or stiffness, no JVD or bruits. No Stridor. Chest: Clear to auscultation bilaterally. No wheezes or rhonchi. No increased work of breathing. Heart: Regular rate and rhythm without murmurs or gallops. Abdomen: Soft nontender, nondistended without rebound guarding or rigidity. Extremities: No cyanosis clubbing or edema. No calf tenderness or assymetry Spine/Back. Non tender to palpation. No CVA tenderness Skin: Good turgor without rashes. Neurologic exam: Cranial nerves two through 12 are intact. Motor and sensation are intact and symmetrical throughout. No tremor Course Administered Medications Insulin Human Regular 250 (units/ Sodium Chloride) 250 mls @ 2 mls/hr IV .Q24H [facility]; Protocol Stop: 11/27/22 19:44 Last Admin: 10/28/22 20:35 Dose: 2 units/hr, 2 mls/hr Documented By: JARON Co-signed By: PREETI Discontinued Medications Sodium Chloride (Nss 1000ml) 500 mls @ 999 mls/hr IV .Q31M ONE Stop: 10/28/22 19:01 Last Infusion: 10/28/22 20:27 Dose: 0 mls/hr Documented By: Admin: 10/28/22 19:06 Dose: 999 mls/hr Documented By: PREETI Insulin Human Regular (Novolin-R Bolus From Bag) 2 units IV ONE ONE Stop: 10/28/22 20:01 Last Admin: 10/28/22 20:36 Dose: 2 units Documented By: ARS Co-signed By: PREETI Miscellaneous (Insulin Protocol Goal Range ) 1 each N/A ONE ONE Stop: 10/28/22 19:42 Last Admin: 10/28/22 20:36 Dose: Not Given Documented By: JARON Alyaneous (Moderate Stress Level ) 1 each N/A ONE ONE Stop: 10/28/22 19:42 Last Admin: 10/28/22 20:36 Dose: Not Given Documented By: JARON Alyaneous (Stat Iv) 1 each N/A NOW STA Stop: 10/28/22 19:42 Last Admin: 10/28/22 20:36 Dose: 1 each Documented By: JARON Medical Decision Making Differential Diagnosis Head injury, intracranial hemorrhage, cervical spine injury, diabetic complications, intoxication, electrolyte or metabolic abnormality, infection, cardiac disease Medical Records Attestation: I reviewed the patient's medical records. Home Medications Current Medication List: was personally reviewed by az Laboratory Data Attestation: I reviewed the patient's lab results. 10/28/22 18:35 10/28/22 18:35 Lab Results 10/28/22 10/28/22 10/28/22 Range/Units 18:28 18:35 18:35 WBC 8.89 (4.8-10.8) K/ul RBC 4.47 (4.20-5.40) M/uL Hgb 12.4 (12.0-16.0) g/dl Hct 37.6 (37.0-47.0) % MCV 84.1 (80.0-100.0) fL MCH 27.7 (25.0-34.0) pg MCHC 33.0 (32.0-36.0) g/dL RDW Std Deviation 43.3 (36.4-46.3) fL RDW Coeff of Ilnda 14.1 (11.5-14.5) % Plt Count 342 (130-400) K/uL MPV 11.1 (9.4-12.4) fL Immature Gran % (Auto) 0.2 % Neut % (Auto) 77.2 % Lymph % (Auto) 15.9 % Snyder % (Auto) 5.6 % Eos % (Auto) 0.4 % Baso % (Auto) 0.7 % Neut # (Auto) 6.86 H (1.40-6.50) K/uL Lymph # (Auto) 1.41 (1.2-3.4) K/uL Snyder # (Auto) 0.50 (0.11-0.59) K/uL Eos # (Auto) 0.04 (0-0.50) K/uL Baso # (Auto) 0.06 (0-0.2) K/uL Immature Gran # (Auto) 0.02 (0.01-0.20) K/uL PT (9.0-12.0) Seconds INR (0.9-1.1) APTT (21.0-31.0) Seconds PTT Ratio VBG pH (7.36-7.41) VBG pCO2 (38-50) mmHg VBG pO2 mmHg VBG HCO3 mmol/L VBG O2 Saturation % VBG Base Excess mEq/L Sodium 125 L (136-145) mmol/L Potassium 4.7 (3.5-5.1) mmol/L Chloride 92 L (98-107) mmol/L Carbon Dioxide 23 (21-32) mmol/L Anion Gap 10 (3-11) BUN 29 H (6-23) mg/dl Creatinine 1.24 H (0.6-1.2) mg/dl Est Cr Clr Drug Dosing 39.5 ml/min Est GFR ( Amer) 48.9 ml/min Est GFR (Non-Af Amer) 42.2 ml/min BUN/Creatinine Ratio 23.4 H (10-20) Glucose 767 H* (70-99(Fasting)) mg/dl POC Glucose > 600 H* (70-99) mg/dl Calcium 9.1 (8.6-10.3) mg/dl Total Bilirubin 0.5 (0.2-1.0) mg/dl AST 24 (13-39) U/L ALT 25 (7-52) U/L Alkaline Phosphatase 132 H (34-104) U/L Troponin I High Sens 7.4 (0-14) pg/ml Total Protein 7.0 (6.0-8.3) gm/dl Albumin 3.8 (3.4-5.0) gm/dl Globulin 3.2 (2.5-4.0) gm/dl Albumin/Globulin Ratio 1.2 (0.9-2) TSH (0.300-4.500) uIu/ml Ethyl Alcohol mg/dL (<10.0) mg/dl SARS-CoV-2, RNA, NAAT (NEGATIVE) 10/28/22 10/28/22 10/28/22 Range/Units 18:35 18:35 18:35 WBC (4.8-10.8) K/ul RBC (4.20-5.40) M/uL Hgb (12.0-16.0) g/dl Hct (37.0-47.0) % MCV (80.0-100.0) fL MCH (25.0-34.0) pg MCHC (32.0-36.0) g/dL RDW Std Deviation (36.4-46.3) fL RDW Coeff of Linda (11.5-14.5) % Plt Count (130-400) K/uL MPV (9.4-12.4) fL Immature Gran % (Auto) % Neut % (Auto) % Lymph % (Auto) % Snyder % (Auto) % Eos % (Auto) % Baso % (Auto) % Neut # (Auto) (1.40-6.50) K/uL Lymph # (Auto) (1.2-3.4) K/uL Snyder # (Auto) (0.11-0.59) K/uL Eos # (Auto) (0-0.50) K/uL Baso # (Auto) (0-0.2) K/uL Immature Gran # (Auto) (0.01-0.20) K/uL PT 15.4 H (9.0-12.0) Seconds INR 1.4 H (0.9-1.1) APTT 37.9 H (21.0-31.0) Seconds PTT Ratio 1.3 VBG pH (7.36-7.41) VBG pCO2 (38-50) mmHg VBG pO2 mmHg VBG HCO3 mmol/L VBG O2 Saturation % VBG Base Excess mEq/L Sodium (136-145) mmol/L Potassium (3.5-5.1) mmol/L Chloride (98-107) mmol/L Carbon Dioxide (21-32) mmol/L Anion Gap (3-11) BUN (6-23) mg/dl Creatinine (0.6-1.2) mg/dl Est Cr Clr Drug Dosing ml/min Est GFR ( Amer) ml/min Est GFR (Non-Af Amer) ml/min BUN/Creatinine Ratio (10-20) Glucose (70-99(Fasting)) mg/dl POC Glucose (70-99) mg/dl Calcium (8.6-10.3) mg/dl Total Bilirubin (0.2-1.0) mg/dl AST (13-39) U/L ALT (7-52) U/L Alkaline Phosphatase (34-104) U/L Troponin I High Sens (0-14) pg/ml Total Protein (6.0-8.3) gm/dl Albumin (3.4-5.0) gm/dl Globulin (2.5-4.0) gm/dl Albumin/Globulin Ratio (0.9-2) TSH 2.469 (0.300-4.500) uIu/ml Ethyl Alcohol mg/dL < 10.0 (<10.0) mg/dl SARS-CoV-2, RNA, NAAT (NEGATIVE) 10/28/22 10/28/22 Range/Units 18:59 20:33 WBC (4.8-10.8) K/ul RBC (4.20-5.40) M/uL Hgb (12.0-16.0) g/dl Hct (37.0-47.0) % MCV (80.0-100.0) fL MCH (25.0-34.0) pg MCHC (32.0-36.0) g/dL RDW Std Deviation (36.4-46.3) fL RDW Coeff of Linda (11.5-14.5) % Plt Count (130-400) K/uL MPV (9.4-12.4) fL Immature Gran % (Auto) % Neut % (Auto) % Lymph % (Auto) % Snyder % (Auto) % Eos % (Auto) % Baso % (Auto) % Neut # (Auto) (1.40-6.50) K/uL Lymph # (Auto) (1.2-3.4) K/uL Snyder # (Auto) (0.11-0.59) K/uL Eos # (Auto) (0-0.50) K/uL Baso # (Auto) (0-0.2) K/uL Immature Gran # (Auto) (0.01-0.20) K/uL PT (9.0-12.0) Seconds INR (0.9-1.1) APTT (21.0-31.0) Seconds PTT Ratio VBG pH 7.42 H (7.36-7.41) VBG pCO2 38 (38-50) mmHg VBG pO2 51 mmHg VBG HCO3 25 mmol/L VBG O2 Saturation 85.8 % VBG Base Excess 0.3 mEq/L Sodium (136-145) mmol/L Potassium (3.5-5.1) mmol/L Chloride (98-107) mmol/L Carbon Dioxide (21-32) mmol/L Anion Gap (3-11) BUN (6-23) mg/dl Creatinine (0.6-1.2) mg/dl Est Cr Clr Drug Dosing ml/min Est GFR ( Amer) ml/min Est GFR (Non-Af Amer) ml/min BUN/Creatinine Ratio (10-20) Glucose (70-99(Fasting)) mg/dl POC Glucose (70-99) mg/dl Calcium (8.6-10.3) mg/dl Total Bilirubin (0.2-1.0) mg/dl AST (13-39) U/L ALT (7-52) U/L Alkaline Phosphatase (34-104) U/L Troponin I High Sens (0-14) pg/ml Total Protein (6.0-8.3) gm/dl Albumin (3.4-5.0) gm/dl Globulin (2.5-4.0) gm/dl Albumin/Globulin Ratio (0.9-2) TSH (0.300-4.500) uIu/ml Ethyl Alcohol mg/dL (<10.0) mg/dl SARS-CoV-2, RNA, NAAT NEGATIVE (NEGATIVE) Imaging Data Attestation: I personally reviewed and interpreted this imaging study as follows: My Impression: Chest x-rayno acute infiltrate, failure, pneumothorax seen. No free air. Head CTno hemorrhage or mass effect seen. Radiologist's Impression: Cervical Spine CT 10/28/22 18:26 CT cervical spine wo con CLINICAL HISTORY: fall TECHNIQUE: Multidetector row helical CT of the cervical spine was performed without administration of intravenous contrast. Coronal and sagittal reformations were obtained. Automated dose lowering techniques and/or adjustment according to patient size were utilized for this exam. Comparison: None available at the time of this dictation. FINDINGS: No acute fractures or subluxations are identified. Degenerative changes are seen in the visualized spine. 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 The alignment is normal. Subcentimeter thyroid nodules are seen which do not require follow-up by ACR criteria. IMPRESSION: Degenerative changes without evidence of acute bony injury. ACT 112: Negative or not required by law. Electronically signed by: Gilberto Rodriguez M.D. 10/28/2022 7:[address] 10/28/22 18:26 CT head/brain wo con CLINICAL HISTORY: fall, hit posterior head Technique: Contiguous axial CT images of the head were acquired from the base of the skull to the vertex without intravenous contrast administration. Images were viewed in brain, subdural and bone windows. Automated dose lowering techniques and/or adjustment according to patient size were utilized for this exam. Comparison: Comparison is made to CT head 10/07/2022 Findings: Areas of decreased attenuation are present in the periventricular and subcortical white matter bilaterally consistent with small vessel ischemic disease. Generalized cerebral atrophy with commensurate enlargement of the ventricles, sulci, and cisterns is also present. There is no acute intracranial hemorrhage or evidence of acute territorial infarction. No shift of the midline structures, mass effect, or extra-axial abnormalities are shown. Atherosclerotic calcifications are present in the intracranial segments of the internal carotid arteries. Imaged portions of the paranasal sinuses and mastoid air cells are clear. The orbits appear normal. There are no acute fractures of the calvaria. Scalp swelling is seen in the midline occipital soft tissues. Impression: No acute intracranial hemorrhage, no evidence of acute territorial infarction or other acute intracranial disease process. ACT 112: Negative or not required by law. Electronically signed by: Gilberto Rodriguez M.D. 10/28/2022 7:41 PM Chest X-Ray 10/28/22 18:31 XR chest 1V portable CLINICAL HISTORY: fall TECHNIQUE: Single frontal radiograph of the chest was obtained. Comparison: Comparison is made to chest radiograph 10/07/2022 FINDINGS: No lines and tubes are seen. Calcified aortic knob is seen. The lungs are clear. No evidence of pleural effusion or pneumothorax. IMPRESSION: No acute chest disease. ACT 112: Negative or not required by law. Electronically signed by: Gilberto Rodriguez M.D. 10/28/2022 7:13 PM ECG Data Attestation: I personally reviewed and interpreted this ECG as follows: Rate (beats per minute): 71 Rhythm: + normal sinus ECG Intervals/blocks: + Left bundle branch block ECG [place]: + Normal ECG ST segments: + Normal ST segments ECG Findings: no PACs or no PVCs Comparison ECG Date: from (10/07/22) Change: no significant change MDM Narrative This patient comes in as scribed above she suffered what sounds like a mechanical fall. She has no other complaints. She did hit her head she is on Xarelto so I did do a CAT scan of the head neck. She also mentioned to me that her blood sugar was running high at home which she thinks was just because she forgot to take insulin. I checked it here and was high in light of this, I do think she needs a further work-up. I did gently hydrate her with 500 cc IV normal saline bolus. Also I did add a VBG. And I did add an alcohol level. she does have a history of alcohol use as per the previous medical records. Chest x-ray and EKG were also obtained. She was reassessed frequently. She has no fever or white count to suggest infection. Both on EKG and the monitor she is not in A-fib at present. She has a normal sinus rhythm she has a baseline bundle branch block. There is no change compared to the old EKG. She did get a VBG and there is no acidosis. [id number] glucose was greater than 600. She was hydrated and this was rechecked as she had taken insulin not to long before she came here. Her sodium came back low at 125 some of this may be pseudohyponatremia. Her CO2 is within normal limits at 23 as is her INR gap at 10. I did discuss this with our pharmacist at the hospital we started her on the IV infusion for moderate hyperglycemia per our hospital protocol. I did COVID yoandy. I do think she should stay in the hospital given her significant hyperglycemia. CAT scans of the head was unremarkable as read by myself and the radiologist. CAT scan of the neck was unremarkable as read by the radiologist. I did consult Dr. Victor, the [facility] hospitalist, discussed the case with him. He saw the patient and I will be admitting her for these measures. Continuous cardiac monitoring: Orders placed in EMR for continuous cardiac monitoring. Upon my evaluation she was noted to be in normal sinus rhythm with a rate of 71 she had occasional PVC Impression & Plan Hyperglycemia, Fall, CHI (closed head injury), Current use of terminal manager anticoagulation, Lab test negative for COVID-19 virus Discharge Plan Visit Data Chief Complaint: Fall Stated Complaint: FELL, HIT BACK OF HEAD ED Provider: Ramses Hennessy Discharge Problem: Hyperglycemia, Fall, CHI (closed head injury), Current use of prison anticoagulation, Lab test negative for COVID-19 virus Forms Stand Alone Forms: My [facility] Prescriptions Prescriptions: No Action atorvastatin 20 mg tablet 20 mg PO PM Qty: 90 1RF (DME) pen needle, diabetic [BD Missy 2nd Gen Pen Needle] 32 gauge x 5/32" needle See Dose Instructions .ROUTE .MEDSUPPLY Qty: 150 5RF Rx Instructions: Use 1 needle 4 times daily venlafaxine 150 mg capsule,extended release 24hr 150 mg PO QAM Qty: 90 3RF insulin aspart U-100 [Novolog FlexPen U-100 Insulin] 100 unit/mL (3 mL) insulin pen 1 sliding scale dose subcut WM Qty: 15 5RF Rx Instructions: SLIDING SCALE WITH MEALS TDD 40 Basaglar KwikPen U-100 Insulin 100 unit/mL (3 mL) insulin pen See Rx Instructions SQ PM Qty: 15 5RF Rx Instructions: 18-22 units dailysubcutaneously evening; Xarelto 20 mg tablet 20 mg PO DAILY Qty: 30 12RF Rx Instructions: must administer with evening meal potassium chloride 10 mEq tablet extended release 10 meq PO DAILY Qty: 90 3RF metoprolol succinate 50 mg tablet extended release 24 hr 50 mg PO DAILY Qty: 90 3RF hydrocortisone 2.5 % cream 1 applic topical DAILY PRN (Reason: as directed) Rx Instructions: Apply as needed to the face. furosemide [Lasix] 40 mg tablet 40 mg PO DAILY Qty: 30 5RF (DME) lancets [OneTouch Delica Plus Lancet] 33 gauge misc See Dose Instructions .ROUTE .MEDSUPPLY Qty: 100 Rx Instructions: Test 5 times daily (DME) OneTouch Ultra Blue Test Strip Strip See Rx Instructions .ROUTE .MEDSUPPLY Qty: 10 Rx Instructions: Test blood sugars 2 times a day as needed for calibration (DME) Dexcom G6 Riding Double misc See Dose Instructions .ROUTE .MEDSUPPLY Qty: 1 0RF Dose Instruction: Use as directed for continuous glucose monitoring Rx Instructions: Use as directed for continuous glucose monitoring (DME) Dexcom G6 Sensor device See Dose Instructions .ROUTE .MEDSUPPLY Qty: 9 3RF Dose Instruction: Use as directed for continuous glocuse monitoring - Change sensor every 10 days Rx Instructions: Use as directed for continuous glocuse monitoring - Change sensor every 10 days (DME) Dexcom G6 Transmitter device See Dose Instructions .ROUTE .MEDSUPPLY Qty: 1 3RF Dose Instruction: Use as directed for continuous glucose monitoring - change every 90 days Rx Instructions: Use as directed for continuous glucose monitoring - change every 90 days calcium carbonate-vitamin D3 [Calcium 500 + D] 500 mg(1,250mg) -200 unit Tablet 1 tab PO BID krill oil [id number] mg Capsule 1 cap PO QAM multivitamin tablet 1 tab PO QAM acetaminophen 325 mg Tablet 650 mg PO Q4H PRN (Reason: pain) Qty: 0 0RF omeprazole 20 mg tablet,delayed release (DR/EC) 20 mg PO BID amiodarone 200 mg Tablet 200 mg PO BID Qty: 60 3RF Referrals Referrals: Lois Nolan MD [Primary Care Provider] -
[2022-10-28 18:59] LABS: Basophils # (auto) 0.06 K/uL (0-0.2); Basophils % (auto) 0.7 %; Eosinophils # (auto) 0.04 K/uL (0-0.50); Eosinophils % (auto) 0.4 %; Hematocrit (blood only) 37.6 % (37.0-47.0); Hemoglobin 12.4 g/dl (12.0-16.0); Immature Granulocytes # (auto) 0.02 K/uL (0.01-0.20); Immature Granulocytes % (auto) 0.2 %; Lymphocytes # (auto) 1.41 K/uL (1.2-3.4); Lymphocytes % (auto) 15.9 %; Mean Corpuscular Hemoglobin 27.7 pg (25.0-34.0); Mean Corpuscular Volume 84.1 fL (80.0-100.0); Mean Platelet Volume 11.1 fL (9.4-12.4); Monocytes % (auto) 5.6 %; Neutrophils # (auto) 6.86 K/uL (1.40-6.50); Neutrophils % (auto) 77.2 %; Platelet Count 342 K/uL (130-400); RDW Coefficient of Variation 14.1 % (11.5-14.5); RDW Standard Deviation 43.3 fL (36.4-46.3); Red Blood Count 4.47 M/uL (4.20-5.40); White Blood Count 8.89 K/ul (4.8-10.8)
[2022-10-28 19:07] LABS: Base Excess VBG 0.3 mEq/L; HCO3 VBG 25 mmol/L; Oxygen Saturation VBG 85.8 %; PCO2 VBG 38 mmHg (38-50); PO2 VBG 51 mmHg; pH VBG 7.42 (7.36-7.41)
--- NOTE | 2022-10-28 19:14 | XRay Report ---
XR chest 1V portable CLINICAL HISTORY: fall TECHNIQUE: Single frontal radiograph of the chest was obtained. Comparison: Comparison is made to chest radiograph 10/07/2022 FINDINGS: No lines and tubes are seen. Calcified aortic knob is seen. The lungs are clear. No evidence of pleur al effusion or pneumothorax. IMPRESSION: No acute chest disease. ACT 112: Negative or not required by law. Electronically signed by: Gilberto Rodriguez M.D. 10/28/2022 7:13 PM
[2022-10-28 19:25] LABS: Albumin Level 3.8 gm/dl (3.4-5.0); Bilirubin,Total 0.5 mg/dl (0.2-1.0); Calcium 9.1 mg/dl (8.6-10.3); Potassium 4.7 mmol/L (3.5-5.1)
[2022-10-28 19:34] LABS: Albumin Globulin Ratio 1.2 (0.9-2); BUN Creatinine Ratio 23.4 (10-20); Creatinine Clr Calc Pharmacy 39.5 ml/min; Est GFR (African American) 48.9 ml/min; Est GFR (Non-African American) 42.2 ml/min; Globulin 3.2 gm/dl (2.5-4.0)
[2022-10-28 19:41] LABS: INR 1.4 (0.9-1.1); Partial Thromboplastin Ratio 1.3; Partial Thromboplastin Time 37.9 Seconds (21.0-31.0); Prothrombin Time 15.4 Seconds (9.0-12.0)
[2022-10-28] MEDS ORDERED: STAT IV STA (19:41)
[2022-10-28] MEDS ORDERED: INSULIN PROTOCOL GOAL RANGE ONE (19:41)
[2022-10-28] MEDS ORDERED: MODERATE STRESS LEVEL ONE (19:41)
--- NOTE | 2022-10-28 19:42 | CT Scan Report ---
CT head/brain wo con CLINICAL HISTORY: fall, hit posterior head Technique: Contiguous axial CT images of the head were acquired from the base of the skull to the toma kelly without intravenous contrast administration. Images were viewed in brain, subdural and bone [facility]. Automated dose lowering techniques and/or adjustment according to patient size were utilized for this exam. Comparison: Comparison is made to CT head 10/07/2022 Findings: Areas of decreased attenuation are present in the periventricular and subcortical white matter bilate rally consistent with small vessel ischemic disease. Generalized cerebral atrophy with commensurate e nlargement of the ventricles, sulci, and cisterns is also present. There is no acute intracranial hem orrhage or evidence of acute territorial infarction. No shift of the midline structures, mass effect, or extra-axial abnormalities are shown. Atherosclerotic calcifications are present in the intracran ial segments of the internal carotid arteries. Imaged portions of the paranasal sinuses and mastoid air cells are clear. The orbits appear normal. There are no acute fractures of the calvaria. Scalp swelling is seen in the midline occipital soft t issues. Impression: No acute intracranial hemorrhage, no evidence of acute territorial infarction or other acute intracra nial disease process. ACT 112: Negative or not required by law. Electronically signed by: Gilberto Rodriguez M.D. 10/28/2022 7:41 PM
[2022-10-28] MEDS ORDERED: INSULIN REGULAR 250 UNITS in SODIUM CHLORIDE 0.9% 247.5 ML IV SCH (19:45)
--- NOTE | 2022-10-28 19:53 | CT Scan Report ---
CT cervical spine wo con CLINICAL HISTORY: fall TECHNIQUE: Multidetector row helical CT of the cervical spine was performed without administration of intravenous contrast. Coronal and sagittal reformations were obtained. Automated dose lowering techn iques and/or adjustment according to patient size were utilized for this exam. Comparison: None available at the time of this dictation. FINDINGS: No acute fractures or subluxations are identified. Degenerative changes are seen in the visualized sp ine. 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 The alignment is normal. Subce ntimeter thyroid nodules are seen which do not require follow-up by ACR criteria. IMPRESSION: Degenerative changes without evidence of acute bony injury. ACT 112: Negative or not required by law. Electronically signed by: Gilberto Rodriguez M.D. 10/28/2022 7:50 PM
[2022-10-28 19:54] LABS: Troponin I High Sensitivity 7.4 pg/ml (0-14)
[2022-10-28] MEDS ORDERED: NovoLIN-R BOLUS FROM BAG IV ONE (20:00)
[2022-10-28] MEDS ORDERED: INSULIN ASPART PER UNIT CHARGE SC SCH (21:00)
--- NOTE | 2022-10-28 21:13 | History & Physical Report ---
Date of Service October 28, 2022 Assessment & Plan (1) Hyperglycemia: (2) Alcoholism: (3) Hematoma of occipital region of scalp: (4) CHI (closed head injury): (5) Fall: (6) (HFpEF) heart failure with preserved ejection fraction: (7) Atrial fibrillation with RVR: (8) Hyperlipidemia: (9) Hypertension: (10) Depression: (11) Diabetic retinopathy: (12) Diabetic polyneuropathy associated with type 1 diabetes mellitus: (13) Diabetes mellitus treated with insulin: Plan Hyperglycemia and diabetes mellitus- Glucose 767 on admission. Pharmacy consult placed by emergency department for insulin drip per protocol, moderate stress level, will be continued. NSS + KCl 20 mEq at 80 mils per hour Follow serial CBC with differential, chemistry profile, magnesium level Check hemoglobin A1c Atrial fibrillation/HFpEF- Continue amiodarone, metoprolol succinate, Xarelto 20 mg p.o. daily Hold furosemide and potassium for now Hyperlipidemia- Continue atorvastatin 20 mg daily Check a fasting lipid panel GERD- Can change omeprazole to pantoprazole Depression- Continue venlafaxine XR 150 mg p.o. daily History of Present Illness Chief Complaint: The patient presents to the emergency department after a fall, where she was attempting to walk over a vacuum fur dry cleaner hose, tripped and fell backwards hitting the back of her head. Primary Care Provider: Lois Nolan MD The patient is a 77-year-old female with a past medical history including alcoholism, HFpEF, atrial fibrillation with RVR, lumbar stenosis with neurogenic claudication, hyperlipidemia, hypertension, depression, urinary incontinence, LBBB, diabetic polyneuropathy, history of syncope and diabetes mellitus treated with insulin. The patient does not remember if she took her long-acting insulin in the morning. She did give herself 14 units of short acting insulin around 5:00 this evening, as she was feeling thirsty and thought her sugar might be high. Her home health aide was concerned about the patient following and, since she was on Xarelto, she was advised to come to the ED for assessment. The patient had been admitted to [facility] from 10/08-10/10/2022, and then transferred to [facility] for ongoing rehab therapy. Allergies Allergy/AdvReac Type Severity Reaction Status Date / Time oxycodone Allergy Mild ITCHING Verified 10/23/22 10:28 Home Medications Medication Instructions Recorded Confirmed Type calcium carbonate 500 mg-vitamin 1 tab PO BID 05/24/18 10/28/22 History D3 5 mcg (200 unit) tablet (Calcium 500 + D) krill 1,000 mg-omega-3 170 mg-dha 1 cap PO QAM 05/24/18 10/28/22 History 50 mg-epa 80 gw-sweofe-wybzm capsule (krill oil) multivitamin 1 tab PO QAM 02/09/19 10/28/22 History lancets 33 gauge (OneTouch Delica #100 ea 02/22/19 10/23/22 History Plus Lancet) Dexcom G6 Mine Deputy (blood-glucose #1 ea 04/04/19 10/23/22 Rx meter,continuous) Dexcom G6 Sensor (blood-glucose #9 ea 04/04/19 10/23/22 Rx sensor) Dexcom G6 Transmitter #1 ea 04/04/19 10/23/22 Rx (blood-glucose transmitter) blood sugar diagnostic (OneTouch #10 ea 09/12/20 10/23/22 History Ultra Blue Test Strip) atorvastatin 20 mg tablet 20 mg PO PM #90 tabs 03/27/22 10/28/22 Rx acetaminophen 325 mg tablet 650 mg PO Q4H PRN pain #0 tabs 04/06/22 10/28/22 Rx metoprolol succinate 50 mg 50 mg PO DAILY #90 tabs 05/01/22 10/28/22 Rx tablet,extended release 24 hr pen needle, diabetic 32 gauge x #150 ea 05/23/22 10/23/22 Rx 5/32" (BD Missy 2nd Gen Pen Needle) venlafaxine 150 mg 150 mg PO QAM #90 caps 07/09/22 10/28/22 Rx capsule,extended release 24 hr insulin aspart U-100 100 unit/mL 1 sliding scale dose subcut WM #15 07/11/22 10/28/22 Rx (3 mL) subcutaneous pen (Novolog mL FlexPen U-100 Insulin aspart) insulin glargine 100 unit/mL (3 See Rx Instructions subcut PM #15 07/11/22 10/28/22 Rx mL) subcutaneous pen (Basaglar mL KwikPen U-100 Insulin) rivaroxaban 20 mg tablet (Xarelto) 20 mg PO DAILY #30 tabs 08/27/22 10/28/22 Rx omeprazole 20 mg tablet,delayed 20 mg PO BID 09/27/22 10/28/22 History release amiodarone 200 mg tablet 200 mg PO BID #60 tabs 10/02/22 10/28/22 Rx furosemide 40 mg tablet (Lasix) 40 mg PO DAILY #30 tabs 10/23/22 10/28/22 Rx hydrocortisone 2.5 % topical cream 1 applic topical DAILY PRN as 10/23/22 10/28/22 History directed potassium chloride 10 mEq 10 meq PO DAILY #90 tabs 10/27/22 10/28/22 Rx tablet,extended release Past Med/Surg History Medical History Alcoholism pt reports is improving on this, few drinks of vodka weekly, no longer every day Anxiety Depression Diabetes mellitus, type 2 Gastroesophageal reflux disease Gastroparesis History of colon polyps Hyperlipidemia Hypertension Hypoglycemia Left bundle branch block Lumbar epidural mass Migraine Osteopenia Proliferative diabetic retinopathy associated with type 1 diabetes mellitus Right lower lobe pneumonia (03/2022) Spinal stenosis Urinary incontinence Venous insufficiency Vitamin D deficiency Wound of foot Surgical History History of bilateral carpal tunnel release History of bilateral cataract extraction History of cataract surgery History of colonoscopy History of lumbar fusion History of open reduction and internal fixation (ORIF) procedure left wrist fx--hardware removed History of open reduction and internal fixation (ORIF) procedure right wrist fx--hardware in place History of right breast biopsy x2--benign mass History of tooth extraction Family History Grandmother (Maternal) Family history of diabetes mellitus Diabetes Uncle Family history of diabetes mellitus paternal Grandmother (Paternal) Breast cancer Mother , age 77 of an PA Myocardial infarction Scleroderma Father , age 70 of an PA Myocardial infarction Denies family history of Ovarian cancer Prostate cancer Colorectal cancer Social History Smoking Status: Never smoker Tobacco Type: Cigarettes Age Started Using Tobacco: 21; Age Quit Using Tobacco: 28; packs per day: 1; Second Hand Exposure: No; Do You Dip or Chew Tobacco: No; Tobacco Cessation Education Requested by Patient: No Hx Alcohol Use: Yes Alcohol type: hard liquor Alcohol Intake Frequency: 4 or More x per/Week Alcohol Intake Frequency Comment: 1-2 drinks of vodka per night Hx Substance Use: No Preferred Language: Georgian Communication Ability: Effective Visual Impairment: No Limitations Hearing Ability: Normal Meat Pickler Required: No Beliefs That Will Affect Care: None marital status: Current Living Situation: Spouse current occupational status: retired 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 Other Information That Helps Us Care for You: No Feels Safe at Home: Yes Safety Concerns: Feels Safe At This Time Childhood Exposure to Second-Hand Smoke: Yes Diet: regular Diet Comment: regular Dental Care, Regularly: Yes Physical Activity Frequency: Does not Exercise Seatbelt Use: always Sunscreen Use: No Assistive Devices: Cane and Walker Review of Systems Review of Systems: The patient denies chest pain, palpitations, shortness of breath, dyspnea on exertion, cough, lower extremity swelling, sore throat, fevers, chills, sweats, nausea, vomiting, diarrhea , constipation, abdominal pain, pelvic pain, blood in urine or stool, dysuria, urinary frequency or urgency, lightheadedness, dizziness, headache, focal or generalized weakness, numbness or tingling in arms or legs, generalized arthralgias or myalgias, neck pain, or night sweats. The review of systems is otherwise negative other than for that already noted above, and at least 10 systems have been reviewed. Physical Exam Physical Exam: The patient is awake, alert and oriented 3, well developed and well nourished. She has a small bump on the back of her head, where there is a previous laceration repair, with no active bleeding. HEENT--PERRL, EOMI, mucous membranes and oropharynx dry. Neck--supple. No JVD. No bruits. Thyroid normal, trachea midline, no adenopathy. Heart--normal S1 and S2. No murmurs, rubs or gallops. Lungs--clear bilaterally, no respiratory distress, no accessory muscle use. Abdomen--normal bowel sounds and soft. Nontender. Nondistended, no hernias or masses, no organomegaly. Extremities--no cyanosis or clubbing. No edema. There are good distal pulses b/l. Dermatologic--normal skin turgor, normal color, no abnormal lymph nodes, no rash. Neurologic--cranial nerves II through XII grossly intact. Rheumatologic--normal range of motion. Psychiatric--normal affect. Results & Data Results & Data Vital Signs (Past 12 Hours) Vital Signs Temp Pulse Resp BP Pulse Ox O2 Del Method 10/28/22 21:00 64 17 121/74 95 Room Air 10/28/22 20:30 65 17 139/76 92 Room Air 10/28/22 20:00 67 21 134/80 93 Room Air 10/28/22 19:07 66 16 130/80 92 Room Air 10/28/22 18:30 73 16 121/84 95 Room Air 10/28/22 18:27 71 10/28/22 18:06 36.6 C 79 20 102/64 94 Room Air Laboratory Results Laboratory Results WBC 8.89 K/ul (4.8-10.8) 10/28/22 18:35 RBC 4.47 M/uL (4.20-5.40) 10/28/22 18:35 Hgb 12.4 g/dl (12.0-16.0) 10/28/22 18:35 Hct 37.6 % (37.0-47.0) 10/28/22 18:35 MCV 84.1 fL (80.0-100.0) 10/28/22 18:35 MCH 27.7 pg (25.0-34.0) 10/28/22 18:35 MCHC 33.0 g/dL (32.0-36.0) 10/28/22 18:35 RDW Std Deviation 43.3 fL (36.4-46.3) 10/28/22 18:35 RDW Coeff of Linda 14.1 % (11.5-14.5) 10/28/22 18:35 Plt Count 342 K/uL (130-400) 10/28/22 18:35 MPV 11.1 fL (9.4-12.4) 10/28/22 18:35 Immature Gran % (Auto) 0.2 % 10/28/22 18:35 Neut % (Auto) 77.2 % 10/28/22 18:35 Lymph % (Auto) 15.9 % 10/28/22 18:35 [place] % (Auto) 5.6 % 10/28/22 18:35 Eos % (Auto) 0.4 % 10/28/22 18:35 Baso % (Auto) 0.7 % 10/28/22 18:35 Neut # (Auto) 6.86 K/uL (1.40-6.50) H 10/28/22 18:35 Lymph # (Auto) 1.41 K/uL (1.2-3.4) 10/28/22 18:35 [place] # (Auto) 0.50 K/uL (0.11-0.59) 10/28/22 18:35 Eos # (Auto) 0.04 K/uL (0-0.50) 10/28/22 18:35 Baso # (Auto) 0.06 K/uL (0-0.2) 10/28/22 18:35 Immature Gran # (Auto) 0.02 K/uL (0.01-0.20) 10/28/22 18:35 PT 15.4 Seconds (9.0-12.0) H 10/28/22 18:35 INR 1.4 (0.9-1.1) H 10/28/22 18:35 APTT 37.9 Seconds (21.0-31.0) H 10/28/22 18:35 PTT Ratio 1.3 10/28/22 18:35 VBG pH 7.42 (7.36-7.41) H 10/28/22 18:59 VBG pCO2 38 mmHg (38-50) 10/28/22 18:59 VBG pO2 51 mmHg 10/28/22 18:59 VBG HCO3 25 mmol/L 10/28/22 18:59 VBG O2 Saturation 85.8 % 10/28/22 18:59 VBG Base Excess 0.3 mEq/L 10/28/22 18:59 Sodium 125 mmol/L (136-145) L 10/28/22 18:35 Potassium 4.7 mmol/L (3.5-5.1) 10/28/22 18:35 Chloride 92 mmol/L (98-107) L 10/28/22 18:35 Carbon Dioxide 23 mmol/L (21-32) 10/28/22 18:35 Anion Gap 10 (3-11) 10/28/22 18:35 BUN 29 mg/dl (6-23) H 10/28/22 18:35 Creatinine 1.24 mg/dl (0.6-1.2) H 10/28/22 18:35 Est Cr Clr Drug Dosing 39.5 ml/min 10/28/22 18:35 Est GFR ( Amer) 48.9 ml/min 10/28/22 18:35 Est GFR (Non-Af Amer) 42.2 ml/min 10/28/22 18:35 BUN/Creatinine Ratio 23.4 (10-20) H 10/28/22 18:35 Glucose 767 mg/dl (70-99(Fasting)) H* 10/28/22 18:35 POC Glucose 120 mg/dl (70-99) H 10/29/22 02:30 Calcium 9.1 mg/dl (8.6-10.3) 10/28/22 18:35 Phosphorus 4.0 mg/dl (2.5-4.9) 10/28/22 18:35 Magnesium 1.6 mg/dl (1.7-2.4) L 10/28/22 18:35 Total Bilirubin 0.5 mg/dl (0.2-1.0) 10/28/22 18:35 AST 24 U/L (13-39) 10/28/22 18:35 ALT 25 U/L (7-52) 10/28/22 18:35 Alkaline Phosphatase 132 U/L (34-104) H 10/28/22 18:35 Troponin I High Sens 7.4 pg/ml (0-14) 10/28/22 18:35 Total Protein 7.0 gm/dl (6.0-8.3) 10/28/22 18:35 Albumin 3.8 gm/dl (3.4-5.0) 10/28/22 18:35 Globulin 3.2 gm/dl (2.5-4.0) 10/28/22 18:35 Albumin/Globulin Ratio 1.2 (0.9-2) 10/28/22 18:35 TSH 2.469 uIu/ml (0.300-4.500) 10/28/22 18:35 Ethyl Alcohol mg/dL < 10.0 mg/dl (<10.0) 10/28/22 18:35 SARS-CoV-2, RNA, NAAT NEGATIVE (NEGATIVE) 10/28/22 20:[address] 10/28/22 18:26 CT cervical spine wo con CLINICAL HISTORY: fall TECHNIQUE: Multidetector row helical CT of the cervical spine was performed without administration of intravenous contrast. Coronal and sagittal reformations were obtained. Automated dose lowering techniques and/or adjustment according to patient size were utilized for this exam. Comparison: None available at the time of this dictation. FINDINGS: No acute fractures or subluxations are identified. Degenerative changes are seen in the visualized spine. 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 The alignment is normal. Subcentimeter thyroid nodules are seen which do not require follow-up by ACR criteria. IMPRESSION: Degenerative changes without evidence of acute bony injury. ACT 112: Negative or not required by law. Electronically signed by: Gilberto Rodriguez M.D. 10/28/2022 7:[address] 10/28/22 18:26 CT head/brain wo con CLINICAL HISTORY: fall, hit posterior head Technique: Contiguous axial CT images of the head were acquired from the base of the skull to the vertex without intravenous contrast administration. Images were viewed in brain, subdural and bone windows. Automated dose lowering techniques and/or adjustment according to patient size were utilized for this exam. Comparison: Comparison is made to CT head 10/07/2022 Findings: Areas of decreased attenuation are present in the periventricular and subcortical white matter bilaterally consistent with small vessel ischemic disease. Generalized cerebral atrophy with commensurate enlargement of the ventricles, sulci, and cisterns is also present. There is no acute intracranial hemorrhage or evidence of acute territorial infarction. No shift of the midline structures, mass effect, or extra-axial abnormalities are shown. Atherosclerotic calcifications are present in the intracranial segments of the internal carotid arteries. Imaged portions of the paranasal sinuses and mastoid air cells are clear. The orbits appear normal. There are no acute fractures of the calvaria. Scalp swelling is seen in the midline occipital soft tissues. Impression: No acute intracranial hemorrhage, no evidence of acute territorial infarction or other acute intracranial disease process. ACT 112: Negative or not required by law. Electronically signed by: Gilberto Rodriguez M.D. 10/28/2022 7:41 PM Chest X-Ray 10/28/22 18:31 XR chest 1V portable CLINICAL HISTORY: fall TECHNIQUE: Single frontal radiograph of the chest was obtained. Comparison: Comparison is made to chest radiograph 10/07/2022 FINDINGS: No lines and tubes are seen. Calcified aortic knob is seen. The lungs are clear. No evidence of pleural effusion or pneumothorax. IMPRESSION: No acute chest disease. ACT 112: Negative or not required by law. Electronically signed by: Gilberto Rodriguez M.D. 10/28/2022 7:13 PM Code Status & VTE Plan Code Status Full code VTE Prophylaxis Plan VTE Prophylaxis will be ordered: Yes PG Care Time/CCT Total # of Minutes Spent Total Time Spent with Patient: Total time spent is greater than 50% in coordination of care (as documented) at patient's floor/unit and/or counseling patient: Coding Level of Care Code 93017 INT INP/OBS CARE MIN Diagnoses Hyperglycemia R73.9 Alcoholism F10.20 Hematoma of occipital region of scalp S00.03XA CHI (closed head injury) S09.90XA Encounter type: initial encounter Fall W19.XXXA Encounter type: initial encounter (HFpEF) heart failure with preserved ejection fraction I50.30 Atrial fibrillation with RVR I48.91 Hyperlipidemia E78.5 Hypertension I10 Depression F32.9 Diabetic retinopathy E11.319 Diabetic polyneuropathy associated with type 1 diabetes mellitus E10.42 Diabetes mellitus treated with insulin E11.9; Z79.4 (4) CHI (closed head injury) Encounter type: initial encounter Qualified Code(s): S09.90XA - Unspecified injury of head, initial encounter (5) Fall Encounter type: initial encounter Qualified Code(s): W19.XXXA - Unspecified fall, initial encounter
[2022-10-28] MEDS ORDERED: GLUCAGON FOR INJ 1 MG VIAL SQ PRN (22:23)
[2022-10-28] MEDS ORDERED: CARBOHYDRATES FOR HYPOGLYCEMIA PO PRN (22:23)
[2022-10-28] MEDS ORDERED: GLUCOSE 40% GEL 15 GM TUBE PO PRN (22:23)
[2022-10-28] MEDS ORDERED: NSS + 20MEQ KCL 20 MEQ/1,000 ML BAG IV SCH (22:23)
[2022-10-28] MEDS ORDERED: ONDANSETRON INJ 2 MG/ML 2 ML VIAL IV PRN (22:23)
[2022-10-28] MEDS ORDERED: DEXTROSE 50% 50 ML SYRINGE IV PRN (22:23)
[2022-10-28] MEDS ORDERED: GLUCOSE 10 TAB/TUBE PO PRN (22:23)
[2022-10-28 23:08] LABS: Magnesium 1.6 mg/dl (1.7-2.4)
[2022-10-29] MEDS: ACETAMINOPHEN 325 MG TAB PO PRN ×2 (00:02→21:04)
[2022-10-29 03:16] LABS: Albumin Level 3.5 gm/dl (3.4-5.0); BUN Creatinine Ratio 24.5 (10-20); Calcium 8.7 mg/dl (8.6-10.3); Creatinine Clr Calc Pharmacy 52.5 ml/min; Est GFR (African American) 68.3 ml/min; Est GFR (Non-African American) 58.9 ml/min; Magnesium 1.8 mg/dl (1.7-2.4); Phosphorus 3.8 mg/dl (2.5-4.9); Potassium 3.7 mmol/L (3.5-5.1)
[2022-10-29] MEDS ORDERED: PHARMACY GLYCEMIC MGMT CONSULT PRN (05:19)
[2022-10-29] MEDS ORDERED: LANTUS PER UNIT CHARGE SC ONE (05:30)
[2022-10-29 07:08] LABS: Basophils # (auto) 0.05 K/uL (0-0.2); Basophils % (auto) 0.7 %; Eosinophils # (auto) 0.17 K/uL (0-0.50); Eosinophils % (auto) 2.5 %; Hematocrit (blood only) 35.5 % (37.0-47.0); Hemoglobin 11.6 g/dl (12.0-16.0); Immature Granulocytes # (auto) 0.01 K/uL (0.01-0.20); Immature Granulocytes % (auto) 0.1 %; Lymphocytes # (auto) 2.83 K/uL (1.2-3.4); Lymphocytes % (auto) 41.4 %; Mean Corpuscular Hemoglobin 27.5 pg (25.0-34.0); Mean Corpuscular Hgb Conc 32.7 g/dL (32.0-36.0); Mean Corpuscular Volume 84.1 fL (80.0-100.0); Mean Platelet Volume 10.8 fL (9.4-12.4); Monocytes # (auto) 0.53 K/uL (0.11-0.59); Monocytes % (auto) 7.7 %; Neutrophils # (auto) 3.25 K/uL (1.40-6.50); Neutrophils % (auto) 47.6 %; Platelet Count 310 K/uL (130-400); RDW Coefficient of Variation 14.1 % (11.5-14.5); RDW Standard Deviation 42.9 fL (36.4-46.3); Red Blood Count 4.22 M/uL (4.20-5.40); White Blood Count 6.84 K/ul (4.8-10.8)
[2022-10-29 07:27] LABS: Albumin Globulin Ratio 1.3 (0.9-2); Albumin Level 3.5 gm/dl (3.4-5.0); Bilirubin,Total 0.5 mg/dl (0.2-1.0); Calcium 8.8 mg/dl (8.6-10.3); Creatinine Clr Calc Pharmacy 57.2 ml/min; Est GFR (Non-African American) 64.7 ml/min; Globulin 2.8 gm/dl (2.5-4.0); Magnesium 1.7 mg/dl (1.7-2.4); Potassium 3.8 mmol/L (3.5-5.1); Total Protein 6.3 gm/dl (6.0-8.3)
[2022-10-29] MEDS: AMIODARONE 200 MG TAB PO SCH ×2 (08:39→16:47)
[2022-10-29] MEDS: ATORVASTATIN 20 MG TAB PO SCH (08:39)
[2022-10-29] MEDS: METOPROLOL SUCC 50MG EXT REL TAB PO SCH (08:39)
[2022-10-29] MEDS: VENLAFAXINE HCL XR 150 MG CAPXR PO SCH (08:40)
[2022-10-29] MEDS: INSULIN ASPART PER UNIT CHARGE SC SCH ×4 (08:43→19:58)
[2022-10-29] MEDS: PANTOprazole 40 MG TAB PO SCH (08:44)
[2022-10-29] MEDS ORDERED: VENLAFAXINE HCL XR 37.5 MG CAPXR PO SCH (09:00)
[2022-10-29 09:57] LABS: Estimated Average Glucose 258 mg/dl; Hemoglobin A1C 10.6 % (4.5-5.6)
--- NOTE | 2022-10-29 10:25 | Pharmacy Report ---
Pharmacy Glycemic Short Note 2 - Date of Service October 29, 2022 - Glycemic Short BSG Results (Last 24 hours): 10/28/22 10/28/22 10/28/22 18:28 18:35 21:38 Glucose 767 H* POC Glucose > 600 H* 325 H* 10/28/22 10/28/22 10/29/22 22:36 23:32 00:32 Glucose POC Glucose 212 H 180 H 121 H 10/29/22 10/29/22 10/29/22 01:31 02:20 02:30 Glucose 132 H POC Glucose 142 H 120 H 10/29/22 10/29/22 10/29/22 03:34 04:37 05:31 Glucose POC Glucose 109 H 98 96 10/29/22 10/29/22 06:36 07:26 Glucose 106 H POC Glucose 118 H OUTPATIENT ANTIDIABETIC REGIMEN: * Lantus 18-22 units Qpm, Novolog SSI * A1c 10.6% on admission ASSESSMENT: * 77 year old with PMHx including alcoholism, HF, afib, depression, diabetic polyneuropathy, syncope. Presented to ER after fall and for hyperglycemia. Patient is a type 1 diabetic. Per notes, it is unclear if she took any long acting insulin yesterday * BSGs elevated on arrival, started on insulin drip - transitioned off insulin drip and given 10 units of basal insulin this AM. Per previous admissions, patients BSGs very labile and requiring anywhere from 10-20 units of basal daily * Plan to have scale for basal insulin at HS PLAN FOR INPATIENT GLYCEMIC CONTROL: * Hold outpatient oral diabetes medications * Basal insulin * Lantus 10 units Qa * Lantus 0-5 units HS * Bolus insulin * NovoLog per scale ACHS or Q6hrs while NPO * Goal Range: Low 110 mg/dL - High 140 mg/dL * Correction Factor: 30 mg/dL/unit * Nutritional / Prandial insulin per carb ratio of 1 unit per 10 grams CHO consumed
--- NOTE | 2022-10-29 14:28 | Hospitalist Progress Note ---
Date of Service October 29, 2022 Assessment & Plan (1) Hyperglycemia: Plan: With blood sugar in the 700s on admission, decreased down into the 1002 100s today first with insulin drip, transitioned to basal/bolus insulin. Glycemic pharmacy consult appreciated as we try to determine best course of action for insulins for home, whether that be return to previous dosing with strict adherence and close follow-up versus dosing changes. Question if patient has element of both type I and type 2 diabetes (insulin resistance as well) and question if metformin would be of benefit to the patient, but would defer to the primary diabetes provider. Patient reports frequent noncompliance with her medications for all of her medical conditions, including diabetes, and ideally patient should have assistance in managing all of her medications, though in speaking with her today while he is the one who cooks everything and tries very hard to maintain a diabetic friendly diet, he was overall very frustrated about her hyperglycemia and did not feel that he had any role in it. (2) Diabetes mellitus treated with insulin: Plan: See above. (3) Alcoholism: Plan: Has a history of such, does not appear to be in active withdrawal, continue to monitor. Alcohol use certainly could be contributing to hyperglycemia given carbohydrates and alcohol. This could also contribute to patient's unsteady gait, though the fall this admission was due to a mechanical trip over a vacuum as opposed to a limb weakness. (4) CHI (closed head injury): Plan: Secondary to fall prior to this admission. CT head without any acute intracranial abnormalities or bleeding. (5) Fall: Plan: Patient with a history of multiple falls in the recent past, and has been recommended for rehab on previous admissions due to unsteady gait. Physical and Occupational Therapy consulted to evaluate patient, recommending rehab for several reasons including noncompliance with walker at home, risk for falls including heavy alcohol use, uncontrolled diabetes and neuropathy, noncompliance with recommendations for assistive devices, noncompliance with medications, forgetfulness, physical deconditioning, and history of multiple recent falls. Unfortunately, do not feel that the patient will agree to this option, however will discuss with her in the morning as physical therapy evaluation was performed after this providers evaluation of the patient. If patient returns home, she will need continued home health nursing and physical therapy services and should use a walker at all times. (6) (HFpEF) heart failure with preserved ejection fraction: Plan: History of, not on diuretics at baseline and does not appear to be in heart failure exacerbation at this time. (7) Atrial fibrillation with RVR: Plan: History of, on amiodarone, metoprolol, Xarelto. Continue these. (8) Hyperlipidemia: Plan: Continue atorvastatin. (9) Hypertension: Plan: Continue metoprolol. Patient's blood pressure 118/73, no indication for further medications at this time. (10) Depression: Plan: History of, continue venlafaxine. Unclear how much this contributes to her noncompliance with her medications, walker, alcohol use. Recommend follow-up with primary care provider. No indication for inpatient psychiatric evaluation. Admission and Anticipated Discharge Date Admission Date: October 28, 2022 Subjective Patient without any acute events overnight. She reports that she has a "bad diabetic", has a lot of difficulty with keeping her blood sugars in good range. Was recently admitted a few weeks ago and noted to have blood sugars in the 400s at that time, however they did decrease appropriately with insulins. Patient and both are frustrated about hyperglycemia and feel powerless regarding what to do. Mikala herself wants to meet with a dietitian to go over dietary strategies for diabetes. Patient's reports that she has a "caustic relationship" with her diabetes provider, and does not follow-up with her as often as is recommended. Review of Systems Review of Systems: All systems reviewed & are unremarkable except as noted in Subjective Physical Exam Constitutional: WD/WN, vitals as above Respiratory: normal respiratory effort, lungs clear to auscultation Cardiovascular: RRR, no murmur, no edema Gastrointestinal (Abdomen): normal bowel sounds, soft, nontender, no hepatosplenomegaly Skin: no rashes, warm and dry Psychiatric: A+Ox3, euthymic affect Results & Data Results & Data Vital Signs (Past 12 Hours) Vital Signs Temp Pulse Pulse Resp BP Pulse Ox O2 Del Method 10/29/22 12:04 36.9 C 76 18 118/64 96 Room Air 10/29/22 09:49 58 L 10/29/22 08:14 37.0 C 62 18 122/65 96 Room Air 10/29/22 03:36 36.6 C 57 L 16 106/66 94 Room Air PG Care Time/CCT Total # of Minutes Spent Total Time Spent with Patient: Total time spent is greater than 50% in coordination of care (as documented) at patient's floor/unit and/or counseling patient: Coding Level of Care Code 95537 SUB INP/OBS CARE 235MIN Diagnoses Hyperglycemia R73.9 Diabetes mellitus treated with insulin E11.9; Z79.4 Alcoholism F10.20 CHI (closed head injury) S09.90XA Encounter type: initial encounter Fall W19.XXXA Encounter type: initial encounter (HFpEF) heart failure with preserved ejection fraction I50.30 Atrial fibrillation with RVR I48.91 Hyperlipidemia E78.5 Hypertension I10 Depression F32.9 (4) CHI (closed head injury) Encounter type: initial encounter Qualified Code(s): S09.90XA - Unspecified injury of head, initial encounter (5) Fall Encounter type: initial encounter Qualified Code(s): W19.XXXA - Unspecified fall, initial encounter
[2022-10-29] MEDS ORDERED: RIVAROXABAN 20 MG TAB PO SCH (16:30)
[2022-10-29] MEDS ORDERED: LANTUS PER UNIT CHARGE SC SCH (21:00)
--- NOTE | 2022-10-29 23:19 | Electrocardiogram Report ---
Test Reason : Blood Pressure : / mmHG Vent. Rate : 071 BPM Atrial Rate : 071 BPM P-R Int : 190 ms QRS Dur : 150 ms QT Int : 442 ms P-R-T Axes : 048 -54 085 degrees QTc Int : 480 ms Normal sinus rhythm Left axis deviation Left bundle branch block Minimal voltage criteria for LVH, may be normal variant Abnormal ECG When compared with ECG of 07-OCT-2022 21:19, No significant change Confirmed by Stephen Brantley ([id number]) on 10/29/2022 11:19:03 PM Referred By: REFERRED SELF Confirmed By:Stephen Brantley
[2022-10-30 06:52] LABS: Basophils # (auto) 0.06 K/uL (0-0.2); Basophils % (auto) 0.8 %; Eosinophils # (auto) 0.16 K/uL (0-0.50); Eosinophils % (auto) 2.3 %; Hematocrit (blood only) 37.4 % (37.0-47.0); Hemoglobin 12.4 g/dl (12.0-16.0); Immature Granulocytes # (auto) 0.02 K/uL (0.01-0.20); Immature Granulocytes % (auto) 0.3 %; Lymphocytes # (auto) 2.79 K/uL (1.2-3.4); Lymphocytes % (auto) 39.4 %; Mean Corpuscular Hgb Conc 33.2 g/dL (32.0-36.0); Mean Corpuscular Volume 84.4 fL (80.0-100.0); Mean Platelet Volume 10.6 fL (9.4-12.4); Monocytes # (auto) 0.47 K/uL (0.11-0.59); Monocytes % (auto) 6.6 %; Neutrophils # (auto) 3.59 K/uL (1.40-6.50); Neutrophils % (auto) 50.6 %; Platelet Count 304 K/uL (130-400); RDW Coefficient of Variation 14.2 % (11.5-14.5); RDW Standard Deviation 43.7 fL (36.4-46.3); Red Blood Count 4.43 M/uL (4.20-5.40); White Blood Count 7.09 K/ul (4.8-10.8)
[2022-10-30] MEDS ORDERED: LANTUS PER UNIT CHARGE SC SCH ×2 (08:00→21:00)
[2022-10-30 08:11] LABS: Albumin Level 3.5 gm/dl (3.4-5.0); Bilirubin,Total 0.4 mg/dl (0.2-1.0); Calcium 8.9 mg/dl (8.6-10.3); Magnesium 1.8 mg/dl (1.7-2.4); Potassium 4.7 mmol/L (3.5-5.1)
[2022-10-30] MEDS: INSULIN ASPART PER UNIT CHARGE SC SCH ×2 (08:19→12:08)
[2022-10-30 08:21] LABS: Albumin Globulin Ratio 1.3 (0.9-2); BUN Creatinine Ratio 16.2 (10-20); Creatinine Clr Calc Pharmacy 50.2 ml/min; Est GFR (African American) 64.2 ml/min; Est GFR (Non-African American) 55.4 ml/min; Globulin 2.8 gm/dl (2.5-4.0); Total Protein 6.3 gm/dl (6.0-8.3)
[2022-10-30] MEDS: AMIODARONE 200 MG TAB PO SCH (08:28)
[2022-10-30] MEDS: PANTOprazole 40 MG TAB PO SCH (08:29)
[2022-10-30] MEDS: VENLAFAXINE HCL XR 150 MG CAPXR PO SCH (08:29)
[2022-10-30] MEDS: METOPROLOL SUCC 50MG EXT REL TAB PO SCH (08:29)
[2022-10-30] MEDS: ATORVASTATIN 20 MG TAB PO SCH (08:29)
--- NOTE | 2022-10-30 11:41 | Pharmacy Report ---
Pharmacy Glycemic Short Note 2 - Date of Service October 30, 2022 - Glycemic Short BSG Results (Last 24 hours): 10/29/22 10/29/22 10/30/22 16:21 19:48 06:31 Glucose 316 H* POC Glucose 99 191 H 10/30/22 10/30/22 10/30/22 07:25 07:26 11:12 Glucose POC Glucose 319 H* 312 H* 272 H OUTPATIENT ANTIDIABETIC REGIMEN: * Lantus 18-22 units Qpm, Novolog SSI * A1c 10.6% on admission ASSESSMENT: 10/30: * Patient received total of 36 units of insulin yesterday; 15 units basal and 21 units bolus. * BSGs yesterday [phone] mg/dl. * Fasting BSG today was was 319 mg/dl. BSG elevated this morning because she is basal deficient. The 10 units of basal she received yesterday morning had worn off. 15 units basal given this AM. * Pre-lunch BSG trended down to 272 mg/dl. 10/29/22: * 77 year old with PMHx including alcoholism, HF, afib, depression, diabetic polyneuropathy, syncope. Presented to ER after fall and for hyperglycemia. Patient is a type 1 diabetic. Per notes, it is unclear if she took any long acting insulin yesterday * BSGs elevated on arrival, started on insulin drip - transitioned off insulin drip and given 10 units of basal insulin this AM. Per previous admissions, patients BSGs very labile and requiring anywhere from 10-20 units of basal daily * Plan to have scale for basal insulin at HS PLAN FOR INPATIENT GLYCEMIC CONTROL: * Hold outpatient oral diabetes medications * Basal insulin * Lantus 15 units today AM * Lantus 10-15 units [facility] based on BSG (10 units if BSG less than 200 mg/dl, 15 units if BSG 200 or greater) * Bolus insulin * NovoLog per scale ACHS or Q6hrs while NPO * Goal Range: Low 110 mg/dL - High 140 mg/dL * Correction Factor: 30 mg/dL/unit * Nutritional / Prandial insulin per carb ratio of 1 unit per 10 grams CHO consumed
--- NOTE | 2022-10-30 12:25 | Discharge Summary ---
Discharge Summary Date of Service October 30, 2022 Admission Exam Per Admitting Provider The patient is awake, alert and oriented 3, well developed and well nourished. She has a small bump on the back of her head, where there is a previous laceration repair, with no active bleeding. HEENT--PERRL, EOMI, mucous membranes and oropharynx dry. Neck--supple. No JVD. No bruits. Thyroid normal, trachea midline, no adenopathy. Heart--normal S1 and S2. No murmurs, rubs or gallops. Lungs--clear bilaterally, no respiratory distress, no accessory muscle use. Abdomen--normal bowel sounds and soft. Nontender. Nondistended, no hernias or masses, no organomegaly. Extremities--no cyanosis or clubbing. No edema. There are good distal pulses b/l. Dermatologic--normal skin turgor, normal color, no abnormal lymph nodes, no rash. Neurologic--cranial nerves II through XII grossly intact. Rheumatologic--normal range of motion. Psychiatric--normal affect. Principal Dx & Hospital Course #1 = Principal Diagnosis (1) Hyperglycemia: With blood sugar in the 700s on admission, decreased down into the [id number] first with insulin drip, transitioned to basal/bolus insulin. Glycemic pharmacy consult appreciated as we try to determine best course of action for insulins for home, ultimately will return to home regimen with recommendations for strict adherence. Question if patient has element of both type I and type 2 diabetes (insulin resistance as well) and question if metformin would be of benefit to the patient, but would defer to the primary diabetes provider. Patient reports frequent noncompliance with her medications for all of her medical conditions, including diabetes, and ideally patient should have assistance in managing all of her medications, though in speaking with her yesterday while he is the one who cooks everything and tries very hard to maintain a diabetic friendly diet, he was overall very frustrated about her hyperglycemia and did not feel that he had any role in it. Recommended close follow-up with patient's endocrinology provider Baylee Flores for further recommendations. (2) Fall: Patient with a history of multiple falls in the recent past, and has been recommended for rehab on previous admissions due to unsteady gait. Physical and Occupational Therapy consulted to evaluate patient, recommended rehab for several reasons including noncompliance with walker at home, risk for falls including heavy alcohol use, uncontrolled diabetes and neuropathy, noncompliance with recommendations for assistive devices, noncompliance with medications, forgetfulness, physical deconditioning, and history of multiple recent falls. Unfortunately, patient declines this option in favor of home with home health. Advised her that we are here if she were to have further decline in her walking. (3) Ambulatory dysfunction: See above. (4) Diabetes mellitus treated with insulin: See above. (5) Alcoholism: Has a history of such, no evidence of active withdrawal this admission. Alcohol use certainly could be contributing to hyperglycemia given carbohydrates. This could also contribute to patient's unsteady gait, though the fall this admission was due to a mechanical trip over a vacuum as opposed to a limb weakness. (6) CHI (closed head injury): Secondary to fall prior to this admission. CT head without any acute intracranial abnormalities or bleeding. (7) (HFpEF) heart failure with preserved ejection fraction: History of, not on diuretics at baseline and does not appear to be in heart failure exacerbation at this time. (8) Atrial fibrillation with RVR: History of, on amiodarone, metoprolol, Xarelto. Continue these. (9) Hyperlipidemia: Continue atorvastatin. (10) Hypertension: Continue metoprolol. Patient's blood pressure 110s systolic, no indication for further medications at this time. (11) Depression: History of, continue venlafaxine. Unclear how much this contributes to her noncompliance with her medications, walker, alcohol use. Recommend follow-up with primary care provider. No indication for inpatient psychiatric evaluation. Discharge Exam Constitutional WD/WN, vitals as above Psychiatric A+Ox3, euthymic affect Updated Medication List Medication Instructions Recorded Confirmed Type calcium carbonate 500 mg-vitamin 1 tab PO BID 05/24/18 10/28/22 History D3 5 mcg (200 unit) tablet (Calcium 500 + D) krill 1,000 mg-omega-3 170 mg-dha 1 cap PO QAM 05/24/18 10/28/22 History 50 mg-epa 80 [id number] capsule (krill oil) multivitamin 1 tab PO QAM 02/09/19 10/28/22 History lancets 33 gauge (OneTouch Delica #100 ea 02/22/19 10/23/22 History Plus Lancet) Dexcom G6 Senior Business Process Analyst (blood-glucose #1 ea 04/04/19 10/23/22 Rx meter,continuous) Dexcom G6 Sensor (blood-glucose #9 ea 04/04/19 10/23/22 Rx sensor) Dexcom G6 Transmitter #1 ea 04/04/19 10/23/22 Rx (blood-glucose transmitter) blood sugar diagnostic (OneTouch #10 ea 09/12/20 10/23/22 History Ultra Blue Test Strip) atorvastatin 20 mg tablet 20 mg PO PM #90 tabs 03/27/22 10/28/22 Rx acetaminophen 325 mg tablet 650 mg PO Q4H PRN pain #0 tabs 04/06/22 10/28/22 Rx metoprolol succinate 50 mg 50 mg PO DAILY #90 tabs 05/01/22 10/28/22 Rx tablet,extended release 24 hr pen needle, diabetic 32 gauge x #150 ea 05/23/22 10/23/22 Rx 5/32" (BD Missy 2nd Gen Pen Needle) venlafaxine 150 mg 150 mg PO QAM #90 caps 07/09/22 10/28/22 Rx capsule,extended release 24 hr insulin aspart U-100 100 unit/mL 1 sliding scale dose subcut WM #15 07/11/22 10/28/22 Rx (3 mL) subcutaneous pen (Novolog mL FlexPen U-100 Insulin aspart) insulin glargine 100 unit/mL (3 See Rx Instructions subcut PM #15 07/11/22 10/28/22 Rx mL) subcutaneous pen (Basaglar mL KwikPen U-100 Insulin) rivaroxaban 20 mg tablet (Xarelto) 20 mg PO DAILY #30 tabs 08/27/22 10/28/22 Rx omeprazole 20 mg tablet,delayed 20 mg PO BID 09/27/22 10/28/22 History release amiodarone 200 mg tablet 200 mg PO BID #60 tabs 10/02/22 10/28/22 Rx furosemide 40 mg tablet (Lasix) 40 mg PO DAILY #30 tabs 10/23/22 10/28/22 Rx hydrocortisone 2.5 % topical cream 1 applic topical DAILY PRN as 10/23/22 10/28/22 History directed potassium chloride 10 mEq 10 meq PO DAILY #90 tabs 10/27/22 10/28/22 Rx tablet,extended release Hospital Stay Data Consultations 10/28/22 20:04 ED Decision to Admit Stat Diagnostic Imagining Performed 10/28/22 18:26 CT cervical spine wo con Stat CT head/brain wo con Stat Pending Results Patient Have Any Pending Studies at Discharge: No Discharge Instructions Given to Patient (Per Discharging Provider) You were admitted to the hospital for ongoing evaluation of a fall and high blood sugars. We did a CT of your head to make sure you did not have any bleeding, which you did not. Your blood sugar was as high as 750, and your A1c was 10.6%. This suggests that your blood sugars are very high a lot of the time at home. We will set you up for an appointment with the Diabetes doctors; you will get a phone call from their office to confirm the appointment time. It is also important that you follow up with a nut tightener about diabetes friendly foods at home. Long story short, it is important that you closely monitor the following foods/drinks in your diet: Pasta Bread Rice Potatoes Cookies Cakes Full sugar drinks like tea and soda Alcoholic beverages It is most important that you adhere to the insulin doses recommended by your Diabetes doctor, and not miss basal or meal time doses. Keep close follow up with their office to get your sugars under control. Missing doses of insulin causes high sugars. High blood sugars are a big problem over time. This means that with A1c higher than 8%, and blood sugars over 200, you will have permanent damage to the vessels in your eyes, feet, kidneys, and heart. The faster you can get your blood sugars under control at home, the less damage is done to your eyesight, kidneys, heart, and feet. We recommend that you continue home therapy, and if you are concerned about your balance or steadiness on your feet, or having frequent falls, that you get evaluated by a doctor to see if you need dedicated rehab to get stronger to be safe at home. Our physical therapists recommended that you go to a skilled rehab facility on discharge, but we respect your decision to return home. If you have any further falls, chest pain, or trouble breathing, or are otherwise concerned about your medical health, please seek urgent medical attention. Total Time Total Time Spent Total Time Spent (In Minutes): 40 minutes Coding Level of Care Code 72957 INP/OBS DISCH >30 MIN Diagnoses Hyperglycemia R73.9 Fall W19.XXXA Encounter type: initial encounter Ambulatory dysfunction R26.2 Diabetes mellitus treated with insulin E11.9; Z79.4 Alcoholism F10.20 CHI (closed head injury) S09.90XA Encounter type: initial encounter (HFpEF) heart failure with preserved ejection fraction I50.30 Atrial fibrillation with RVR I48.91 Hyperlipidemia E78.5 Hypertension I10 Depression F32.9
--- NOTE | 2022-10-30 12:41 | Communication Note ---
Date of Service: October 30, 2022 By CMS guidelines, a determination that the admission or continued stay is not medically necessary has been made by a member of the UR committee and a physic eduardo for this hospital stay, therefore a Code 44 will be completed and the Inpatient admission will be changed to outpatient. Levy Armendariz MD Member, Utilization Review Committee
--- NOTE | 2022-10-30 22:53 | Electrocardiogram Report ---
Test Reason : Blood Pressure : / mmHG Vent. Rate : 089 BPM Atrial Rate : 375 BPM P-R Int : 000 ms QRS Dur : 146 ms QT Int : 404 ms P-R-T Axes : 000 -55 096 degrees QTc Int : 491 ms Atrial fibrillation Left axis deviation Left bundle branch block Abnormal ECG When compared with ECG of 28-OCT-2022 19:01, Atrial fibrillation has replaced Sinus rhythm Confirmed by Stephen Brantley ([id number]) on 10/30/2022 10:53:25 PM Referred By: REFERRED SELF Confirmed By:Stephen Brantley
[2022-10-31] MEDS ORDERED: INSULIN ASPART PER UNIT CHARGE SC SCH
== END 2022-10-30 14:48 | disposition home health service (06) | DRG 638 ==
LOC: 2S 17:52 → ED 17:52 → SUATTDRO 21:13 → 2S 21:55 → SUATTDRO 10-29 16:53

== ENCOUNTER 2024-06-27 10:36 | Inpatient (IN) ==
--- NOTE | 2024-06-27 11:18 | Emergency Department Note ---
Impression & Plan Metatarsal fracture, Ambulatory dysfunction, Hyperglycemia due to type 1 diabetes mellitus ED Provider Note Provider: Kaveh Singer MD CHIEF COMPLAINT: Unable to get around due to broken foot, high blood sugars HISTORY OF PRESENT ILLNESS: Patient is a 78-year-old female history of type 1 diabetes, atrial fibrillation, and recent evaluation here this morning with findings of a left fifth metatarsal fracture after twisting her foot and ankle this morning. Patient was sent home in a splint with hopes to get a wheelchair. Patient was unable to get out of the car at home and due to pain is unavailable ambulate significantly. Patient has not eaten this morning but notes that her blood sugar monitor is reading high. States she had insulin maybe early this morning or come to the hospital and then around 9 PM last night. Denies any other falls. Denies any new head pain or chest pain. Did have some Tylenol here for foot but it hurts. States when she tried to get out of the car seat up a little bit of weight on her left foot in splint. No other falls again. PAST MEDICAL HISTORY: As noted above MEDICATIONS: Reviewed home medications SOCIAL HISTORY: PHYSICAL EXAM: GENERAL: alert and oriented being assisted from wheelchair to stretcher moaning some with pain. Head: normocephalic and atraumatic EYES: No injection, discharge or icterus. EOMI. NECK: Trachea midline. ENT: Mucous membranes pink and moist. LUNGS: Airway patent. No retractions. Breath sounds clear with good air entry bilaterally. HEART: Regular rate and rhythm. No chest wall tenderness ABDOMEN: Soft and non-tender, without guarding or rebound. SKIN: Acyanotic, warm, dry, without rashes EXTREMITIES: Without swelling, tenderness or deformity with the left lower extremity in a splint. The bottom of the splint has a little bit of dirt on it but does not appear grossly displaced. Slight tenderness of the left lateral foot. NEUROLOGICAL: No focal deficits. No aphasia. No facial droop or slurred speech. Normal strength and tone in the extremities. Sensation to gross touch normal. Patient's laboratory studies and imaging reviewed. Differential includes Fracture, subluxation, dislocation, contusion, ligamentous injury, neurovascular, compartment syndrome, rhabdomyolysis, intracranial bleed, sepsis, as well as other pathologies. IMPRESSION/MEDICAL DECISION MAKING: Patient seen earlier diagnosis left metatarsal fracture. Will repeat x-rays that she did but little bit of weight on the splint although the splints a little bit dirty and the bottom does appear grossly intact without significant signs of trauma here. Denies pain other than her foot. Given a small and fentanyl for pain. Given some hydration as she has not had anything to eat or drink today and her blood sugars elevated. Labs checked without evidence of significant acidosis and bicarb does not significantly depressed. I doubt DKA. Was given a IV dose of insulin for better glycemic control to prevent shift into DKA as she has a CGM but no insulin pump. Basic blood work here otherwise without significant leukocytosis or anemia. No significant acute renal dysfunction or signs of transaminitis. Some very slight pseudohyponatremia of 131's noted. Repeat foot x-ray per radiology without significant displacement of fracture or other new fracture noted. Given her difficulty caring for herself at home even with 's assistance and inability to even get out of the car earlier, discussed with case management options for possible rehab placement at [facility] versus possible admission if there is no beds or availability there at this time. Patient's pain is improved some with the fentanyl. Blood sugar monitored here while bed search at [facility] obtained. After 8 units of IV insulin and half a liter of normal saline, patient's blood sugar dropped to 354. Again not consistent with DKA. Case management did reach out and in discussion with [facility] was unfortunately not having any available beds at this time. She is unable to care for self at home with her foot injury and splint even with the assistance of her , discussed with the hospitalist team further care here until further placement or assistance at home could be established. DIAGNOSIS: Left 5th metatarsal fracture, ambulatory dysfunction DISPOSITION: Being evaluated by hospitalist Patient was agreeable with this plan. Past Med/Surg History Problem List (Updated 06/27/24 @ 13:52 by Kaveh Singer M.D.) Hyperglycemia due to type 1 diabetes mellitus (Acute) Ambulatory dysfunction (Acute) Metatarsal fracture (Acute ~06/27/24) Non-displaced fracture base of the left 5th metatarsal Metatarsal fracture (Acute 06/27/24) Non-displaced fracture base of the left 5th metatarsal happened while trying to put on a boot per the ED report Incontinence (Acute) Thyroid nodule Abnormal imaging of thyroid right thyroid lobe hypodensity on [facility] CT scan Skin pruritus Elevated TSH Physical deconditioning (HFpEF) heart failure with preserved ejection fraction Weakness (Acute) Paroxysmal A-fib (Acute 03/2022) Uncontrolled type 1 diabetes mellitus with complication, with long-term current use of insulin Diabetic polyneuropathy associated with type 1 diabetes mellitus Sensory ataxia Alcoholism pt reports is improving on this, few drinks of vodka weekly, no longer every day Left bundle branch block Proliferative diabetic retinopathy associated with type 1 diabetes mellitus Urinary incontinence Depression Hypertension Lumbar stenosis with neurogenic claudication Chronic low back pain (Acute) Medical History Subdural hematoma (03/2024) Current use of longterm anticoagulation DM type 1 (diabetes mellitus, type 1) HLD (hyperlipidemia) Left bundle branch block (LBBB) History of cardioversion Migraines Gastroesophageal reflux disease Gastroparesis Osteopenia Venous insufficiency Vitamin D deficiency History of colon polyps Spinal stenosis Anxiety Surgical History History of open reduction and internal fixation (ORIF) procedure History of right breast biopsy History of open reduction and internal fixation (ORIF) procedure History of bilateral carpal tunnel release History of lumbar fusion History of colonoscopy History of tooth extraction History of bilateral cataract extraction Family History Grandmother (Maternal) Family history of diabetes mellitus Diabetes Uncle Family history of diabetes mellitus Grandmother (Paternal) Breast cancer Mother Myocardial infarction Scleroderma Father Myocardial infarction Denies family history of Ovarian cancer Prostate cancer Colorectal cancer Social History Smoking Status: Never smoker Tobacco Type: Cigarettes Age Started Using Tobacco: 21; Age Quit Using Tobacco: 28; packs per day: 1; Second Hand Exposure: No; Do You Dip or Chew Tobacco: No; Hx Alcohol Use: Yes Alcohol type: hard liquor Alcohol Intake Frequency: 4 or More x per/Week Alcohol Intake Frequency Comment: 1-2 drinks of vodka per night Hx Substance Use: No Preferred Language: Syrian Communication Ability: Effective Visual Impairment: Partially Limited Hearing Ability: Hard of Hearing Accelerator Operator Required: No Beliefs That Will Affect Care: None marital status: Current Living Situation: Spouse Current Living Situation Comment: current occupational status: retired 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 How many Children do You have: 1 Feels Safe at Home: Yes Childhood Exposure to Second-Hand Smoke: Yes Diet: regular Diet Comment: regular caffeine: No during the past year weight has: increased > 10 lbs Dental Care, Regularly: Yes Physical Activity Frequency: Does not Exercise Seatbelt Use: always Sunscreen Use: No Assistive Devices: Cane, Glasses and Walker Allergies Allergies Allergy/AdvReac Type Severity Reaction Status Date / Time oxycodone Allergy Intermediate ITCHING Verified 05/13/24 13:15 Home Meds Home Medications Medication Instructions Recorded Confirmed krill 1,000 mg-omega-3 170 mg-dha 1 cap PO QAM 05/24/18 06/27/24 50 mg-epa 80 po-sbzwvf-bycgm capsule (krill oil) lancets 33 gauge (OneTouch Delica #100 ea 02/22/19 05/13/24 Plus Lancet) omeprazole 20 mg tablet,delayed 20 mg PO QAM 08/05/23 06/27/24 release insulin glargine 100 unit/mL (3 18 - 22 unit subcut PM 09/26/23 06/27/24 mL) subcutaneous pen (Basaglar KwikPen U-100 Insulin) Previous Rx's Medication Instructions Recorded pen needle, diabetic 32 gauge x #150 ea 05/23/22 5/32" (BD Missy 2nd Gen Pen Needle) Dexcom G6 Php Mysql Web Developer (blood-glucose #1 ea 11/19/22 meter,continuous) Dexcom G6 Sensor (blood-glucose #9 ea 11/19/22 sensor) Dexcom G6 Transmitter #1 11/19/22 (blood-glucose transmitter) Shower Chair #1 ea 11/20/22 cetirizine 10 mg tablet 10 mg PO DAILY PRN allergy 09/17/23 symptoms #30 tabs Admelog SoloStar U-100 Insulin 100 1 sliding scale dose subcut 10/02/23 unit/mL subcutaneous pen (insulin USEASDIRECTD #45 mL lispro) amiodarone 200 mg tablet 200 mg PO QAM #90 tabs 12/03/23 trazodone 50 mg tablet 50 mg PO PM for 12/23/23 insomnia/sleeplessness #90 tabs atorvastatin 20 mg tablet 20 mg PO PM #90 tabs 04/19/24 furosemide 40 mg tablet (Lasix) 40 mg PO QAM #90 tabs 04/20/24 venlafaxine 150 mg 150 mg PO QAM #90 caps 04/21/24 capsule,extended release 24 hr potassium chloride 10 mEq 10 meq PO QAM #90 tabs 04/25/24 tablet,extended release blood sugar diagnostic #100 ea 05/25/24 solifenacin 5 mg tablet (Vesicare) 5 mg PO QAM #90 tabs 06/13/24 Results & Data (ED) Vital Signs Vital Signs - 24 hr 06/27/24 10:55 06/27/24 11:22 06/27/24 12:58 Temperature 36.8 C Temperature Source Temporal Artery Scan Pulse Rate 67 72 Pulse Rate [Finger] 60 Pulse Strength [Finger] Respiratory Rate 18 20 Respiratory Effort / Characteristics Non-Labored Respiratory Depth Normal Respiratory Pattern Regular Blood Pressure 144/84 H Blood Pressure [Right Arm] 128/59 L Blood Pressure Mean 104 Blood Pressure Mean [Right Arm] 82 Blood Pressure Position [Right Arm] Pulse Oximetry 100 99 Oxygen Delivery Method Room Air Sepsis Recent Fever Within 48 Hours No Sepsis New/Unexplained Change in Mental Status N/A Sepsis Action Taken by Nursing No Action Required 06/27/24 13:45 Temperature Temperature Source Pulse Rate Pulse Rate [Finger] 70 Pulse Strength [Finger] Normal Respiratory Rate 16 Respiratory Effort / Characteristics Non-Labored Spontaneous Respiratory Depth Normal Respiratory Pattern Regular Blood Pressure Blood Pressure [Right Arm] 137/75 Blood Pressure Mean Blood Pressure Mean [Right Arm] 95 Blood Pressure Position [Right Arm] Lying Pulse Oximetry 92 Oxygen Delivery Method Room Air Sepsis Recent Fever Within 48 Hours Sepsis New/Unexplained Change in Mental Status Sepsis Action Taken by Nursing Laboratory Data 06/27/24 11:19 06/27/24 11:19 Lab Results 06/27/24 06/27/24 06/27/24 Range/Units 11:19 12:51 13:50 WBC 9.93 (4.8-10.8) K/ul RBC 4.51 (4.20-5.40) M/uL Hgb 12.5 (12.0-16.0) g/dl Hct 37.6 (37.0-47.0) % MCV 83.4 (80.0-100.0) fL MCH 27.7 (25.0-34.0) pg MCHC 33.2 (32.0-36.0) g/dL RDW Std Deviation 53.0 H (36.4-46.3) fL RDW Coeff of Linda 17.2 H (11.5-14.5) % Plt Count 238 (130-400) K/uL MPV 10.4 (9.4-12.4) fL Immature Gran % (Auto) 0.3 % Neut % (Auto) 72.8 % Lymph % (Auto) 16.6 % [place] % (Auto) 9.7 % Eos % (Auto) 0.2 % Baso % (Auto) 0.4 % Neut # (Auto) 7.23 H (1.40-6.50) K/uL Lymph # (Auto) 1.65 (1.20-3.40) K/uL [place] # (Auto) 0.96 H (0.11-0.59) K/uL Eos # (Auto) 0.02 (0.00-0.50) K/uL Baso # (Auto) 0.04 (0.00-0.20) K/uL Immature Gran # (Auto) 0.03 (0.01-0.20) K/uL VBG pH 7.42 H (7.36-7.41) VBG pCO2 39 (38-50) mmHg VBG pO2 30 mmHg VBG HCO3 25 mmol/L VBG O2 Saturation < 60.0 % VBG Base Excess 0.8 mEq/L Sodium 131 L (136-145) mmol/L Potassium 4.8 (3.5-5.1) mmol/L Chloride 94 L (98-107) mmol/L Carbon Dioxide 25 (21-32) mmol/L Anion Gap 12 H (3-11) BUN 37 H (6-23) mg/dl Creatinine 1.16 (0.6-1.2) mg/dl Est Cr Clr Drug Dosing 43.4 ml/min eGFR 48.56 BUN/Creatinine Ratio 31.9 H (10-20) Glucose 416 H* (70-99(Fasting)) mg/dl POC Glucose 354 H* (70-99) mg/dl Calcium 9.3 (8.6-10.3) mg/dl Magnesium 2.0 (1.7-2.4) mg/dl Total Bilirubin 0.8 (0.2-1.0) mg/dl AST 15 (13-39) U/L ALT 20 (7-52) U/L Alkaline Phosphatase 95 (34-104) U/L Total Protein 7.4 (6.0-8.3) gm/dl Albumin 4.1 (3.4-5.0) gm/dl Globulin 3.3 (2.5-4.0) gm/dl Albumin/Globulin Ratio 1.2 (0.9-2) SARS-CoV-2, RNA, NAAT NEGATIVE (NEGATIVE) 06/27/24 Range/Units 14:00 WBC (4.8-10.8) K/ul RBC (4.20-5.40) M/uL Hgb (12.0-16.0) g/dl Hct (37.0-47.0) % MCV (80.0-100.0) fL MCH (25.0-34.0) pg MCHC (32.0-36.0) g/dL RDW Std Deviation (36.4-46.3) fL RDW Coeff of Linda (11.5-14.5) % Plt Count (130-400) K/uL MPV (9.4-12.4) fL Immature Gran % (Auto) % Neut % (Auto) % Lymph % (Auto) % [place] % (Auto) % Eos % (Auto) % Baso % (Auto) % Neut # (Auto) (1.40-6.50) K/uL Lymph # (Auto) (1.20-3.40) K/uL [place] # (Auto) (0.11-0.59) K/uL Eos # (Auto) (0.00-0.50) K/uL Baso # (Auto) (0.00-0.20) K/uL Immature Gran # (Auto) (0.01-0.20) K/uL VBG pH (7.36-7.41) VBG pCO2 (38-50) mmHg VBG pO2 mmHg VBG HCO3 mmol/L VBG O2 Saturation % VBG Base Excess mEq/L Sodium (136-145) mmol/L Potassium (3.5-5.1) mmol/L Chloride (98-107) mmol/L Carbon Dioxide (21-32) mmol/L Anion Gap (3-11) BUN (6-23) mg/dl Creatinine (0.6-1.2) mg/dl Est Cr Clr Drug Dosing ml/min eGFR BUN/Creatinine Ratio (10-20) Glucose (70-99(Fasting)) mg/dl POC Glucose 220 H (70-99) mg/dl Calcium (8.6-10.3) mg/dl Magnesium (1.7-2.4) mg/dl Total Bilirubin (0.2-1.0) mg/dl AST (13-39) U/L ALT (7-52) U/L Alkaline Phosphatase (34-104) U/L Total Protein (6.0-8.3) gm/dl Albumin (3.4-5.0) gm/dl Globulin (2.5-4.0) gm/dl Albumin/Globulin Ratio (0.9-2) SARS-CoV-2, RNA, NAAT (NEGATIVE) Administered Medications Discontinued Medications Fentanyl Citrate (Fentanyl Citrate Pf 100 Mcg/2 Ml Vial) 25 mcg IV NOW STA Stop: 06/27/24 11:15 Last Admin: 06/27/24 11:32 Dose: 25 mcg Documented By: VILMA Sodium Chloride (Nss) 500 mls @ 999 mls/hr IV .Q31M ONE Stop: 06/27/24 11:42 Last Infusion: 06/27/24 12:13 Dose: Infused Documented By: Admin: 06/27/24 11:22 Dose: 999 mls/hr Documented By: ARLENE Insulin Human Regular (Novolin-R Insulin Per Unit Charge) 8 units IV NOW STA Stop: 06/27/24 12:05 Last Admin: 06/27/24 12:25 Dose: 8 units Documented By: VILMA Co-signed By: ALRENE Imaging Data Radiologist's Impression: Foot X-Ray 06/27/24 11:10 XR foot LT min 3V routine CLINICAL HISTORY: Fracture, pain, walked on splint. COMPARISON: Left foot radiographs June 27, 2024 at 6:03 AM. FINDINGS: Fine detail is diminished given overlying splint. However, alignment of acute nondisplaced transverse fracture within the base of the left fifth metatarsal is unchanged. Fracture is 1.7 cm from the tip of the fifth metatarsal. No additional acute fractures are present. Tarsometatarsal joints are intact. There are old, healed fourth and fifth metatarsal fractures. Posterior and plantar calcaneal spurs are present. IMPRESSION: No change in alignment of an acute nondisplaced transverse fracture within the base of left fifth metatarsal suggestive of a Hyde fracture. ACT 112: Negative or not required by law. Electronically signed by: J Carlos Mitchell M.D. 06/27/2024 12:16 PM Discharge Plan Visit Data Chief Complaint: Foot Injury/Pain Stated Complaint: UNABLE TO GET AROUND ED Provider: Kaveh Singer Discharge Problem: Metatarsal fracture, Ambulatory dysfunction, Hyperglycemia due to type 1 diabetes mellitus Patient Disposition: Being Evaluated by Hospitalist Forms Stand Alone Forms: [facility] Prescriptions Prescriptions: No Action (DME) pen needle, diabetic [BD Missy 2nd Gen Pen Needle] 32 gauge x 5/32" needle See Dose Instructions .ROUTE .MEDSUPPLY Qty: 150 5RF Rx Instructions: Use 1 needle 4 times daily (DME) Dexcom G6 Php Mysql Web Developer Misc See Dose Instructions .ROUTE .MEDSUPPLY Qty: 1 0RF Dose Instruction: Use as directed for continuous glucose monitoring Rx Instructions: Use as directed for continuous glucose monitoring (DME) Dexcom G6 Sensor Device See Dose Instructions .ROUTE .MEDSUPPLY Qty: 9 3RF Dose Instruction: Use as directed for continuous glocuse monitoring - Change sensor every 10 days Rx Instructions: Use as directed for continuous glocuse monitoring - Change sensor every 10 days (DME) Dexcom G6 Transmitter Device See Dose Instructions .ROUTE .MEDSUPPLY Qty: 1 3RF Dose Instruction: Use as directed for continuous glucose monitoring - change every 90 days Rx Instructions: Use as directed for continuous glucose monitoring - change every 90 days insulin lispro [Admelog SoloStar U-100 Insulin] 100 unit/mL insulin pen 1 sliding scale dose subcut USEASDIRECTD MDD 40 units Qty: 45 3RF Rx Instructions: Sliding scale with meals [id number] amiodarone 200 mg tablet 200 mg PO QAM Qty: 90 3RF Rx Instructions: pt isnt too sure of this medication, she thinks she does take it though trazodone 50 mg tablet 50 mg PO PM Qty: 90 3RF atorvastatin 20 mg tablet 20 mg PO PM Qty: 90 1RF Rx Instructions: takes at 4:00 furosemide [Lasix] 40 mg tablet 40 mg PO QAM Qty: 90 1RF venlafaxine 150 mg capsule,extended release 24hr 150 mg PO QAM Qty: 90 3RF potassium chloride 10 mEq tablet extended release 10 meq PO QAM Qty: 90 3RF (DME) blood sugar diagnostic Strip See Rx Instructions .ROUTE .MEDSUPPLY Qty: 100 11RF Rx Instructions: Test blood sugars 2 times a day as needed. OneTouch Ultra (DME) Shower Chair Misc See Rx Instructions .Route Qty: 1 0RF Rx Instructions: As directed-shower transfer bench. E10.42 cetirizine 10 mg tablet 10 mg PO DAILY PRN (Reason: allergy symptoms) Qty: 30 5RF (DME) lancets [OneTouch Delica Plus Lancet] 33 gauge misc See Dose Instructions .ROUTE .MEDSUPPLY Qty: 100 Rx Instructions: Test 5 times daily solifenacin [Vesicare] 5 mg tablet 5 mg PO QAM Qty: 90 3RF Rx Instructions: not sure of this medicaton. filled 06/06 30 day supply [id number] [krill oil] [id number] mg Capsule 1 cap PO QAM omeprazole 20 mg tablet,delayed release (DR/EC) 20 mg PO QAM insulin glargine [Basaglar KwikPen U-100 Insulin] 100 unit/mL (3 mL) insulin pen 18 - 22 unit SQ PM Patient Comments: 10 units Rx Instructions: per pt she thinks she does 25 units 18-22 units dailysubcutaneously evening; Referrals Referrals: Lois Nolan MD [Primary Care Provider] - Discharge Problem: Metatarsal fracture Qualifiers: Encounter type: initial encounter Metatarsal bone: fifth Fracture type: closed Fracture alignment: nondisplaced Laterality: left Qualified Code(s): S92.355A - Nondisplaced fracture of fifth metatarsal bone, left foot, initial encounter for closed fracture
[2024-06-27] MEDS: SODIUM CHLORIDE 0.9% 500 ML IV ONE (11:22)
[2024-06-27 11:32] LABS: Base Excess VBG 0.8 mEq/L; HCO3 VBG 25 mmol/L; Oxygen Saturation VBG < 60.0 %; PCO2 VBG 39 mmHg (38-50); PO2 VBG 30 mmHg; pH VBG 7.42 (7.36-7.41)
[2024-06-27] MEDS: fentaNYL citrate PF 100 MCG/2 ML VIAL IV STA (11:32)
[2024-06-27 11:36] LABS: Basophils # (auto) 0.04 K/uL (0.00-0.20); Basophils % (auto) 0.4 %; Eosinophils # (auto) 0.02 K/uL (0.00-0.50); Eosinophils % (auto) 0.2 %; Hematocrit (blood only) 37.6 % (37.0-47.0); Hemoglobin 12.5 g/dl (12.0-16.0); Immature Granulocytes # (auto) 0.03 K/uL (0.01-0.20); Immature Granulocytes % (auto) 0.3 %; Lymphocytes # (auto) 1.65 K/uL (1.20-3.40); Lymphocytes % (auto) 16.6 %; Mean Corpuscular Hemoglobin 27.7 pg (25.0-34.0); Mean Corpuscular Hgb Conc 33.2 g/dL (32.0-36.0); Mean Corpuscular Volume 83.4 fL (80.0-100.0); Mean Platelet Volume 10.4 fL (9.4-12.4); Monocytes # (auto) 0.96 K/uL (0.11-0.59); Monocytes % (auto) 9.7 %; Neutrophils # (auto) 7.23 K/uL (1.40-6.50); Neutrophils % (auto) 72.8 %; Platelet Count 238 K/uL (130-400); RDW Coefficient of Variation 17.2 % (11.5-14.5); Red Blood Count 4.51 M/uL (4.20-5.40); White Blood Count 9.93 K/ul (4.8-10.8)
[2024-06-27 11:57] LABS: Albumin Globulin Ratio 1.2 (0.9-2); Albumin Level 4.1 gm/dl (3.4-5.0); BUN Creatinine Ratio 31.9 (10-20); Bilirubin,Total 0.8 mg/dl (0.2-1.0); Calcium 9.3 mg/dl (8.6-10.3); Creatinine Clr Calc Pharmacy 43.4 ml/min; Globulin 3.3 gm/dl (2.5-4.0); Potassium 4.8 mmol/L (3.5-5.1); Total Protein 7.4 gm/dl (6.0-8.3)
--- NOTE | 2024-06-27 12:17 | XRay Report ---
XR foot LT min 3V routine CLINICAL HISTORY: Fracture, pain, walked on splint. COMPARISON: Left foot radiographs June 27, 2024 at 6:03 AM. FINDINGS: Fine detail is diminished given overlying splint. However, alignment of acute nondisplaced transverse fracture within the base of the left fifth metatarsal is unchanged. Fracture is 1.7 cm fro m the tip of the fifth metatarsal. No additional acute fractures are present. Tarsometatarsal joints are intact. There are old, healed fourth and fifth metatarsal fractures. Posterior and plantar calcan eal spurs are present. IMPRESSION: No change in alignment of an acute nondisplaced transverse fracture within the base of le ft fifth metatarsal suggestive of a Hyde fracture. ACT 112: Negative or not required by law. Electronically signed by: JC arlos Mitchell M.D. 06/27/2024 12:16 PM
[2024-06-27] MEDS: NovoLIN-R INSULIN PER UNIT CHARGE IV STA (12:25)
--- NOTE | 2024-06-27 15:18 | History & Physical Report ---
Date of Service June 27, 2024 Assessment & Plan (1) Metatarsal fracture: (2) Ambulatory dysfunction: (3) Hyperglycemia due to type 1 diabetes mellitus: (4) Hyponatremia: (5) Paroxysmal A-fib: (6) (HFpEF) heart failure with preserved ejection fraction: Plan Patient is a 78-year-old female with past medical history of type I DM, A-fib, hypertension, chronic hyponatremia, anxiety/depression, fall resulting in subdural hematoma in March 2024. She presents today due to ambulatory dysfunction after being discharged from the ED with a Hyde fracture. She was to be nonweightbearing to left LE and follow-up with orthopedics in 2 to 3 days; upon arrival to her home she was unable to get out of the car due to pain. She returned back to the hospital and is being admitted for PT/OT evals. #Hyde fracture/ ambulatory dysfunction S/p mechanical fall at home Left foot XR showing acute nondisplaced transverse fracture within the base of left fifth metatarsal suggestive of Hyde fracture Splint in place in ED Orthopedics consulted Nonweightbearing to left foot PT/OT to evaluate scheduled Tylenol, Toradol prn, and morphine 1/2mg (for pain not relieved by #1 and 2); oxycodone allergy #hyperglycemia due to DM1 Glucose 460 -> 8 units Novolin R in ED -> 220 Basaglar 25 units at bedtime at home most recent A1c 9.0 01/2024; add to am labs Lantus 15 units twice daily Sliding scale CF 25, CR 9 #hyponatremia chronic 131 500 NSS bolus in ED Trend BMP Chronic stable diagnoses: a fib - continue amiodarone; Xarelto recently discontinued with subdural hematoma in March CHF - continue Lasix and potassium supplement; monitor for fluid overload fluids given in ED HLD - continue statin anxiety/depression - continue trazodone and venlafaxine overactive bladder - continue solifenacin, purewick ordered as NWB VTE ppx: SCDs; defer chemical PPx with recent subdural hematoma Diet: T1DM Dispo: mes surg Admission and Anticipated Discharge Date Admission Date: 06/27/24 History of Present Illness Chief Complaint: foot injury Primary Care Provider: Lois Nolan MD Patient is a 78-year-old female with past medical history of type I DM, A-fib, hypertension, chronic hyponatremia, anxiety/depression. She presents today due to ambulatory dysfunction after being discharged from the ED with a Hyde fracture. She was to be nonweightbearing to left LE and follow-up with orthopedics in 2 to 3 days; upon arrival to her home she was unable to get out of the car due to pain. She returned back to the hospital and is being admitted for PT/OT evals. The patient stated that when she was putting on her leather boot this morning she fell sideways onto her left foot. She grabbed a hold of her sink and did not have a significant fall. She does have a history of a recent fall in March that resulted in a subdural hematoma and she was likely due to [facility]. She discontinued her Xarelto at this time. She was found to have a Hyde fracture in the ED and discharged home on splint intact orthopedics follow-ups. When she got home she was unable to get out of the car due to significant pain. She stated her pain was 11/10. She came back to the ED and was given fentanyl 25 mcg and now her pain is 0/10. she is to be nonweightbearing to the left foot and using crutches. She does not use assistance at baseline. Patient denies dizziness, lightheadedness, dyspnea, dyspnea on exertion, chest pain, abdominal pain, nausea, vomiting, numbness, tingling. She did not take her home medications this morning. [facility] She wishes to be DNR/DNI. Allergies Allergy/AdvReac Type Severity Reaction Status Date / Time oxycodone Allergy Intermediate ITCHING Verified 05/13/24 13:15 Home Medications Medication Instructions Recorded Confirmed Type krill 1,000 mg-omega-3 170 mg-dha 1 cap PO QAM 05/24/18 06/27/24 History 50 mg-epa 80 [id number] capsule (krill oil) lancets 33 gauge (OneTouch Delica #100 ea 02/22/19 05/13/24 History Plus Lancet) pen needle, diabetic 32 gauge x #150 ea 05/23/22 05/13/24 Rx 5/32" (BD Missy 2nd Gen Pen Needle) Dexcom G6 Mail Officer (blood-glucose #1 ea 11/19/22 05/13/24 Rx meter,continuous) Dexcom G6 Sensor (blood-glucose #9 ea 11/19/22 05/13/24 Rx sensor) Dexcom G6 Transmitter #1 ea 11/19/22 05/13/24 Rx (blood-glucose transmitter) Shower Chair #1 ea 11/20/22 05/13/24 Rx omeprazole 20 mg tablet,delayed 20 mg PO QAM 08/05/23 06/27/24 History release cetirizine 10 mg tablet 10 mg PO DAILY PRN allergy 09/17/23 06/27/24 Rx symptoms #30 tabs insulin glargine 100 unit/mL (3 18 - 22 unit subcut PM 09/26/23 06/27/24 History mL) subcutaneous pen (Basaglar KwikPen U-100 Insulin) Admelog SoloStar U-100 Insulin 100 1 sliding scale dose subcut 10/02/23 06/27/24 Rx unit/mL subcutaneous pen (insulin USEASDIRECTD #45 mL lispro) amiodarone 200 mg tablet 200 mg PO QAM #90 tabs 12/03/23 06/27/24 Rx trazodone 50 mg tablet 50 mg PO PM for 12/23/23 06/27/24 Rx insomnia/sleeplessness #90 tabs atorvastatin 20 mg tablet 20 mg PO PM #90 tabs 04/19/24 06/27/24 Rx furosemide 40 mg tablet (Lasix) 40 mg PO QAM #90 tabs 04/20/24 06/27/24 Rx venlafaxine 150 mg 150 mg PO QAM #90 caps 04/21/24 06/27/24 Rx capsule,extended release 24 hr potassium chloride 10 mEq 10 meq PO QAM #90 tabs 04/25/24 06/27/24 Rx tablet,extended release blood sugar diagnostic #100 ea 05/25/24 Rx solifenacin 5 mg tablet (Vesicare) 5 mg PO QAM #90 tabs 06/13/24 06/27/24 Rx Past Med/Surg History Problem List (Updated 06/27/24 @ 15:40 by Karen Real PA-C) Hyponatremia Hyperglycemia due to type 1 diabetes mellitus (Acute) Ambulatory dysfunction (Acute) Metatarsal fracture (Acute ~06/27/24) Non-displaced fracture base of the left 5th metatarsal Metatarsal fracture (Acute 06/27/24) Non-displaced fracture base of the left 5th metatarsal happened while trying to put on a boot per the ED report Incontinence (Acute) Thyroid nodule Abnormal imaging of thyroid right thyroid lobe hypodensity on [facility] scan Skin pruritus Elevated TSH Physical deconditioning (HFpEF) heart failure with preserved ejection fraction Weakness (Acute) Paroxysmal A-fib (Acute 03/2022) Uncontrolled type 1 diabetes mellitus with complication, with long-term current use of insulin Diabetic polyneuropathy associated with type 1 diabetes mellitus Sensory ataxia Alcoholism pt reports is improving on this, few drinks of vodka weekly, no longer every day Left bundle branch block Proliferative diabetic retinopathy associated with type 1 diabetes mellitus Urinary incontinence Depression Hypertension Lumbar stenosis with neurogenic claudication Chronic low back pain (Acute) Medical History Subdural hematoma (03/2024) Current use of assisted anticoagulation DM type 1 (diabetes mellitus, type 1) HLD (hyperlipidemia) Left bundle branch block (LBBB) History of cardioversion Migraines Gastroesophageal reflux disease Gastroparesis Osteopenia Venous insufficiency Vitamin D deficiency History of colon polyps Spinal stenosis Anxiety Surgical History History of open reduction and internal fixation (ORIF) procedure History of right breast biopsy History of open reduction and internal fixation (ORIF) procedure History of bilateral carpal tunnel release History of lumbar fusion History of colonoscopy History of tooth extraction History of bilateral cataract extraction Family History Grandmother (Maternal) Family history of diabetes mellitus Diabetes Uncle Family history of diabetes mellitus Grandmother (Paternal) Breast cancer Mother Myocardial infarction Scleroderma Father Myocardial infarction Denies family history of Ovarian cancer Prostate cancer Colorectal cancer Social History Smoking Status: Never smoker Tobacco Type: Cigarettes Age Started Using Tobacco: 21; Age Quit Using Tobacco: 28; packs per day: 1; Second Hand Exposure: No; Do You Dip or Chew Tobacco: No; Hx Alcohol Use: Yes Alcohol type: hard liquor Alcohol Intake Frequency: 4 or More x per/Week Alcohol Intake Frequency Comment: 1-2 drinks of vodka per night Hx Substance Use: No Preferred Language: Greek Communication Ability: Effective Visual Impairment: Partially Limited Hearing Ability: Hard of Hearing Integrated Circuit Fabricator Required: No Beliefs That Will Affect Care: None marital status: Current Living Situation: Spouse Current Living Situation Comment: current occupational status: 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 Non-toxic appearing. HEENT- EOMI, mucous membranes moist. Hearing grossly intact. Heart-normal S1 and S2. No murmurs, rubs or gallops. Lungs-clear bilaterally, no respiratory distress, no accessory muscle use. Abdomen-normal bowel sounds and soft. No ascites noted. Non-tender. Extremities- no clubbing, cyanosis, or edema. Left foot splint intact, left LE neurovascularly intact. Rheumatologic-normal range of motion. Psychiatric-normal affect. Results & Data Results & Data Vital Signs (Past 12 Hours) Vital Signs Temp Pulse Pulse Resp BP BP Pulse Ox 06/27/24 15:00 71 16 143/68 H 95 06/27/24 13:45 70 16 137/75 92 06/27/24 12:58 72 06/27/24 11:22 60 20 128/59 L 99 06/27/24 10:55 36.8 C 67 18 144/84 H 100 O2 Del Method 06/27/24 15:00 Room Air 06/27/24 13:45 Room Air 06/27/24 12:58 06/27/24 11:22 06/27/24 10:55 Room Air Laboratory Results Reviewed CBC, CMP, VBG Diagnostic Findings reviewed foot XR Medications Administered ED: 500 NSS bolus, fentanyl 25 mcg, Novolin R 8units ECG Additional Comments: ordered Code Status & VTE Plan Code Status dnr/dni VTE Prophylaxis Plan VTE Prophylaxis will be ordered: Yes Supervising Physician Co-Signing Physician Notes The patient was seen by me. The chart was reviewed. Case discussed with TATYANA Malcolm. Agree with assessment and plan PG Care Time/CCT Total # of Minutes Spent Total Time Spent with Patient: Total time spent is greater than 50% in coordination of care (as documented) at patient's floor/unit and/or counseling patient: Coding Level of Care Code 13853 INT INP/OBS CARE 3/75MIN Diagnoses Metatarsal fracture S92.355A Encounter type: initial encounter Fracture alignment: nondisplaced Fracture type: closed Laterality: left Metatarsal bone: fifth Ambulatory dysfunction R26.2 Hyperglycemia due to type 1 diabetes mellitus E10.65 Hyponatremia E87.1 Paroxysmal A-fib I48.0 (HFpEF) heart failure with preserved ejection fraction I50.30 (1) Metatarsal fracture Encounter type: initial encounter Fracture alignment: nondisplaced Fracture type: closed Laterality: left Metatarsal bone: fifth Qualified Code(s): S92.355A - Nondisplaced fracture of fifth metatarsal bone, left foot, initial encounter for closed fracture
[2024-06-27] MEDS ORDERED: GLUCOSE 10 TAB/TUBE PO PRN (16:29)
[2024-06-27] MEDS ORDERED: GLUCAGON FOR INJ 1 MG VIAL SQ PRN (16:29)
[2024-06-27] MEDS ORDERED: ONDANSETRON INJ 2 MG/ML 2 ML VIAL IV PRN (16:29)
[2024-06-27] MEDS ORDERED: traZODone HCL 50 MG TAB PO PRN (16:29)
[2024-06-27] MEDS ORDERED: DOCUSATE SODIUM 100 MG CAP PO PRN (16:29)
[2024-06-27] MEDS ORDERED: GLUCOSE 40% GEL 15 GM TUBE PO PRN (16:29)
[2024-06-27] MEDS ORDERED: MoRPHine SULFATE 2 MG/ML CARP IV PRN ×2 (16:29)
[2024-06-27] MEDS ORDERED: CARBOHYDRATES FOR HYPOGLYCEMIA PO PRN (16:29)
[2024-06-27] MEDS ORDERED: KETOROLAC TROMETHAMINE 15 MG/ML VIAL IV PRN (16:29)
[2024-06-27] MEDS: VENLAFAXINE HCL XR 150 MG CAPXR PO SCH (17:18)
[2024-06-27] MEDS: ACETAMINOPHEN 500 MG TAB PO SCH (17:18)
[2024-06-27] MEDS: AMIODARONE 200 MG TAB PO SCH (17:19)
[2024-06-27] MEDS: OXYBUTYNIN CHLORIDE XL 5 MG TABCR PO SCH (17:20)
[2024-06-27] MEDS: INSULIN ASPART PER UNIT CHARGE SC SCH (17:25)
--- NOTE | 2024-06-27 20:38 | Orthopedic Consultation ---
Date of Service June 27, 2024 Assessment & Plan (1) Metatarsal fracture: She has a zone 2 5th metatarsal fx. Xray and plan reviewed with Dr. Coy. This can be treated nonoperatively. We recommend a walking boot. She has one at home so she said she will contact her to bring this in tomorrow. Once she has the boot nursing staff can remove her splint and place her boot on. If we need orthotics consult to make sure her boot fits appropriately we can consult them. Ideally, she should be nonweight bearing on the left leg in the boot. However, I'm not sure how realistic it is to keep her NWB. I told her she can put her weight on her heel in the boot. She has a walker. She is awaiting placement in rehab if available. I did discuss the possibility of a nonunion with this type of fracture. She should follow up with orthopedics in about 1 month for follow up and xrays. History of Present Illness Reason for Consultation: . Requesting Physician: . Attending Physician: Jc Stephens MD .78 year old patient that injured her left foot yesterday while putting on her boots. She describes the pain over the lateral foot/5th metatarsal. She was seen earlier in the ER, xrays showed the 5th metatarsal fx, she was splinted and discharged home. She was unable to manage being in the splint and NWB and presented back to the ER, and was admitted to the Hospitalist service. She does have a prior history of a fracture in this foot or ankle and has a boot at home. Allergies Allergy/AdvReac Type Severity Reaction Status Date / Time oxycodone Allergy Intermediate ITCHING Verified 05/13/24 13:15 Home Medications Medication Instructions Recorded Confirmed Type krill 1,000 mg-omega-3 170 mg-dha 1 cap PO QAM 05/24/18 06/27/24 History 50 mg-epa 80 [id number] capsule (krill oil) lancets 33 gauge (OneTouch Delica #100 ea 02/22/19 05/13/24 History Plus Lancet) pen needle, diabetic 32 gauge x #150 ea 05/23/22 05/13/24 Rx 5/32" (BD Missy 2nd Gen Pen Needle) Dexcom G6 Green Hide Inspector (blood-glucose #1 ea 11/19/22 05/13/24 Rx meter,continuous) Dexcom G6 Sensor (blood-glucose #9 ea 11/19/22 05/13/24 Rx sensor) Dexcom G6 Transmitter #1 ea 11/19/22 05/13/24 Rx (blood-glucose transmitter) Shower Chair #1 ea 11/20/22 05/13/24 Rx omeprazole 20 mg tablet,delayed 20 mg PO QAM 08/05/23 06/27/24 History release cetirizine 10 mg tablet 10 mg PO DAILY PRN allergy 09/17/23 06/27/24 Rx symptoms #30 tabs insulin glargine 100 unit/mL (3 18 - 22 unit subcut PM 09/26/23 06/27/24 History mL) subcutaneous pen (Basaglar KwikPen U-100 Insulin) Admelog SoloStar U-100 Insulin 100 1 sliding scale dose subcut 10/02/23 06/27/24 Rx unit/mL subcutaneous pen (insulin USEASDIRECTD #45 mL lispro) amiodarone 200 mg tablet 200 mg PO QAM #90 tabs 12/03/23 06/27/24 Rx trazodone 50 mg tablet 50 mg PO PM for 12/23/23 06/27/24 Rx insomnia/sleeplessness #90 tabs atorvastatin 20 mg tablet 20 mg PO PM #90 tabs 04/19/24 06/27/24 Rx furosemide 40 mg tablet (Lasix) 40 mg PO QAM #90 tabs 04/20/24 06/27/24 Rx venlafaxine 150 mg 150 mg PO QAM #90 caps 04/21/24 06/27/24 Rx capsule,extended release 24 hr potassium chloride 10 mEq 10 meq PO QAM #90 tabs 04/25/24 06/27/24 Rx tablet,extended release blood sugar diagnostic #100 ea 05/25/24 Rx solifenacin 5 mg tablet (Vesicare) 5 mg PO QAM #90 tabs 06/13/24 06/27/24 Rx Past Med/Surg History Problem List Hyponatremia Hyperglycemia due to type 1 diabetes mellitus (Acute) Ambulatory dysfunction (Acute) Metatarsal fracture (Acute ~06/27/24) Non-displaced fracture base of the left 5th metatarsal Metatarsal fracture (Acute 06/27/24) Non-displaced fracture base of the left 5th metatarsal happened while trying to put on a boot per the ED report Incontinence (Acute) Thyroid nodule Abnormal imaging of thyroid right thyroid lobe hypodensity on [facility] CT scan Skin pruritus Elevated TSH Physical deconditioning (HFpEF) heart failure with preserved ejection fraction Weakness (Acute) Paroxysmal A-fib (Acute 03/2022) Uncontrolled type 1 diabetes mellitus with complication, with long-term current use of insulin Diabetic polyneuropathy associated with type 1 diabetes mellitus Sensory ataxia Alcoholism pt reports is improving on this, few drinks of vodka weekly, no longer every day Left bundle branch block Proliferative diabetic retinopathy associated with type 1 diabetes mellitus Urinary incontinence Depression Hypertension Lumbar stenosis with neurogenic claudication Chronic low back pain (Acute) Medical History Subdural hematoma (03/2024) Current use of group home anticoagulation discontinued per chart review after subdural hemorrhage 2023 DM type 1 (diabetes mellitus, type 1) HLD (hyperlipidemia) Left bundle branch block (LBBB) History of cardioversion Migraines Gastroesophageal reflux disease Gastroparesis Osteopenia Venous insufficiency Vitamin D deficiency History of colon polyps Spinal stenosis Anxiety Surgical History History of open reduction and internal fixation (ORIF) procedure right wrist fx--hardware in place History of right breast biopsy x2--benign mass History of open reduction and internal fixation (ORIF) procedure left wrist fx--hardware removed History of bilateral carpal tunnel release History of lumbar fusion History of colonoscopy History of tooth extraction History of bilateral cataract extraction Family History Grandmother (Maternal) Family history of diabetes mellitus Diabetes Uncle Family history of diabetes mellitus paternal Grandmother (Paternal) Breast cancer Mother , age 77 of an [place] Myocardial infarction Scleroderma Father , age 70 of an [place] Myocardial infarction Denies family history of Ovarian cancer Prostate cancer Colorectal cancer Social History Smoking Status: Former smoker Tobacco Type: Cigarettes Age Started Using Tobacco: 21; Age Quit Using Tobacco: 28; packs per day: 1; Second Hand Exposure: No; Do You Dip or Chew Tobacco: No; Tobacco Cessation Education Requested by Patient: No Hx Alcohol Use: Yes Alcohol type: hard liquor Alcohol Intake Frequency: 4 or More x per/Week Alcohol Intake Frequency Comment: 1-2 drinks of vodka per night Hx Substance Use: No Preferred Language: Belizean Communication Ability: Effective Visual Impairment: Partially Limited Hearing Ability: Hard of Hearing Credit Review Manager Required: No Beliefs That Will Affect Care: None marital status: Current Living Situation: Spouse Current Living Situation Comment: current occupational status: retired 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 Physical Exam .alert and oriented. NAD Left leg: Splint in place. I did not remove this today. She is tender at the 5th metatarsal base. No other tenderness throughout the foot and ankle. Able to move her toes appropriately. NVI. Results & Data Results & Data Laboratory Results . Diagnostic Findings .2 different foot series' reviewed which show a nondisplaced 5th metatarsal zone 2 draper fx. xrays of the ankle show no acute fx but she does have some cortical thickening consistent possibly with her previous injury. PG Care Time/CCT Total # of Minutes Spent Total Time Spent with Patient: Total time spent is greater than 50% in coordination of care (as documented) at patient's floor/unit and/or counseling patient: Coding Level of Care Code 39690 IN/OBS CONSULT LVL 3,45M Diagnoses Metatarsal fracture S92.355A Encounter type: initial encounter Fracture alignment: nondisplaced Fracture type: closed Laterality: left Metatarsal bone: fifth (1) Metatarsal fracture Encounter type: initial encounter Fracture alignment: nondisplaced Fracture type: closed Laterality: left Metatarsal bone: fifth Qualified Code(s): S92.355A - Nondisplaced fracture of fifth metatarsal bone, left foot, initial encounter for closed fracture
[2024-06-27] MEDS: LANTUS PER UNIT CHARGE SQ SCH (21:27)
[2024-06-27] MEDS: ATORVASTATIN 20 MG TAB PO SCH (21:28)
[2024-06-27] MEDS: DEXTROSE 50% 50 ML SYRINGE IV PRN (23:23)
[2024-06-28 07:50] VITALS: RESP 16
[2024-06-28 08:15] LABS: Estimated Average Glucose 220 mg/dl; Hemoglobin A1C 9.3 % (4.5-5.6)
--- NOTE | 2024-06-28 08:19 | Electrocardiogram Report ---
Test Reason : Blood Pressure : */* mmHG Vent. Rate : 73 BPM Atrial Rate : 73 BPM P-R Int : 220 ms QRS Dur : 164 ms QT Int : 478 ms P-R-T Axes : 77 -46 93 degrees QTcB Int : 526 ms Sinus rhythm with 1st degree A-V block with occasional Premature ventricular complexes Left axis deviation Left bundle branch block Abnormal ECG When compared with ECG of 31-Mar-2024 14:28, Premature ventricular complexes are now Present Confirmed by Saulo Mosher ([id number]) on 06/28/2024 8:19:44 AM Referred By: REFERRED SELF Confirmed By: Saulo Mosher
[2024-06-28 08:29] LABS: BUN Creatinine Ratio 28.9 (10-20); Calcium 8.9 mg/dl (8.6-10.3); Creatinine Clr Calc Pharmacy 54.7 ml/min; Potassium 4.1 mmol/L (3.5-5.1)
[2024-06-28 08:30] LABS: Basophils # (auto) 0.04 K/uL (0.00-0.20); Basophils % (auto) 0.6 %; Eosinophils # (auto) 0.09 K/uL (0.00-0.50); Eosinophils % (auto) 1.3 %; Hematocrit (blood only) 34.7 % (37.0-47.0); Hemoglobin 11.5 g/dl (12.0-16.0); Immature Granulocytes # (auto) 0.01 K/uL (0.01-0.20); Immature Granulocytes % (auto) 0.1 %; Lymphocytes # (auto) 1.61 K/uL (1.20-3.40); Lymphocytes % (auto) 22.9 %; Mean Corpuscular Hemoglobin 27.8 pg (25.0-34.0); Mean Corpuscular Hgb Conc 33.1 g/dL (32.0-36.0); Mean Corpuscular Volume 83.8 fL (80.0-100.0); Mean Platelet Volume 11.1 fL (9.4-12.4); Monocytes # (auto) 0.73 K/uL (0.11-0.59); Monocytes % (auto) 10.4 %; Neutrophils # (auto) 4.56 K/uL (1.40-6.50); Neutrophils % (auto) 64.7 %; Platelet Count 233 K/uL (130-400); RDW Coefficient of Variation 16.9 % (11.5-14.5); RDW Standard Deviation 52.5 fL (36.4-46.3); Red Blood Count 4.14 M/uL (4.20-5.40); White Blood Count 7.04 K/ul (4.8-10.8)
[2024-06-28] MEDS: FUROSEMIDE 40 MG TAB PO SCH (08:46)
[2024-06-28] MEDS: POTASSIUM CHLORIDE 10 MEQ TABCR PO SCH (08:46)
[2024-06-28] MEDS: PANTOprazole 40 MG TAB PO SCH (08:46)
[2024-06-28] MEDS: LANTUS PER UNIT CHARGE SQ SCH (08:50)
--- NOTE | 2024-06-28 09:46 | Orthopedic Progress Note ---
Date of Service June 28, 2024 Assessment & Plan (1) Metatarsal fracture: Assessment: Fifth metatarsal base fracture; nondisplaced. Plan: Overall, she is doing quite well today with good pain control to the left foot. I do feel that her fracture is in a stable position and can be treated nonoperatively at this point. I am going to get physical therapy to place her in her boot today. I do feel that she can be weightbearing as tolerated to the left lower extremity as long as she is in the boot. I would like to see if she can tolerate weightbearing status to the left foot. I did discuss that if she is having a lot of discomfort, she may be partial weightbearing to the left lower extremity. Will see how she works with physical therapy today. I will change her weightbearing status to full weightbearing in the tall cam boot. I will have her be seen by physical therapy today. From orthopedic standpoint, she may be discharged either to home or to a detention facility if she is not able to tolerate weightbearing to the left lower extremity. She does have an orthopedic surgeon that she follows up with regularly. She may continue following up with this orthopedic surgeon or she can follow-up in our office upon discharge. She verbalized understanding agrees with this plan. Subjective . Mikala is doing well today with good pain control to her left foot. She still remained in her splint today to the left foot. Her did bring her the walking boot that was discussed yesterday. I did take down her splint today. Her skin is intact today with no erythema, ecchymosis, edema, or other obvious deformities. She has been out of bed but has not put any weight to the left foot. She denies any low back pain, proximal extremity pain, numbness/ting, or paresthesias. She denies any other concerns today. Review of Systems All systems reviewed & are unremarkable except as noted in HPI & below. Physical Exam . Focused exam of the left foot shows no erythema, ecchymosis, edema, or other obvious deformities. Tenderness to palpation over the fifth metatarsal base. Intact plantarflexion dorsiflexion of left ankle. +2 DP and PT pulse. Normal sensation. Neurovascular intact. Results & Data Results & Data Laboratory Results . Diagnostic Findings . PG Care Time/CCT Total # of Minutes Spent Total Time Spent with Patient: Total time spent is greater than 50% in coordination of care (as documented) at patient's floor/unit and/or counseling patient: Coding Level of Care Code 49636 SUB INP/OBS CARE 07/16MIN Diagnoses Metatarsal fracture S92.355A Encounter type: initial encounter Fracture alignment: nondisplaced Fracture type: closed Laterality: left Metatarsal bone: fifth Additional Codes Fx Foot - Metatarsal: Metatarsal ([id number]) (1) Metatarsal fracture Encounter type: initial encounter Fracture alignment: nondisplaced Fracture type: closed Laterality: left Metatarsal bone: fifth Qualified Code(s): S92.355A - Nondisplaced fracture of fifth metatarsal bone, left foot, initial encounter for closed fracture
--- NOTE | 2024-06-28 14:28 | Communication Note ---
Date of Service: June 28, 2024 By CMS guidelines, a determination that the admission or continued stay is not medically necessary has been made by a member of the UR committee and a phy sician for this hospital stay, therefore a Code 44 will be completed and the Inpatient admission will be changed to outpatient.
--- NOTE | 2024-06-28 14:34 | Discharge Summary ---
Discharge Summary Date of Service June 28, 2024 Principal Dx & Hospital Course #1 = Principal Diagnosis (1) Metatarsal fracture: The patient is wearing a boot and using a walker. Pain control measures. She will follow-up with orthopedics after discharge from [facility]. (2) Ambulatory dysfunction: Use a walker as needed (3) Hyperglycemia due to type 1 diabetes mellitus: ADA diet. Sliding scale coverage while hospitalized. Resume usual diabetic management at discharge (4) Hyponatremia: Mild on admission. No treatment necessary (5) Paroxysmal A-fib: Stable. Continue current medical manage (6) (HFpEF) heart failure with preserved ejection fraction: Stable. Continue current medical management Plan Discharge to [facility] today, June 28. Follow-up with orthopedic surgeon as soon as possible after discharge from [facility] Admission HPI Per Admitting Provider Patient is a 78-year-old female with past medical history of type I DM, A-fib, hypertension, chronic hyponatremia, anxiety/depression. She presents today due to ambulatory dysfunction after being discharged from the ED with a Hyde fracture. She was to be nonweightbearing to left LE and follow-up with orthopedics in 2 to 3 days; upon arrival to her home she was unable to get out of the car due to pain. She returned back to the hospital and is being admitted for PT/OT evals. The patient stated that when she was putting on her leather boot this morning she fell sideways onto her left foot. She grabbed a hold of her sink and did not have a significant fall. She does have a history of a recent fall in March that resulted in a subdural hematoma and she was likely due to [facility]. She discontinued her Xarelto at this time. She was found to have a Hyde fracture in the ED and discharged home on splint intact orthopedics follow-ups. When she got home she was unable to get out of the car due to significant pain. She stated her pain was 11/10. She came back to the ED and was given fentanyl 25 mcg and now her pain is 0/10. she is to be nonweightbearing to the left foot and using crutches. She does not use assistance at baseline. Patient denies dizziness, lightheadedness, dyspnea, dyspnea on exertion, chest pain, abdominal pain, nausea, vomiting, numbness, tingling. She did not take her home medications this morning. She lives at home with her . She wishes to be DNR/DNI. Discharge Exam General-alert and oriented x3, no fever, no chills HEENT-head atraumatic and normocephalic, pupils equal and reactive to light, extraocular muscles intact Neck-no lymphadenopathy or thyromegaly, trachea midline Chest-clear to auscultation. No rales, wheezing or rhonchi Cardiac-regular rate and rhythm, normal S1 and S2 Abdomen-normal bowel sounds, no hepatosplenomegaly Extremities-no cyanosis, clubbing, or edema. Left foot is immobilized in a walking boot Neuro-cranial nerves II through XII intact, motor and sensory function within normal limits, strength symmetrical, no focal deficits Psych-normal affect, normal mood Discharge Plan Discharge Items Patient Disposition: Transfer Inpatient Rehab Fac Reason For Visit: AMBULATORY DYSFUNCTION, LEFT FOOT FX Discharge Diagnosis: Left fifth metatarsal fracture, ambulatory dysfunction Activity: Per Instructions section Non-emergency contact: Primary Care Provider Call non-emergency contact if: your symptoms worsen Follow-up/Referrals: Lois Nolan MD [Primary Care Provider] - Diet: Carb Consistent or DM2 Addtl Attending Provider Instructions: See orthopedic surgeon as soon as possible after discharge from [facility]. Use a walker as needed. Keep left foot in a walking boot Pending Studies at Discharge: No Stand-Alone Forms: My [facility] Skilled Items Patient informed of condition?: Yes DNR: No Discharge Level of Care: Acute rehab Communicable Disease: No Discharge Prognosis: Stable Lines: None Urinary Catheter: No Medications and DC Order Prescriptions: Continued (DME) pen needle, diabetic [BD Missy 2nd Gen Pen Needle] 32 gauge x 5/32" needle See Dose Instructions .ROUTE .MEDSUPPLY Qty: 150 5RF Rx Instructions: Use 1 needle 4 times daily (DME) Dexcom G6 Scabbler Misc See Dose Instructions .ROUTE .MEDSUPPLY Qty: 1 0RF Dose Instruction: Use as directed for continuous glucose monitoring Rx Instructions: Use as directed for continuous glucose monitoring (DME) Dexcom G6 Sensor Device See Dose Instructions .ROUTE .MEDSUPPLY Qty: 9 3RF Dose Instruction: Use as directed for continuous glocuse monitoring - Change sensor every 10 days Rx Instructions: Use as directed for continuous glocuse monitoring - Change sensor every 10 days (DME) Dexcom G6 Transmitter Device See Dose Instructions .ROUTE .MEDSUPPLY Qty: 1 3RF Dose Instruction: Use as directed for continuous glucose monitoring - change every 90 days Rx Instructions: Use as directed for continuous glucose monitoring - change every 90 days insulin lispro [Admelog SoloStar U-100 Insulin] 100 unit/mL insulin pen 1 sliding scale dose subcut USEASDIRECTD MDD 40 units Qty: 45 3RF Rx Instructions: Sliding scale with meals TDD40 amiodarone 200 mg tablet 200 mg PO QAM Qty: 90 3RF Rx Instructions: pt isnt too sure of this medication, she thinks she does take it though trazodone 50 mg tablet 50 mg PO PM Qty: 90 3RF atorvastatin 20 mg tablet 20 mg PO PM Qty: 90 1RF Rx Instructions: takes at 4:00 furosemide [Lasix] 40 mg tablet 40 mg PO QAM Qty: 90 1RF venlafaxine 150 mg capsule,extended release 24hr 150 mg PO QAM Qty: 90 3RF potassium chloride 10 mEq tablet extended release 10 meq PO QAM Qty: 90 3RF (DME) blood sugar diagnostic Strip See Rx Instructions .ROUTE .MEDSUPPLY Qty: 100 11RF Rx Instructions: Test blood sugars 2 times a day as needed. OneTouch Ultra (DME) Shower Chair Misc See Rx Instructions .Route Qty: 1 0RF Rx Instructions: As directed-shower transfer bench. E10.42 cetirizine 10 mg tablet 10 mg PO DAILY PRN (Reason: allergy symptoms) Qty: 30 5RF (DME) lancets [OneTouch Delica Plus Lancet] 33 gauge misc See Dose Instructions .ROUTE .MEDSUPPLY Qty: 100 Rx Instructions: Test 5 times daily solifenacin [Vesicare] 5 mg tablet 5 mg PO QAM Qty: 90 3RF Rx Instructions: not sure of this medicaton. filled 06/06 30 day supply [id number]-[id number] [krill oil] 1,480-535-08-80 mg Capsule 1 cap PO QAM omeprazole 20 mg tablet,delayed release (DR/EC) 20 mg PO QAM insulin glargine [Basaglar KwikPen U-100 Insulin] 100 unit/mL (3 mL) insulin pen 18 - 22 unit SQ PM Patient Comments: 10 units Rx Instructions: per pt she thinks she does 25 units 18-22 units dailysubcutaneously evening; Discharge Orders: Discharge Order (Routine); Ordered 06/28/24 Ordered By: Jc Stephens Admission Data Admit Date/Time: 06/27/24 15:28 Attending Provider: Jc Stephens Admit Provider: Jc Stephens Primary Care Provider: Lois Nolan Other Providers: Jc Stephens; Moisés Coy Hospital Stay Data Consultations 06/27/24 13:55 ED Decision to Admit Stat 06/27/24 16:29 Consult Orthopedic Surgery Routine Pending Results Patient Have Any Pending Studies at Discharge: No Discharge Instructions Given to Patient (Per Discharging Provider) See orthopedic surgeon as soon as possible after discharge from [facility]. Use a walker as needed. Keep left foot in a walking boot Total Time Total Time Spent Total Time Spent (In Minutes): 45 minutes Coding Level of Care Code 07476 INP/OBS DISCH >30 MIN Diagnoses Metatarsal fracture S92.355A Encounter type: initial encounter Fracture alignment: nondisplaced Fracture type: closed Laterality: left Metatarsal bone: fifth Ambulatory dysfunction R26.2 Hyperglycemia due to type 1 diabetes mellitus E10.65 Hyponatremia E87.1 Paroxysmal A-fib I48.0 (HFpEF) heart failure with preserved ejection fraction I50.30
[2024-06-28 15:12] VITALS: BP 126/64; PULSE 56; TEMP 97.9; O2SAT 96
== END 2024-06-28 15:07 | DRG 563 ==
LOC: ED 10:36 → 3W 15:28